=== PATIENT | female | born 1970 | race Caucasian/White ===

== ENCOUNTER 2016-02-20 17:00 | Emergency (ER) | payer MEDICAID ==
[~2016-02-20] VITALS: Ht 160 cm; Wt 132.4 kg
[~2016-02-20 17:00] MED LIST: AMLO5TAB2 PO; ARFO15VI2 IH; ASP81TEC PO; ATOR10TA66 PO; ATOR20TA66 PO; ATR20T PO; AZIT-21 PO; B/P MED PO; CEFD300C3 PO; CLIN150C17 PO; CYCL10TA9 PO; FISH12002 PO; FLUT16SP22 NS; FURO-124 PO; HYDR-757 PO; HYDR1CAP2 PO; HYDR25TA4 PO; KETO200T; LORA10CA PO; LOVA20TA2 PO; MELO15TA39 PO; METO-333 PO; METO50TA2 PO; MONT10TA24 PO; MTP25TSR PO; NAPR-243 PO; NAPR-689 PO; NITR-65 PO; OMEG1CAP51 PO; OMG1KC PO; PANT40TA3 PO; PNT40TEC PO; PRED10TA PO; PRM25T PO; PROM25SU10 PR; SULF1TAB38 PO; TRAM50TA2 PO
--- NOTE | 2016-02-20 18:00 | ED Back Pain ---
General Chief Complaint: Back Problems Stated Complaint: LOWER BACK PAIN Nursing Triage Note: AMBULATED TO ROOM 09 LAUGHING AND JOKING WITH FRINED. WOKE UP WITH LOWER BACK PAIN X3 DAYS AGO. DENIES INJURY OR TROUBLE URINATING. PT STATES SHE IS TAKING TYLENOL 1000MG PO Q6HR FOR PAIN. Nursing Sepsis Screen: No Definite Risk Source of Information: Patient, Other (friend) Exam Limitations: No Limitations History of Present Illness Time Seen by Provider: 18:00 Initial Comments 45-year-old female patient presents to the emergency department with complaints of 3 day onset of low back pain. Denies any known injury. Denies dysuria, frequency, hematuria. Patient states she took 1000 g of Tylenol every 6 hours for pain without improvement in symptoms. Location: Lumbar Spine, Paraspinous Muscles Timing/Duration: 1 Week Pain/Injury Location: Back Radiation: Other (denies radiation) Method of Injury: Unknown Modifying Factors: Worse With Movement Allergies and Home Medications Allergies Coded Allergies: Penicillins (Unverified Allergy, Mild, 05/22/08) Home Medications Amlodipine Besylate 5 Mg Tablet 5 MG PO DAILY (Reported) Aspirin 81 Mg Tabec 81 MG PO DAILY (Reported) Atorvastatin Calcium 20 Mg Tablet 20 MG PO HS (Reported) Cefdinir 300 Mg Capsule #14 300 MG PO BID Prescribed by: SHERRI PUENTES on 01/16/16 1625 Cyclobenzaprine HCl 10 Mg Tablet #14 10 MG PO Q8H PRN PRN SPASMS Prescribed by: RENETTA PRATHER on 02/20/161924 Furosemide 40 Mg Tablet 40 MG PO DAILY (Reported) Hydrochlorothiazide 25 Mg Tablet 25 MG PO DAILY (Reported) Loratadine 10 Mg Capsule #14 10 MG PO DAILY Prescribed by: SHERRI PUENTES on 08/22/14 1905 Meloxicam 15 Mg Tablet 15 MG PO DAILY (Reported) Metoprolol Tartrate 50 Mg Tablet 50 MG PO BID (Reported) Montelukast Sodium 10 Mg Tablet 10 MG PO HS (Reported) [place]-3 Fatty Acids/Fish Oil 1 Each Capsule 1,000 MG PO DAILY (Reported) Pantoprazole Sodium 40 Mg Tablet.dr 40 MG PO DAILY (Reported) Prednisone 20 Mg Tab #10 40 MG PO DAILY Prescribed by: RENETTA PRATHER on 02/20/161924 Tramadol HCl 50 Mg Tablet #20 50 MG PO Q6H PRN PRN PAIN Prescribed by: VIOLA GUNN on 08/12/15 1235 Tramadol HCl 50 Mg Tablet #20 50 MG PO Q4H PRN PRN PAIN Prescribed by: RENETTA PRATHER on 02/20/16 1925 Constitutional: No chills, No fever, No malaise Respiratory: no symptoms reported Cardiovascular: no symptoms reported Gastrointestinal: No abdominal pain, No constipation, No diarrhea, No loss of appetite, No nausea, No vomiting Genitourinary: No decreased output, No discharge, No dysuria, No frequency, No hematuria, No pain Musculoskeletal: see HPI back painNo joint pain, No neck pain Skin: no symptoms reported Psychiatric/Neurological: Denies Numbness, Denies Paresthesia, Denies Tingling , Denies Weakness All Other Systems Reviewed Negative Unless Noted: Yes (Negative excepted noted.) Past Syfucqc-Xdwkmq-Caqgjd Hx Patient Social History Recent Foreign Travel: No Contact w/Someone Who Travel: No Recent Infectious Disease Expo: No Recent Hopitalizations: No Immunizations Up To Date Tetanus Booster (TDap): More than 5yrs Date of Pneumonia Vaccine: Nov 24, 2011 Date of Influenza Vaccine: Dec 26, 2015 Seasonal Allergies Seasonal Allergies: No Surgeries HX Surgeries: Yes (D&C, Right knee arthroscopy) Respiratory Hx Respiratory Disorders: No Cardiovascular Hx Cardiac Disorders: Yes ("blockage in heart" 40-50%) Cardiac Disorders: Coronary Artery Disease, Congenital Heart Disease, High Cholesterol, Hypertension Neurological Hx Neurological Disorders: No Reproductive System Hx Reproductive Disorders: No Sexually Transmitted Disease: No HIV/AIDS: 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 Genitourinary Hx Genitourinary Disorders: Yes (hx of UTI's) Genitourinary Disorders: Bladder Infection Gastrointestinal Hx Gastrointestinal Disorders: Yes Gastrointestinal Disorders: Gastroesophageal Reflux Musculoskeletal Hx Musculoskeletal Disorders: Yes (Right knee arthritis) Musculoskeletal Disorders: Arthritis Endocrine Hx Endocrine Disorders: No HEENT HX ENT Disorders: No Cancer Hx Cancer: No Psychosocial Hx Psychiatric Problems: No Integumentary HX Skin/Integumentary Disorder: No Blood Transfusions Hx Blood Disorders: No Adverse Reaction to a Blood Tr: No Reviewed Nursing Assessment Reviewed/Agree w Nursing PMH: Yes Family Medical History Significant Family History: No Pertinent Family Hx Family Medial History: Hypertension 19 FATHER Not obtainable due to adoption G8 BROTHER (GOUT) Physical Exam Vital Signs Capillary Refill : Less Than 3 Seconds General Appearance: No Apparent Distress WD/WN HEENT: PERRL/EOMI Pharynx Normal Neck: Full Range of Motion Normal Inspection Non Tender Supple Cardiovascular: Regular Rate, Rhythm No Edema No Murmur Normal Peripheral Pulses Respiratory: Lungs Clear Normal Breath Sounds No Respiratory Distress Peripheral Pulses: 2+ Dorsalis Pedis (R), 2+ Left Dors-Pedis (L), 2+ Radial Pulses (R), 2+ Radial Pulses (L) Gastrointestinal: Normal Bowel Sounds Non Tender SoftNo Distended Back: Normal InspectionNo Decreased Range of Motion (patient moves without difficulty.), Muscle Spasm (low back)No Vertebral Tenderness, Other (low back paraspinal muscle tenderness.) Extremity: Normal Capillary Refill Normal Inspection Normal Range of Motion Non Tender No Pedal Edema Neurologic/Psychiatric: Alert Oriented x3 No Motor/Sensory Deficits Normal Mood/Affect Skin: Normal Color Warm/Dry Progress/Results/Core Measures Results/Orders Lab Results Laboratory Tests Test 02/20/16 18:10 Range/Units Urine Bacteria FEW H /HPF Urine Bilirubin NEGATIVE NEGATIVE Urine Casts NONE /LPF Urine Clarity CLEAR Urine Color YELLOW Urine Crystals NONE /LPF Urine Culture Indicated NO Urine Glucose (UA) 3+ H NEGATIVE Urine Ketones NEGATIVE NEGATIVE Urine Leukocyte Esterase NEGATIVE NEGATIVE Urine Mucus MODERATE H /LPF Urine Nitrite NEGATIVE NEGATIVE Urine Protein 2+ H NEGATIVE Urine RBC NONE /HPF Urine RBC (Auto) 3+ H NEGATIVE Urine Specific [place] 1.030 H 1.016-1.022 Urine Squamous Epithelial Cells 5-10 /HPF Urine Urobilinogen NORMAL NORMAL MG/DL Urine WBC RARE /HPF Urine pH 5 5-9 My Orders Orders-RENETTA PRATHER Ua Culture If Indicated (02/20/16 18:13) Urine Bedside (02/20/16 18:13) Ketorolac Injection (Toradol Injection) (02/20/16 18:36) Cyclobenzaprine Tablet (Flexeril Tablet) (02/20/16 19:18) Hydrocodone/Apap 7.5/325 Tab (Lortab 7. (02/20/16 19:18) Im/Sub-Q Injection Non-Ab Ed (02/20/16 ) Vital Signs/I&O Blood Pressure Mean: 112 Departure Communication Progress Notes Patient seen and evaluated. Given Toradol, hydrocodone, and Norflex for symptoms. Patient instructed to follow-up with Dr. Hebert as an outpatient for recheck. Impression Impression: Primary Impression: Low back pain Qualified Code: M54.5 - Low back pain Disposition: 01 HOME, SELF-CARE Condition: Improved Departure-Patient Inst. Decision time for Depature: 19:23 Referrals: KATERINA HEBERT MD (PCP/Family) Primary Care Physician Patient Instructions: Low Back Pain (DC) Add. Discharge Instructions: All discharge instructions reviewed with patient and/or family. Voiced understanding. Medications as instructed. Continue usual home medications. Tylenol extra strength [id number] 2 tablets by mouth every 6 hours as needed for pain. Ice packs or heating pads as needed for pain. No lifting, pushing, pulling, twisting, bending, climbing x7 days. Follow-up with family practitioner for recheck. Return to the emergency department for worsened symptoms or any other concerns. Scripts Tramadol HCl 50 Mg [id number] Mg PO Q4H PRN PAIN #20 TAB Ref 0 Prov:RENETTA PRATHER 02/20/16 Cyclobenzaprine HCl 10 Mg [id number] Mg PO Q8H PRN SPASMS #14 TAB Ref 0 Prov:RENETTA PRATHER 02/20/16 Prednisone 20 Mg Tab40 Mg PO DAILY #10 TAB Ref 0 Prov:RENETTA PRATHER 02/20/16 RENETTA PRATEHR Feb 20, 2016 18:00
[2016-02-20 18:27] LABS: BILIRUBIN,URINE NEGATIVE (NEGATIVE); KETONES,URINE NEGATIVE (NEGATIVE); LEUKOCYTE ESTERASE ,URINE NEGATIVE (NEGATIVE); NITRITE,URINE NEGATIVE (NEGATIVE); PH,URINE 5 (5-9); PROTEIN,URINE 2+ (NEGATIVE); UROBILINOGEN,URINE NORMAL (NORMAL); WBC,URINE RARE /HPF
[2016-02-20] MEDS ORDERED: KETOROLAC 60 MG/2 ML VIAL IM STA (18:36)
[2016-02-20] MEDS ORDERED: HYDROcodone/APAP 7.5 MG/325 MG (LORTAB, LORCET PLUS) TABLET PO STA (19:18)
[2016-02-20] MEDS ORDERED: CYCLOBENZAPRINE 10 MG (FLEXERIL) TAB PO STA (19:18)
[2016-02-20] MEDS ORDERED: TRAM50TA2 PO (19:25)
[2016-02-20] MEDS ORDERED: PRD20T PO (19:25)
[2016-02-20] MEDS ORDERED: CYCL10TA9 PO (19:25)
[2016-02-20 19:37] VITALS: BP 167/85
== END 2016-02-20 19:38 | disposition home or self-care (01) ==
LOC: EDUNIT# 17:00 → ER 17:01
DX: M54.5 Low back pain (principal); I10 Essential (primary) hypertension; Z79.82 Long term (current) use of aspirin; Z79.899 Other long term (current) drug therapy
CPT/HCPCS: 81000; 84703; 96372; 99283

== ENCOUNTER → 2016-03-04 | Outpatient (CLI) | payer MEDICAID ==
[~2016-03-04] MED LIST changes: +BLOO-274; +CHLO473M4 MM; +CLIN300C11 PO; +LIDO30JE10 MM; +PRD20T PO; +VENL150C98 PO; +[UNRECOGNIZED DRUG - CODE]
--- OUTSIDE RECORDS SUMMARY | 2016-03-04 12:01 | XMS REPORT | Continuity of Care Document ---
Author Author [facility] Organization [facility] Address Unknown Phone Unavailable Care Team Providers Care Health Associate Name Role Phone KATERINA HEBERT MD PCP Insurance Providers Payer Name Policy Number Subscriber Name Relationship [facility] [id number] Arianne Leiva 18 Self / Same As Patient Advance Directives Directive Response Recorded Date/Time Advance Directives No 01/16/16 3:50pm Health Care Power of Antenna Machine Operator No 01/16/16 3:50pm Organ Donor No 01/16/16 3:50pm Chief Complaint and Reason for Visit Chief Complaint Back Problems Reason for Visit Low back pain Problems Active Problems Medical Problem Onset Date Status BACK PAIN Unknown Acute BACK PAIN Unknown Acute Chest pain Unknown Acute Epigastric pain Unknown Acute Epigastric pain Unknown Acute Gastroesophageal reflux disease Unknown Acute Hypertension Unknown Acute Impacted cerumen of left ear Unknown Acute Impetigo Unknown Acute Knee pain Unknown Acute Low back pain Unknown Acute Lumbar radicular pain Unknown Acute Pain of left calf Unknown Acute Soft tissue infection Unknown Acute UTI Unknown Acute Upper respiratory infection Unknown Acute Medications Current Home Medications Medication Dose Units Route Directions Days/Qty Instructions Start Date Aspirin 81 Mg 81 Mg Oral Daily 11/27/11 [place]-3 Fatty Acids/Fish Oil 1 Each 1,000 Mg Oral Daily 09/13/13 Loratadine 10 Mg 10 Mg Oral Daily 08/22/14 Hydrochlorothiazide 25 Mg 25 Mg Oral Daily 02/05/15 Meloxicam 15 Mg 15 Mg Oral Daily 02/05/15 Atorvastatin Calcium 20 Mg 20 Mg Oral Bedtime 02/05/15 Montelukast Sodium 10 Mg 10 Mg Oral Bedtime 02/05/15 Metoprolol Tartrate 50 Mg 50 Mg Oral Twice A Day 02/05/15 Amlodipine Besylate 5 Mg 5 Mg Oral Daily 02/05/15 Pantoprazole Sodium 40 Mg 40 Mg Oral Daily 02/05/15 Furosemide 40 Mg 40 Mg Oral Daily 05/24/15 Tramadol Hcl 50 Mg 50 Mg Oral Every 6 Hours as needed for Pain 04/24 Cefdinir (Omnicef) 300 Mg 300 Mg Oral Twice A Day 01/16/16 Prednisone 20 Mg 40 Mg Oral Daily 02/20/16 Cyclobenzaprine Hcl 10 Mg 10 Mg Oral Every 8HRS as needed for Spasms 02/20/16 Tramadol Hcl 50 Mg 50 Mg Oral Every 4HRS as needed for Pain Past Home Medications Medication Directions Ordered Status Ketoconazole 200 Mg Tablet, 05/22/08 Discontinued Metoprolol Succinate (Metoprolol Er 25MG) 25 Mg Tab, 25 Mg Oral Twice A Day 05/22/08 Discontinued Acetaminophen/Hydrocodone Bitart (Lorcet-Hd) 1 Each Capsule, 2 Each Oral Q6hr Prn 09/20/09 Discontinued Arformoterol Tartrate 15 Mcg/2 Ml Vial.neb, 1 Each Inhalation Twice A Day 07/19 Discontinued Promethazine Hcl 25 Mg Tablet, 1 Tab Oral Four Times Daily as needed Discontinued Fish Oil 1,000 Mg Cap, 1000 Mg Oral Daily 11/24/11 Discontinued Lovastatin (Mevacor) 20 Mg Tablet, 20 Mg Oral Daily With Supper 11/27/11 Discontinued Atorvastatin Calcium 20 Mg Tablet, 1 Each Oral Daily 02/02/13 Discontinued Cyclobenzaprine Hcl (Flexeril) 10 Mg Tablet, 1 Each Oral Q8hr Prn 02/02/13 Discontinued Nitrofurantoin Macrocrystals 100 Mg Capsule, 1 Each Oral Twice A Day Discontinued Naproxen 500 Mg Tablet, 1 Each Oral Three Times A Day And Prn 02/02/13 Discontinued Fish Oil/Borage/Flax/Om3,6,9#1 1,200 Mg Capsule, 1200 Mg Oral Daily 09/13/13 Discontinued Metoprolol Tartrate 25 Mg Tablet, 25 Mg Oral Twice A Day 09/13/13 Discontinued Atorvastatin Calcium 10 Mg Tablet, 10 Mg Oral Daily 09/13/13 Discontinued Pantoprazole Sodium 40 Mg Tablet.dr, 1 Tab Oral Daily 09/14/13 Discontinued Trimethoprim/Sulfamethoxazole 1 Tab Tablet, 1 Tab Oral Twice A Day 09/14/13 Discontinued Naproxen 500 Mg Tablet, 1 Tab Oral Twice A Day 09/16/13 Discontinued [B/P Med] , Unknown Dose Oral Daily 08/05/14 Discontinued Prednisone 10 Mg Tablet, 40 Mg Oral Daily 08/05/14 Discontinued Hydrocodone Bit/Acetaminophen 1 Each Tablet, 1 Ea Oral Every 6 Hours as needed for Severe Pain 08/05/14 Discontinued Azithromycin (Zpak) 250 Mg Tab, 0 Oral Z-Diogo 08/22/14 Discontinued Fluticasone Propionate 16 Gm Naspr, 2 Sprays Nasal Daily 08/22/14 Discontinued Clindamycin Hcl 150 Mg Capsule, 450 Mg Oral Three Times A Day 05/24/15 Discontinued Social History Social History Problem Response Recorded Date/Time Alcohol Use Denies Use 08/12/2015 12:16pm Recreational Drug Use No 08/12/2015 12:16pm Recent Foreign Travel No 02/20/2016 5:23pm Recent Infectious Disease Exposure No 02/20/2016 5:23pm Sexually Transmitted Disease No 02/20/2016 5:26pm HIV/AIDS No 02/20/2016 5:26pm Do you dip or chew tobacco? No 08/12/2015 12:16pm Recent Hopitalizations No 02/20/2016 5:26pm Sexually Transmitted Disease No 02/20/2016 5:26pm Hospital Discharge Instructions No hospital discharge instructions. Plan of Care Discharge Date 02/20/16 7:38pm Disposition 01 HOME, SELF-CARE Condition at Discharge Improved Instructions/Education Provided Low Back Pain (DC) Prescriptions See Medication Section Referrals KATERINA HEBERT MD - Primary Care Physician Additional Instructions/Education All discharge instructions reviewed with patient and/or family. Voiced understanding. Medications as instructed. Continue usual home medications. Tylenol extra strength vvyw-kwv-[id number] 2 tablets by mouth every 6 hours as needed for pain. Ice packs or heating pads as needed for pain. No lifting, pushing, pulling, twisting, bending, climbing x7 days. Follow-up with family practitioner for recheck. Return to the emergency department for worsened symptoms or any other concerns. Functional Status No functional status results. Allergies, Adverse Reactions, Alerts Allergen Type Severity Reaction Status Last Updated Penicillins ([id number]) Allergy Mild Active 05/22/08 Immunizations No immunization records. Vital Signs Acute Vital Signs Vital Response Date/Time Temperature (Fahrenheit) 97.7 degrees F (97.6 - 99.5) 02/20/2016 7:37pm Temperature (Calculated Celsius) 36.24081 degrees C (36.4 - 37.5) 02/20/2016 7:37pm Temperature Source Tympanic 02/20/2016 7:37pm Pulse Rate (adult) 78 bpm (60 - 90) 02/20/2016 7:37pm Respiratory Rate 18 bpm (12 - 24) 02/20/2016 7:37pm O2 Sat by Pulse Oximetry 98 % (88 - 100) 02/20/2016 7:37pm Blood Pressure 167/85 mm Hg 02/20/2016 7:37pm Blood Pressure Mean 112 mm Hg 02/20/2016 5:23pm Pain Numeric Pain Scale 8 02/20/2016 7:37pm Pain Numeric Pain Scale 8 02/20/2016 7:37pm Height (Feet) 5 feet 02/20/2016 5:23pm Height (Inches) 3 inches 02/20/2016 5:23pm Height (Calculated Centimeters) 160.556072 cm 02/20/2016 5:23pm Weight (Pounds) 292 pounds 02/20/2016 5:23pm Weight (Calculated Kilograms) 132.713543 kilograms 02/20/2016 5:23pm Capillary Refill Capillary Refill Less Than 3 Seconds 02/20/2016 5:23pm Height 5 ft 3 in Weight 292 lb Body Mass Index 51.7 kg/m^2 Results Laboratory Results Test Name Result Units Flags Reference Collection Date/Time Result Date/ Time Comments Urine Color YELLOW 02/20/2016 6:10pm 02/20/2016 6:27pm Urine Clarity CLEAR 02/20/2016 6:10pm 02/20/2016 6:27pm Urine pH 5 5-9 02/20/2016 6:10pm 02/20/2016 6:27pm Urine Specific [place] 1.030 * 1.016-1.022 02/20/2016 6:10pm 2016 6:27pm Urine Protein 2+ * NEGATIVE 02/20/2016 6:10pm 02/20/2016 6:27pm Urine Glucose (UA) 3+ * NEGATIVE 02/20/2016 6:10pm 02/20/2016 6:27pm Urine RBC (Auto) 3+ * NEGATIVE 02/20/2016 6:10pm 02/20/2016 6:27pm Urine Ketones NEGATIVE NEGATIVE 02/20/2016 6:10pm 02/20/2016 6:27pm Urine Nitrite NEGATIVE NEGATIVE 02/20/2016 6:10pm 02/20/2016 6:27pm Urine Bilirubin NEGATIVE NEGATIVE 02/20/2016 6:10pm 02/20/2016 6: 27pm Urine Urobilinogen NORMAL MG/DL NORMAL 02/20/2016 6:10pm 02/20/2016 6: 27pm Urine Leukocyte Esterase NEGATIVE NEGATIVE 02/20/2016 6:10pm 2016 6:27pm Urine RBC NONE /HPF 02/20/2016 6:10pm 02/20/2016 6:27pm Urine WBC RARE /HPF 02/20/2016 6:10pm 02/20/2016 6:27pm Urine Bacteria FEW /HPF * 02/20/2016 6:10pm 02/20/2016 6:27pm Urine Squamous Epithelial Cells 5-10 /HPF 02/20/2016 6:10pm 2016 6:27pm Urine Crystals NONE /LPF 02/20/2016 6:10pm 02/20/2016 6:27pm Urine Casts NONE /LPF 02/20/2016 6:10pm 02/20/2016 6:27pm Urine Mucus MODERATE /LPF * 02/20/2016 6:10pm 02/20/2016 6:27pm Urine Culture Indicated NO 02/20/2016 6:10pm 02/20/2016 6:27pm Procedures No known history of procedures. Encounters Encounter Location Arrival/Admit Date Discharge/Depart Date Attending Provider Departed Emergency Room [facility] 02/20/16 5:01pm 02/19 7:38pm RENETTA PRATHER Recent Diagnosis
--- NOTE | 2016-03-04 12:33 | Diagnostic Imaging Report ---
INDICATION: Back pain. AP and lateral views of the lumbar spine are obtained. FINDINGS: Lumbar spinal curvature and alignment are within normal limits. Vertebral body heights and disc spaces are maintained. There is mild endplate spurring. Mild sclerosis is noted about the L5-S1 facet joints. IMPRESSION: Early degenerative change in the lower lumbar spine without acute abnormality detected. Dictated by: Dictated on workstation # [id number]
--- NOTE | 2016-03-04 13:07 | Diagnostic Imaging Report ---
INDICATION: Back pain. TECHNIQUE: AP and lateral views of the thoracic spine were obtained. FINDINGS: The thoracic spinal curvature and alignment are within normal limits. There is mild diffuse endplate spurring in the mid and lower thoracic spine; however, the vertebral body heights are maintained. There is no evidence of fracture. No paraspinous hematoma is seen. IMPRESSION: Mild thoracic spondylosis without acute abnormality detected. Dictated by: Dictated on workstation # [id number]
== END ==
LOC: RAD 11:55
DX: M46.04 Spinal enthesopathy, thoracic region (principal)
CPT/HCPCS: 72070; 72100

== ENCOUNTER → 2016-04-08 | Outpatient (CLI) | payer MEDICAID ==
--- OUTSIDE RECORDS SUMMARY | 2016-04-08 09:40 | XMS REPORT | Continuity of Care Document ---
Author Author [facility] Organization [facility] Address Unknown Phone Unavailable Care Team Providers Care Extermination Inspector Name Role Phone KATERINA HEBERT MD PCP Insurance Providers Payer Name Policy Number Subscriber Name Relationship [facility] [id number] Arianne Leiva 18 Self / Same As Patient Advance Directives Directive Response Recorded Date/Time Advance Directives No 01/16/16 3:50pm Health Care Power of Alteration Workroom Supervisor No 01/16/16 3:50pm Organ Donor No 01/16/16 [...] 81 Mg 81 Mg Oral Daily 11/27/11 [place]-3 Fatty Acids/Fish Oil 1 Each 1,000 Mg [...] Continue usual home medications. Tylenol extra strength [id number]-[id number] 2 tablets by mouth every 6 hours [...] Type Severity Reaction Status Last Updated Penicillins ([id number]) Allergy Mild Active 05/22/08 Immunizations No immunization records. Vital Signs Acute Vital Signs Vital Response Date/Time Temperature (Fahrenheit) 97.7 degrees F (97.6 - 99.5) 02/20/2016 7:37pm Temperature (Calculated Celsius) 36.32818 degrees C (36.4 - 37.5) 02/20/2016 7:37pm [...] 3 inches 02/20/2016 5:23pm Height (Calculated Centimeters) 160.743099 cm 02/20/2016 5:23pm Weight (Pounds) 292 pounds 02/20/2016 5:23pm Weight (Calculated Kilograms) 132.542952 kilograms 02/20/2016 5:23pm Capillary Refill Capillary Refill [...] 5-9 02/20/2016 6:10pm 02/20/2016 6:27pm Urine Specific [place] 1.030 * 1.016-1.022 02/20/2016 6:10pm 2016 6:27pm [...] Date Attending Provider Departed Emergency Room [facility] 02/20/16 5:01pm 02/19 7:38pm RENETTA PRATHER Recent Diagnosis
--- NOTE | 2016-04-09 20:21 | Diagnostic Imaging Report ---
Bilateral screening mammogram The current study was also evaluated with a Computer Aided Detection (CAD) system. Indication: Screening. No current complaints stated on the questionnaire. COMPARISON: 09/19/14. FINDINGS: The breasts are composed of scattered fibroglandular densities. There is benign-appearing calcifications seen. Allowing for technique and positional differences, no suspicious change is seen. IMPRESSION: No significant change. ACR BI-RADS Category 2: Benign findings. Result letter will be mailed to the patient. Note: At least 10% of breast cancer is not imaged by mammography. Dictated by: Dictated on workstation # [id number]
== END ==
LOC: RAD 09:36
DX: Z12.31 Encounter for screening mammogram for malignant neoplasm of breast (principal)
CPT/HCPCS: 77067

== ENCOUNTER 2016-04-23 13:22 | Outpatient (RCR) | payer MEDICAID ==
--- OUTSIDE RECORDS SUMMARY | 2016-03-17 14:02 | XMS REPORT | Continuity of Care Document ---
Author Author [facility] Organization [facility] Address Unknown Phone Unavailable Care Team Providers Care Clinic Office Manager Name Role Phone KATERINA HEBERT MD PCP Insurance Providers Payer Name Policy Number Subscriber Name Relationship [facility] [id number] Arianne Leiva 18 Self / Same As Patient Advance Directives Directive Response Recorded Date/Time Advance Directives No 01/16/16 3:50pm Health Care Power of Adjunct Art History Instructor No 01/16/16 3:50pm Organ Donor No 01/16/16 [...] 81 Mg 81 Mg Oral Daily 11/27/11 [place]-3 Fatty Acids/Fish Oil 1 Each 1,000 Mg [...] Continue usual home medications. Tylenol extra strength lqjf-osw-lzzyehm 2 tablets by mouth every 6 hours [...] Type Severity Reaction Status Last Updated Penicillins ([id number]) Allergy Mild Active 05/22/08 Immunizations No immunization records. Vital Signs Acute Vital Signs Vital Response Date/Time Temperature (Fahrenheit) 97.7 degrees F (97.6 - 99.5) 02/20/2016 7:37pm Temperature (Calculated Celsius) 36.83527 degrees C (36.4 - 37.5) 02/20/2016 7:37pm [...] 3 inches 02/20/2016 5:23pm Height (Calculated Centimeters) 160.149254 cm 02/20/2016 5:23pm Weight (Pounds) 292 pounds 02/20/2016 5:23pm Weight (Calculated Kilograms) 132.659137 kilograms 02/20/2016 5:23pm Capillary Refill Capillary Refill [...] 5-9 02/20/2016 6:10pm 02/20/2016 6:27pm Urine Specific [place] 1.030 * 1.016-1.022 02/20/2016 6:10pm 2016 6:27pm [...] Date Attending Provider Departed Emergency Room [facility] 02/20/16 5:01pm 02/19 7:38pm RENETTA PRATHER Recent Diagnosis
[~2016-04-23 13:22] MED LIST changes: -BLOO-274; -CHLO473M4 MM; -CLIN300C11 PO; -LIDO30JE10 MM; -VENL150C98 PO; -[UNRECOGNIZED DRUG - CODE]
== END 2016-04-25 10:49 | disposition home or self-care (01) ==
DX: M54.5 Low back pain (principal)

== ENCOUNTER → 2016-05-23 | Outpatient (CLI) | payer MEDICAID ==
[~2016-05-23] MED LIST changes: +BLOO-274; +CHLO473M4 MM; +CLIN300C11 PO; +LIDO30JE10 MM; +VENL150C98 PO; +[UNRECOGNIZED DRUG - CODE]
[2016-05-23 11:00] LABS: MEAN PLATELET VOLUME 8.8 FL (7.4-10.4); RED BLOOD COUNT 4.71 10^6/uL (4.35-5.85); RED CELL DISTRIBUTION WIDTH 12.4 % (10.0-14.5); WHITE BLOOD COUNT 9.3 10^3/uL (4.3-11.0)
[2016-05-23 11:26] LABS: ANION GAP 9 MMOL/L (5-14); BILIRUBIN,TOTAL 0.5 MG/DL (0.1-1.0); BLOOD UREA NITROGEN 11 MG/DL (7-18); BUN/CREATININE RATIO 15; CALCIUM 8.5 MG/DL (8.5-10.1); CARBON DIOXIDE 21 MMOL/L (21-32); CHLORIDE 105 MMOL/L (98-107); CREATININE SERUM 0.74 MG/DL (0.60-1.30); GFR ESTIMATED > 60; GLUCOSE 201 MG/DL (70-105); POTASSIUM 4.1 MMOL/L (3.6-5.0); SODIUM 135 MMOL/L (135-145)
[2016-05-23 11:27] LABS: ALANINE AMINOTRANSFERASE 16 U/L (0-55); ALBUMIN 3.6 G/DL (3.2-4.5); ASPARTATE AMINO TRANSFERASE 12 U/L (5-34); CHOLESTEROL 158 MG/DL (< 200); DIRECT LDL 95 MG/DL (1-129); TOTAL PROTEIN 6.9 G/DL (6.4-8.2); TRIGLYCERIDES 128 MG/DL (<150); VLDL CHOLESTEROL 26 MG/DL (5-40)
[2016-05-23 11:46] LABS: THYROID STIMULATING HORMONE 1.32 UIU/ML (0.35-4.94)
== END ==
LOC: LAB 10:45
DX: R53.83 Other fatigue (principal); E78.5 Hyperlipidemia, unspecified; R73.09 Other abnormal glucose
CPT/HCPCS: 36415; 80053; 80061; 83036; 84443; 85027

== ENCOUNTER 2016-06-19 20:31 | Emergency (ER) | payer MEDICAID ==
[~2016-06-19] VITALS: Ht 160 cm; Wt 136.1 kg
[~2016-06-19 20:31] MED LIST changes: -BLOO-274; -CHLO473M4 MM; -CLIN300C11 PO; -LIDO30JE10 MM; -VENL150C98 PO; -[UNRECOGNIZED DRUG - CODE]
[2016-06-19] MEDS ORDERED: VENL150C98 PO (20:42)
[2016-06-19] MEDS ORDERED: CLIN300C11 PO (20:42)
[2016-06-19] MEDS ORDERED: [UNRECOGNIZED DRUG - CODE] (20:42)
[2016-06-19] MEDS ORDERED: BLOO-274 (20:42)
--- NOTE | 2016-06-19 20:42 | ED EENT ---
History of Present Illness General Stated Complaint: TOOTH PAIN Source: patient Exam Limitations: no limitations History of Present Illness Time seen by provider: 20:39 Initial Comments To ER with right lower dental pain for the past few weeks. She is currently on clindamycin from [facility] for this. Today however a small bump appeared near the tooth and pain worsened. Timing/Duration: gradual Severity: moderate Location: dental Prearrival Treatment: prescription meds Allergies and Home Medications Allergies Coded Allergies: Penicillins (Unverified Allergy, Mild, 05/22/08) Home Medications Amlodipine Besylate 5 Mg Tablet, 5 MG PO DAILY, (Reported) Aspirin 81 Mg Tabec, 81 MG PO DAILY, (Reported) Atorvastatin Calcium 20 Mg Tablet, 20 MG PO HS, (Reported) Clindamycin HCl 300 Mg Capsule, 1 CAP PO UD, #31 (Reported) Cyclobenzaprine HCl 10 Mg Tablet, 10 MG PO Q8H PRN for SPASMS, #14 Ref 0 Prescribed by: RENETTA PRATHER on 02/20/161924 Furosemide 40 Mg Tablet, 40 MG PO DAILY, (Reported) Hydrochlorothiazide 25 Mg Tablet, 25 MG PO DAILY, (Reported) Loratadine 10 Mg Capsule, 10 MG PO DAILY, #14 Prescribed by: SHERRI PUENTES on 08/22/141904 Meloxicam 15 Mg Tablet, 15 MG PO DAILY, (Reported) Metoprolol Tartrate 50 Mg Tablet, 50 MG PO BID, (Reported) Montelukast Sodium 10 Mg Tablet, 10 MG PO HS, (Reported) [place]-3 Fatty Acids/Fish Oil 1 Each Capsule, 1,000 MG PO DAILY, (Reported) Pantoprazole Sodium 40 Mg Tablet.dr, 40 MG PO DAILY, (Reported) Prednisone 20 Mg Tab, 40 MG PO DAILY, #10 Ref 0 Prescribed by: RENETTA PRATHER on 02/20/161924 Tramadol HCl 50 Mg Tablet, 50 MG PO Q6H PRN for PAIN, #20 Prescribed by: VIOLA GUNN on 08/12/15 1235 Tramadol HCl 50 Mg Tablet, 50 MG PO Q4H PRN for PAIN, #20 Ref 0 Prescribed by: RENETTA PRATHER on 02/20/161924 Venlafaxine HCl 150 Mg Cap.er.24h, 1 CAP PO UD, #30 (Reported) Review of Systems Constitutional: see HPI Eyes: No Symptoms Reported Ears: No Symptoms Reported Nose: no symptoms reported Mouth: see HPI, pain Throat: no symptoms reported Respiratory: no symptoms reported Cardiovascular: no symptoms reported Past Srbzeza-Osqdux-Ignnxc Hx Patient Social History Recent Foreign Travel: No Contact w/Someone Who Travel: No Recent Hopitalizations: No Immunizations Up To Date Tetanus Booster (TDap): More than 5yrs Date of Pneumonia Vaccine: Nov 24, 2011 Date of Influenza Vaccine: Dec 26, 2015 Seasonal Allergies Seasonal Allergies: No Surgeries HX Surgeries: Yes (D&C, Right knee arthroscopy) Respiratory Hx Respiratory Disorders: No Cardiovascular Hx Cardiac Disorders: Yes ("blockage in heart" 40-50%) Cardiac Disorders: Coronary Artery Disease, Congenital Heart Disease, High Cholesterol, Hypertension Neurological Hx Neurological Disorders: No Reproductive System Hx Reproductive Disorders: No Sexually Transmitted Disease: No 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 Genitourinary Hx Genitourinary Disorders: Yes (hx of UTI's) Genitourinary Disorders: Bladder Infection Gastrointestinal Hx Gastrointestinal Disorders: Yes Gastrointestinal Disorders: Gastroesophageal Reflux Musculoskeletal Hx Musculoskeletal Disorders: Yes (Right knee arthritis) Musculoskeletal Disorders: Arthritis Endocrine Hx Endocrine Disorders: No HEENT HX ENT Disorders: No Cancer Hx Cancer: No Psychosocial Hx Psychiatric Problems: No Integumentary HX Skin/Integumentary Disorder: No Blood Transfusions Hx Blood Disorders: No Adverse Reaction to a Blood Tr: No Family Medical History Significant Family History: No Pertinent Family Hx Family Medial History: Hypertension 19 FATHER Not obtainable due to adoption G8 BROTHER (GOUT) Physical Exam Vital Signs Vital Sign - Last 12Hours 06/19/16 20:43 Temp 98.0 Pulse 113 Resp 18 B/P (MAP) 137/102 Pulse Ox 98 O2 Delivery Room Air General Appearance: WD/WN, no apparent distress Eyes: bilateral eye EOMI, bilateral eye PERRL, bilateral eye normal inspection Ears: bilateral ear TM normal, bilateral ear auricle normal, bilateral ear canal normal Mouth/Throat: No mandibular swelling, No maxillary swelling, other (physical small pustule on the buccal mucosa side of the right lower molar) Neck: non-tender, full range of motion, No lymphadenopathy (R), No lymphadenopathy (L) Cardiovascular: regular rate, rhythm, no murmur Respiratory: no respiratory distress, no accessory muscle use Gastrointestinal: normal bowel sounds, non tender, soft Neurologic/Psychiatric: alert, normal mood/affect, oriented x 3 Skin: normal color, warm/dry Progress/Results/Core Measures Results/Orders My Orders Orders - SHERRI PUENTES APRN Lidocaine/Epi 1% 1:100,000 (Xylocaine /E (06/19/16 20:45) Rx-Hydrocodone/Apap 5-325 Mg (Rx-Vicodin (06/19/16 20:45) Medications Given in ED Current Medications Medications Dose Ordered Sig/Sissy Route Start Time Stop Time Status Last Admin Dose Admin Acetaminophen/ Hydrocodone Bitart 1 ea Q4H PRN PO 06/19/16 20:45 06/19/16 20:51 1 EA Lidocaine/ Epinephrine 2 ml ONCE ONCE INJ 06/19/16 20:45 06/19/16 20:46 DC 06/19/16 20:50 2 ML Vital Signs/I&O Vital Sign - Last 12Hours 06/19/16 20:43 Temp 98.0 Pulse 113 Resp 18 B/P (MAP) 137/102 Pulse Ox 98 O2 Delivery Room Air Departure Communication Progress Notes 2057-patient was given 1.5 milliliters of 1 percent lidocaine with epinephrine. This was done as an inferior alveolar nerve block on the right with adequate anesthesia achieved. The small pustule on the buccal mucosa of the right molar tooth was incised with an 11 blade scalpel. A very small amount of purulent material was expressed. Impression Impression: Primary Impression: Dental abscess Disposition: 01 HOME, SELF-CARE Condition: Stable Departure-Patient Inst. Decision time for Depature: 20:41 Referrals: KATERINA HEBERT MD (PCP) Primary Care Physician GURVINDER DIAZ MD FACP FAC CCDS (Family) Primary Care Physician Patient Instructions: Tooth Abscess (DC) Add. Discharge Instructions: 1. Warm compresses to this part of your jaw 2. Continue the clindamycin antibiotics 3. Pain medication as needed 3. Call [facility] tomorrow to inform them of your dental abscess and need to be seen as soon as possible. Scripts Lidocaine HCl (Lidocaine HCl) 30 Ml Jel..ml. 2 ML MM BID PRN, #1 EACH Prov: SHERRI PUENTES APRN 06/19/16 Chlorhexidine Gluconate (Peridex) 473 Ml Mouthwash 30 ML MM BID, #473 ML Prov: SHERRI PUENTES APRN 06/19/16 SHERRI PUENTES APRN June 19, 2016 20:41
[2016-06-19] MEDS ORDERED: LIDOCAINE/EPI 1%-1:100,000 (XYLOCAINE) 20ML INJ ONE (20:45)
[2016-06-19] MEDS ORDERED: RX-HYDROCODONE/APAP 5/325 MG #4 TAB PK PO PRN (20:45)
[2016-06-19] MEDS ORDERED: CHLO473M4 MM (21:02)
[2016-06-19] MEDS ORDERED: LIDO30JE10 MM (21:02)
[2016-06-19 21:14] VITALS: BP 137/102
== END 2016-06-19 21:10 | disposition home or self-care (01) ==
LOC: EDUNIT# 20:31 → ER 20:33
DX: K04.7 Periapical abscess without sinus (principal); I25.10 Atherosclerotic heart disease of native coronary artery without angina pectoris; I10 Essential (primary) hypertension; Z79.82 Long term (current) use of aspirin; Z79.899 Other long term (current) drug therapy
CPT/HCPCS: 99283

== ENCOUNTER 2016-07-12 19:08 | Emergency (ER) | payer MEDICAID ==
[~2016-07-12] VITALS: Ht 160 cm; Wt 136.3 kg
[~2016-07-12 19:08] MED LIST changes: +BLOO-274; +CHLO473M4 MM; +CLIN300C11 PO; +LIDO30JE10 MM; +VENL150C98 PO; +[UNRECOGNIZED DRUG - CODE]
[2016-07-12] MEDS ORDERED: METF500T4 (20:05)
--- NOTE | 2016-07-12 21:49 | ED General ---
General Chief Complaint: General Problems/Pain Stated Complaint: BOTH LEGS SWOLLEN/MOUTH PAIN Nursing Triage Note: c/o bilateral leg pain and mouth pain after getting tooth pulled Nursing Sepsis Screen: No Definite Risk Source of Information: Patient Exam Limitations: No Limitations History of Present Illness Time Seen by Provider: 21:48 Initial Comments 46-year-old female patient presents to the emergency department with complaints of Allergies and Home Medications Allergies Coded Allergies: Penicillins (Unverified Allergy, Mild, 05/22/08) Home Medications Amlodipine Besylate 5 Mg Tablet, 5 MG PO DAILY, (Reported) Aspirin 81 Mg Tabec, 81 MG PO DAILY, (Reported) Atorvastatin Calcium 20 Mg Tablet, 20 MG PO HS, (Reported) Cyclobenzaprine HCl 10 Mg Tablet, 10 MG PO Q8H PRN for SPASMS, #14 Ref 0 Prescribed by: RENETTA PRATHER on 02/20/16 192 Furosemide 40 Mg Tablet, 40 MG PO DAILY, (Reported) Hydrochlorothiazide 25 Mg Tablet, 25 MG PO DAILY, (Reported) Lidocaine HCl 30 Ml Jel..ml., 2 ML MM BID PRN, #1 Prescribed by: SHERRI PUENTES on 06/19/16 2102 Loratadine 10 Mg Capsule, 10 MG PO DAILY, #14 Prescribed by: SHERRI PUENTES on 08/22/14 1905 Meloxicam 15 Mg Tablet, 15 MG PO DAILY, (Reported) Metformin HCl 500 Mg Tablet, #60 (Reported) Metoprolol Tartrate 50 Mg Tablet, 50 MG PO BID, (Reported) Montelukast Sodium 10 Mg Tablet, 10 MG PO HS, (Reported) [place]-3 Fatty Acids/Fish Oil 1 Each Capsule, 1,000 MG PO DAILY, (Reported) Pantoprazole Sodium 40 Mg Tablet.dr, 40 MG PO DAILY, (Reported) Tramadol HCl 50 Mg Tablet, 50 MG PO Q6H PRN for PAIN, #20 Prescribed by: VIOLA GUNN on 08/12/15 1235 Venlafaxine HCl 150 Mg Cap.er.24h, 1 CAP PO UD, #30 (Reported) Past Jrvbccg-Wazhae-Utyovr Hx Patient Social History Alcohol Use: Denies Use Recreational Drug Use: No Smoking Status: Never a Smoker 2nd Hand Smoke Exposure: No Recent Foreign Travel: No Contact w/Someone Who Travel: No Recent Infectious Disease Expo: No Recent Hopitalizations: No Immunizations Up To Date Tetanus Booster (TDap): More than 5yrs Date of Pneumonia Vaccine: Nov 24, 2011 Date of Influenza Vaccine: Dec 26, 2015 Seasonal Allergies Seasonal Allergies: No Surgeries HX Surgeries: Yes (D&C, Right knee arthroscopy) Respiratory Hx Respiratory Disorders: No Cardiovascular Hx Cardiac Disorders: Yes ("blockage in heart" 40-50%) Cardiac Disorders: Coronary Artery Disease, Congenital Heart Disease, High Cholesterol, Hypertension Neurological Hx Neurological Disorders: No Reproductive System Hx Reproductive Disorders: No Sexually Transmitted Disease: No 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 Genitourinary Hx Genitourinary Disorders: Yes (hx of UTI's) Genitourinary Disorders: Bladder Infection Gastrointestinal Hx Gastrointestinal Disorders: Yes Gastrointestinal Disorders: Gastroesophageal Reflux Musculoskeletal Hx Musculoskeletal Disorders: Yes (Right knee arthritis) Musculoskeletal Disorders: Arthritis Endocrine Hx Endocrine Disorders: No Endocrine Disorders: Diabetes, Non-Insulin dep HEENT HX ENT Disorders: No Cancer Hx Cancer: No Psychosocial Hx Psychiatric Problems: No Behavioral Health Disorders: Depression Integumentary HX Skin/Integumentary Disorder: No Blood Transfusions Hx Blood Disorders: No Adverse Reaction to a Blood Tr: No Family Medical History Significant Family History: No Pertinent Family Hx Family Medial History: Hypertension 19 FATHER Not obtainable due to adoption G8 BROTHER (GOUT) Physical Exam Vital Signs Vital Sign - Last 12Hours 07/12/16 20:02 Temp 98.2 Pulse 83 Resp 18 B/P (MAP) 163/98 Pulse Ox 99 Capillary Refill : Less Than 3 Seconds Progress/Results/Core Measures Results/Orders My Orders Orders - RENETTA PRATHER Hydrocodone/Apap 10/325 Tablet (Lortab 1 (07/12/16 22:01) Us Venous Lower Ext Baldemar (07/12/16 22:01) Vital Signs/I&O Vital Sign - Last 12Hours 07/12/16 20:02 Temp 98.2 Pulse 83 Resp 18 B/P (MAP) 163/98 Pulse Ox 99 Blood Pressure Mean: 119 Diagnostic Imaging Diagonstic Imaging: Ultrasound Plain Films/CT/US/NM/MRI: leg Comments No obvious DVT. Poor evaluation the mid and distal femoral veins as well as the calf veins per statrad report. Reviewed: Other (statrad report reviewed) Departure Impression Impression: Primary Impression: Dental infection Additional Impression: Bilateral leg pain Disposition: 01 HOME, SELF-CARE Condition: Improved Departure-Patient Inst. Decision time for Depature: 23:34 Referrals: KATERINA HEBERT MD (PCP) Primary Care Physician GURVINDER DIAZ MD [facility]S (Family) Primary Care Physician Patient Instructions: Acute Pain, Adult (DC) Add. Discharge Instructions: All discharge instructions reviewed with patient and/or family. Voiced understanding. Dictations as instructed. Tylenol extra strength over-the- counter as directed for pain. Ibuprofen 800 mg as needed for pain. Soft diet. Elevate the bilateral lower extremities on pillows. Follow-up with your family practitioner this week for recheck. Call for appointment time. Return to the emergency department for worsened pain, swelling, discoloration, fever, vomiting, facial swelling, or any other concerns. Scripts Tramadol HCl (Tramadol HCl) 50 Mg Tablet 50 MG PO Q4H Y for pain, #14 TAB 0 Refills Prov: RENETTA PRATHER 07/12/16 Cephalexin (Cephalexin) 500 Mg Capsule 500 MG PO TID for 7 Days, #21 CAP 0 Refills Prov: RENETTA PRATHER 07/12/16 RENETTA PRATHER Jul 12, 2016 21:48
[2016-07-12] MEDS ORDERED: HYDROcodone/APAP 10 MG/325 MG (LORTAB) TAB PO STA (22:01)
[2016-07-12] MEDS ORDERED: TRAM50TA2 PO (23:37)
[2016-07-12] MEDS ORDERED: CEPH500C PO (23:37)
[2016-07-12 23:43] VITALS: BP 163/98
--- NOTE | 2016-07-13 06:46 | Diagnostic Imaging Report ---
INDICATION: Bilateral lower extremity edema. TECHNIQUE: Multiple real-time grayscale images were obtained of both lower extremities in various projections. Duplex Doppler and color Doppler images were also obtained. FINDINGS: The examination is technically limited due to patient's body habitus and edema. There is particularly limited evaluation of the mid femoral veins. The visualized venous system is, however, widely patent and demonstrate normal response to compression, augmentation, and Valsalva. There are no abnormal fluid collections or masses. IMPRESSION: Technically limited exam due to body habitus and edema, however, no definitive sonographic evidence of deep venous thrombosis. Dictated by: Dictated on workstation # [id number]
== END 2016-07-12 23:43 | disposition home or self-care (01) ==
LOC: EDUNIT# 19:08 → ER 19:10
DX: K04.7 Periapical abscess without sinus (principal); M79.605 Pain in left leg; M79.604 Pain in right leg; E11.9 Type 2 diabetes mellitus without complications; I10 Essential (primary) hypertension; I25.10 Atherosclerotic heart disease of native coronary artery without angina pectoris; Q24.8 Other specified congenital malformations of heart; Z87.39 Personal history of other diseases of the musculoskeletal system and connective tissue; Z79.84 Long term (current) use of oral hypoglycemic drugs; Z79.82 Long term (current) use of aspirin
CPT/HCPCS: 93970; 99285

== ENCOUNTER → 2016-07-27 | Emergency (ER) | payer MEDICAID ==
[~2016-07-27] VITALS: Ht 160 cm; Wt 136.1 kg
[~2016-07-27] MED LIST changes: +CEPH500C PO; +METF500T4; +ORPH100T PO; +ORPHENADRINE 60 MG/2 ML (NORFLEX) AMP IM ONE
--- NOTE | 2016-07-27 19:22 | ED Back Pain ---
General Chief Complaint: Back Problems Stated Complaint: KNOT IN BACK Source of Information: Patient Exam Limitations: No Limitations History of Present Illness Time Seen by Provider: 19:20 Initial Comments To ER with reports of an "knot in her back". She just noticed this today. Pain is worsened by movement that she denies any cough or shortness of breath. Location: T-Spine Timing/Duration: 1-2 Days Severity: Moderate Allergies and Home Medications Allergies Coded Allergies: Penicillins (Unverified Allergy, Mild, 05/22/08) Home Medications Amlodipine Besylate 5 Mg Tablet, 5 MG PO DAILY, (Reported) Aspirin 81 Mg Tabec, 81 MG PO DAILY, (Reported) Atorvastatin Calcium 20 Mg Tablet, 20 MG PO HS, (Reported) Cephalexin 500 Mg Capsule, 500 MG PO TID for 7 Days, #21 Ref 0 Prescribed by: RENETTA PRATHER on 07/12/162336 Cyclobenzaprine HCl 10 Mg Tablet, 10 MG PO Q8H PRN for SPASMS, #14 Ref 0 Prescribed by: RENETTA PRATHER on 02/20/16 192 Furosemide 40 Mg Tablet, 40 MG PO DAILY, (Reported) Hydrochlorothiazide 25 Mg Tablet, 25 MG PO DAILY, (Reported) Lidocaine HCl 30 Ml Jel..ml., 2 ML MM BID PRN, #1 Prescribed by: SHERRI PUENTES on 06/19/162101 Loratadine 10 Mg Capsule, 10 MG PO DAILY, #14 Prescribed by: SHERRI PUENTES on 08/22/14 1905 Meloxicam 15 Mg Tablet, 15 MG PO DAILY, (Reported) Metformin HCl 500 Mg Tablet, #60 (Reported) Metoprolol Tartrate 50 Mg Tablet, 50 MG PO BID, (Reported) Montelukast Sodium 10 Mg Tablet, 10 MG PO HS, (Reported) [place]-3 Fatty Acids/Fish Oil 1 Each Capsule, 1,000 MG PO DAILY, (Reported) Pantoprazole Sodium 40 Mg Tablet.dr, 40 MG PO DAILY, (Reported) Tramadol HCl 50 Mg Tablet, 50 MG PO Q6H PRN for PAIN, #20 Prescribed by: VIOLA GUNN on 08/12/15 1235 Tramadol HCl 50 Mg Tablet, 50 MG PO Q4H PRN for pain, #14 Ref 0 Prescribed by: RENETTA PRATHER on 07/12/16 233 Venlafaxine HCl 150 Mg Cap.er.24h, 1 CAP PO UD, #30 (Reported) Constitutional: see HPI EENTM: see HPI Respiratory: no symptoms reported Cardiovascular: no symptoms reported Genitourinary: no symptoms reported Musculoskeletal: see HPI Skin: no symptoms reported Psychiatric/Neurological: No Symptoms Reported Past Ysgmzcz-Kxdwvv-Sldahb Hx Patient Social History 2nd Hand Smoke Exposure: No Recent Foreign Travel: No Contact w/Someone Who Travel: No Recent Hopitalizations: No Immunizations Up To Date Tetanus Booster (TDap): More than 5yrs Date of Pneumonia Vaccine: Nov 24, 2011 Date of Influenza Vaccine: Dec 26, 2015 Seasonal Allergies Seasonal Allergies: No Surgeries HX Surgeries: Yes (D&C, Right knee arthroscopy) Respiratory Hx Respiratory Disorders: No Cardiovascular Hx Cardiac Disorders: Yes ("blockage in heart" 40-50%) Cardiac Disorders: Coronary Artery Disease, Congenital Heart Disease, High Cholesterol, Hypertension Neurological Hx Neurological Disorders: No Reproductive System Hx Reproductive Disorders: No Sexually Transmitted Disease: No 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 Genitourinary Hx Genitourinary Disorders: Yes (hx of UTI's) Genitourinary Disorders: Bladder Infection Gastrointestinal Hx Gastrointestinal Disorders: Yes Gastrointestinal Disorders: Gastroesophageal Reflux Musculoskeletal Hx Musculoskeletal Disorders: Yes (Right knee arthritis) Musculoskeletal Disorders: Arthritis Endocrine Hx Endocrine Disorders: No Endocrine Disorders: Diabetes, Non-Insulin dep HEENT HX ENT Disorders: No Cancer Hx Cancer: No Psychosocial Hx Psychiatric Problems: No Behavioral Health Disorders: Depression Integumentary HX Skin/Integumentary Disorder: No Blood Transfusions Hx Blood Disorders: No Adverse Reaction to a Blood Tr: No Family Medical History Significant Family History: No Pertinent Family Hx Family Medial History: Hypertension 19 FATHER Not obtainable due to adoption G8 BROTHER (GOUT) Physical Exam Vital Signs Capillary Refill : General Appearance: No Apparent Distress, WD/WN HEENT: PERRL/EOMI, TMs Normal Neck: Full Range of Motion, Normal Inspection Respiratory: Normal Breath Sounds, No Accessory Muscle Use, No Respiratory Distress Gastrointestinal: Non Tender, Soft Extremity: Normal Capillary Refill, Normal Inspection, Normal Range of Motion Neurologic/Psychiatric: Alert, Oriented x3, No Motor/Sensory Deficits Skin: Normal Color, Warm/Dry, Other (to the area in her back that is tender there is no rash, no ecchymosis, no crepitus.) Progress/Results/Core Measures Results/Orders My Orders Orders - SHERRI PUENTES APRN Chest Pa/Lat (2 View) (07/27/16 19:19) Departure Impression Impression: Primary Impression: Thoracic back pain Disposition: 01 HOME, SELF-CARE Condition: Stable Departure-Patient Inst. Decision time for Depature: 19:21 Referrals: KATERINA HEBERT MD (PCP) Primary Care Physician GURVINDER DIAZ MD FACP FACC [facility]S (Family) Primary Care Physician Add. Discharge Instructions: 1. Warm compresses to this area 2. Return to ER for any worsening pain or other concerns such as a rash development All discharge instructions reviewed with patient and/or family. Voiced understanding. Scripts Orphenadrine Citrate (Orphenadrine Citrate) 100 Mg Tablet.er 100 MG PO BID Y for PAIN-MODERATE, #10 TAB Prov: SHERRI PUENTES APRN 07/27/16 Images Torso/Trunk 1 - Tenderness SHERRI PUENTES APRN Jul 27, 2016 19:22
--- NOTE | 2016-07-27 19:51 | Diagnostic Imaging Report ---
INDICATION: Left flank pain EXAMINATION: Two-view chest 07/27/16 Comparison made to 02/04/2015 FINDINGS: There are low lung volumes. No infiltrates, effusions or pneumothorax. Heart and pulmonary vasculature are unremarkable. IMPRESSION: 1. No acute process Dictated by: Dictated on workstation # [id number]
[2016-07-27 20:14] VITALS: BP 160/100
== END | disposition home or self-care (01) ==
LOC: EDUNIT# 18:31 → ER 18:33
DX: M54.6 Pain in thoracic spine (principal); I25.10 Atherosclerotic heart disease of native coronary artery without angina pectoris; I10 Essential (primary) hypertension; E11.9 Type 2 diabetes mellitus without complications; M17.11 Unilateral primary osteoarthritis, right knee; Z79.84 Long term (current) use of oral hypoglycemic drugs; Z79.82 Long term (current) use of aspirin
CPT/HCPCS: 71020; 99281

== ENCOUNTER 2016-08-05 14:50 | Outpatient (RCR) | payer MEDICAID ==
[~2016-08-05 14:50] MED LIST changes: -ORPHENADRINE 60 MG/2 ML (NORFLEX) AMP IM ONE
== END 2016-09-03 13:20 | disposition home or self-care (01) ==
DX: R60.9 Edema, unspecified (principal)

== ENCOUNTER → 2016-08-26 | Outpatient (CLI) | payer MEDICAID ==
[~2016-08-26] MED LIST changes: +CYCL5TAB PO; +HYDR-3812
[2016-08-26 11:15] LABS: MEAN PLATELET VOLUME 9.1 FL (7.4-10.4); RED BLOOD COUNT 4.95 10^6/uL (4.35-5.85); RED CELL DISTRIBUTION WIDTH 12.6 % (10.0-14.5); WHITE BLOOD COUNT 8.4 10^3/uL (4.3-11.0)
[2016-08-26 11:41] LABS: ALANINE AMINOTRANSFERASE 18 U/L (0-55); ALBUMIN 3.5 GM/DL (3.2-4.5); ANION GAP 7 MMOL/L (5-14); ASPARTATE AMINO TRANSFERASE 16 U/L (5-34); BILIRUBIN,TOTAL 0.5 MG/DL (0.1-1.0); BLOOD UREA NITROGEN 13 MG/DL (7-18); BUN/CREATININE RATIO 18; CALCIUM 8.6 MG/DL (8.5-10.1); CARBON DIOXIDE 25 MMOL/L (21-32); CHLORIDE 105 MMOL/L (98-107); CHOLESTEROL 146 MG/DL (< 200); CREATININE SERUM 0.72 MG/DL (0.60-1.30); DIRECT LDL 87 MG/DL (1-129); GFR ESTIMATED > 60; GLUCOSE 141 MG/DL (70-105); SODIUM 137 MMOL/L (135-145); TOTAL PROTEIN 6.7 GM/DL (6.4-8.2); TRIGLYCERIDES 160 MG/DL (<150); VLDL CHOLESTEROL 32 MG/DL (5-40)
[2016-08-26 12:02] LABS: THYROID STIMULATING HORMONE 1.74 UIU/ML (0.35-4.94)
== END ==
LOC: LAB 10:46
PROVIDERS: ATTEND Nurse Practitioner Family
DX: E11.9 Type 2 diabetes mellitus without complications (principal); E78.5 Hyperlipidemia, unspecified
CPT/HCPCS: 36415; 80053; 80061; 83036; 84443; 85027

== ENCOUNTER 2016-10-24 14:54 | Emergency (ER) | payer MEDICAID ==
[~2016-10-24] VITALS: Ht 160 cm; Wt 136.3 kg
[~2016-10-24 14:54] MED LIST changes: -CYCL5TAB PO; -HYDR-3812
--- OUTSIDE RECORDS SUMMARY | 2016-10-24 15:02 | XMS REPORT ---
Author Author SHIV ORTA [facility] [address] Address [address] [place] [address] Care Team Providers Care Intelligence Intern Name Role Phone SHIV ORTA Unavailable PROBLEMS Type Condition ICD9-CM Code PEQ10-GU Code Onset Dates Condition Status SNOMED Code Problem Missed period N92.6 Active 60593144 Problem Gastroesophageal reflux disease, esophagitis presence not specified K21.9 Active 280421073 Problem Adjustment disorder with mixed anxiety and depressed mood F43.23 Active 87289643 Problem Rash R21 Active 266155462 Problem Encounter for dental examination Z01.20 Active 803173217 Problem Mild mental retardation F70 Active 34657253 ALLERGIES No Known Allergies SOCIAL HISTORY No smoking Hx information available PLAN OF CARE VITAL SIGNS MEDICATIONS No Known Medications RESULTS No Results PROCEDURES Procedure Date Ordered Related Diagnosis Body Site FLUARIX QUAD P-FREE 3 AND UP .50 2015Dec 27, 2015 SINGLE IMMUNIZATION ADMIN Dec 27, 2015 IMMUNIZATIONS Vaccine Route Administration Date Status FLUARIX QUAD P-FREE 3 AND UP .50 2015 IM Intramuscular Dec 27, 2015 Administered
--- OUTSIDE RECORDS SUMMARY | 2016-10-24 15:02 | XMS REPORT ---
Author Author TANYA LEIVA Organization [facility] Address [address] [place] [address] Care Team Providers Care Hydraulic Specialist Name Role Phone TANYA LEIVA Unavailable PROBLEMS Type Condition ICD9-CM Code WIX03-HX Code Onset Dates Condition Status SNOMED Code Problem Missed period N92.6 Active 10752995 Problem Gastroesophageal reflux disease, esophagitis presence not specified K21.9 Active 810918023 Problem Adjustment disorder with mixed anxiety and depressed mood F43.23 Active 89462803 Problem Rash R21 Active 067052440 Problem Encounter for dental examination Z01.20 Active 713014870 Problem Mild mental retardation F70 Active 97829293 ALLERGIES Substance Reaction Event Type Date Status Penicillin V Potassium rash Drug Allergy Jan, Active SOCIAL HISTORY No smoking Hx information available PLAN OF CARE Activity Details Follow Up prn Reason: VITAL SIGNS Height 63 in 2016-01-31 Weight 292.4 lbs 2016-01-31 Temperature 97.8 degrees Fahrenheit 2016-01-31 Heart Rate 88 bpm 2016-01-31 Respiratory Rate 18 2016-01-31 BMI 51.79 kg/m2 2016-01-31 Blood pressure systolic 128 mmHg 2016-01-31 Blood pressure diastolic 92 mmHg 2016-01-31 MEDICATIONS Medication Instructions Dosage Frequency Start Date End Date Duration Status Fish Oil 1200 MG Orally Once a day 1 capsule 24h Active Amlodipine Besylate 5 mg Orally Once a day 1 tablet 24h Active Protonix 40 MG Orally Once a day 1 tablet 24h Active Atorvastatin Calcium 20 MG Orally Once a day 1 tablet 24h Active Montelukast Sodium 10 MG Orally Once a day 1 tablet in the evening 24h Active Tramadol HCl 50 MG Orally every 6 hrs 1 tablet as needed 6h Active Hydrochlorothiazide 25 MG Orally Once a day 1 tablet 24h Active Baby Aspirin 81 mg 1 tablet 24h Active Metoprolol Tartrate 50 MG Orally Twice a day 1 tablet 12h Active Hydrocodone-Acetaminophen 5-325 MG Orally every 6 hrs 1 tablet as needed 6h Active Azithromycin 250 MG Orally Once a day 2 tablets on the first day, then 1 tablet daily for 4 days 24h Jan, Jan, 5 day(s) Active Furosemide 40 MG Orally Once a day 1 tablet 24h Active Meloxicam 15 mg Orally Once a day 1 tablet daily 24h Active RESULTS Name Result Date Reference Range STREP A (IN HOUSE) 2016-01-31 STREP A Positive Control + Lot # [id number] Exp date 08/16/17 PROCEDURES Procedure Date Ordered Related Diagnosis Body Site STREP A ASSAY W/OPTIC Jan 31, 2016 Office Visit, Est Pt., Level 3 Jan 31, 2016 IMMUNIZATIONS No Known Immunizations
--- OUTSIDE RECORDS SUMMARY | 2016-10-24 15:03 | XMS REPORT ---
Author Author LINDSAY CANALES [facility] Address [address] [place] [id number] Phone Unavailable Care Team Providers Care Jewelry Coater Name Role Phone LINDSAY CANALES Unavailable Unavailable PROBLEMS Type Condition ICD9-CM Code EHC20-DQ Code Onset Dates Condition Status SNOMED Code Problem Missed period N92.6 Active 42743881 Problem Gastroesophageal reflux disease, esophagitis presence not specified K21.9 Active 915811129 Problem Mild mental retardation F70 Active 50465793 Problem Adjustment disorder with mixed anxiety and depressed mood F43.23 Active 43689019 Problem Encounter for dental examination Z01.20 Active 425499759 Problem Rash R21 Active 100575068 ALLERGIES Substance Reaction Event Type Date Status Penicillin V Potassium rash Drug Allergy Feb, Active SOCIAL HISTORY No smoking Hx information available PLAN OF CARE Activity Details Follow Up nba Reason:srp VITAL SIGNS Blood pressure systolic 128 mmHg 2016-02-11 Blood pressure diastolic 53 mmHg 2016-02-11 MEDICATIONS Medication Instructions Dosage Frequency Start Date End Date Duration Status Baby Aspirin 81 mg 1 tablet 24h Active Atorvastatin Calcium 20 MG Orally Once a day 1 tablet 24h Active Metoprolol Tartrate 50 MG Orally Twice a day 1 tablet 12h Active Amlodipine Besylate 5 mg Orally Once a day 1 tablet 24h Active Meloxicam 15 mg Orally Once a day 1 tablet daily 24h Active Protonix 40 MG Orally Once a day 1 tablet 24h Active Hydrochlorothiazide 25 MG Orally Once a day 1 tablet 24h Active Furosemide 40 MG Orally Once a day 1 tablet 24h Active Tramadol HCl 50 MG Orally every 6 hrs 1 tablet as needed 6h Active Fish Oil 1200 MG Orally Once a day 1 capsule 24h Active Montelukast Sodium 10 MG Orally Once a day 1 tablet in the evening 24h Active Hydrocodone-Acetaminophen 5-325 MG Orally every 6 hrs 1 tablet as needed 6h Active RESULTS No Results PROCEDURES Procedure Date Ordered Related Diagnosis Body Site Periodontal scaling and root Feb 11, 2016 Periodontal scaling and root Feb 11, 2016 Billing Notes on claim Feb 11, 2016 IMMUNIZATIONS No Known Immunizations
--- NOTE | 2016-10-24 16:47 | ED EENT ---
History of Present Illness General Chief Complaint: Dental Problems/Pain Stated Complaint: EAR ACHE/TOOTH PAIN Nursing Triage Note: PT C/O LEFT LOWER DENTAL PAIN SINCE 3 WEEKS AGO. PT STATES TOOTH IS GETTING REMOVED ON November. PT HAS BEEN PRESCRIBED ANTIBIOTICS. Source: patient Exam Limitations: no limitations History of Present Illness Time seen by provider: 16:10 Initial Comments The patient reports that she broke a lower molar on the left 3 weeks ago. She has been having increasingly more difficult pain. She reports that she has tried tramadol and ibuprofen but has not been able to control it. She is apparently made contact with a dentist to is to provide the extraction in November. She reports that there is some pain radiating to her left ear. Location: dental Prearrival Treatment: over the counter meds Allergies and Home Medications Allergies Coded Allergies: Penicillins (Unverified Allergy, Mild, 07/27/16) Home Medications Amlodipine Besylate 5 Mg Tablet, 5 MG PO DAILY, (Reported) Aspirin 81 Mg Tabec, 81 MG PO DAILY, (Reported) Atorvastatin Calcium 20 Mg Tablet, 20 MG PO HS, (Reported) Cephalexin 500 Mg Capsule, 500 MG PO TID for 7 Days, #21 Ref 0 Prescribed by: RENETTA PRATHER on 07/12/16 2337 Cyclobenzaprine HCl 10 Mg Tablet, 10 MG PO Q8H PRN for SPASMS, #14 Ref 0 Prescribed by: RENETTA PRATHER on 02/20/16 1925 Furosemide 40 Mg Tablet, 40 MG PO DAILY, (Reported) Hydrochlorothiazide 25 Mg Tablet, 25 MG PO DAILY, (Reported) Lidocaine HCl 30 Ml Jel..ml., 2 ML MM BID PRN, #1 Prescribed by: SHERRI PUENTES on 06/19/162101 Loratadine 10 Mg Capsule, 10 MG PO DAILY, #14 Prescribed by: SHERRI PUENTES on 08/22/14 1905 Meloxicam 15 Mg Tablet, 15 MG PO DAILY, (Reported) Metformin HCl 500 Mg Tablet, #60 (Reported) Metoprolol Tartrate 50 Mg Tablet, 50 MG PO BID, (Reported) Montelukast Sodium 10 Mg Tablet, 10 MG PO HS, (Reported) [place]-3 Fatty Acids/Fish Oil 1 Each Capsule, 1,000 MG PO DAILY, (Reported) Orphenadrine Citrate 100 Mg Tablet.er, 100 MG PO BID PRN for PAIN-MODERATE, #10 Prescribed by: SHERRI PUENTES on 07/27/16 1935 Pantoprazole Sodium 40 Mg Tablet.dr, 40 MG PO DAILY, (Reported) Tramadol HCl 50 Mg Tablet, 50 MG PO Q6H PRN for PAIN, #20 Prescribed by: VIOLA GUNN on 08/12/15 1235 Tramadol HCl 50 Mg Tablet, 50 MG PO Q4H PRN for pain, #14 Ref 0 Prescribed by: RENETTA PRATHER on 07/12/16 2337 Venlafaxine HCl 150 Mg Cap.er.24h, 1 CAP PO UD, #30 (Reported) Review of Systems Constitutional: see HPI Eyes: No Symptoms Reported Ears: Pain (left ear) Nose: no symptoms reported Mouth: see HPI Throat: no symptoms reported Respiratory: no symptoms reported Past Khurznp-Otkacg-Vswzjz Hx Patient Social History Alcohol Use: Denies Use Recreational Drug Use: No Smoking Status: Never a Smoker 2nd Hand Smoke Exposure: No Recent Foreign Travel: No Contact w/Someone Who Travel: No Recent Infectious Disease Expo: No Recent Hopitalizations: No Physical Abuse: No Sexual Abuse: No Immunizations Up To Date Tetanus Booster (TDap): More than 5yrs Date of Pneumonia Vaccine: Nov 24, 2011 Date of Influenza Vaccine: Dec 26, 2015 Seasonal Allergies Seasonal Allergies: No Surgeries History of Surgeries: Yes (D&C, Right knee arthroscopy) Respiratory History of Respiratory Disorde: No Cardiovascular History of Cardiac Disorders: Yes ("blockage in heart" 40-50%) Cardiac Disorders: Coronary Artery Disease, Congenital Heart Disease, High Cholesterol, Hypertension Neurological History of Neurological Disord: No Reproductive System Hx Reproductive Disorders: No Sexually Transmitted Disease: No HIV/AIDS: 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 Genitourinary History of Genitourinary Disor: Yes Genitourinary Disorders: Bladder Infection Gastrointestinal History of Gastrointestinal Di: Yes Gastrointestinal Disorders: Gastroesophageal Reflux Musculoskeletal History of Musculoskeletal Dis: Yes (Right knee arthritis) Musculoskeletal Disorders: Arthritis Endocrine History of Endocrine Disorders: Yes Endocrine Disorders: Diabetes, Non-Insulin dep HEENT History of HEENT Disorders: No Cancer History of Cancer: No Psychosocial History of Psychiatric Problem: Yes Behavioral Health Disorders: Depression Suicide Risk Score: 0 Integumentary History of Skin or Integumenta: No Blood Transfusions History of Blood Disorders: No Adverse Reaction to a Blood Tr: No Family Medical History Significant Family History: No Pertinent Family Hx Family Medial History: Hypertension 19 FATHER Not obtainable due to adoption G8 BROTHER (GOUT) Physical Exam Vital Signs Vital Sign - Last 12Hours 10/24/16 15:13 Temp 97.9 Pulse 59 Resp 20 B/P (MAP) 125/71 Pulse Ox 98 O2 Delivery Room Air General Appearance: WD/WN, no apparent distress Eyes: bilateral eye normal inspection Nose: normal inspection Mouth/Throat: mandibular swelling (the anterior half of the left lower first molar is fractured and missing. 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 Referrals: KATERINA HEBERT MD (PCP/Family) Primary Care Physician Patient Instructions: Dental Pain (DC) Add. Discharge Instructions: All discharge instructions reviewed with patient and/or family. Voiced understanding. Keep appointment with dentist. Use Lortab judiciously for pain. Scripts Hydrocodone/Acetaminophen ([place] 5-325 Tablet) 1 Each Tablet 1 EACH PO 4 times a day, #20 TAB Prov: LESTER BEACH MD 10/24/16 LESTER BEACH MD Oct 24, 2016 16:47
[2016-10-24] MEDS ORDERED: HYDR-757 PO (16:51)
[2016-10-24 17:04] VITALS: BP 125/71
== END 2016-10-24 17:04 | disposition home or self-care (01) ==
LOC: EDUNIT# 14:54 → ER 14:58
DX: S02.5XXA Fracture of tooth (traumatic), initial encounter for closed fracture (principal); K02.9 Dental caries, unspecified; I25.10 Atherosclerotic heart disease of native coronary artery without angina pectoris; E78.00 Pure hypercholesterolemia, unspecified; I10 Essential (primary) hypertension; K21.9 Gastro-esophageal reflux disease without esophagitis; M17.11 Unilateral primary osteoarthritis, right knee; Q24.6 Congenital heart block; Z87.448 Personal history of other diseases of urinary system; Z79.82 Long term (current) use of aspirin; Z79.84 Long term (current) use of oral hypoglycemic drugs; X58.XXXA Exposure to other specified factors, initial encounter
CPT/HCPCS: 99282

== ENCOUNTER → 2016-11-04 | Outpatient (CLI) | payer MEDICAID | LOC: CARD 09:52 | PROVIDERS: ATTEND Internal Medicine Cardiovascular Disease | DX: I25.10 Atherosclerotic heart disease of native coronary artery without angina pectoris (principal); E78.4 Other hyperlipidemia; I10 Essential (primary) hypertension | CPT/HCPCS: 93306 ==

== ENCOUNTER 2016-11-11 09:52 | Emergency (ER) | payer MEDICAID ==
[~2016-11-11] VITALS: Ht 162.6 cm; Wt 136.1 kg
[~2016-11-11 09:52] MED LIST changes: -CYCL5TAB PO; -HYDR-3812
--- OUTSIDE RECORDS SUMMARY | 2016-11-11 10:20 | XMS REPORT ---
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 Role Phone TRUPTI RANDHAWA Unavailable PROBLEMS Type Condition ICD9-CM Code HHO91-AO Code Onset Dates Condition Status SNOMED Code Problem Missed period N92.6 Active 11184267 Problem Gastroesophageal reflux disease, esophagitis presence not specified K21.9 Active 020252501 Problem Mild mental retardation F70 Active 23690788 Problem Adjustment disorder with mixed anxiety and depressed mood F43.23 Active 62761553 Problem Encounter for dental examination Z01.20 Active 101846294 Problem Rash R21 Active [id number] ALLERGIES No Information SOCIAL HISTORY Never Assessed PLAN OF CARE VITAL SIGNS MEDICATIONS Unknown Medications RESULTS No Results PROCEDURES Procedure Date Ordered Result Body Site Dental Prepay for Future Services Jan 03, 2016 IMMUNIZATIONS No Known Immunizations MEDICAL (GENERAL) HISTORY Type Description Date Medical History hypertension Medical History hyperlipidemia Medical History Adjustment disorder with depressed mood Surgical History cholecystectomy Surgical History right knee arthroscopy 2011 Hospitalization History Surgery(s)/Childbirth(s) only Hospitalization History anxiety 2015
[2016-11-11] MEDS ORDERED: HYDR-3812 (10:42)
[2016-11-11] MEDS ORDERED: PRD20T PO (10:50)
[2016-11-11] MEDS ORDERED: CYCL5TAB PO (10:50)
--- NOTE | 2016-11-11 10:50 | ED General ---
General Chief Complaint: General Problems/Pain Stated Complaint: PAIN IN BOTH LEGS Source of Information: Patient Exam Limitations: No Limitations History of Present Illness Time Seen by Provider: 10:48 Initial Comments To ER with pain in both legs for one week. The pain in the right leg is confined to the knee and states that it is "[id number]". She states the pain in the left leg is in the posterior thigh over the hamstrings. This occasionally radiates all the way down to her ankle and up to her back with certain movements. No injuries or falls. Timing/Duration: 1 Week Severity: Moderate Allergies and Home Medications Allergies Coded Allergies: Penicillins (Unverified Allergy, Mild, 07/27/16) Home Medications Amlodipine Besylate 5 Mg Tablet, 5 MG PO DAILY, (Reported) Aspirin 81 Mg Tabec, 81 MG PO DAILY, (Reported) Atorvastatin Calcium 20 Mg Tablet, 20 MG PO HS, (Reported) Cyclobenzaprine HCl 10 Mg Tablet, 10 MG PO Q8H PRN for SPASMS, #14 Ref 0 Prescribed by: RENETTA PRATHER on 02/20/161924 Furosemide 40 Mg Tablet, 40 MG PO DAILY, (Reported) Hydrochlorothiazide 25 Mg Tablet, 25 MG PO DAILY, (Reported) Hydrocodone/Acetaminophen 1 Each Tablet, 1 EACH PO 4 times a day, #20 Prescribed by: LESTER BEACH on 10/24/16 1651 Hydrocodone/Acetaminophen 1 Each Tablet, (Reported) Lidocaine HCl 30 Ml Jel..ml., 2 ML MM BID PRN, #1 Prescribed by: SHERRI PUENTES on 06/19/162101 Loratadine 10 Mg Capsule, 10 MG PO DAILY, #14 Prescribed by: SHERRI PUENTES on 08/22/14 1905 Meloxicam 15 Mg Tablet, 15 MG PO DAILY, (Reported) Metformin HCl 500 Mg Tablet, #60 (Reported) Metoprolol Tartrate 50 Mg Tablet, 50 MG PO BID, (Reported) Montelukast Sodium 10 Mg Tablet, 10 MG PO HS, (Reported) [place]-3 Fatty Acids/Fish Oil 1 Each Capsule, 1,000 MG PO DAILY, (Reported) Orphenadrine Citrate 100 Mg Tablet.er, 100 MG PO BID PRN for PAIN-MODERATE, #10 Prescribed by: SHERRI PUENTES on 07/27/16 193 Pantoprazole Sodium 40 Mg Tablet.dr, 40 MG PO DAILY, (Reported) Tramadol HCl 50 Mg Tablet, 50 MG PO Q6H PRN for PAIN, #20 Prescribed by: VIOLA GUNN on 08/12/15 1235 Tramadol HCl 50 Mg Tablet, 50 MG PO Q4H PRN for pain, #14 Ref 0 Prescribed by: RENETTA PRATHER on 07/12/16 2337 Venlafaxine HCl 150 Mg Cap.er.24h, 1 CAP PO UD, #30 (Reported) Constitutional: see HPI EENTM: see HPI Respiratory: no symptoms reported Cardiovascular: no symptoms reported Genitourinary: no symptoms reported Musculoskeletal: see HPI, back pain Skin: no symptoms reported Psychiatric/Neurological: No Symptoms Reported Past Wvxgyio-Eyrkyy-Rgebhu Hx Patient Social History Alcohol Use: Denies Use Recreational Drug Use: No Smoking Status: Never a Smoker 2nd Hand Smoke Exposure: No Recent Foreign Travel: No Contact w/Someone Who Travel: No Recent Hopitalizations: No Immunizations Up To Date Tetanus Booster (TDap): More than 5yrs Date of Pneumonia Vaccine: Nov 24, 2011 Date of Influenza Vaccine: Dec 26, 2015 Seasonal Allergies Seasonal Allergies: No Surgeries History of Surgeries: Yes (D&C, Right knee arthroscopy) Respiratory History of Respiratory Disorde: No Cardiovascular History of Cardiac Disorders: Yes ("blockage in heart" 40-50%) Cardiac Disorders: Coronary Artery Disease, Congenital Heart Disease, High Cholesterol, Hypertension Neurological History of Neurological Disord: No Reproductive System Hx Reproductive Disorders: No Sexually Transmitted Disease: No 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 Genitourinary History of Genitourinary Disor: Yes Genitourinary Disorders: Bladder Infection Gastrointestinal History of Gastrointestinal Di: Yes Gastrointestinal Disorders: Gastroesophageal Reflux Musculoskeletal History of Musculoskeletal Dis: Yes (Right knee arthritis) Musculoskeletal Disorders: Arthritis Endocrine History of Endocrine Disorders: Yes Endocrine Disorders: Diabetes, Non-Insulin dep HEENT History of HEENT Disorders: No Cancer History of Cancer: No Psychosocial History of Psychiatric Problem: Yes Behavioral Health Disorders: Depression Integumentary History of Skin or Integumenta: No Blood Transfusions History of Blood Disorders: No Adverse Reaction to a Blood Tr: No Family Medical History Significant Family History: No Pertinent Family Hx Family Medial History: Hypertension 19 FATHER Not obtainable due to adoption G8 BROTHER (GOUT) Physical Exam Vital Signs Capillary Refill : General Appearance: No Apparent Distress, WD/WN Eyes: Bilateral Eye Normal Inspection, Bilateral Eye PERRL, Bilateral Eye EOMI HEENT: PERRL/EOMI Neck: Full Range of Motion, Normal Inspection Respiratory: No Accessory Muscle Use, No Respiratory Distress Cardiovascular: Regular Rate, Rhythm, Normal Peripheral Pulses Gastrointestinal: Normal Bowel Sounds, Non Tender, Soft Back: Normal Inspection, No Vertebral Tenderness Extremity: Normal Capillary Refill, Normal Inspection Neurologic/Psychiatric: Alert, Oriented x3 Skin: Normal Color, Warm/Dry Departure Impression Impression: Primary Impression: Lumbar radiculopathy Additional Impression: Osteoarthritis of right knee Disposition: HOME, SELF-CARE Condition: Stable Departure-Patient Inst. Decision time for Depature: 10:49 Referrals: KATERINA HEBERT MD (PCP/Family) Primary Care Physician Patient Instructions: Radiculopathy Add. Discharge Instructions: 1. Medication as directed 2. Return to ER for any concerns 3. All discharge instructions reviewed with patient and/or family. Voiced understanding. Scripts Cyclobenzaprine HCl (Cyclobenzaprine HCl) 5 Mg Tablet 5 MG PO TID Y for BACK PAIN, #14 TAB Prov: SHERRI PUENTES APRN 11/11/16 Prednisone (Prednisone) 20 Mg Tab 40 MG PO DAILY for 5 Days, TAB Prov: SHERRI PUENTES APRN 11/11/16 SHERRI PUENTES APRN Nov 11, 2016 10:50
[2016-11-11 10:51] VITALS: BP 144/68
== END 2016-11-11 10:51 | disposition home or self-care (01) ==
LOC: EDUNIT# 09:52 → ER 09:54
DX: M54.16 Radiculopathy, lumbar region; K21.9 Gastro-esophageal reflux disease without esophagitis; E78.00 Pure hypercholesterolemia, unspecified; Z79.82 Long term (current) use of aspirin; Z87.448 Personal history of other diseases of urinary system; E11.9 Type 2 diabetes mellitus without complications; M17.11 Unilateral primary osteoarthritis, right knee; I25.10 Atherosclerotic heart disease of native coronary artery without angina pectoris; F32.9 Major depressive disorder, single episode, unspecified; Z79.84 Long term (current) use of oral hypoglycemic drugs; I10 Essential (primary) hypertension
CPT/HCPCS: 99281

== ENCOUNTER → 2016-11-11 | Outpatient (CLI) | payer MEDICAID ==
[~2016-11-11] MED LIST changes: +CYCL5TAB PO; +HYDR-3812
[2016-11-11 11:44] LABS: ALANINE AMINOTRANSFERASE 15 U/L (0-55); ALBUMIN 3.5 GM/DL (3.2-4.5); ANION GAP 6 MMOL/L (5-14); ASPARTATE AMINO TRANSFERASE 15 U/L (5-34); BILIRUBIN,TOTAL 0.4 MG/DL (0.1-1.0); BLOOD UREA NITROGEN 19 MG/DL (7-18); BUN/CREATININE RATIO 26; CALCIUM 8.4 MG/DL (8.5-10.1); CARBON DIOXIDE 25 MMOL/L (21-32); CHLORIDE 108 MMOL/L (98-107); CHOLESTEROL 151 MG/DL (< 200); CREATININE SERUM 0.72 MG/DL (0.60-1.30); DIRECT LDL 89 MG/DL (1-129); GFR ESTIMATED > 60; GLUCOSE 124 MG/DL (70-105); MAGNESIUM 1.8 MG/DL (1.8-2.4); POTASSIUM 4.1 MMOL/L (3.6-5.0); SODIUM 139 MMOL/L (135-145); TOTAL PROTEIN 6.6 GM/DL (6.4-8.2); TRIGLYCERIDES 119 MG/DL (<150); VLDL CHOLESTEROL 24 MG/DL (5-40)
== END ==
LOC: LAB 11:07
PROVIDERS: ATTEND Internal Medicine Cardiovascular Disease
DX: I25.10 Atherosclerotic heart disease of native coronary artery without angina pectoris (principal); E78.4 Other hyperlipidemia; I10 Essential (primary) hypertension
CPT/HCPCS: 36415; 80053; 80061; 83735

== ENCOUNTER → 2016-12-03 | Outpatient (CLI) | payer MEDICAID ==
[~2016-12-03] MED LIST changes: +CYCL5TAB PO; +HYDR-3812
[2016-12-03 10:36] LABS: MEAN PLATELET VOLUME 8.7 FL (7.4-10.4); RED BLOOD COUNT 4.89 10^6/uL (4.35-5.85); WHITE BLOOD COUNT 8.5 10^3/uL (4.3-11.0)
[2016-12-03 10:52] LABS: ALANINE AMINOTRANSFERASE 14 U/L (0-55); ALBUMIN 3.7 GM/DL (3.2-4.5); ANION GAP 7 MMOL/L (5-14); ASPARTATE AMINO TRANSFERASE 13 U/L (5-34); BILIRUBIN,TOTAL 0.6 MG/DL (0.1-1.0); BLOOD UREA NITROGEN 13 MG/DL (7-18); BUN/CREATININE RATIO 17; CALCIUM 8.5 MG/DL (8.5-10.1); CARBON DIOXIDE 25 MMOL/L (21-32); CHLORIDE 106 MMOL/L (98-107); CREATININE SERUM 0.77 MG/DL (0.60-1.30); GFR ESTIMATED > 60; GLUCOSE 126 MG/DL (70-105); SODIUM 138 MMOL/L (135-145)
[2016-12-03 11:11] LABS: THYROID STIMULATING HORMONE 1.72 UIU/ML (0.35-4.94)
== END ==
LOC: LAB 10:11
DX: E11.9 Type 2 diabetes mellitus without complications (principal); R53.83 Other fatigue
CPT/HCPCS: 36415; 80053; 83036; 84443; 85027

== ENCOUNTER 2017-03-17 19:01 | Emergency (ER) | payer MEDICAID ==
[~2017-03-17] VITALS: Ht 160 cm; Wt 131.5 kg
[~2017-03-17 19:01] MED LIST changes: +ACHD5005; -HYDR-3812; +METO50TA15 PO; -METO50TA2 PO
[2017-03-17] MEDS ORDERED: ASPIRIN 81 MG CHEW (CHILDREN'S ASA) PO ONE (20:15)
[2017-03-17 20:23] LABS: BASOPHILS % (AUTO) 0 % (0-10); EOSINOPHILS # (AUTO) 0.1 10^3/uL (0.0-0.3); EOSINOPHILS % (AUTO) 1 % (0-10); HEMATOCRIT 39 % (35-52); HEMOGLOBIN 13.3 G/DL (11.5-16.0); LYMPHOCYTES # (AUTO) 1.2 X 10^3 (1.0-4.0); LYMPHOCYTES % (AUTO) 23 % (12-44); MEAN CORPUSCULAR HEMOGLOBIN 28 PG (25-34); MEAN CORPUSCULAR HGB CONC 35 G/DL (32-36); MEAN CORPUSCULAR VOLUME 81 FL (80-99); MEAN PLATELET VOLUME 9.1 FL (7.4-10.4); MONOCYTES # (AUTO) 0.6 X 10^3 (0.0-1.0); MONOCYTES % (AUTO) 12 % (0-12); NEUTROPHILS # (AUTO) 3.4 X 10^3 (1.8-7.8); NEUTROPHILS % (AUTO) 64 % (42-75); PLATELET COUNT 282 10^3/uL (130-400); RED BLOOD COUNT 4.75 10^6/uL (4.35-5.85); RED CELL DISTRIBUTION WIDTH 12.7 % (10.0-14.5); WHITE BLOOD COUNT 5.3 10^3/uL (4.3-11.0)
[2017-03-17 20:26] LABS: INR 0.9 (0.8-1.4); PROTHROMBIN TIME PATIENT 12.6 SEC (12.2-14.7)
[2017-03-17 20:34] LABS: ALANINE AMINOTRANSFERASE 17 U/L (0-55); ALBUMIN 3.6 GM/DL (3.2-4.5); ALKALINE PHOSPHATASE 125 U/L (40-136); BILIRUBIN,TOTAL 0.5 MG/DL (0.1-1.0); BUN/CREATININE RATIO 20; CALCIUM 8.9 MG/DL (8.5-10.1); CARBON DIOXIDE 25 MMOL/L (21-32); CHLORIDE 103 MMOL/L (98-107); CREATININE SERUM 0.71 MG/DL (0.60-1.30); GFR ESTIMATED > 60; GLUCOSE 141 MG/DL (70-105); MAGNESIUM 1.9 MG/DL (1.8-2.4); POTASSIUM 3.6 MMOL/L (3.6-5.0); SODIUM 136 MMOL/L (135-145); TOTAL PROTEIN 6.8 GM/DL (6.4-8.2)
[2017-03-17 20:41] LABS: MYOGLOBIN SERUM 75.1 NG/ML (10.0-92.0)
--- NOTE | 2017-03-17 21:01 | Diagnostic Imaging Report ---
INDICATION: Chest pain Portable upright AP view of the chest is obtained with comparison made to the study of 07/27/2016. FINDINGS: Heart size and pulmonary vascularity are within normal limits, and the lungs are clear, bilaterally. IMPRESSION: Unremarkable chest. Dictated by: Dictated on workstation # [id number]
[2017-03-17] MEDS ORDERED: RX-ALBUTEROL INHALER (PROAIR) 8 GM IH STA (21:22)
[2017-03-17] MEDS ORDERED: RT-ALBUTEROL/IPRATROPIUM 3 ML (DUONEB) VIAL INH ONE (21:30)
--- NOTE | 2017-03-17 21:32 | ED Chest Pain ---
General Chief Complaint: Chest Pain Stated Complaint: COUGH Nursing Triage Note: pt reports cough and runny nose x 2 days. pt medial cp that radiates to back starting at 1800. Nursing Sepsis Screen: No Definite Risk Source: patient Exam Limitations: no limitations History of Present Illness Date Seen by Provider: Mar 17, 2017 Time Seen by Provider: 21:15 Initial Comments Here with cough and runny nose for the last couple days and also started with chest pain this evening at 6 p.m. States that that is central and only with cough and describes it as sharp and radiating to the back. This is not persistent. She has done some [id number] medications but was not feeling better so presented for further evaluation. Timing/Duration: 1-2 days Severity/Quality: mild, sharp Location: central Radiation: back Activities at Onset: none Associated Symptoms: No abdominal pain, No back pain, No dizziness, edema, fatigue, fever/chills, No nausea/vomiting, No shortness of breath, No weakness Allergies and Home Medications Allergies Coded Allergies: Penicillins (Unverified Allergy, Mild, 07/27/16) Home Medications Amlodipine Besylate 5 Mg Tablet, 5 MG PO DAILY, (Reported) Aspirin 81 Mg Tabec, 81 MG PO DAILY, (Reported) Atorvastatin Calcium 20 Mg Tablet, 20 MG PO HS, (Reported) Cyclobenzaprine HCl 10 Mg Tablet, 10 MG PO Q8H PRN for SPASMS, #14 Ref 0 Prescribed by: RENETTA PRATHER on 02/20/161924 Cyclobenzaprine HCl 5 Mg Tablet, 5 MG PO TID PRN for BACK PAIN, #14 Prescribed by: SHERRI PUENTES on 11/11/16 1050 Furosemide 40 Mg Tablet, 40 MG PO DAILY, (Reported) Hydrochlorothiazide 25 Mg Tablet, 25 MG PO DAILY, (Reported) Hydrocodone Bit/Acetaminophen 1 Each Tablet, (Reported) Hydrocodone/Acetaminophen 1 Each Tablet, 1 EACH PO 4 times a day, #20 Prescribed by: LESTER BEACH on 10/24/16 1651 Lidocaine HCl 30 Ml Jel..ml., 2 ML MM BID PRN, #1 Prescribed by: SHERRI PUENTES on 06/19/16 2102 Loratadine 10 Mg Capsule, 10 MG PO DAILY, #14 Prescribed by: SHERRI PUENTES on 08/22/14 1905 Meloxicam 15 Mg Tablet, 15 MG PO DAILY, (Reported) Metformin HCl 500 Mg Tablet, #60 (Reported) Metoprolol Tartrate 50 Mg Tablet, 50 MG PO BID, (Reported) Montelukast Sodium 10 Mg Tablet, 10 MG PO HS, (Reported) [place]-3 Fatty Acids/Fish Oil 1 Each Capsule, 1,000 MG PO DAILY, (Reported) Orphenadrine Citrate 100 Mg Tablet.er, 100 MG PO BID PRN for PAIN-MODERATE, #10 Prescribed by: SHERRI PUENTES on 07/27/16 1935 Pantoprazole Sodium 40 Mg Tablet.dr, 40 MG PO DAILY, (Reported) Prednisone 20 Mg Tab, 40 MG PO DAILY for 5 Days Prescribed by: SHERRI PUENTES on 11/11/16 1050 Tramadol HCl 50 Mg Tablet, 50 MG PO Q6H PRN for PAIN, #20 Prescribed by: VIOLA GUNN on 08/12/15 1235 Tramadol HCl 50 Mg Tablet, 50 MG PO Q4H PRN for pain, #14 Ref 0 Prescribed by: RENETTA PRATHER on 07/12/16 2337 Venlafaxine HCl 150 Mg Cap.er.24h, 1 CAP PO UD, #30 (Reported) Review of Systems Constitutional: see HPI, fever, No weakness EENTM: Nose Congestion, Nose Pain, Throat Pain Respiratory: Cough, Shortness of Air Cardiovascular: See HPI, Edema Gastrointestinal: Denies Abdominal Pain, Denies Diarrhea, Denies Vomiting Genitourinary: No Symptoms Reported Musculoskeletal: no symptoms reported Skin: no symptoms reported All Other Systems Reviewed Negative Unless Noted: Yes Past Ovxdxvv-[id number]-Wtuspb Hx Patient Social History Alcohol Use: Denies Use Recreational Drug Use: No Smoking Status: Never a Smoker 2nd Hand Smoke Exposure: No Recent Foreign Travel: No Contact w/Someone Who Travel: No Recent Infectious Disease Expo: No Recent Hopitalizations: No Physical Abuse: No Sexual Abuse: No Mistreated: No Fear: No Immunizations Up To Date Tetanus Booster (TDap): More than 5yrs Date of Pneumonia Vaccine: Nov 24, 2011 Date of Influenza Vaccine: Dec 26, 2015 Seasonal Allergies Seasonal Allergies: No Surgeries History of Surgeries: Yes (D&C, Right knee arthroscopy) Respiratory History of Respiratory Disorde: No Cardiovascular History of Cardiac Disorders: Yes ("blockage in heart" 40-50%) Cardiac Disorders: Coronary Artery Disease, Congenital Heart Disease, High Cholesterol, Hypertension Neurological History of Neurological Disord: No Reproductive System Hx Reproductive Disorders: No Sexually Transmitted Disease: No HIV/AIDS: No 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 Genitourinary History of Genitourinary Disor: Yes Genitourinary Disorders: Bladder Infection Gastrointestinal History of Gastrointestinal Di: Yes Gastrointestinal Disorders: Gastroesophageal Reflux Musculoskeletal History of Musculoskeletal Dis: Yes (Right knee arthritis) Musculoskeletal Disorders: Arthritis Endocrine History of Endocrine Disorders: Yes Endocrine Disorders: Diabetes, Non-Insulin dep HEENT History of HEENT Disorders: No Cancer History of Cancer: No Psychosocial History of Psychiatric Problem: Yes Behavioral Health Disorders: Depression Suicide Risk Score: 0 Integumentary History of Skin or Integumenta: No Blood Transfusions History of Blood Disorders: No Adverse Reaction to a Blood Tr: No Reviewed Nursing Assessment Reviewed/Agree w Nursing PMH: Yes Family Medical History Significant Family History: No Pertinent Family Hx Family Medial History: Hypertension 19 FATHER Not obtainable due to adoption G8 BROTHER (GOUT) Physical Exam Vital Signs Vital Signs - First Documented Capillary Refill : Less Than 3 Seconds General Appearance: No Apparent Distress, WD/WN HEENT: PERRL/EOMI, Pharynx Normal Neck: Non Tender, Supple Respiratory: Lungs Clear, Normal Breath Sounds Cardiovascular: Regular Rate, Rhythm, No Murmur Gastrointestinal: Non Tender, Soft Extremity: Normal Range of Motion, Non Tender, Pedal Edema (2+ pedal edema bilaterally lower extremities to the level of the knees. This is chronic.) Neurologic/Psychiatric: Alert, Oriented x3 Skin: Normal Color, Warm/Dry Progress/Results/Core Measures Results/Orders Lab Results Laboratory Tests Test 03/17/17 20:10 Range/Units White Blood Count 5.3 4.3-11.0 10^3/uL Red Blood Count 4.75 4.35-5.85 10^6/uL Hemoglobin 13.3 11.5-16.0 G/DL Hematocrit 39 35-52 % Mean Corpuscular Volume 81 80-99 FL Mean Corpuscular Hemoglobin 28 25-34 PG Mean Corpuscular Hemoglobin Concent 35 32-36 G/DL Red Cell Distribution Width 12.7 10.0-14.5 % Platelet Count 282 130-400 10^3/uL Mean Platelet Volume 9.1 7.4-10.4 FL Neutrophils (%) (Auto) 64 42-75 % Lymphocytes (%) (Auto) 23 12-44 % Monocytes (%) (Auto) 12 0-12 % Eosinophils (%) (Auto) 1 0-10 % Basophils (%) (Auto) 0 0-10 % Neutrophils # (Auto) 3.4 1.8-7.8 X 10^3 Lymphocytes # (Auto) 1.2 1.0-4.0 X 10^3 Monocytes # (Auto) 0.6 0.0-1.0 X 10^3 Eosinophils # (Auto) 0.1 0.0-0.3 10^3/uL Basophils # (Auto) 0.0 0.0-0.1 10^3/uL Prothrombin Time 12.6 12.2-14.7 SEC INR Comment 0.9 0.8-1.4 Activated Partial Thromboplast Time 25 24-35 SEC Sodium Level 136 135-145 MMOL/L Potassium Level 3.6 3.6-5.0 MMOL/L Chloride Level 103 98-107 MMOL/L Carbon Dioxide Level 25 21-32 MMOL/L Anion Gap 8 5-14 MMOL/L Blood Urea Nitrogen 14 7-18 MG/DL Creatinine 0.71 0.60-1.30 MG/DL Estimat Glomerular Filtration Rate > 60 BUN/Creatinine Ratio 20 Glucose Level 141 H 70-105 MG/DL Calcium Level 8.9 8.5-10.1 MG/DL Magnesium Level 1.9 1.8-2.4 MG/DL Total Bilirubin 0.5 0.1-1.0 MG/DL Aspartate Amino Transf (AST/SGOT) 18 5-34 U/L Alanine Aminotransferase (ALT/SGPT) 17 0-55 U/L Alkaline Phosphatase 125 40-136 U/L Myoglobin 75.1 10.0-92.0 NG/ML Troponin I < 0.30 <0.30 NG/ML Total Protein 6.8 6.4-8.2 GM/DL Albumin 3.6 3.2-4.5 GM/DL Micro Results Microbiology 03/17/17 Influenza Types A,B Antigen (TIFFANI) - Final, Complete My Orders Orders - VIOLA GUNN MD Ekg Tracing (03/17/17 20:01) Cbc With Automated Diff (03/17/17 20:13) Magnesium (03/17/17 20:13) Chest 1 View, Ap/Pa Only (03/17/17 20:13) Cardiac Profile 1 (03/17/17 20:13) Comprehensive Metabolic Panel (03/17/17 20:13) Myoglobin Serum (03/17/17 20:13) Protime With Inr (03/17/17 20:13) Partial Thromboplastin Time (03/17/17 20:13) O2 (03/17/17 20:13) Monitor-Rhythm Ecg Trace Only (03/17/17 20:13) Lipid Panel (03/18/17 06:00) Aspirin Chewable Tablet (Baby Aspirin Ch (03/17/17 20:15) Saline Lock/Iv-Start (03/17/17 20:13) Influenza A And B Antigens (03/17/17 21:22) Albuterol/Ipra Inhalation Soln (Duoneb I (03/17/17 21:30) Svn Sm Volume Nebulizer Rt-Rfs (03/17/17 21:22) Rx-Albuterol Inhaler (Rx-Proair) (03/17/17 21:22) Medications Given in ED Current Medications Medications Dose Ordered Sig/Sissy Route Start Time Stop Time Status Last Admin Dose Admin Albuterol/ Ipratropium 3 ml ONCE ONCE INH 03/17/17 21:30 03/17/17 21:31 DC 03/17/17 21:34 3 ML Aspirin 324 mg ONCE ONCE PO 03/17/17 20:15 03/17/17 20:16 DC 03/17/17 20:42 324 MG Vital Signs/I&O Vital Sign - Last 12Hours 03/17/17 03/17/17 03/17/17 19:51 19:51 21:35 Temp 98.8 Pulse 83 Resp 20 B/P (MAP) 156/96 (116) Pulse Ox 99 99 O2 Delivery Room Air Room Air Room Air Blood Pressure Mean: 116 Progress Note : Progress Note Seen and evaluated. Chest pain or set initiated due to her complaint of chest pain. No acute findings noted. We will add influenza screen and patient will get DuoNeb and albuterol MDI with teaching. Monitor patient. 2300: Influenza screen negative. We will give Decadron 10 mg IV the for upper respiratory symptoms. Also for chest congestion. Otherwise supportive care. Discharged home with return precautions. Patient verbalize understanding instructions and agreement with plan. ECG Initial ECG Impression Date: Mar 17, 2017 Initial ECG Impression Time: 20:06 Initial ECG Rate: 72 Initial ECG Rhythm: Normal Sinus Comment Sinus rhythm with normal axis. No indications of ST elevation AK. No previous available for comparison. Interpreted by me. Diagnostic Imaging Diagonstic Imaging: Xray Plain Films/CT/US/NM/MRI: chest Comments VIA [facility]. [place], [place] NAME: [facility] REC#: [id number] PT STATUS: REG ER : 1970 PHYSICIAN: VIOLA GUNN MD ADMIT DATE: 03/17/17/ER Draft Date of Exam:03/17/17 CHEST 1 VIEW, AP/PA ONLY INDICATION: Chest pain Portable upright AP view of the chest is obtained with comparison made to the study of 07/27/2016. FINDINGS: Heart size and pulmonary vascularity are within normal limits, and the lungs are clear, bilaterally. IMPRESSION: Unremarkable chest. Dictated on workstation # [id number] Dict: 03/17/172058 Trans: 03/17/17 2100 GARETH [id number] Interpreted by: ZIYAD CORONA MD Electronically signed by: Departure Impression Impression: Primary Impression: Upper respiratory infection Qualified Codes: J06.9 - Acute upper respiratory infection, unspecified Disposition: 01 HOME, SELF-CARE Condition: Stable Departure-Patient Inst. Decision time for Depature: 23:08 Referrals: KATERINA HEBERT MD (PCP/Family) Primary Care Physician Patient Instructions: Viral Upper Respiratory Infection, Adult (DC) Add. Discharge Instructions: All discharge instructions reviewed with patient and/or family. Voiced understanding. You may take Tylenol 1000 mg every 8 hours as needed for pain or fever. You may take ibuprofen 600 mg every 8 hours as needed for fever or pain. Drink plenty of fluids. You may use Afrin nasal spray or the generic, 12 hour relief , 2 sprays to each*twice daily for 3 days only and then stop. Do not use for more than 3 days. Follow-up with your DrAmerica in one to 2 days for recheck. Return for worse pain, fever, vomiting, weakness, breathing problems or other concerns as needed. VIOLA GUNN MD Mar 17, 2017 21:32
[2017-03-17] MEDS ORDERED: DEXAMETHASONE 10 MG/ML (DECADRON) 1 ML VIAL IV ONE (23:15)
[2017-03-17 23:50] VITALS: BP 137/75
--- OUTSIDE RECORDS SUMMARY | 2017-03-18 10:07 | XMS REPORT | Continuity of Care Document ---
Author Author [facility] of [facility] of [facility] Address Unknown Phone Unavailable Allergies Active Description Code Type Severity Reaction Onset Reported/Identified Relationship to Patient Clinical Status Yes Penicillins [id number] Drug Allergy Mild N/A 07/27/2016 Medications There is no data. Problems Date Dx Coded Attending Type Code Diagnosis Diagnosed By 01/09/1048 KATERINA HEBERT MD Ot M54.5 LOW BACK PAIN 01/08/1054 DOROTA CABELLO APRN Ot R60.0 LOCALIZED EDEMA 01/08/1319 KATERINA HEBERT MD Ot R60.9 EDEMA, UNSPECIFIED 09/20/2009 Ot 717.9 09/20/2009 Ot 786.52 09/20/2009 Ot 959.7 09/20/2009 Ot E818.9 09/20/2009 Ot E849.5 09/21/2009 Ot 787.01 11/24/2009 Ot 787.03 11/24/2009 Ot E935.2 02/15/2010 Ot 401.9 02/15/2010 Ot 530.81 02/15/2010 Ot 786.50 02/15/2010 Ot V58.69 11/27/2011 Ot 272.4 HYPERLIPIDEMIA NEC/NOS 11/27/2011 Ot 278.00 OBESITY, NOS 11/27/2011 Ot 401.9 HYPERTENSION NOS 11/27/2011 Ot 414.01 CORONARY ATHEROSCLEROSIS OF [place] CORON 11/27/2011 Ot 786.59 CHEST PAIN NEC 11/27/2011 Ot V58.69 OTH MED,LT, CURRENT USE 11/27/2011 Ot V85.43 BODY MASS INDEX 50.0-59.9, ADULT 08/25/2012 SHIV ORTA DO 309.0 AD ADJ D/O W DEPRESSED 08/25/2012 SHIV ORTA DO 317 MENTAL RETARDATION-MILD 11/01/2012 SHIV ORTA DO 309.28 AD ADJ D/O W ANX DEP MOOD 11/01/2012 SHIV ORTA DO V04.81 FLU SHOT 02/02/2013 CHENTE SHORT DO Ot 599.0 URIN TRACT INFECTION NOS 02/02/2013 CHENTE SHORT DO Ot 724.2 LUMBAGO 04/20/2013 RUSS HERNANDEZ Ot 728.71 PLANTAR FIBROMATOSIS 04/20/2013 RUSS HERNANDEZ Ot V57.1 PHYSICAL THERAPY NEC 09/14/2013 KATERINA HEBERT MD Ot 041.49 OTHER AND UNSPECIFIED ESCHERICHIA COLI [ 09/14/2013 KATERINA HEBERT MD Ot 272.4 HYPERLIPIDEMIA NEC/NOS 09/14/2013 KATERINA HEBERT MD Ot 278.01 MORBID OBESITY 09/14/2013 KATERINA HEBERT MD Ot 401.9 HYPERTENSION NOS 09/14/2013 KATERINA HEBERT MD Ot 414.01 CORONARY ATHEROSCLEROSIS OF [place] CORON 09/14/2013 KATERINA HEBERT MD Ot 530.81 ESOPHAGEAL REFLUX 09/14/2013 KATERINA HEBERT MD Ot 599.0 URIN TRACT INFECTION NOS 09/14/2013 KATERINA HEBERT MD Ot 780.8 GENERALIZED HYPERHIDROSIS 09/14/2013 KATERINA HEBERT MD Ot 786.50 CHEST PAIN NOS 09/14/2013 KATERINA HEBERT MD Ot 787.91 DIARRHEA 09/14/2013 KATERINA HEBERT MD Ot 789.06 ABDOMINAL PAIN, EPIGASTRIC 09/14/2013 KATERINA HEBERT MD Ot V03.82 PROPHYLACTIC VACC AGAINST STREPTOCOCCUS 09/14/2013 KATERINA HEBERT MD Ot V85.43 BODY MASS INDEX 50.0-59.9, ADULT 09/16/2013 LESTER BEACH MD Ot 719.46 JOINT PAIN-L/LEG 07/28/2014 Ot 272.0 07/28/2014 Ot 790.6 07/28/2014 Ot 717.3 07/28/2014 Ot V72.83 07/28/2014 Ot V74.8 07/28/2014 Ot 717.7 07/28/2014 Ot 727.00 07/28/2014 Ot 733.92 07/28/2014 Ot 836.0 07/28/2014 Ot E000.8 07/28/2014 Ot E888.9 07/28/2014 Ot V57.1 07/28/2014 Ot V76.12 07/28/2014 Ot 401.9 07/28/2014 Ot 272.0 07/28/2014 Ot 401.9 07/28/2014 Ot 428.0 07/28/2014 Ot 786.05 07/28/2014 Ot 272.4 07/28/2014 Ot 786.59 07/28/2014 Ot 401.9 07/28/2014 Ot 414.00 07/28/2014 Ot 272.4 07/28/2014 Ot V58.69 07/28/2014 Ot 272.4 07/28/2014 Ot V58.69 07/28/2014 BAIMA, IMTIAZ L SUPPORT WORKER Ot 272.4 07/28/2014 ANUP MONTANA, KATERINA Rose Ot V76.19 07/28/2014 JOE MONTANA FAC, ALI FACP CCDS Ot 401.9 07/28/2014 JOE MONTANA FAC, ALI FACP CCDS Ot V58.69 07/28/2014 BAIMA, IMTIAZ L SUPPORT WORKER Ot 272.4 07/28/2014 BAIMA, IMTIAZ L SUPPORT WORKER Ot 401.9 07/28/2014 BAIMA, IMTIAZ L SUPPORT WORKER Ot 414.01 07/28/2014 BAIMA, IMTIAZ L SUPPORT WORKER Ot V58.69 07/28/2014 ANTONIO MONTANA, ALISON Buhs Ot 599.70 07/28/2014 ANTONIO MONTANA, ALISON Bush Ot 793.5 07/28/2014 BAIMA, IMTIAZ L SUPPORT WORKER Ot 272.4 07/28/2014 BAIMA, IMTIAZ L SUPPORT WORKER Ot 414.00 07/28/2014 ANUP MONTANA, KATERINA Rose Ot V76.12 07/28/2014 BAIMA, IMTIAZ L SUPPORT WORKER Ot 272.4 07/28/2014 BAIMA, IMTIAZ L SUPPORT WORKER Ot 278.00 07/28/2014 BAIMA, IMTIAZ L SUPPORT WORKER Ot 401.9 07/28/2014 BAIMA, IMTIAZ L SUPPORT WORKER Ot 414.00 07/28/2014 BAIMA, IMTIAZ L SUPPORT WORKER Ot 790.21 07/28/2014 Ot 272.4 07/28/2014 Ot 414.00 08/04/2014 BAIMA, IMTIAZ L SUPPORT WORKER Ot 272.4 08/04/2014 BAIMA, IMTIAZ L SUPPORT WORKER Ot 401.9 08/04/2014 BAIMA, IMTIAZ L SUPPORT WORKER Ot 414.9 08/04/2014 IMTIAZ BRYANT SUPPORT WORKER Ot 782.3 08/05/2014 SHERRI PUENTES ANCILLARY SERVICES MANAGER THERAPY Ot 724.2 LUMBAGO 08/05/2014 SHERRI PUENTES ANCILLARY SERVICES MANAGER THERAPY Ot 724.4 LUMBOSACRAL NEURITIS NOS 08/15/2014 BAIIMTIAZ ADHIKARI L SUPPORT WORKER Ot 272.4 08/15/2014 BAIIMTIAZ ADHIKARI L SUPPORT WORKER Ot 401.9 08/15/2014 BAIIMTIAZ ADHIKARI L SUPPORT WORKER Ot 414.9 08/15/2014 IMTIAZ BRYANT SUPPORT WORKER Ot 782.3 08/22/2014 SHERRI PUENTES ANCILLARY SERVICES MANAGER THERAPY Ot 465.9 ACUTE URI NOS 08/22/2014 SHERRI PUENTES ANCILLARY SERVICES MANAGER THERAPY Ot 780.4 DIZZINESS AND GIDDINESS 09/07/2014 ANUP MONTANA, KATERINA Rose Ot 724.2 09/21/2014 DOROTA CABELLO ANCILLARY SERVICES MANAGER THERAPY Ot V76.12 10/06/2014 DOROTA CABELLO ANCILLARY SERVICES MANAGER THERAPY Ot V76.12 10/18/2014 DOROTA CABELLO ANCILLARY SERVICES MANAGER THERAPY Ot 786.05 11/02/2014 DOROTA CABELLO ANCILLARY SERVICES MANAGER THERAPY Ot 272.4 11/02/2014 DOROTA CABELLO ANCILLARY SERVICES MANAGER THERAPY Ot 780.79 12/18/2014 DOROTA CABELLO ANCILLARY SERVICES MANAGER THERAPY Ot R73.09 12/18/2014 IMTIAZ BRYANT SUPPORT WORKER Ot E78.5 12/18/2014 IMTIAZ BRYANT SUPPORT WORKER Ot I25.10 02/05/2015 HIREN STYLES MD Ot E66.9 OBESITY, UNSPECIFIED 02/05/2015 HIREN STYLES MD Ot E78.5 HYPERLIPIDEMIA, UNSPECIFIED 02/05/2015 HIREN STYLES MD Ot I10 ESSENTIAL (PRIMARY) HYPERTENSION 02/05/2015 HIREN STYLES MD Ot I25.10 ATHSCL HEART DISEASE OF [place] CORONARY 02/05/2015 HIREN STYLES MD Ot K21.9 GASTRO-ESOPHAGEAL REFLUX DISEASE WITHOUT 02/05/2015 HIREN STYLES MD Ot R07.89 OTHER CHEST PAIN 02/05/2015 HIREN STYLES MD Ot Z68.43 BODY MASS INDEX (BMI) 50-59.9 , ADULT 04/05/2015 Ot 717.3 04/05/2015 Ot V72.83 04/05/2015 Ot V74.8 04/05/2015 Ot 717.7 04/05/2015 Ot 727.00 04/05/2015 Ot 733.92 04/05/2015 Ot 836.0 04/05/2015 Ot E000.8 04/05/2015 Ot E888.9 04/05/2015 Ot V57.1 04/05/2015 Ot V76.12 04/05/2015 Ot 401.9 04/05/2015 Ot 272.0 04/05/2015 Ot 401.9 04/05/2015 Ot 428.0 04/05/2015 Ot 786.05 04/05/2015 Ot 272.4 04/05/2015 Ot 786.59 04/05/2015 Ot 401.9 04/05/2015 Ot 414.00 04/05/2015 Ot 272.4 04/05/2015 Ot V58.69 04/05/2015 Ot 272.4 04/05/2015 Ot V58.69 04/05/2015 ANNETTE, IMTIAZ L SUPPORT WORKER Ot 272.4 04/05/2015 ANUP MONTANA, KATERINA Rose Ot V76.19 04/05/2015 JOE MONTANA [facility], ALI FACP CCDS Ot 401.9 04/05/2015 JOE MONTANA [facility], ALI FACP CCDS Ot V58.69 04/05/2015 BAIMA, IMTIAZ L SUPPORT WORKER Ot 272.4 04/05/2015 BAIMA, IMTIAZ L SUPPORT WORKER Ot 401.9 04/05/2015 BAIMA, IMTIAZ L SUPPORT WORKER Ot 414.01 04/05/2015 BAIMA, IMTIAZ L SUPPORT WORKER Ot V58.69 04/05/2015 ANTONIO MONTANA, ALISON Bush Ot 599.70 04/05/2015 ANTONIO MONTANA, ALISNO Bush Ot 793.5 04/05/2015 BAIMA, IMTIAZ L SUPPORT WORKER Ot 272.4 04/05/2015 BAIMA, IMTIAZ L SUPPORT WORKER Ot 414.00 04/05/2015 ANUP MONTANA, KATERINA Roes Ot V76.12 04/05/2015 BAIMA, IMTIAZ L SUPPORT WORKER Ot 272.4 04/05/2015 BAIMA, IMTIAZ L SUPPORT WORKER Ot 278.00 04/05/2015 BAIMA, IMTIAZ L SUPPORT WORKER Ot 401.9 04/05/2015 BAIONOFRE IMTIAZ L SUPPORT WORKER Ot 414.00 04/05/2015 BAIMA, IMTIAZ L SUPPORT WORKER Ot 790.21 04/05/2015 Ot 272.4 04/05/2015 Ot 414.00 04/05/2015 BAIMA, IMTIAZ L SUPPORT WORKER Ot 272.4 04/05/2015 BAIMA, IMTIAZ L SUPPORT WORKER Ot 401.9 04/05/2015 BAIMA, IMTIAZ L SUPPORT WORKER Ot 414.9 04/05/2015 BAIONOFRE, IMTIAZ L SUPPORT WORKER Ot 782.3 04/05/2015 ANUP MONTANA, KATERINA Rose Ot 724.2 04/05/2015 DOROTA CABELLO ANCILLARY SERVICES MANAGER THERAPY Ot V76.12 04/05/2015 DOROTA CABELLO ANCILLARY SERVICES MANAGER THERAPY Ot 786.05 04/05/2015 DOROTA CABELLO ANCILLARY SERVICES MANAGER THERAPY Ot 272.4 04/05/2015 DOROTA CABELLO ANCILLARY SERVICES MANAGER THERAPY Ot 780.79 04/05/2015 DOROTA CABELLO ANCILLARY SERVICES MANAGER THERAPY Ot R73.09 04/05/2015 BAIIMTIAZ ADHIKARI L SUPPORT WORKER Ot E78.5 04/05/2015 BAIIMTIAZ ADHIKARI L SUPPORT WORKER Ot I25.10 04/06/2015 CHRIS CORDOVA DO Ot G47.33 OBSTRUCTIVE SLEEP APNEA (ADULT) (PEDIATR 04/06/2015 CHRIS CORDOVA DO Ot I10 ESSENTIAL (PRIMARY) HYPERTENSION 05/08/2015 DOROTA CABELLO ANCILLARY SERVICES MANAGER THERAPY Ot R60.0 05/23/2015 CHRIS CORDOVA DO Ot G47.33 OBSTRUCTIVE SLEEP APNEA (ADULT) (PEDIATR 05/24/2015 SHERRI PUENTES ANCILLARY SERVICES MANAGER THERAPY Ot L01.00 IMPETIGO, UNSPECIFIED 05/24/2015 SHERRI PUENTES ANCILLARY SERVICES MANAGER THERAPY Ot L01.00 05/25/2015 DOROTA CABELLO ANCILLARY SERVICES MANAGER THERAPY Ot R60.0 LOCALIZED EDEMA 06/01/2015 DOROTA CABELLO ANCILLARY SERVICES MANAGER THERAPY Ot R60.0 LOCALIZED EDEMA 06/13/2015 DOROTA CABELLO ANCILLARY SERVICES MANAGER THERAPY Ot R60.0 LOCALIZED EDEMA 06/21/2015 ANNETTEIMTIAZ L SUPPORT WORKER Ot E78.5 HYPERLIPIDEMIA, UNSPECIFIED 08/12/2015 LUIS A MONTANA, VIOLA Rose Ot M54.9 DORSALGIA, UNSPECIFIED 08/17/2015 LUIS A MONTANA, VIOLA D Ot M54.9 DORSALGIA, UNSPECIFIED 11/28/2015 Ot V76.12 OTH SCREEN MAMMO-MALIGN NEOPLASM OF [place] 11/28/2015 Ot 401.9 HYPERTENSION NOS 11/28/2015 Ot 272.0 PURE HYPERCHOLESTEROLEM 11/28/2015 Ot 401.9 HYPERTENSION NOS 11/28/2015 Ot 428.0 CONGESTIVE HEART FAILURE NOS 11/28/2015 Ot 786.05 SHORTNESS OF BREATH 11/28/2015 Ot 272.4 HYPERLIPIDEMIA NEC/NOS 11/28/2015 Ot 786.59 CHEST PAIN NEC 11/28/2015 Ot 401.9 HYPERTENSION NOS 11/28/2015 Ot 414.00 CORON ATHEROSCLER NOS TYPE VESSEL, NATIV 11/28/2015 Ot 272.4 HYPERLIPIDEMIA NEC/NOS 11/28/2015 Ot V58.69 OTH MED,LT, CURRENT USE 11/28/2015 Ot 272.4 HYPERLIPIDEMIA NEC/NOS 11/28/2015 Ot V58.69 OTH MED,LT, CURRENT USE 11/28/2015 BAIMA, IMTIAZ L SUPPORT WORKER Ot 272.4 HYPERLIPIDEMIA NEC/NOS 11/28/2015 NAUP MONTANA, KATERINA Rose Ot V76.19 OTH SCREEN BREAST EXAM FOR MALIGNANT CADE 11/28/2015 JOE MONTANA FACC, ALI FACP CCDS Ot 401.9 HYPERTENSION NOS 11/28/2015 JOE MONTANA FACC, ALI FACP CCDS Ot V58.69 OTH MED,LT,CURRENT USE 11/28/2015 BAIMA, IMTIAZ L SUPPORT WORKER Ot 272.4 HYPERLIPIDEMIA NEC/NOS 11/28/2015 BAIMA, IMTIAZ L SUPPORT WORKER Ot 401.9 HYPERTENSION NOS 11/28/2015 BAIMA, IMTIAZ L SUPPORT WORKER Ot 414.01 CORONARY ATHEROSCLEROSIS OF [place] CORON 11/28/2015 BAIMA, IMTIAZ L SUPPORT WORKER Ot V58.69 OTH MED,LT,CURRENT USE 11/28/2015 ALISON ALVAREZ MD Ot 599.70 HEMATURIA, UNSPECIFIED 11/28/2015 ALISON ALVAREZ MD Ot 793.5 NOSP (ABN) FINDINGS ON RADIOLOGICAL OT 11/28/2015 BAIMA, IMTIAZ L SUPPORT WORKER Ot 272.4 HYPERLIPIDEMIA NEC/NOS 11/28/2015 BAIMA, IMTIAZ L SUPPORT WORKER Ot 414.00 CORON ATHEROSCLER NOS TYPE VESSEL, NATIV 11/28/2015 ANUP MONTANA, KATERINA Rose Ot V76.12 OTH SCREEN MAMMO-MALIGN NEOPLASM OF [place] 11/28/2015 BAIMA, IMTIAZ L SUPPORT WORKER Ot 272.4 HYPERLIPIDEMIA NEC/NOS 11/28/2015 BAIMA, IMTIAZ L SUPPORT WORKER Ot 278.00 OBESITY, NOS 11/28/2015 BAIMA, IMTIAZ L SUPPORT WORKER Ot 401.9 HYPERTENSION NOS 11/28/2015 BAIMA, IMTIAZ L SUPPORT WORKER Ot 414.00 CORON ATHEROSCLER NOS TYPE VESSEL, NATIV 11/28/2015 BAIMA, IMTIAZ L SUPPORT WORKER Ot 790.21 IMPAIRED FASTING GLUCOSE 11/28/2015 Ot 272.4 HYPERLIPIDEMIA NEC/NOS 11/28/2015 Ot 414.00 CORON ATHEROSCLER NOS TYPE VESSEL, NATIV 11/28/2015 BAIMA, IMTIAZ L SUPPORT WORKER Ot 272.4 HYPERLIPIDEMIA NEC/NOS 11/28/2015 BAIMA, IMTIAZ L SUPPORT WORKER Ot 401.9 HYPERTENSION NOS 11/28/2015 BAIMA, IMTIAZ L SUPPORT WORKER Ot 414.9 CHR ISCHEMIC HRT DIS NOS 11/28/2015 BAIMA, IMTIAZ L SUPPORT WORKER Ot 782.3 EDEMA 11/28/2015 ANUP MONTANA, KATERINA Rose Ot 724.2 LUMBAGO 11/28/2015 DOROTA CABELLO ANCILLARY SERVICES MANAGER THERAPY Ot V76.12 OTH SCREEN MAMMO-MALIGN NEOPLASM OF [place] 11/28/2015 DOROTA CABELLO ANCILLARY SERVICES MANAGER THERAPY Ot 786.05 SHORTNESS OF BREATH 11/28/2015 DOROTA CABELLO ANCILLARY SERVICES MANAGER THERAPY Ot 272.4 HYPERLIPIDEMIA NEC/NOS 11/28/2015 DOROTA CABELLO ANCILLARY SERVICES MANAGER THERAPY Ot 780.79 OTH MALAISE FATIGUE 11/28/2015 DOROTA CABELLO ANCILLARY SERVICES MANAGER THERAPY Ot R73.09 OTHER ABNORMAL GLUCOSE 11/28/2015 BAIMA, IMTIAZ L SUPPORT WORKER Ot E78.5 HYPERLIPIDEMIA, UNSPECIFIED 11/28/2015 BAIMA, IMTIAZ L SUPPORT WORKER Ot I25.10 ATHSCL HEART DISEASE OF [place] CORONARY 11/28/2015 BAIMA, IMTIAZ L SUPPORT WORKER Ot E78.5 HYPERLIPIDEMIA, UNSPECIFIED 12/13/2015 BAIMA, IMTIAZ L SUPPORT WORKER Ot I10 ESSENTIAL (PRIMARY) HYPERTENSION 12/13/2015 BAIMA, IMTIAZ L SUPPORT WORKER Ot R53.83 OTHER FATIGUE 12/24/2015 SHERRI PUENTES ANCILLARY SERVICES MANAGER THERAPY Ot H61.22 IMPACTED CERUMEN, LEFT EAR 12/24/2015 SHERRI PUENTES APRN Ot I10 ESSENTIAL (PRIMARY) HYPERTENSION 12/24/2015 SHERRI PUENTES APRN Ot J02.9 ACUTE PHARYNGITIS, UNSPECIFIED 12/24/2015 SHERRI PUENTES APRN Ot J06.9 ACUTE UPPER RESPIRATORY INFECTION, UNSPE 12/24/2015 SHERRI PUENTES APRN Ot Z79.82 SECONDS GRADER (CURRENT) USE OF ASPIRIN 12/24/2015 SHERRI PUENTES APRN Ot Z79.899 OTHER SECONDS GRADER (CURRENT) DRUG THERAPY 12/25/2015 SHERRI PUENTES APRN Ot H61.22 IMPACTED CERUMEN, LEFT EAR 12/25/2015 SHERRI PUENTES APRN Ot I10 ESSENTIAL (PRIMARY) HYPERTENSION 12/25/2015 SHERRI PUENTES APRN Ot J02.9 ACUTE PHARYNGITIS, UNSPECIFIED 12/25/2015 SHERRI PUENTES APRN Ot J06.9 ACUTE UPPER RESPIRATORY INFECTION, UNSPE 12/25/2015 SHERRI PUENTES APRN Ot Z79.82 SECONDS GRADER (CURRENT) USE OF ASPIRIN 12/25/2015 SHERRI PUENTES APRN Ot Z79.899 OTHER DETENTION (CURRENT) DRUG THERAPY 01/14/2016 ANUP MONTANA, KATERINA Rose Ot E78.00 PURE HYPERCHOLESTEROLEMIA, UNSPECIFIED 01/14/2016 ANUP MONTANA, KATERINA Rose Ot I25.10 ATHSCL HEART DISEASE OF [place] CORONARY 01/14/2016 ANUP MONTANA, KATERINA Rose Ot R73.9 HYPERGLYCEMIA, UNSPECIFIED 01/16/2016 SHERRI PUENTES APRN Ot I10 ESSENTIAL (PRIMARY) HYPERTENSION 01/16/2016 SHERRI PUENTES APRN Ot M79.662 PAIN IN LEFT LOWER LEG 01/16/2016 SHERRI PUENTES APRN Ot Z79.82 DETENTION (CURRENT) USE OF ASPIRIN 01/16/2016 SHERRI PUENTES APRN Ot Z79.899 OTHER SECONDS GRADER (CURRENT) DRUG THERAPY 01/17/2016 SHERRI PUENTES APRN Ot I10 ESSENTIAL (PRIMARY) HYPERTENSION 01/17/2016 SHERRI PUENTES APRN Ot M79.662 PAIN IN LEFT LOWER LEG 01/17/2016 SHERRI PUENTES APRN Ot Z79.82 SECONDS GRADER (CURRENT) USE OF ASPIRIN 01/17/2016 SHERRI PUENTES APRN Ot Z79.899 OTHER SECONDS GRADER (CURRENT) DRUG THERAPY 01/18/2016 SHERRI PUENTES ANCILLARY SERVICES MANAGER THERAPY Ot I10 ESSENTIAL (PRIMARY) HYPERTENSION 01/18/2016 SHERRI PUENTES ANCILLARY SERVICES MANAGER THERAPY Ot M79.662 PAIN IN LEFT LOWER LEG 01/18/2016 SHERRI PUENTES ANCILLARY SERVICES MANAGER THERAPY Ot Z79.82 SECONDS GRADER (CURRENT) USE OF ASPIRIN 01/18/2016 SHERRI PUENTES ANCILLARY SERVICES MANAGER THERAPY Ot Z79.899 OTHER DETENTION (CURRENT) DRUG THERAPY 01/24/2016 KATERINA HEBERT MD Ot E78.00 PURE HYPERCHOLESTEROLEMIA, UNSPECIFIED 01/24/2016 KATERINA HEBERT MD Ot I25.10 ATHSCL HEART DISEASE OF [place] CORONARY 01/24/2016 KATERINA HEBERT MD Ot R73.9 HYPERGLYCEMIA, UNSPECIFIED 02/20/2016 Ot V76.12 OTH SCREEN MAMMO-MALIGN NEOPLASM OF [place] 02/20/2016 Ot 401.9 HYPERTENSION NOS 02/20/2016 Ot 272.0 PURE HYPERCHOLESTEROLEM 02/20/2016 Ot 401.9 HYPERTENSION NOS 02/20/2016 Ot 428.0 CONGESTIVE HEART FAILURE NOS 02/20/2016 Ot 786.05 SHORTNESS OF BREATH 02/20/2016 Ot 272.4 HYPERLIPIDEMIA NEC/NOS 02/20/2016 Ot 786.59 CHEST PAIN NEC 02/20/2016 Ot 401.9 HYPERTENSION NOS 02/20/2016 Ot 414.00 CORON ATHEROSCLER NOS TYPE VESSEL, NATIV 02/20/2016 Ot 272.4 HYPERLIPIDEMIA NEC/NOS 02/20/2016 Ot V58.69 OTH MED,LT, CURRENT USE 02/20/2016 Ot 272.4 HYPERLIPIDEMIA NEC/NOS 02/20/2016 Ot V58.69 OTH MED,LT, CURRENT USE 02/20/2016 BAIMA, IMTIAZ L SUPPORT WORKER Ot 272.4 HYPERLIPIDEMIA NEC/NOS 02/20/2016 KATERINA HEBERT MD Ot V76.19 OTH SCREEN BREAST EXAM FOR MALIGNANT CADE 02/20/2016 JOE MONTANA FACSamy, ALI FACP CCDS Ot 401.9 HYPERTENSION NOS 02/20/2016 JOE MONTANA FACSamy, ALI FACP CCDS Ot V58.69 OTH MED,LT,CURRENT USE 02/20/2016 BAIMA, IMTIAZ L SUPPORT WORKER Ot 272.4 HYPERLIPIDEMIA NEC/NOS 02/20/2016 BAIMA, IMTIAZ L SUPPORT WORKER Ot 401.9 HYPERTENSION NOS 02/20/2016 BAIMA, IMTIAZ L SUPPORT WORKER Ot 414.01 CORONARY ATHEROSCLEROSIS OF [place] CORON 02/20/2016 BAIMA, IMTIAZ L SUPPORT WORKER Ot V58.69 OTH MED,LT,CURRENT USE 02/20/2016 ANTONIO MONTANA, ALISON Bush Ot 599.70 HEMATURIA, UNSPECIFIED 02/20/2016 ANTONIO MONTANA, ALISON Bush Ot 793.5 NOSP (ABN) FINDINGS ON RADIOLOGICAL OT 02/20/2016 BAIMA, IMTIAZ L SUPPORT WORKER Ot 272.4 HYPERLIPIDEMIA NEC/NOS 02/20/2016 BAIMA, IMTIAZ L SUPPORT WORKER Ot 414.00 CORON ATHEROSCLER NOS TYPE VESSEL, NATIV 02/20/2016 ANUP MONTANA, KATERINA Rose Ot V76.12 OTH SCREEN MAMMO-MALIGN NEOPLASM OF [place] 02/20/2016 BAIMA, IMTIAZ L SUPPORT WORKER Ot 272.4 HYPERLIPIDEMIA NEC/NOS 02/20/2016 BAIMA, IMTIAZ L SUPPORT WORKER Ot 278.00 OBESITY, NOS 02/20/2016 BAIMA, IMTIAZ L SUPPORT WORKER Ot 401.9 HYPERTENSION NOS 02/20/2016 BAIMA, IMTIAZ L SUPPORT WORKER Ot 414.00 CORON ATHEROSCLER NOS TYPE VESSEL, NATIV 02/20/2016 BAIMA, IMTIAZ L SUPPORT WORKER Ot 790.21 IMPAIRED FASTING GLUCOSE 02/20/2016 Ot 272.4 HYPERLIPIDEMIA NEC/NOS 02/20/2016 Ot 414.00 CORON ATHEROSCLER NOS TYPE VESSEL, NATIV 02/20/2016 BAIMA, IMTIAZ L SUPPORT WORKER Ot 272.4 HYPERLIPIDEMIA NEC/NOS 02/20/2016 BAIMA, IMTIAZ L SUPPORT WORKER Ot 401.9 HYPERTENSION NOS 02/20/2016 BAIMA, IMTIAZ L SUPPORT WORKER Ot 414.9 CHR ISCHEMIC HRT DIS NOS 02/20/2016 BAIMA, IMTIAZ L SUPPORT WORKER Ot 782.3 EDEMA 02/20/2016 ANUP MONTANA, KATERINA Rose Ot 724.2 LUMBAGO 02/20/2016 DOROTA CABELLO ANCILLARY SERVICES MANAGER THERAPY Ot V76.12 OTH SCREEN MAMMO-MALIGN NEOPLASM OF [place] 02/20/2016 DOROTA CABELLO N ANCILLARY SERVICES MANAGER THERAPY Ot 786.05 SHORTNESS OF BREATH 02/20/2016 DOROTA CABELLO ANCILLARY SERVICES MANAGER THERAPY Ot 272.4 HYPERLIPIDEMIA NEC/NOS 02/20/2016 DOROTA CABELLO N ANCILLARY SERVICES MANAGER THERAPY Ot 780.79 OTH MALAISE FATIGUE 02/20/2016 DOROTA CABELLO N ANCILLARY SERVICES MANAGER THERAPY Ot R73.09 OTHER ABNORMAL GLUCOSE 02/20/2016 IMTIAZ BRYANT L SUPPORT WORKER Ot E78.5 HYPERLIPIDEMIA, UNSPECIFIED 02/20/2016 BAIIMTIAZ ADHIKARI L SUPPORT WORKER Ot I25.10 ATHSCL HEART DISEASE OF [place] CORONARY 02/20/2016 BAIIMTIAZ ADHIKARI L SUPPORT WORKER Ot E78.5 HYPERLIPIDEMIA, UNSPECIFIED 02/20/2016 BAIMA IMTIAZ L SUPPORT WORKER Ot I10 ESSENTIAL (PRIMARY) HYPERTENSION 02/20/2016 BAIIMTIAZ ADHIKARI L SUPPORT WORKER Ot R53.83 OTHER FATIGUE 02/20/2016 ANUP MONTANA, KATERINA Rose Ot E78.00 PURE HYPERCHOLESTEROLEMIA, UNSPECIFIED 02/20/2016 ANUP MONTANA, KATERINA Rose Ot I25.10 ATHSCL HEART DISEASE OF [place] CORONARY 02/20/2016 ANUP MONTANA, KATERINA Rose Ot R73.9 HYPERGLYCEMIA, UNSPECIFIED 02/20/2016 RENETTA EARL Ot I10 ESSENTIAL (PRIMARY) HYPERTENSION 02/20/2016 RENETTA EARL Ot M54.5 LOW BACK PAIN 02/20/2016 RENETTA EARL Ot Z79.82 SECONDS GRADER (CURRENT) USE OF ASPIRIN 02/20/2016 RENETTA EARL Ot Z79.899 OTHER SECONDS GRADER (CURRENT) DRUG THERAPY 02/21/2016 RENETTA EARL Ot I10 ESSENTIAL (PRIMARY) HYPERTENSION 02/21/2016 RENETTA EARL Ot M54.5 LOW BACK PAIN 02/21/2016 RENETTA EARL Ot Z79.82 SECONDS GRADER (CURRENT) USE OF ASPIRIN 02/21/2016 RENETTA EARL Ot Z79.899 OTHER DETENTION (CURRENT) DRUG THERAPY 03/04/2016 Ot V76.12 OTH SCREEN MAMMO-MALIGN NEOPLASM OF [place] 03/04/2016 Ot 401.9 HYPERTENSION NOS 03/04/2016 Ot 272.0 PURE HYPERCHOLESTEROLEM 03/04/2016 Ot 401.9 HYPERTENSION NOS 03/04/2016 Ot 428.0 CONGESTIVE HEART FAILURE NOS 03/04/2016 Ot 786.05 SHORTNESS OF BREATH 03/04/2016 Ot 272.4 HYPERLIPIDEMIA NEC/NOS 03/04/2016 Ot 786.59 CHEST PAIN NEC 03/04/2016 Ot 401.9 HYPERTENSION NOS 03/04/2016 Ot 414.00 CORON ATHEROSCLER NOS TYPE VESSEL, NATIV 03/04/2016 Ot 272.4 HYPERLIPIDEMIA NEC/NOS 03/04/2016 Ot V58.69 OTH MED,LT, CURRENT USE 03/04/2016 Ot 272.4 HYPERLIPIDEMIA NEC/NOS 03/04/2016 Ot V58.69 OTH MED,LT, CURRENT USE 03/04/2016 BAIMA, IMTIAZ L SUPPORT WORKER Ot 272.4 HYPERLIPIDEMIA NEC/NOS 03/04/2016 ANUP MONTANA, KATERINA Rose Ot V76.19 OTH SCREEN BREAST EXAM FOR MALIGNANT CADE 03/04/2016 JOE MONTANA FAC, ALI FACP CCDS Ot 401.9 HYPERTENSION NOS 03/04/2016 JOE MONTANA FAC, ALI FACP CCDS Ot V58.69 OTH MED,LT,CURRENT USE 03/04/2016 BAIMA, IMTIAZ L SUPPORT WORKER Ot 272.4 HYPERLIPIDEMIA NEC/NOS 03/04/2016 BAIMA, IMTIAZ L SUPPORT WORKER Ot 401.9 HYPERTENSION NOS 03/04/2016 BAIMA, IMTIAZ L SUPPORT WORKER Ot 414.01 CORONARY ATHEROSCLEROSIS OF [place] CORON 03/04/2016 BAIMA, IMTIAZ L SUPPORT WORKER Ot V58.69 OTH MED,LT,CURRENT USE 03/04/2016 ANTONIO MONTANA, ALISON Bsuh Ot 599.70 HEMATURIA, UNSPECIFIED 03/04/2016 ANTONIO MONTANA, ALISON Bush Ot 793.5 NOSP (ABN) FINDINGS ON RADIOLOGICAL OT 03/04/2016 BAIMA, IMTIAZ L SUPPORT WORKER Ot 272.4 HYPERLIPIDEMIA NEC/NOS 03/04/2016 BAIMA, IMTIAZ L SUPPORT WORKER Ot 414.00 CORON ATHEROSCLER NOS TYPE VESSEL, NATIV 03/04/2016 KATERINA HEBERT MD Ot V76.12 OTH SCREEN MAMMO-MALIGN NEOPLASM OF [place] 03/04/2016 BAIMA, IMTIAZ L SUPPORT WORKER Ot 272.4 HYPERLIPIDEMIA NEC/NOS 03/04/2016 BAIMA, IMTIAZ L SUPPORT WORKER Ot 278.00 OBESITY, NOS 03/04/2016 BAIMA, IMTIAZ L SUPPORT WORKER Ot 401.9 HYPERTENSION NOS 03/04/2016 BAIMA, IMTIAZ L SUPPORT WORKER Ot 414.00 CORON ATHEROSCLER NOS TYPE VESSEL, NATIV 03/04/2016 BAIMA, IMTIAZ L SUPPORT WORKER Ot 790.21 IMPAIRED FASTING GLUCOSE 03/04/2016 Ot 272.4 HYPERLIPIDEMIA NEC/NOS 03/04/2016 Ot 414.00 CORON ATHEROSCLER NOS TYPE VESSEL, NATIV 03/04/2016 IMTIAZ BRYANT L SUPPORT WORKER Ot 272.4 HYPERLIPIDEMIA NEC/NOS 03/04/2016 IMTIAZ BRYANT L SUPPORT WORKER Ot 401.9 HYPERTENSION NOS 03/04/2016 IMTIAZ BRYANT L SUPPORT WORKER Ot 414.9 CHR ISCHEMIC HRT DIS NOS 03/04/2016 IMTIAZ BRYANT L SUPPORT WORKER Ot 782.3 EDEMA 03/04/2016 ANUP MONTANA, KATERINA Rose Ot 724.2 LUMBAGO 03/04/2016 DARRELL CABELLOKELLEY Ramos ANCILLARY SERVICES MANAGER THERAPY Ot V76.12 OTH SCREEN MAMMO-MALIGN NEOPLASM OF [place] 03/04/2016 DESTINEY DARRELLKELLEY Ramos ANCILLARY SERVICES MANAGER THERAPY Ot 786.05 SHORTNESS OF BREATH 03/04/2016 CABELLO DARRELLKELLEY Ramos ANCILLARY SERVICES MANAGER THERAPY Ot 272.4 HYPERLIPIDEMIA NEC/NOS 03/04/2016 CABELLO DARRELLKELLEY N ANCILLARY SERVICES MANAGER THERAPY Ot 780.79 OTH MALAISE FATIGUE 03/04/2016 CABELLO DARRELLKELLEY Ramos ANCILLARY SERVICES MANAGER THERAPY Ot R73.09 OTHER ABNORMAL GLUCOSE 03/04/2016 IMTIAZ BRYANT SUPPORT WORKER Ot E78.5 HYPERLIPIDEMIA, UNSPECIFIED 03/04/2016 IMTIAZ BRYANT L SUPPORT WORKER Ot I25.10 ATHSCL HEART DISEASE OF [place] CORONARY 03/04/2016 IMTIAZ BRYANT L SUPPORT WORKER Ot E78.5 HYPERLIPIDEMIA, UNSPECIFIED 03/04/2016 IMTIAZ BRYANT L SUPPORT WORKER Ot I10 ESSENTIAL (PRIMARY) HYPERTENSION 03/04/2016 IMTIAZ BRYANT L SUPPORT WORKER Ot R53.83 OTHER FATIGUE 03/04/2016 ANUP MONTANA, KATERINA Rose Ot E78.00 PURE HYPERCHOLESTEROLEMIA, UNSPECIFIED 03/04/2016 ANUP MONTANA, KATERINA Rose Ot I25.10 ATHSCL HEART DISEASE OF [place] CORONARY 03/04/2016 ANUP MONTANA, KATERINA Rose Ot R73.9 HYPERGLYCEMIA, UNSPECIFIED 03/05/2016 ANUP MONTANA, KATERINA Rose Ot M46.04 SPINAL ENTHESOPATHY, THORACIC REGION 03/10/2016 ANUP MONTANA, KATERINA Rose Ot M46.04 SPINAL ENTHESOPATHY, THORACIC REGION 03/17/2016 Ot V76.12 OTH SCREEN MAMMO-MALIGN NEOPLASM OF [place] 03/17/2016 Ot 401.9 HYPERTENSION NOS 03/17/2016 Ot 272.0 PURE HYPERCHOLESTEROLEM 03/17/2016 Ot 401.9 HYPERTENSION NOS 03/17/2016 Ot 428.0 CONGESTIVE HEART FAILURE NOS 03/17/2016 Ot 786.05 SHORTNESS OF BREATH 03/17/2016 Ot 272.4 HYPERLIPIDEMIA NEC/NOS 03/17/2016 Ot 786.59 CHEST PAIN NEC 03/17/2016 Ot 401.9 HYPERTENSION NOS 03/17/2016 Ot 414.00 CORON ATHEROSCLER NOS TYPE VESSEL, NATIV 03/17/2016 Ot 272.4 HYPERLIPIDEMIA NEC/NOS 03/17/2016 Ot V58.69 OTH MED,LT, CURRENT USE 03/17/2016 Ot 272.4 HYPERLIPIDEMIA NEC/NOS 03/17/2016 Ot V58.69 OTH MED,LT, CURRENT USE 03/17/2016 BAIMA, IMTIAZ L SUPPORT WORKER Ot 272.4 HYPERLIPIDEMIA NEC/NOS 03/17/2016 ANUP MONTANA, KATERINA Rose Ot V76.19 OTH SCREEN BREAST EXAM FOR MALIGNANT CADE 03/17/2016 JOE MONTANA FACC, ALI FACP CCDS Ot 401.9 HYPERTENSION NOS 03/17/2016 JOE MONTANA FACC, ALI FACP CCDS Ot V58.69 OTH MED,LT,CURRENT USE 03/17/2016 BAIMA, IMTIAZ L SUPPORT WORKER Ot 272.4 HYPERLIPIDEMIA NEC/NOS 03/17/2016 BAIMA, IMTIAZ L SUPPORT WORKER Ot 401.9 HYPERTENSION NOS 03/17/2016 BAIMA, IMTIAZ L SUPPORT WORKER Ot 414.01 CORONARY ATHEROSCLEROSIS OF [place] CORON 03/17/2016 BAIMA, IMTIAZ L SUPPORT WORKER Ot V58.69 OTH MED,LT,CURRENT USE 03/17/2016 ALISON ALVAREZ MD Ot 599.70 HEMATURIA, UNSPECIFIED 03/17/2016 ALISON ALVAREZ MD Ot 793.5 NOSP (ABN) FINDINGS ON RADIOLOGICAL OT 03/17/2016 BAIMA, IMTIAZ L SUPPORT WORKER Ot 272.4 HYPERLIPIDEMIA NEC/NOS 03/17/2016 BAIMA, IMTIAZ L SUPPORT WORKER Ot 414.00 CORON ATHEROSCLER NOS TYPE VESSEL, NATIV 03/17/2016 ANUP MONTANA, KATERINA Rose Ot V76.12 OTH SCREEN MAMMO-MALIGN NEOPLASM OF [place] 03/17/2016 BAIMA, IMTIAZ L SUPPORT WORKER Ot 272.4 HYPERLIPIDEMIA NEC/NOS 03/17/2016 BAIMA, IMTIAZ L SUPPORT WORKER Ot 278.00 OBESITY, NOS 03/17/2016 BAIMA, IMTIAZ L SUPPORT WORKER Ot 401.9 HYPERTENSION NOS 03/17/2016 BAIMA, IMTIAZ L SUPPORT WORKER Ot 414.00 CORON ATHEROSCLER NOS TYPE VESSEL, NATIV 03/17/2016 BAIONOFRE, IMTIAZ L SUPPORT WORKER Ot 790.21 IMPAIRED FASTING GLUCOSE 03/17/2016 Ot 272.4 HYPERLIPIDEMIA NEC/NOS 03/17/2016 Ot 414.00 CORON ATHEROSCLER NOS TYPE VESSEL, NATIV 03/17/2016 BAIMA, IMTIAZ L SUPPORT WORKER Ot 272.4 HYPERLIPIDEMIA NEC/NOS 03/17/2016 BAIMA, IMTIAZ L SUPPORT WORKER Ot 401.9 HYPERTENSION NOS 03/17/2016 BAIMA, IMTIAZ L SUPPORT WORKER Ot 414.9 CHR ISCHEMIC HRT DIS NOS 03/17/2016 ANNETTE, IMTIAZ L SUPPORT WORKER Ot 782.3 EDEMA 03/17/2016 ANUP MONTANA, KATERINA Rose Ot 724.2 LUMBAGO 03/17/2016 DOROTA CABELLO ANCILLARY SERVICES MANAGER THERAPY Ot V76.12 OTH SCREEN MAMMO-MALIGN NEOPLASM OF [place] 03/17/2016 DOROAT CABELLO N ANCILLARY SERVICES MANAGER THERAPY Ot 786.05 SHORTNESS OF BREATH 03/17/2016 DESTINEY DARRELLKELLEY Ramos ANCILLARY SERVICES MANAGER THERAPY Ot 272.4 HYPERLIPIDEMIA NEC/NOS 03/17/2016 DOROTA CABELLO ANCILLARY SERVICES MANAGER THERAPY Ot 780.79 OTH MALAISE FATIGUE 03/17/2016 DESTINEY DARRELLKELLEY Ramos ANCILLARY SERVICES MANAGER THERAPY Ot R73.09 OTHER ABNORMAL GLUCOSE 03/17/2016 FEROZONOFRE, IMTIAZ L SUPPORT WORKER Ot E78.5 HYPERLIPIDEMIA, UNSPECIFIED 03/17/2016 BAIONOFRE, IMTIAZ L SUPPORT WORKER Ot I25.10 ATHSCL HEART DISEASE OF [place] CORONARY 03/17/2016 BAIMA, IMTIAZ L SUPPORT WORKER Ot E78.5 HYPERLIPIDEMIA, UNSPECIFIED 03/17/2016 BAIMA, IMTIAZ L SUPPORT WORKER Ot I10 ESSENTIAL (PRIMARY) HYPERTENSION 03/17/2016 BAIMA, IMTIAZ L SUPPORT WORKER Ot R53.83 OTHER FATIGUE 03/17/2016 ANUP MONTANA, KATERINA Rose Ot E78.00 PURE HYPERCHOLESTEROLEMIA, UNSPECIFIED 03/17/2016 ANUP MONTANA, KATERINA Rose Ot I25.10 ATHSCL HEART DISEASE OF [place] CORONARY 03/17/2016 ANUP MONTANA, KATERINA Rose Ot R73.9 HYPERGLYCEMIA, UNSPECIFIED 03/17/2016 ANUP MONTANA, KATERINA Rose Ot M46.04 SPINAL ENTHESOPATHY, THORACIC REGION 03/20/2016 ANUP MONTANA, KATERINA Rose Ot M46.04 SPINAL ENTHESOPATHY, THORACIC REGION 04/01/2016 ANUP MONTANA, KATERINA Rose Ot M54.5 LOW BACK PAIN 04/08/2016 Ot V76.12 OTH SCREEN MAMMO-MALIGN NEOPLASM OF [place] 04/08/2016 Ot 401.9 HYPERTENSION NOS 04/08/2016 Ot 272.0 PURE HYPERCHOLESTEROLEM 04/08/2016 Ot 401.9 HYPERTENSION NOS 04/08/2016 Ot 428.0 CONGESTIVE HEART FAILURE NOS 04/08/2016 Ot 786.05 SHORTNESS OF BREATH 04/08/2016 Ot 272.4 HYPERLIPIDEMIA NEC/NOS 04/08/2016 Ot 786.59 CHEST PAIN NEC 04/08/2016 Ot 401.9 HYPERTENSION NOS 04/08/2016 Ot 414.00 CORON ATHEROSCLER NOS TYPE VESSEL, NATIV 04/08/2016 Ot 272.4 HYPERLIPIDEMIA NEC/NOS 04/08/2016 Ot V58.69 OTH MED,LT, CURRENT USE 04/08/2016 Ot 272.4 HYPERLIPIDEMIA NEC/NOS 04/08/2016 Ot V58.69 OTH MED,LT, CURRENT USE 04/08/2016 BAIMA, IMTIAZ L SUPPORT WORKER Ot 272.4 HYPERLIPIDEMIA NEC/NOS 04/08/2016 ANUP MONTANA, KATERINA Rose Ot V76.19 OTH SCREEN BREAST EXAM FOR MALIGNANT CADE 04/08/2016 JOE MONTANA FACC, ALI FACP CCDS Ot 401.9 HYPERTENSION NOS 04/08/2016 JOE MONTANA FACC, ALI FACP CCDS Ot V58.69 OTH MED,LT,CURRENT USE 04/08/2016 BAIMA, IMTIAZ L SUPPORT WORKER Ot 272.4 HYPERLIPIDEMIA NEC/NOS 04/08/2016 BAIMA, IMTIAZ L SUPPORT WORKER Ot 401.9 HYPERTENSION NOS 04/08/2016 BAIMA, IMTIAZ L SUPPORT WORKER Ot 414.01 CORONARY ATHEROSCLEROSIS OF [place] CORON 04/08/2016 BAIMA, IMTIAZ L SUPPORT WORKER Ot V58.69 OTH MED,LT,CURRENT USE 04/08/2016 ANTONIO MONTANA, ALISON Bush Ot 599.70 HEMATURIA, UNSPECIFIED 04/08/2016 ALISON ALVAREZ MD Ot 793.5 NOSP (ABN) FINDINGS ON RADIOLOGICAL OT 04/08/2016 BAIONOFRE IMTIAZ L SUPPORT WORKER Ot 272.4 HYPERLIPIDEMIA NEC/NOS 04/08/2016 BAIMA, IMTIAZ L SUPPORT WORKER Ot 414.00 CORON ATHEROSCLER NOS TYPE VESSEL, NATIV 04/08/2016 ANUP MONTANA, KATERINA Rose Ot V76.12 OTH SCREEN MAMMO-MALIGN NEOPLASM OF [place] 04/08/2016 BAIMA, IMTIAZ L SUPPORT WORKER Ot 272.4 HYPERLIPIDEMIA NEC/NOS 04/08/2016 BAIMA, IMTIAZ L SUPPORT WORKER Ot 278.00 OBESITY, NOS 04/08/2016 BAIMA, IMTIAZ L SUPPORT WORKER Ot 401.9 HYPERTENSION NOS 04/08/2016 BAIMA, IMTIAZ L SUPPORT WORKER Ot 414.00 CORON ATHEROSCLER NOS TYPE VESSEL, NATIV 04/08/2016 BAIMA, IMTIAZ L SUPPORT WORKER Ot 790.21 IMPAIRED FASTING GLUCOSE 04/08/2016 Ot 272.4 HYPERLIPIDEMIA NEC/NOS 04/08/2016 Ot 414.00 CORON ATHEROSCLER NOS TYPE VESSEL, NATIV 04/08/2016 BAIMA, IMTIAZ L SUPPORT WORKER Ot 272.4 HYPERLIPIDEMIA NEC/NOS 04/08/2016 BAIMA, IMTIAZ L SUPPORT WORKER Ot 401.9 HYPERTENSION NOS 04/08/2016 BAIMA, IMTIAZ L SUPPORT WORKER Ot 414.9 CHR ISCHEMIC HRT DIS NOS 04/08/2016 BAIONOFRE, IMTIAZ L SUPPORT WORKER Ot 782.3 EDEMA 04/08/2016 ANUP MONTANA, KATERINA Rose Ot 724.2 LUMBAGO 04/08/2016 DOROTA CABELLO ANCILLARY SERVICES MANAGER THERAPY Ot V76.12 OTH SCREEN MAMMO-MALIGN NEOPLASM OF [place] 04/08/2016 DOROTA CABELLO ANCILLARY SERVICES MANAGER THERAPY Ot 786.05 SHORTNESS OF BREATH 04/08/2016 DOROTA CABELLO ANCILLARY SERVICES MANAGER THERAPY Ot 272.4 HYPERLIPIDEMIA NEC/NOS 04/08/2016 DOROTA CABELLO ANCILLARY SERVICES MANAGER THERAPY Ot 780.79 OTH MALAISE FATIGUE 04/08/2016 DOROTA CABELLO ANCILLARY SERVICES MANAGER THERAPY Ot R73.09 OTHER ABNORMAL GLUCOSE 04/08/2016 ANNETTE, IMTIAZ L SUPPORT WORKER Ot E78.5 HYPERLIPIDEMIA, UNSPECIFIED 04/08/2016 BAIMA, IMTIAZ L SUPPORT WORKER Ot I25.10 ATHSCL HEART DISEASE OF [place] CORONARY 04/08/2016 BAIMA, IMTIAZ L SUPPORT WORKER Ot E78.5 HYPERLIPIDEMIA, UNSPECIFIED 04/08/2016 BAIMA, IMTIAZ L SUPPORT WORKER Ot I10 ESSENTIAL (PRIMARY) HYPERTENSION 04/08/2016 IMTIAZ BRYANT SUPPORT WORKER Ot R53.83 OTHER FATIGUE 04/08/2016 ANUP MONTANA KATERINA Milton Ot E78.00 PURE HYPERCHOLESTEROLEMIA, UNSPECIFIED 04/08/2016 ANUP MONTANA KATERINA Milton Ot I25.10 ATHSCL HEART DISEASE OF [place] CORONARY 04/08/2016 KATERINA HEBERT MD Ot R73.9 HYPERGLYCEMIA, UNSPECIFIED 04/08/2016 ANUP MONTANA KATERINA Milton Ot M46.04 SPINAL ENTHESOPATHY, THORACIC REGION 04/08/2016 ANUP MONTANA KATERINA Milton Ot M54.5 LOW BACK PAIN 04/09/2016 KATERINA HEBERT MD Ot Z12.31 ENCNTR SCREEN MAMMOGRAM FOR MALIGNANT NE 04/21/2016 KATERINA HEBERT MD Ot Z12.31 ENCNTR SCREEN MAMMOGRAM FOR MALIGNANT NE 04/25/2016 KATERINA HEBERT MD Ot M54.5 LOW BACK PAIN 05/29/2016 ANUP MONTANA KATERINA Milton Ot E78.5 HYPERLIPIDEMIA, UNSPECIFIED 05/29/2016 ANUP MONTANA KATERINA D Ot R53.83 OTHER FATIGUE 05/29/2016 ANUP MONTANA KATERINA Milton Ot R73.09 OTHER ABNORMAL GLUCOSE 06/06/2016 KATERINA HEBERT MD Ot E78.5 HYPERLIPIDEMIA, UNSPECIFIED 06/06/2016 ANUP MONTANA KATERINA D Ot R53.83 OTHER FATIGUE 06/06/2016 ANUP MONTANA KATERINA D Ot R73.09 OTHER ABNORMAL GLUCOSE 06/19/2016 SHERRI PUENTES APRN Ot I10 ESSENTIAL (PRIMARY) HYPERTENSION 06/19/2016 SHERRI PUENTES APRN Ot I25.10 ATHSCL HEART DISEASE OF [place] CORONARY 06/19/2016 SHERRI PUENTES APRN Ot K04.7 PERIAPICAL ABSCESS WITHOUT SINUS 06/19/2016 SHERRI PUENTES APRN Ot K08.9 DISORDER OF TEETH AND SUPPORTING STRUCTU 06/19/2016 SHERRI PUENTES APRN Ot Z79.82 DETENTION (CURRENT) USE OF ASPIRIN 06/19/2016 SHERRI PUENTES APRN Ot Z79.899 OTHER SECONDS GRADER (CURRENT) DRUG THERAPY 07/12/2016 RENETTA EARL Ot E11.9 TYPE 2 DIABETES MELLITUS WITHOUT COMPLIC 07/12/2016 RENETTA EARL Ot I10 ESSENTIAL (PRIMARY) HYPERTENSION 07/12/2016 RENETTA EARL Ot I25.10 ATHSCL HEART DISEASE OF [place] CORONARY 07/12/2016 RENETTA EARL Ot K04.7 PERIAPICAL ABSCESS WITHOUT SINUS 07/12/2016 RENETTA EARL Ot K13.79 OTHER LESIONS OF ORAL MUCOSA 07/12/2016 RENETTA EARL Ot M79.604 PAIN IN RIGHT LEG 07/12/2016 RENETTA EARL Ot M79.605 PAIN IN LEFT LEG 07/12/2016 RENETTA EARL Ot Q24.8 OTHER SPECIFIED CONGENITAL MALFORMATIONS 07/12/2016 RENETTA EARL Ot Z79.82 SECONDS GRADER (CURRENT) USE OF ASPIRIN 07/12/2016 RENETTA EARL Ot Z79.84 DETENTION (CURRENT) USE OF ORAL HYPOGLYC 07/12/2016 RENETTA EARL Ot Z87.39 PERSONAL HISTORY OF DISEASES OF THE MS S 07/15/2016 RENETTA EARL Ot E11.9 TYPE 2 DIABETES MELLITUS WITHOUT COMPLIC 07/15/2016 RENETTA EARL Ot I10 ESSENTIAL (PRIMARY) HYPERTENSION 07/15/2016 RENETTA EARL Ot I25.10 ATHSCL HEART DISEASE OF [place] CORONARY 07/15/2016 RENETTA EARL Ot K04.7 PERIAPICAL ABSCESS WITHOUT SINUS 07/15/2016 RENETTA EARL Ot K13.79 OTHER LESIONS OF ORAL MUCOSA 07/15/2016 RENETTA EARL Ot M79.604 PAIN IN RIGHT LEG 07/15/2016 RENETTA EARL Ot M79.605 PAIN IN LEFT LEG 07/15/2016 RENETTA EARL Ot Q24.8 OTHER SPECIFIED CONGENITAL MALFORMATIONS 07/15/2016 RENETTA EARL Ot Z79.82 DETENTION (CURRENT) USE OF ASPIRIN 07/15/2016 RENETTA EARL Ot Z79.84 SECONDS GRADER (CURRENT) USE OF ORAL HYPOGLYC 07/15/2016 RENETTA EARL Ot Z87.39 PERSONAL HISTORY OF DISEASES OF THE MS S 07/15/2016 RENETTA EARL Ot E11.9 TYPE 2 DIABETES MELLITUS WITHOUT COMPLIC 07/15/2016 RENETTA EARL Ot I10 ESSENTIAL (PRIMARY) HYPERTENSION 07/15/2016 RENETTA EARL Ot I25.10 ATHSCL HEART DISEASE OF [place] CORONARY 07/15/2016 RENETTA EARL Ot K04.7 PERIAPICAL ABSCESS WITHOUT SINUS 07/15/2016 RENETTA EARL Ot K13.79 OTHER LESIONS OF ORAL MUCOSA 07/15/2016 RENETTA EARL Ot M79.604 PAIN IN RIGHT LEG 07/15/2016 RENETTA EARL Ot M79.605 PAIN IN LEFT LEG 07/15/2016 RENETTA EARL Ot Q24.8 OTHER SPECIFIED CONGENITAL MALFORMATIONS 07/15/2016 RENETTA EARL Ot Z79.82 DETENTION (CURRENT) USE OF ASPIRIN 07/15/2016 RENETTA EARL Ot Z79.84 DETENTION (CURRENT) USE OF ORAL HYPOGLYC 07/15/2016 RENETTA EARL Ot Z87.39 PERSONAL HISTORY OF DISEASES OF THE MS S 07/27/2016 SHERRI PUENTES APRN Ot E11.9 TYPE 2 DIABETES MELLITUS WITHOUT COMPLIC 07/27/2016 SHERRI PUENTES APRN Ot I10 ESSENTIAL (PRIMARY) HYPERTENSION 07/27/2016 SHERRI PUENTES APRN Ot I25.10 ATHSCL HEART DISEASE OF [place] CORONARY 07/27/2016 SHERRI PUENTES APRN Ot M17.11 UNILATERAL PRIMARY OSTEOARTHRITIS, RIGHT 07/27/2016 SHERRI PUENTES APRN Ot M54.6 PAIN IN THORACIC SPINE 07/27/2016 SHERRI PUENTES APRN Ot Z79.82 DETENTION (CURRENT) USE OF ASPIRIN 07/27/2016 SHERRI PUENTES APRN Ot Z79.84 DETENTION (CURRENT) USE OF ORAL HYPOGLYC 07/29/2016 SHERRI PUENTES APRN Ot E11.9 TYPE 2 DIABETES MELLITUS WITHOUT COMPLIC 07/29/2016 SHERRI PUENTES APRN Ot I10 ESSENTIAL (PRIMARY) HYPERTENSION 07/29/2016 SHERRI PUENTES APRN Ot I25.10 ATHSCL HEART DISEASE OF [place] CORONARY 07/29/2016 SHERRI PUENTSE APRN Ot M17.11 UNILATERAL PRIMARY OSTEOARTHRITIS, RIGHT 07/29/2016 SHERRI PUENTES APRN Ot M54.6 PAIN IN THORACIC SPINE 07/29/2016 SHERRI PUENTES ANCILLARY SERVICES MANAGER THERAPY Ot Z79.82 DETENTION (CURRENT) USE OF ASPIRIN 07/29/2016 SHERRI PUENTES APRN Ot Z79.84 SECONDS GRADER (CURRENT) USE OF ORAL HYPOGLYC 08/06/2016 ANUP MONTANA, KATERINA Rose Ot R60.9 EDEMA, UNSPECIFIED 08/25/2016 ANUP MONTANA, KATERINA Rose Ot R60.9 EDEMA, UNSPECIFIED 08/27/2016 DOROTA CABELLO ANCILLARY SERVICES MANAGER THERAPY Ot E11.9 TYPE 2 DIABETES MELLITUS WITHOUT COMPLIC 08/27/2016 DOROTA CABELLO ANCILLARY SERVICES MANAGER THERAPY Ot E78.5 HYPERLIPIDEMIA, UNSPECIFIED 09/02/2016 ANUP MONTANA, KATERINA Rose Ot R60.9 EDEMA, UNSPECIFIED 09/11/2016 CABELLODOROTA ANCILLARY SERVICES MANAGER THERAPY Ot E11.9 TYPE 2 DIABETES MELLITUS WITHOUT COMPLIC 09/11/2016 DOROTA CABELLO APRN Ot E78.5 HYPERLIPIDEMIA, UNSPECIFIED 10/24/2016 LESTER BEACH MD Ot E78.00 PURE HYPERCHOLESTEROLEMIA, UNSPECIFIED 10/24/2016 LESTER BEACH MD Ot I10 ESSENTIAL (PRIMARY) HYPERTENSION 10/24/2016 LESTER BEACH MD Ot I25.10 ATHSCL HEART DISEASE OF [place] CORONARY 10/24/2016 LESTER BEACH MD Ot K02.9 DENTAL CARIES, UNSPECIFIED 10/24/2016 LESTER BEACH MD Ot K08.89 OTHER SPECIFIED DISORDERS OF TEETH AND S 10/24/2016 LESTER BECAH MD Ot K21.9 GASTRO-ESOPHAGEAL REFLUX DISEASE WITHOUT 10/24/2016 LESTER BEACH MD Ot M17.11 UNILATERAL PRIMARY OSTEOARTHRITIS, RIGHT 10/24/2016 LESTER BEACH MD Ot Q24.6 CONGENITAL HEART BLOCK 10/24/2016 LESTER BEACH MD Ot S02.5XXA FRACTURE OF TOOTH (TRAUMATIC), INIT FOR 10/24/2016 LESTER BEACH MD Ot X58.XXXA EXPOSURE TO OTHER SPECIFIED FACTORS, INI 10/24/2016 LESTER BEACH MD Ot Z79.82 DETENTION (CURRENT) USE OF ASPIRIN 10/24/2016 LESTER BEACH MD Ot Z79.84 SECONDS GRADER (CURRENT) USE OF ORAL HYPOGLYC 10/24/2016 LESTER BEACH MD Ot Z87.448 PERSONAL HISTORY OF OTHER DISEASES OF UR 10/27/2016 LESTER BEACH MD Ot E78.00 PURE HYPERCHOLESTEROLEMIA, UNSPECIFIED 10/27/2016 LESTER BEACH MD Ot I10 ESSENTIAL (PRIMARY) HYPERTENSION 10/27/2016 LESTER BEACH MD Ot I25.10 ATHSCL HEART DISEASE OF [place] CORONARY 10/27/2016 LESTER BEACH MD Ot K02.9 DENTAL CARIES, UNSPECIFIED 10/27/2016 LESTER BEACH MD Ot K08.89 OTHER SPECIFIED DISORDERS OF TEETH AND S 10/27/2016 LESTER BEACH MD Ot K21.9 GASTRO-ESOPHAGEAL REFLUX DISEASE WITHOUT 10/27/2016 LESTER BEACH MD Ot M17.11 UNILATERAL PRIMARY OSTEOARTHRITIS, RIGHT 10/27/2016 LESTER BEACH MD Ot Q24.6 CONGENITAL HEART BLOCK 10/27/2016 LESTER BEACH MD Ot S02.5XXA FRACTURE OF TOOTH (TRAUMATIC), INIT FOR 10/27/2016 LESTER BEACH MD Ot X58.XXXA EXPOSURE TO OTHER SPECIFIED FACTORS, INI 10/27/2016 LESTER BEACH MD Ot Z79.82 SECONDS GRADER (CURRENT) USE OF ASPIRIN 10/27/2016 LESTER BEACH MD Ot Z79.84 DETENTION (CURRENT) USE OF ORAL HYPOGLYC 10/27/2016 LESTER BEACH MD Ot Z87.448 PERSONAL HISTORY OF OTHER DISEASES OF UR 11/11/2016 SHERRI PUENTES APRN Ot E11.9 TYPE 2 DIABETES MELLITUS WITHOUT COMPLIC 11/11/2016 SHERRI PUENTES APRN Ot E78.00 PURE HYPERCHOLESTEROLEMIA, UNSPECIFIED 11/11/2016 SHERRI PUENTES APRN Ot F32.9 MAJOR DEPRESSIVE DISORDER, SINGLE EPISOD 11/11/2016 SHERRI PUENTES APRN Ot I10 ESSENTIAL (PRIMARY) HYPERTENSION 11/11/2016 SHERRI PUENTES APRN Ot I25.10 ATHSCL HEART DISEASE OF [place] CORONARY 11/11/2016 SHERRI PUENTES APRN Ot K21.9 GASTRO-ESOPHAGEAL REFLUX DISEASE WITHOUT 11/11/2016 SHERRI PUENTES APRN Ot M17.11 UNILATERAL PRIMARY OSTEOARTHRITIS, RIGHT 11/11/2016 SHERRI PUENTES APRN Ot M54.16 RADICULOPATHY, LUMBAR REGION 11/11/2016 SHERRI PUENTES APRN Ot M79.604 PAIN IN RIGHT LEG 11/11/2016 SHERRI PUENTES APRN Ot Z79.82 SECONDS GRADER (CURRENT) USE OF ASPIRIN 11/11/2016 SHERRI PUENTES APRN Ot Z79.84 DETENTION (CURRENT) USE OF ORAL HYPOGLYC 11/11/2016 SHERRI PUENTES APRN Ot Z87.448 PERSONAL HISTORY OF OTHER DISEASES OF UR 11/11/2016 JOE MONTANA FACC, GURVINDER FACP CCDS Ot E78.4 OTHER HYPERLIPIDEMIA 11/11/2016 JOE MONTANA FACC, ALI FACP CCDS Ot I10 ESSENTIAL (PRIMARY) HYPERTENSION 11/11/2016 JOE MONTANA FACC, GURVINDER FACP CCDS Ot I25.10 ATHSCL HEART DISEASE OF [place] CORONARY 11/13/2016 SHERRI PUENTES APRN Ot E11.9 TYPE 2 DIABETES MELLITUS WITHOUT COMPLIC 11/13/2016 SHERRI PUENTES APRN Ot E78.00 PURE HYPERCHOLESTEROLEMIA, UNSPECIFIED 11/13/2016 SHERRI PUENTES APRN Ot F32.9 MAJOR DEPRESSIVE DISORDER, SINGLE EPISOD 11/13/2016 SHERRI PUENTES APRN Ot I10 ESSENTIAL (PRIMARY) HYPERTENSION 11/13/2016 SHERRI PUENTES APRN Ot I25.10 ATHSCL HEART DISEASE OF [place] CORONARY 11/13/2016 SHERRI PUENTES APRN Ot K21.9 GASTRO-ESOPHAGEAL REFLUX DISEASE WITHOUT 11/13/2016 SHERRI PUENTES APRN Ot M17.11 UNILATERAL PRIMARY OSTEOARTHRITIS, RIGHT 11/13/2016 SHERRI PUENTES APRN Ot M54.16 RADICULOPATHY, LUMBAR REGION 11/13/2016 SHERRI PUENTES APRN Ot M79.604 PAIN IN RIGHT LEG 11/13/2016 SHERRI PUENTES APRN Ot Z79.82 SECONDS GRADER (CURRENT) USE OF ASPIRIN 11/13/2016 SHERRI PUENTES APRN Ot Z79.84 DETENTION (CURRENT) USE OF ORAL HYPOGLYC 11/13/2016 SHERRI PUENTES APRN Ot Z87.448 PERSONAL HISTORY OF OTHER DISEASES OF UR 11/20/2016 JOE MONTANA FACC, ALI FACP CCDS Ot E78.4 OTHER HYPERLIPIDEMIA 11/20/2016 JOE LOTTC, ALI FACP CCDS Ot I10 ESSENTIAL (PRIMARY) HYPERTENSION 11/20/2016 JOE MONTANA [facility], ALI FACP CCDS Ot I25.10 ATHSCL HEART DISEASE OF [place] CORONARY 12/02/2016 JOE MONTANA FAC, ALI FACP CCDS Ot E78.4 OTHER HYPERLIPIDEMIA 12/02/2016 JOE MONTANA FAC, ALI FACP CCDS Ot I10 ESSENTIAL (PRIMARY) HYPERTENSION 12/02/2016 JOE MONTANA [facility], ALI FACP CCDS Ot I25.10 ATHSCL HEART DISEASE OF [place] CORONARY 12/09/2016 KATERINA HEBERT MD Ot E11.9 TYPE 2 DIABETES MELLITUS WITHOUT COMPLIC 12/09/2016 KATERINA HEBERT MD Ot R53.83 OTHER FATIGUE 12/23/2016 KATERINA HEBERT MD Ot E11.9 TYPE 2 DIABETES MELLITUS WITHOUT COMPLIC 12/23/2016 KATERINA HEBERT MD Ot R53.83 OTHER FATIGUE Procedures Code Description [place] [id number] PSYTX PT&/FAMILY 45 MINUTES 11/02/2012 Results Test Result Range Automated blood complete blood count (hemogram) panel - 01/11/16 10:35 Blood leukocytes automated count (number/volume) 14.1 10*3/uL 4.3-11.0 Blood erythrocytes automated count (number/volume) 4.76 10*6/uL 4.35-5.85 Venous blood hemoglobin measurement (mass/volume) 13.2 g/dL 11.5-16.0 Blood hematocrit (volume fraction) 39 % 35-52 Automated erythrocyte mean corpuscular volume 81 [foz_us] 80-99 Automated erythrocyte mean corpuscular hemoglobin (mass per erythrocyte) 28 pg 25-34 Automated erythrocyte mean corpuscular hemoglobin concentration measurement ( mass/volume) 34 g/dL 32-36 Automated erythrocyte distribution width ratio 13.0 % 10.0-14.5 Automated blood platelet count (count/volume) 378 10*3/uL 130-400 Automated blood platelet mean volume measurement 8.9 [foz_us] 7.4-10.4 Comprehensive metabolic panel - 01/11/16 10:35 Serum or plasma sodium measurement (moles/volume) 138 mmol/L 135-145 Serum or plasma potassium measurement (moles/volume) 4.0 mmol/L 3.6-5.0 Serum or plasma chloride measurement (moles/volume) 107 mmol/L 98-107 Carbon dioxide 23 mmol/L 21-32 Serum or plasma anion gap determination (moles/volume) 8 mmol/L 5-14 Serum or plasma urea nitrogen measurement (mass/volume) 16 mg/dL 7-18 Serum or plasma creatinine measurement (mass/volume) 0.78 mg/dL 0.60-1.30 Serum or plasma urea nitrogen/creatinine mass ratio 21 NRG Serum or plasma creatinine measurement with calculation of estimated glomerular filtration rate > NRG Serum or plasma glucose measurement (mass/volume) 160 mg/dL 70-105 Serum or plasma calcium measurement (mass/volume) 9.1 mg/dL 8.5-10.1 Serum or plasma total bilirubin measurement (mass/volume) 0.5 mg/dL 0.1-1.0 Serum or plasma alkaline phosphatase measurement (enzymatic activity/volume) 118 U/L 40-136 Serum or plasma aspartate aminotransferase measurement (enzymatic activity/ volume) 8 U/L 5-34 Serum or plasma alanine aminotransferase measurement (enzymatic activity/volume ) 14 U/L 0-55 Serum or plasma protein measurement (mass/volume) 6.6 g/dL 6.4-8.2 Serum or plasma albumin measurement (mass/volume) 3.7 g/dL 3.2-4.5 Lipid 1996 panel - 01/11/16 10:35 Serum or plasma triglyceride measurement (mass/volume) 115 mg/dL <150 Serum or plasma cholesterol measurement (mass/volume) 157 mg/dL < 200 Serum or plasma cholesterol in HDL measurement (mass/volume) 40 mg/ dL 40-60 Cholesterol in LDL [mass/volume] in serum or plasma by direct assay 98 mg/dL 1-129 Serum or plasma cholesterol in VLDL measurement (mass/volume) 23 mg/ dL 5-40 Hemoglobin A1c - 01/11/16 10:35 Hemoglobin A1c 6.2 % 4.5-6.2 THYROID STIMULATING HORMONE - 01/11/16 10:35 THYROID STIMULATING HORMONE 1.13 u[iU]/mL 0.35-4.94 Complete urinalysis with reflex to culture - 02/20/16 18:10 Urine color determination YELLOW NRG Urine clarity determination CLEAR NRG Urine pH measurement by test strip 5 5-9 Specific gravity of urine by test strip 1.030 1.016- 1.022 Urine protein assay by test strip, semi-quantitative 2+ NEGATIVE Urine glucose detection by automated test strip 3+ NEGATIVE Erythrocytes detection in urine sediment by light microscopy 3+ NEGATIVE Urine ketones detection by automated test strip NEGATIVE NEGATIVE Urine nitrite detection by test strip NEGATIVE NEGATIVE Urine total bilirubin detection by test strip NEGATIVE NEGATIVE Urine urobilinogen measurement by automated test strip (mass/volume) NORMAL NORMAL Urine leukocyte esterase detection by dipstick NEGATIVE NEGATIVE Automated urine sediment erythrocyte count by microscopy (number/high power field) NONE NRG Automated urine sediment leukocyte count by microscopy (number/high power field ) RARE NRG Bacteria detection in urine sediment by light microscopy FEW NRG Squamous epithelial cells detection in urine sediment by light microscopy 5-10 NRG Crystals detection in urine sediment by light microscopy NONE NRG Casts detection in urine sediment by light microscopy NONE NRG Mucus detection in urine sediment by light microscopy MODERATE NRG Complete urinalysis with reflex to culture NO NRG Automated blood complete blood count (hemogram) panel - 05/23/16 10:56 Blood leukocytes automated count (number/volume) 9.3 10*3/uL 4.3-11.0 Blood erythrocytes automated count (number/volume) 4.71 10*6/uL 4.35-5.85 Venous blood hemoglobin measurement (mass/volume) 13.2 g/dL 11.5-16.0 Blood hematocrit (volume fraction) 39 % 35-52 Automated erythrocyte mean corpuscular volume 82 [foz_us] 80-99 Automated erythrocyte mean corpuscular hemoglobin (mass per erythrocyte) 28 pg 25-34 Automated erythrocyte mean corpuscular hemoglobin concentration measurement ( mass/volume) 34 g/dL 32-36 Automated erythrocyte distribution width ratio 12.4 % 10.0-14.5 Automated blood platelet count (count/volume) 428 10*3/uL 130-400 Automated blood platelet mean volume measurement 8.8 [foz_us] 7.4-10.4 Comprehensive metabolic panel - 05/23/16 10:56 Serum or plasma sodium measurement (moles/volume) 135 mmol/L 135-145 Serum or plasma potassium measurement (moles/volume) 4.1 mmol/L 3.6-5.0 Serum or plasma chloride measurement (moles/volume) 105 mmol/L 98-107 Carbon dioxide 21 mmol/L 21-32 Serum or plasma anion gap determination (moles/volume) 9 mmol/L 5-14 Serum or plasma urea nitrogen measurement (mass/volume) 11 mg/dL 7-18 Serum or plasma creatinine measurement (mass/volume) 0.74 mg/dL 0.60-1.30 Serum or plasma urea nitrogen/creatinine mass ratio 15 NRG Serum or plasma creatinine measurement with calculation of estimated glomerular filtration rate > NRG Serum or plasma glucose measurement (mass/volume) 201 mg/dL 70-105 Serum or plasma calcium measurement (mass/volume) 8.5 mg/dL 8.5-10.1 Serum or plasma total bilirubin measurement (mass/volume) 0.5 mg/dL 0.1-1.0 Serum or plasma alkaline phosphatase measurement (enzymatic activity/volume) 142 U/L 40-136 Serum or plasma aspartate aminotransferase measurement (enzymatic activity/ volume) 12 U/L 5-34 Serum or plasma alanine aminotransferase measurement (enzymatic activity/volume ) 16 U/L 0-55 Serum or plasma protein measurement (mass/volume) 6.9 g/dL 6.4-8.2 Serum or plasma albumin measurement (mass/volume) 3.6 g/dL 3.2-4.5 Lipid 1996 panel - 05/23/16 10:56 Serum or plasma triglyceride measurement (mass/volume) 128 mg/dL <150 Serum or plasma cholesterol measurement (mass/volume) 158 mg/dL < 200 Serum or plasma cholesterol in HDL measurement (mass/volume) 38 mg/ dL 40-60 Cholesterol in LDL [mass/volume] in serum or plasma by direct assay 95 mg/dL 1-129 Serum or plasma cholesterol in VLDL measurement (mass/volume) 26 mg/ dL 5-40 THYROID STIMULATING HORMONE - 05/23/16 10:56 THYROID STIMULATING HORMONE 1.32 u[iU]/mL 0.35-4.94 Hemoglobin A1c - 05/23/16 10:56 Hemoglobin A1c 7.6 % 4.5-6.2 Automated blood complete blood count (hemogram) panel - 08/26/16 11:00 Blood leukocytes automated count (number/volume) 8.4 10*3/uL 4.3-11.0 Blood erythrocytes automated count (number/volume) 4.95 10*6/uL 4.35-5.85 Venous blood hemoglobin measurement (mass/volume) 13.2 g/dL 11.5-16.0 Blood hematocrit (volume fraction) 40 % 35-52 Automated erythrocyte mean corpuscular volume 81 [foz_us] 80-99 Automated erythrocyte mean corpuscular hemoglobin (mass per erythrocyte) 27 pg 25-34 Automated erythrocyte mean corpuscular hemoglobin concentration measurement ( mass/volume) 33 g/dL 32-36 Automated erythrocyte distribution width ratio 12.6 % 10.0-14.5 Automated blood platelet count (count/volume) 412 10*3/uL 130-400 Automated blood platelet mean volume measurement 9.1 [foz_us] 7.4-10.4 Comprehensive metabolic panel - 08/26/16 11:00 Serum or plasma sodium measurement (moles/volume) 137 mmol/L 135-145 Serum or plasma potassium measurement (moles/volume) 4.0 mmol/L 3.6-5.0 Serum or plasma chloride measurement (moles/volume) 105 mmol/L 98-107 Carbon dioxide 25 mmol/L 21-32 Serum or plasma anion gap determination (moles/volume) 7 mmol/L 5-14 Serum or plasma urea nitrogen measurement (mass/volume) 13 mg/dL 7-18 Serum or plasma creatinine measurement (mass/volume) 0.72 mg/dL 0.60-1.30 Serum or plasma urea nitrogen/creatinine mass ratio 18 NRG Serum or plasma creatinine measurement with calculation of estimated glomerular filtration rate > NRG Serum or plasma glucose measurement (mass/volume) 141 mg/dL 70-105 Serum or plasma calcium measurement (mass/volume) 8.6 mg/dL 8.5-10.1 Serum or plasma total bilirubin measurement (mass/volume) 0.5 mg/dL 0.1-1.0 Serum or plasma alkaline phosphatase measurement (enzymatic activity/volume) 119 U/L 40-136 Serum or plasma aspartate aminotransferase measurement (enzymatic activity/ volume) 16 U/L 5-34 Serum or plasma alanine aminotransferase measurement (enzymatic activity/volume ) 18 U/L 0-55 Serum or plasma protein measurement (mass/volume) 6.7 g/dL 6.4-8.2 Serum or plasma albumin measurement (mass/volume) 3.5 g/dL 3.2-4.5 Lipid 1996 panel - 08/26/16 11:00 Serum or plasma triglyceride measurement (mass/volume) 160 mg/dL <150 Serum or plasma cholesterol measurement (mass/volume) 146 mg/dL < 200 Serum or plasma cholesterol in HDL measurement (mass/volume) 35 mg/ dL 40-60 Cholesterol in LDL [mass/volume] in serum or plasma by direct assay 87 mg/dL 1-129 Serum or plasma cholesterol in VLDL measurement (mass/volume) 32 mg/ dL 5-40 Hemoglobin A1c - 08/26/16 11:00 Hemoglobin A1c 6.5 % 4.5-6.2 THYROID STIMULATING HORMONE - 08/26/16 11:00 THYROID STIMULATING HORMONE 1.74 u[iU]/mL 0.35-4.94 Automated blood complete blood count (hemogram) panel - 12/03/16 10:30 Blood leukocytes automated count (number/volume) 8.5 10*3/uL 4.3-11.0 Blood erythrocytes automated count (number/volume) 4.89 10*6/uL 4.35-5.85 Venous blood hemoglobin measurement (mass/volume) 13.4 g/dL 11.5-16.0 Blood hematocrit (volume fraction) 40 % 35-52 Automated erythrocyte mean corpuscular volume 82 [foz_us] 80-99 Automated erythrocyte mean corpuscular hemoglobin (mass per erythrocyte) 27 pg 25-34 Automated erythrocyte mean corpuscular hemoglobin concentration measurement ( mass/volume) 34 g/dL 32-36 Automated erythrocyte distribution width ratio 13.0 % 10.0-14.5 Automated blood platelet count (count/volume) 349 10*3/uL 130-400 Automated blood platelet mean volume measurement 8.7 [foz_us] 7.4-10.4 Comprehensive metabolic panel - 12/03/16 10:30 Serum or plasma sodium measurement (moles/volume) 138 mmol/L 135-145 Serum or plasma potassium measurement (moles/volume) 4.0 mmol/L 3.6-5.0 Serum or plasma chloride measurement (moles/volume) 106 mmol/L 98-107 Carbon dioxide 25 mmol/L 21-32 Serum or plasma anion gap determination (moles/volume) 7 mmol/L 5-14 Serum or plasma urea nitrogen measurement (mass/volume) 13 mg/dL 7-18 Serum or plasma creatinine measurement (mass/volume) 0.77 mg/dL 0.60-1.30 Serum or plasma urea nitrogen/creatinine mass ratio 17 NRG Serum or plasma creatinine measurement with calculation of estimated glomerular filtration rate > NRG Serum or plasma glucose measurement (mass/volume) 126 mg/dL 70-105 Serum or plasma calcium measurement (mass/volume) 8.5 mg/dL 8.5-10.1 Serum or plasma total bilirubin measurement (mass/volume) 0.6 mg/dL 0.1-1.0 Serum or plasma alkaline phosphatase measurement (enzymatic activity/volume) 146 U/L 40-136 Serum or plasma aspartate aminotransferase measurement (enzymatic activity/ volume) 13 U/L 5-34 Serum or plasma alanine aminotransferase measurement (enzymatic activity/volume ) 14 U/L 0-55 Serum or plasma protein measurement (mass/volume) 7.0 g/dL 6.4-8.2 Serum or plasma albumin measurement (mass/volume) 3.7 g/dL 3.2-4.5 THYROID STIMULATING HORMONE - 12/03/16 10:30 THYROID STIMULATING HORMONE 1.72 u[iU]/mL 0.35-4.94 Hemoglobin A1c - 12/03/16 10:30 Hemoglobin A1c 6.8 % 4.5-6.2 PT panel in platelet poor plasma by coagulation assay - 03/17/17 20:10 Prothrombin time (PT) in platelet poor plasma by coagulation assay 12.6 s 12.2-14.7 INR in platelet poor plasma or blood by coagulation assay 0.9 0.8-1.4 Activated partial thromboplastin time (aPTT) in platelet poor plasma bycoagulation assay - 03/17/17 20:10 Activated partial thromboplastin time (aPTT) in platelet poor plasma bycoagulation assay 25 s 24-35 Complete blood count (CBC) with automated white blood cell (WBC) differential - 03/17/17 20:10 Blood leukocytes automated count (number/volume) 5.3 10*3/uL 4.3-11.0 Blood erythrocytes automated count (number/volume) 4.75 10*6/uL 4.35-5.85 Venous blood hemoglobin measurement (mass/volume) 13.3 g/dL 11.5-16.0 Blood hematocrit (volume fraction) 39 % 35-52 Automated erythrocyte mean corpuscular volume 81 [foz_us] 80-99 Automated erythrocyte mean corpuscular hemoglobin (mass per erythrocyte) 28 pg 25-34 Automated erythrocyte mean corpuscular hemoglobin concentration measurement ( mass/volume) 35 g/dL 32-36 Automated erythrocyte distribution width ratio 12.7 % 10.0-14.5 Automated blood platelet count (count/volume) 282 10*3/uL 130-400 Automated blood platelet mean volume measurement 9.1 [foz_us] 7.4-10.4 Automated blood neutrophils/100 leukocytes 64 % 42-75 Automated blood lymphocytes/100 leukocytes 23 % 12-44 Blood monocytes/100 leukocytes 12 % 0-12 Automated blood eosinophils/100 leukocytes 1 % 0-10 Automated blood basophils/100 leukocytes 0 % 0-10 Blood neutrophils automated count (number/volume) 3.4 10*3 1.8-7.8 Blood lymphocytes automated count (number/volume) 1.2 10*3 1.0-4.0 Blood monocytes automated count (number/volume) 0.6 10*3 0.0-1.0 Automated eosinophil count 0.1 10*3/uL 0.0-0.3 Automated blood basophil count (count/volume) 0.0 10*3/uL 0.0-0.1 Comprehensive metabolic panel - 03/17/17 20:10 Serum or plasma sodium measurement (moles/volume) 136 mmol/L 135-145 Serum or plasma potassium measurement (moles/volume) 3.6 mmol/L 3.6-5.0 Serum or plasma chloride measurement (moles/volume) 103 mmol/L 98-107 Carbon dioxide 25 mmol/L 21-32 Serum or plasma anion gap determination (moles/volume) 8 mmol/L 5-14 Serum or plasma urea nitrogen measurement (mass/volume) 14 mg/dL 7-18 Serum or plasma creatinine measurement (mass/volume) 0.71 mg/dL 0.60-1.30 Serum or plasma urea nitrogen/creatinine mass ratio 20 NRG Serum or plasma creatinine measurement with calculation of estimated glomerular filtration rate > NRG Serum or plasma glucose measurement (mass/volume) 141 mg/dL 70-105 Serum or plasma calcium measurement (mass/volume) 8.9 mg/dL 8.5-10.1 Serum or plasma total bilirubin measurement (mass/volume) 0.5 mg/dL 0.1-1.0 Serum or plasma alkaline phosphatase measurement (enzymatic activity/volume) 125 U/L 40-136 Serum or plasma aspartate aminotransferase measurement (enzymatic activity/ volume) 18 U/L 5-34 Serum or plasma alanine aminotransferase measurement (enzymatic activity/volume ) 17 U/L 0-55 Serum or plasma protein measurement (mass/volume) 6.8 g/dL 6.4-8.2 Serum or plasma albumin measurement (mass/volume) 3.6 g/dL 3.2-4.5 Magnesium - 03/17/17 20:10 Magnesium 1.9 mg/dL 1.8-2.4 Serum or plasma troponin i.cardiac measurement (mass/volume) - 03/17/17 20:10 Serum or plasma troponin i.cardiac measurement (mass/volume) < ng/ mL <0.30 Myoglobin, serum - 03/17/17 20:10 Myoglobin, serum 75.1 ng/mL 10.0-92.0 Influenza virus A and B antigen detection - 03/17/17 22:26 FLU RESULT NEGATIVE FOR INFLUENZA A AND B ANTIGENS BY IA NRG Encounters ACCT No. Visit Date/Time Discharge Status Pt. Type Provider Facility Loc./Unit Complaint [id number] 11/01/2012 09:51:00 11/01/2012 23:59:59 CLS Outpatient SHIV ORTA DO [id number] 03/17/2017 19:03:00 03/17/2017 23:50:00 DIS Emergency VIOLA GUNN MD [facility] ER COUGH [id number] 12/03/2016 10:11:00 12/03/2016 23:59:59 CLS Outpatient KATERINA HEBERT MD [facility] LAB FATIGUE DM TYPE 2 [id number] 11/11/2016 11:07:00 11/11/2016 23:59:59 CLS Outpatient GURVINDER DIAZ MD, FACC, FACP CCDS [facility] LAB I25.10 E78.4 [id number] 11/11/2016 09:54:00 11/11/2016 10:51:00 DIS Emergency SHERRI PUENTES APRN [facility] ER PAIN IN BOTH LEGS [id number] 11/04/2016 09:52:00 11/04/2016 23:59:59 CLS Outpatient GURVINDER DIAZ MD, FACC, FACP CCDS [facility] CARD CAD I25.10 [id number] 10/24/2016 14:58:00 10/24/2016 17:04:00 DIS Emergency LESTER BEACH MD [facility] ER EAR ACHE/TOOTH PAIN [id number] 08/05/2016 14:50:00 09/03/2016 13:20:00 DIS Outpatient KATERINA HEBERT MD [facility] REHAB EDEMA; MEASUREMENT FOR COMPRESSION SOCKS [id number] 08/26/2016 10:46:00 08/26/2016 23:59:59 CLS Outpatient DOROTA CABELLO ANCILLARY SERVICES MANAGER THERAPY [facility] LAB R53.8 E78.5 [id number] 07/27/2016 18:33:00 07/27/2016 20:14:00 DIS Emergency SHERRI PUENTES APRN [facility] ER KNOT IN BACK [id number] 07/12/2016 19:10:00 07/12/2016 23:43:00 DIS Emergency RENETTA EARL [facility] ER BOTH LEGS SWOLLEN/ MOUTH PAIN [id number] 06/19/2016 20:33:00 06/19/2016 21:10:00 DIS Emergency SHERRI PUENTES ANCILLARY SERVICES MANAGER THERAPY [facility] ER TOOTH PAIN [id number] 05/23/2016 10:45:00 05/23/2016 23:59:59 CLS Outpatient KATERINA HEBERT MD [facility] LAB FATIGUE,HYPERLIDEMIA, ABNORMAL GLUCOSE [id number] 04/23/2016 13:22:00 04/25/2016 10:49:00 DIS Outpatient KATERINA HEBERT MD [facility] REHAB LOW BACK PAIN [id number] 04/08/2016 09:36:00 04/08/2016 23:59:59 CLS Outpatient KATERINA HEBERT MD [facility] RAD SCREENING [id number] 03/04/2016 11:55:00 03/04/2016 23:59:59 CLS Outpatient KATERINA HEBERT MD [facility] RAD M46.04 [id number] 02/20/2016 17:01:00 02/20/2016 19:38:00 DIS Emergency RENETTA EARL [facility] ER LOWER BACK PAIN [id number] 01/16/2016 15:08:00 01/16/2016 16:29:00 DIS Emergency SHERRI PUENTES APRN [facility] ER LEG SWELLING [id number] 01/11/2016 10:07:00 01/11/2016 23:59:59 CLS Outpatient KATERINA HEBERT MD [facility] LAB ELEVATED BLOOD SUGAR [id number] 12/24/2015 19:34:00 12/24/2015 20:36:00 DIS Emergency SHERRI PUENTES APRN [facility] ER SORE THROAT, VOMITING [id number] 11/28/2015 10:59:00 11/28/2015 23:59:59 CLS Outpatient IMTIAZ BRYANT [facility] LAB HYPERTENSION [id number] 08/12/2015 11:34:00 08/12/2015 12:39:00 DIS Emergency VIOLA GUNN MD [facility] ER UPPER BACK ABCESS [id number] 05/01/2015 15:12:00 06/13/2015 10:55:00 DIS Outpatient DOROTA CABELLO APRN [facility] REHAB B LE EDEMA [id number] 06/05/2015 08:19:00 06/05/2015 23:59:59 CLS Outpatient IMTIAZ BRYANT [facility] LAB HYPERLIPIDEMIA [id number] 05/24/2015 09:42:00 05/24/2015 10:53:00 DIS Emergency SHERRI PUENTES APRN [facility] ER WHITE SPOTS ON FACE [id number] 05/22/2015 19:44:00 05/23/2015 06:55:00 DIS Outpatient CHRIS CORDOVA DO [facility] SLEEP SNORING,CHOKING/ GASPING DURING SLEEP, [id number] 04/05/2015 20:40:00 04/06/2015 08:08:00 DIS Outpatient CHRIS CORDOVA DO [facility] SLEEP SNORING,HTN,MOOD DISORDER,MORINING HEADACHE [id number] 02/04/2015 22:30:00 02/05/2015 15:30:00 DIS Inpatient HIREN STYLES MD [facility] ICU CHEST PAIN [id number] 11/29/2014 09:02:00 11/29/2014 23:59:59 CLS Outpatient IMTIAZ BRYANTP [facility] LAB CAD,HLP [id number] 11/29/2014 08:58:00 11/29/2014 23:59:59 CLS Outpatient DOROTA CABELLO ANCILLARY SERVICES MANAGER THERAPY [facility] LAB ABNORMAL GLUCOSE [id number] 10/19/2014 14:22:00 10/19/2014 23:59:59 CLS Outpatient DOROTA CABELLO ANCILLARY SERVICES MANAGER THERAPY [facility] LAB MALAISE,FATIGUE,HLP [id number] 10/03/2014 09:46:00 10/03/2014 23:59:59 CLS Outpatient DOROTA CABELLO ANCILLARY SERVICES MANAGER THERAPY [facility] RAD SOB [id number] 09/19/2014 10:44:00 09/19/2014 23:59:59 CLS Outpatient DOROTA CABELLO ANCILLARY SERVICES MANAGER THERAPY [facility] RAD SCREENING [id number] 08/22/2014 18:56:00 08/22/2014 19:11:00 DIS Emergency SHERRI PUENTES ANCILLARY SERVICES MANAGER THERAPY [facility] ER NAUSEA,DIZZINESS,SORE THROAT [id number] 08/15/2014 13:59:00 08/15/2014 23:59:59 CLS Outpatient ANUP MONTANA, KATERINA Rose [facility] RAD LBP,RADICULAR PAIN RT LEG [id number] 08/05/2014 17:17:00 08/05/2014 19:34:00 DIS Emergency SHERRI PUENTES ANCILLARY SERVICES MANAGER THERAPY [facility] ER VISION PROBLEMS/LEG PROBLEMS [id number] 07/28/2014 11:55:00 07/28/2014 23:59:59 CLS Outpatient IMTIAZ BRYANT SUPPORT WORKER [facility] RAD EDEMA OF RIGHT LOWER EXTREMITY [id number] 09/23/2013 11:27:00 09/23/2013 23:59:59 CLS Outpatient IMTIAZ BRYANT SUPPORT WORKER [facility] LAB CAD,HTN, HYPERLIPADEMIA,IMPARIED FASTING GLUCOSE, [id number] 09/16/2013 08:33:00 09/16/2013 10:31:00 DIS Emergency LESTER BEACH MD [facility] ER KNEE PAIN [id number] 09/13/2013 13:43:00 09/14/2013 16:40:00 DIS Inpatient KATERINA HEBERT MD [facility] ICU CHEST PAIN HTN [id number] 09/13/2013 09:50:00 09/13/2013 23:59:59 CLS Outpatient KATERINA HEBERT MD [facility] RAD ROUTINE [id number] 09/05/2013 09:13:00 09/05/2013 23:59:59 CLS Outpatient IMTIAZ BRYANT [facility] LAB CAD,HYPERLIPIDEMIA [id number] 05/10/2013 11:36:00 05/10/2013 23:59:59 CLS Outpatient ALISON ALVAREZ MD [facility] RAD HEMATURIA [id number] 03/30/2013 09:50:00 04/20/2013 08:16:00 DIS Outpatient RUSS HERNANDEZ [facility] REHAB PLANTAR FASCITIS R FOOT [id number] 03/10/2013 12:01:00 03/10/2013 23:59:59 CLS Outpatient IMTIAZ BRYANT [facility] LAB STATIN TX,HTN, HYPERLIPADEMIA [id number] 02/02/2013 13:29:00 02/02/2013 16:15:00 DIS Emergency HAN DOCHENTE K [facility] ER BACK PAIN [id number] 09/27/2012 08:17:00 09/27/2012 23:59:59 CLS Outpatient JOE MONTANA FACCGURVINDER FACP CCDS [facility] LAB HTN [id number] 09/02/2012 09:29:00 09/02/2012 23:59:59 CLS Outpatient KATERINA HEBERT MD [facility] RAD SCREENING [id number] 08/31/2012 10:06:00 08/31/2012 23:59:59 CLS Outpatient [id number] 08/02/2012 08:30:00 08/02/2012 23:59:59 [facility] Outpatient IMTIAZ BRYANT [facility] LAB HYPERLIPIDEMIA [id number] 07/28/2014 11:57:00 Document Registration [id number] 04/07/2014 09:51:00 Document Registration [id number] 04/26/2012 10:17:00 Document Registration [id number] 01/15/2012 12:01:00 Document Registration [id number] 12/02/2011 08:36:00 Document Registration [id number] 11/27/2011 06:46:00 Document Registration [id number] 11/24/2011 08:28:00 Document Registration [id number] 11/19/2011 14:39:00 Document Registration [id number] 09/03/2011 09:50:00 Document Registration [id number] 08/26/2011 08:46:00 Document Registration [id number] 02/15/2010 13:12:00 Document Registration [id number] 11/24/2009 11:23:00 Document Registration [id number] 11/21/2009 06:01:00 Document Registration [id number] 11/14/2009 10:01:00 Document Registration [id number] 09/21/2009 13:23:00 Document Registration [id number] 09/20/2009 15:47:00 Document Registration [id number] 08/24/2009 07:11:00 Document Registration
== END 2017-03-17 23:50 | disposition home or self-care (01) ==
LOC: EDUNIT# 19:01 → ER 19:03
DX: J06.9 Acute upper respiratory infection, unspecified (principal); I25.10 Atherosclerotic heart disease of native coronary artery without angina pectoris; E78.00 Pure hypercholesterolemia, unspecified; I10 Essential (primary) hypertension; K21.9 Gastro-esophageal reflux disease without esophagitis; M17.11 Unilateral primary osteoarthritis, right knee; E11.9 Type 2 diabetes mellitus without complications; F32.9 Major depressive disorder, single episode, unspecified; Z87.448 Personal history of other diseases of urinary system; Z88.0 Allergy status to penicillin; Z79.82 Long term (current) use of aspirin; Z79.84 Long term (current) use of oral hypoglycemic drugs; Z79.52 Long term (current) use of systemic steroids
CPT/HCPCS: 36415; 71045; 80053; 83735; 83874; 84484; 85025; 85610; 85730; 87804; 93005; 93041; 94640; 94664; 96374

== ENCOUNTER → 2017-04-06 | Outpatient (CLI) | payer MEDICAID ==
[2017-04-06 12:28] LABS: HEMOGLOBIN 13.6 G/DL (11.5-16.0); MEAN PLATELET VOLUME 8.5 FL (7.4-10.4); RED BLOOD COUNT 4.86 10^6/uL (4.35-5.85); RED CELL DISTRIBUTION WIDTH 13.1 % (10.0-14.5); WHITE BLOOD COUNT 8.5 10^3/uL (4.3-11.0)
[2017-04-06 12:52] LABS: ALANINE AMINOTRANSFERASE 11 U/L (0-55); ALBUMIN 3.8 GM/DL (3.2-4.5); ALKALINE PHOSPHATASE 120 U/L (40-136); BILIRUBIN,TOTAL 0.8 MG/DL (0.1-1.0); BUN/CREATININE RATIO 24; CALCIUM 8.7 MG/DL (8.5-10.1); CARBON DIOXIDE 22 MMOL/L (21-32); CHLORIDE 107 MMOL/L (98-107); CHOLESTEROL 158 MG/DL (< 200); CREATININE SERUM 0.79 MG/DL (0.60-1.30); GFR ESTIMATED > 60; GLUCOSE 136 MG/DL (70-105); HDL CHOLESTEROL 39 MG/DL (40-60); POTASSIUM 4.3 MMOL/L (3.6-5.0); SODIUM 139 MMOL/L (135-145); TOTAL PROTEIN 7.2 GM/DL (6.4-8.2); TRIGLYCERIDES 95 MG/DL (<150); VLDL CHOLESTEROL 19 MG/DL (5-40)
== END ==
LOC: LAB 12:08
PROVIDERS: ATTEND Nurse Practitioner Family
DX: E11.9 Type 2 diabetes mellitus without complications (principal); E78.5 Hyperlipidemia, unspecified; R53.83 Other fatigue
CPT/HCPCS: 36415; 80053; 80061; 83036; 84443; 85027

== ENCOUNTER → 2017-04-14 | Outpatient (CLI) | payer MEDICAID ==
[~2017-04-14] VITALS: Ht 160 cm; Wt 108.0 kg
[~2017-04-14] MED LIST changes: +CATHETER FLUSH 10 ML SYR IV PRN; +REGADENOSON 0.4 MG/5 ML SYR (LEXISCAN) IV ONE
[2017-04-14 13:22] VITALS: BP 194/100
--- NOTE | 2017-04-14 19:37 | STRESS TEST ---
DATE OF SERVICE: 04/14/2017 PROCEDURE: Resting and post regadenoson technetium-99m Tetrofosmin SPECT CT imaging. ORDERING PHYSICIAN: SARAH Walker PRIMARY PHYSICIAN: Dr. Royal. OTHER PHYSICIAN: Dr. Packer. CLINICAL DIAGNOSES: Coronary artery disease, chest discomfort. Baseline images were carried out after injection of 10.24 mCi of technetium-99m Tetrofosmin. This was followed by 0.4 mg regadenoson and 29.8 mCi of technetium-99m Tetrofosmin for stress imaging. The electrocardiogram showed sinus rhythm with subtle nonspecific ST abnormality. The electrocardiogram did not change significantly with the regadenoson infusion. Review of images at rest and following stress does not indicate significant perfusion defects consistent with myocardial ischemia or infarction. Gated images show normal global left ventricular systolic function with normal regional wall motion. Left ventricular ejection fraction is calculated to be 71%. Left ventricular end diastolic volume is 49 mL. TID is absent (1). CONCLUSIONS: 1. No evidence of significant myocardial ischemia or infarction on this study. 2. Normal regional wall motion. 3. Normal global left ventricular systolic function with a calculated ejection fraction of 71%. Job ID: [id number] DocumentID: [id number] Dictated Date: 04/14/2017 16:25:32 Clinical Rn Date: 04/14/2017 19:37:10 Dictated By: GURVINDER PACKER MD, MA, FACP, FACC,
== END ==
LOC: CARD 11:19
PROVIDERS: ATTEND Nurse Practitioner Family
DX: I25.10 Atherosclerotic heart disease of native coronary artery without angina pectoris (principal); E78.5 Hyperlipidemia, unspecified; I10 Essential (primary) hypertension; I65.29 Occlusion and stenosis of unspecified carotid artery; E66.01 Morbid (severe) obesity due to excess calories; G47.33 Obstructive sleep apnea (adult) (pediatric); R07.9 Chest pain, unspecified
CPT/HCPCS: 78452; 93017

== ENCOUNTER 2017-07-15 18:31 | Emergency (ER) | payer MEDICAID ==
[~2017-07-15] VITALS: Ht 160 cm; Wt 127.0 kg
[~2017-07-15 18:31] MED LIST changes: -CATHETER FLUSH 10 ML SYR IV PRN; -LIDO30JE10 MM; +LIDO30JE3 MM; -METF500T4; +METF500T5; -REGADENOSON 0.4 MG/5 ML SYR (LEXISCAN) IV ONE
[2017-07-15] MEDS ORDERED: KETOROLAC 60 MG/2 ML VIAL IM ONE (18:45)
--- NOTE | 2017-07-15 18:47 | ED Lower Extremity ---
General Stated Complaint: ARTHRITIS IN R LEG/L LEG PAIN, POPPED LAST NIGHT Source: patient Exam Limitations: no limitations History of Present Illness Date Seen by Provider: Jul 15, 2017 Time Seen by Provider: 18:42 Initial Comments to ER with complaint of pain in the left knee. This began last night when she was standing in her kitchen, she twisted and felt a popping sensation in the left knee. She's had pain in the left knee since. She has chronic issues with right knee pain secondary to arthritis. Onset: yesterday Severity: moderate Pain/Injury Location: bilateral knee Allergies and Home Medications Allergies Coded Allergies: Penicillins (Unverified Allergy, Mild, 07/27/16) Home Medications Amlodipine Besylate 5 Mg Tablet, 5 MG PO DAILY, (Reported) Aspirin 81 Mg Tabec, 81 MG PO DAILY, (Reported) Atorvastatin Calcium 20 Mg Tablet, 20 MG PO HS, (Reported) Cyclobenzaprine HCl 10 Mg Tablet, 10 MG PO Q8H PRN for SPASMS Prescribed by: RENETTA PRATHER on 02/20/161924 Cyclobenzaprine HCl 5 Mg Tablet, 5 MG PO TID PRN for BACK PAIN Prescribed by: SHERRI PUENTES on 11/11/16 1050 Furosemide 40 Mg Tablet, 40 MG PO DAILY, (Reported) Hydrochlorothiazide 25 Mg Tablet, 25 MG PO DAILY, (Reported) Hydrocodone/Acetaminophen 1 Each Tablet, 1 EACH PO 4 times a day Prescribed by: LESTER BEACH on 10/24/16 165 Lidocaine HCl 30 Ml Jel..ml., 2 ML MM BID PRN Prescribed by: SHERRI PUENTES on 06/19/162101 Loratadine 10 Mg Capsule, 10 MG PO DAILY Prescribed by: SHERRI PUENTES on 08/22/141904 Meloxicam 15 Mg Tablet, 15 MG PO DAILY, (Reported) Metoprolol Tartrate 50 Mg Tablet, 50 MG PO BID, (Reported) Montelukast Sodium 10 Mg Tablet, 10 MG PO HS, (Reported) Nedrow-3 Fatty Acids/Fish Oil 1 Each Capsule, 1,000 MG PO DAILY, (Reported) Orphenadrine Citrate 100 Mg Tablet.er, 100 MG PO BID PRN for PAIN-MODERATE Prescribed by: SHERRI PUENTES on 07/27/16 193 Pantoprazole Sodium 40 Mg Tablet.dr, 40 MG PO DAILY, (Reported) Prednisone 20 Mg Tab, 40 MG PO DAILY Prescribed by: SHERRI PUENTES on 11/11/16 1050 Tramadol HCl 50 Mg Tablet, 50 MG PO Q6H PRN for PAIN Prescribed by: VIOLA GUNN on 08/12/15 1235 Tramadol HCl 50 Mg Tablet, 50 MG PO Q4H PRN for pain Prescribed by: RENETTA PRATHER on 07/12/16 2337 Venlafaxine HCl 150 Mg Cap.er.24h, 1 CAP PO UD, (Reported) Patient Home Medication List Home Medication List Reviewed: Yes Constitutional: see HPI EENTM: see HPI Respiratory: no symptoms reported Cardiovascular: no symptoms reported Genitourinary: no symptoms reported Musculoskeletal: see HPI Skin: no symptoms reported Psychiatric/Neurological: No Symptoms Reported Past Snpczpn-Chrdwb-Vjjwof Hx Patient Social History 2nd Hand Smoke Exposure: No Recent Foreign Travel: No Contact w/Someone Who Travel: No Recent Hopitalizations: No Immunizations Up To Date Tetanus Booster (TDap): More than 5yrs Date of Pneumonia Vaccine: Nov 24, 2011 Date of Influenza Vaccine: Dec 26, 2015 Seasonal Allergies Seasonal Allergies: No Past Medical History Surgeries: Yes (D&C, Right knee arthroscopy) Respiratory: No Cardiac: Yes ("blockage in heart" 40-50%) Coronary Artery Disease, Congenital Heart Disease, High Cholesterol, Hypertension Neurological: No Reproductive Disorders: No [employer] History: Menopausal Sexually Transmitted Disease: No HIV/AIDS: No Genitourinary: Yes Bladder Infection Gastrointestinal: Yes Gastroesophageal Reflux Musculoskeletal: Yes (Right knee arthritis) Arthritis Endocrine: Yes Diabetes, Non-Insulin dep HEENT: No Cancer: No Psychosocial: Yes Depression Integumentary: No Blood Disorders: No Adverse Reaction/Blood Tranf: No Family Medical History Hypertension 19 FATHER Not obtainable due to adoption G8 BROTHER (GOUT) No Pertinent Family Hx Physical Exam Vital Signs Vital Signs - First Documented 07/15/17 18:34 Temp 98.4 Pulse 53 Resp 18 B/P (MAP) 165/87 (113) Pulse Ox 95 O2 Delivery Room Air Capillary Refill : General Appearance: WD/WN, no apparent distress, obese HEENT: PERRL/EOMI, normal ENT inspection Neck: non-tender, full range of motion Respiratory: no respiratory distress, no accessory muscle use Gastrointestinal: normal bowel sounds, non tender Hips: bilateral hip non-tender, bilateral hip normal inspection, bilateral hip normal range of motion Legs: bilateral leg non-tender, bilateral leg normal inspection, bilateral leg normal range of motion Knees: bilateral knee non-tender, bilateral knee normal inspection, bilateral knee normal range of motion Ankles: bilateral ankle non-tender, bilateral ankle normal inspection, bilateral ankle normal range of motion Feet: bilateral foot non-tender, bilateral foot normal inspection, bilateral foot normal range of motion Neurologic/Psychiatric: alert, normal mood/affect, oriented x 3 Skin: normal color, warm/dry Progress/Results/Core Measures Results/Orders My Orders Orders - SHERRI PUENTES APRN Knee, Left, 3 Views (07/15/17 18:41) Ketorolac Injection (Toradol Injection) (07/15/17 18:45) Vital Signs/I&O 07/15/17 07/15/17 07/15/17 18:34 18:55 19:32 Temp 98.4 98.4 98.4 Pulse 53 53 Resp 18 18 B/P (MAP) 165/87 (113) 165/87 (113) Pulse Ox 95 96 O2 Delivery Room Air Departure Impression Primary Impression: Osteoarthritis Disposition: 01 HOME, SELF-CARE Condition: Stable Departure-Patient Inst. Decision time for Depature: 18:55 Referrals: KATERINA HEBERT MD (PCP/Family) Primary Care Physician Patient Instructions: Knee Pain Add. Discharge Instructions: 1. Return to ER for any concerns 2. See your doctor next week SHERRI PUENTES APRN Jul 15, 2017 18:47
--- OUTSIDE RECORDS SUMMARY | 2017-07-15 18:56 | XMS REPORT ---
Author Author TRUPTI RANDHAWA [facility] Address Unknown Care Team Providers Care Peripheral Equipment Operator Name Role Phone TRUPTI RANDHAWA Unavailable PROBLEMS Type Condition ICD9-CM Code BWO44-NP Code Onset Dates Condition Status SNOMED Code Problem Missed period N92.6 Active 81374763 Problem Gastroesophageal reflux disease, esophagitis presence not specified K21.9 Active 670422890 Problem Mild mental retardation F70 Active 53974758 Problem Adjustment disorder with mixed anxiety and depressed mood F43.23 Active 99304890 Problem Rash R21 Active 413770439 ALLERGIES Substance Reaction Event Type Date Status Penicillin V Potassium rash Drug Allergy Jul, Active ENCOUNTERS Encounter Location Date Diagnosis [facility] [address] [address] 12 Mar, 2017 Cough R05 and BMI 50.0-59.9, adult Z68.43 [facility] [address] [address] Dec, Encounter for immunization Z23 [facility] [address] [address] Sep, Acute allergic rhinitis J30.9 [facility] [address] [address] Jul, Missed period N92.6 [facility] [address] [id number] Jul, Dental caries K02.9 [facility] [address] [id number] Jul, Dental examination Z01.20 [facility] [address] [address] June, Abscess of mouth K12.2 [facility] [id number] [place] [phone] Feb, Dental examination Z01.20 [facility] [address] [phone] Jan, Sore throat J02.9 and Strep pharyngitis J02.0 [facility] [address] [id number] Dec, Encounter for other specified administrative purpose Z02.89 [facility] [address] [address] Dec, Encounter for immunization Z23 [facility] [address] [place] [address] Nov, Gastroesophageal reflux disease, esophagitis presence not specified K21.9 [facility] [address] [id number] Jul, Dental examination Z01.20 [facility] [address] [id number] May, Encounter for dental examination Z01.20 [facility] [address] [address] Apr, Acute bacterial sinusitis J01.90 [facility] [address] [place], [place] [id number] [place] [phone] Mar, Acute vomiting R11.10 and Seasonal allergies J30.2 [facility] [address] [place] [id number] [place] [phone] Feb, Dental examination Z01.20 [facility] [address] [address] Feb, Personal history of other diseases of the respiratory system Z87.09 [facility] [address] [address] 02 Jan, 2015 Rash R21 ; Mild mental retardation F70 and Adjustment disorder with mixed anxiety and depressed mood F43.23 [facility] [address] [facility] [id number] [place] [address] Feb, [facility] [address] [facility] [id number] [address] Feb, [facility] [address] [facility] [id number] [address] Oct, [facility] [address] [address] Oct, [facility] [address] [facility] [id number] [place] [address] Aug, [facility] [address] [facility] [id number] [place] [address] Dec, IMMUNIZATIONS No Known Immunizations SOCIAL HISTORY Never Assessed REASON FOR VISIT TE #31 PLAN OF CARE Activity Details Follow Up prn Reason:restore VITAL SIGNS Blood pressure systolic 131 mmHg 2016-07-10 Blood pressure diastolic 69 mmHg 2016-07-10 MEDICATIONS Medication Instructions Dosage Frequency Start Date End Date Duration Status Hydrochlorothiazide 25 MG Orally Once a day 1 tablet 24h Active Baby Aspirin 81 mg 1 tablet 24h Active Amlodipine Besylate 5 mg Orally Once a day 1 tablet 24h Active Atorvastatin Calcium 20 MG Orally Once a day 1 tablet 24h Active Metformin HCl 500 MG Orally Twice a day 1 tablet with meals 12h Active Venlafaxine HCl ER Active Metoprolol Tartrate 50 MG Orally Twice a day 1 tablet 12h Active Furosemide 40 MG Orally Once a day 1 tablet 24h Active Fish Oil 1200 MG Orally Once a day 1 capsule 24h Active Tramadol HCl 50 MG Orally every 6 hrs 1 tablet as needed 6h Active Protonix 40 MG Orally Once a day 1 tablet 24h Active Meloxicam 15 mg Orally Once a day 1 tablet daily 24h Active Montelukast Sodium 10 MG Orally Once a day 1 tablet in the evening 24h Active RESULTS No Results PROCEDURES Procedure Date Ordered Result Body Site EXTRAC ERUPTED TOOTH/EXPOSED ROOT July 10, 2016 INSTRUCTIONS MEDICATIONS ADMINISTERED No Known Medications MEDICAL (GENERAL) HISTORY Type Description Date Medical History hypertension Medical History hyperlipidemia Medical History Adjustment disorder with depressed mood Surgical History cholecystectomy Surgical History right knee arthroscopy 2011 Hospitalization History Surgery(s)/Childbirth(s) only Hospitalization History anxiety 2014
--- NOTE | 2017-07-15 19:29 | Diagnostic Imaging Report ---
INDICATION: Left knee pain. COMPARISON: None. EXAMINATION: Three views of the left knee were obtained. FINDINGS: Mild tricompartment degenerative joint disease. There is no fracture or dislocation. No joint effusion is seen. Soft tissue calcifications are seen posterior to the proximal tibial diaphysis. 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 IMPRESSION: 1. No fracture or dislocation. 2. Degenerative joint disease. Dictated by: Dictated on workstation # [id number]
[2017-07-15 19:32] VITALS: BP 165/87
== END 2017-07-15 19:32 | disposition home or self-care (01) ==
LOC: EDUNIT# 18:31 → ER 18:32
DX: M17.12 Unilateral primary osteoarthritis, left knee (principal); I25.10 Atherosclerotic heart disease of native coronary artery without angina pectoris; E78.00 Pure hypercholesterolemia, unspecified; I10 Essential (primary) hypertension; E11.9 Type 2 diabetes mellitus without complications; F32.9 Major depressive disorder, single episode, unspecified; K21.9 Gastro-esophageal reflux disease without esophagitis; Z87.448 Personal history of other diseases of urinary system; Z88.0 Allergy status to penicillin; Z79.82 Long term (current) use of aspirin; X50.0XXA Overexertion from strenuous movement or load, initial encounter; Y92.000 Kitchen of unspecified non-institutional (private) residence as the place of occurrence of the external cause
CPT/HCPCS: 73562; 96372

== ENCOUNTER 2017-11-10 18:33 | Emergency (ER) | payer MEDICAID ==
[~2017-11-10] VITALS: Ht 160 cm; Wt 127.0 kg
[~2017-11-10 18:33] MED LIST changes: -AMLO5TAB2 PO; +AMLO5TAB7 PO; +HYDR-4226 PO; +METF-397; -METF500T5
--- OUTSIDE RECORDS SUMMARY | 2017-11-10 18:45 | XMS REPORT | Continuity of Care Document ---
Author Author Formerly [facility] Address Unknown Phone Unavailable Allergies Active Description Code Type Severity Reaction Onset Reported/Identified Relationship to Patient Clinical Status Yes Penicillins [id number] Drug Allergy Mild N/A 07/27/2016 Medications There is no data. Problems Date Dx Coded Attending Type Code Diagnosis Diagnosed By 01/09/1048 MELE HEBERT MD Ot M54.5 LOW BACK PAIN 01/08/1054 DOROTA CABELLO APRN Ot R60.0 LOCALIZED EDEMA 01/08/1319 MELE HEBERT MD Ot R60.9 EDEMA, UNSPECIFIED 09/20/2009 Ot 717.9 09/20/2009 Ot 786.52 09/20/2009 Ot 959.7 09/20/2009 Ot E818.9 09/20/2009 Ot E849.5 09/21/2009 Ot 787.01 11/24/2009 Ot 787.03 11/24/2009 Ot E935.2 02/15/2010 Ot 401.9 02/15/2010 Ot 530.81 02/15/2010 Ot 786.50 02/15/2010 Ot V58.69 11/27/2011 Ot 272.4 HYPERLIPIDEMIA NEC/NOS 11/27/2011 Ot 278.00 OBESITY, NOS 11/27/2011 Ot 401.9 HYPERTENSION NOS 11/27/2011 Ot 414.01 CORONARY ATHEROSCLEROSIS OF [place] CORON 11/27/2011 Ot 786.59 CHEST PAIN NEC [...] HERNANDEZ Ot V57.1 PHYSICAL THERAPY NEC 09/14/2013 MELE HEBERT MD Ot 041.49 OTHER AND UNSPECIFIED ESCHERICHIA COLI [ 09/14/2013 MELE HEBERT MD Ot 272.4 HYPERLIPIDEMIA NEC/NOS 09/14/2013 MELE HEBERT MD Ot 278.01 MORBID OBESITY 09/14/2013 MELE HEBERT MD Ot 401.9 HYPERTENSION NOS 09/14/2013 MELE HEBERT MD Ot 414.01 CORONARY ATHEROSCLEROSIS OF [place] CORON 09/14/2013 MELE HEBERT MD Ot 530.81 ESOPHAGEAL REFLUX 09/14/2013 MELE HEBERT MD Ot 599.0 URIN TRACT INFECTION NOS 09/14/2013 MELE HEBERT MD Ot 780.8 GENERALIZED HYPERHIDROSIS 09/14/2013 MELE HEBERT MD Ot 786.50 CHEST PAIN NOS 09/14/2013 MELE HEBERT MD Ot 787.91 DIARRHEA 09/14/2013 MELE HEBERT MD Ot 789.06 ABDOMINAL PAIN, EPIGASTRIC 09/14/2013 MELE HEBERT MD Ot V03.82 PROPHYLACTIC VACC AGAINST STREPTOCOCCUS 09/14/2013 MELE HEBERT MD Ot V85.43 BODY MASS INDEX [...] 07/28/2014 Ot V58.69 07/28/2014 BAIMA, IMTIAZ L 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 Ot 272.4 07/28/2014 ANUP MONTANA, MELE Rose Ot V76.19 07/28/2014 JOE MONTANA FAC, ALI FACP CCDS Ot 401.9 07/28/2014 JOE MONTANA FAC, ALI FACP CCDS Ot V58.69 07/28/2014 BAIMA, IMTIAZ L 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 Ot 272.4 07/28/2014 BAIMA, IMTIAZ L 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 Ot 401.9 07/28/2014 BAIMA, IMTIAZ L 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 Ot 414.01 07/28/2014 BAIMA, IMTIAZ L 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 Ot V58.69 07/28/2014 ANTONIO MONTANA, ALISON Bush Ot 599.70 07/28/2014 ANTONIO MONTANA, ALISON Bush Ot 793.5 07/28/2014 BAIMA, IMTIAZ L 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 Ot 272.4 07/28/2014 BAIMA, IMTIAZ L 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 Ot 414.00 07/28/2014 ANUP MONTANA, MELE Rose Ot V76.12 07/28/2014 BAIMA, IMTIAZ L 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 Ot 272.4 07/28/2014 BAIMA, IMTIAZ L 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 Ot 278.00 07/28/2014 BAIMA, IMTIAZ L 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 Ot 401.9 07/28/2014 BAIMA, IMTIAZ L 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 Ot 414.00 07/28/2014 BAIMA, IMTIAZ L 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 Ot 790.21 07/28/2014 Ot 272.4 07/28/2014 Ot 414.00 08/04/2014 BAIMA, IMTIAZ L 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 Ot 272.4 08/04/2014 BAIMA, IMTIAZ L 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 Ot 401.9 08/04/2014 BAIMA, IMTIAZ L 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 Ot 414.9 08/04/2014 IMTIAZ BRYANT 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 Ot 782.3 08/05/2014 SHERRI PUENTES [employer]AR[employer] Ot 724.2 LUMBAGO 08/05/2014 SHERRI PUENTES [employer] Ot 724.4 LUMBOSACRAL NEURITIS NOS 08/15/2014 BAIIMTIAZ ADHIKARI L 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 Ot 272.4 08/15/2014 BAIIMTIAZ ADHIKARI L 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 Ot 401.9 08/15/2014 BAIIMTIAZ ADHIKARI L 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 Ot 414.9 08/15/2014 IMTIAZ BRYANT 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 Ot 782.3 08/22/2014 SHERRI PUENTES [employer] Ot 465.9 ACUTE URI NOS 08/22/2014 SHERRI PUENTES [employer] Ot 780.4 DIZZINESS AND GIDDINESS 09/07/2014 ANUP MONTANA, MELE Rose Ot 724.2 09/21/2014 DOROTA CABELLO [employer] Ot V76.12 10/06/2014 DOROTA CABELLO [employer] Ot V76.12 10/18/2014 DOROTA CABELLO [employer] Ot 786.05 11/02/2014 DOROTA CABELLO [employer] Ot 272.4 11/02/2014 DOROTA CABELLO [employer] Ot 780.79 12/18/2014 DOROTA CABELLO [employer] Ot R73.09 12/18/2014 IMTIAZ BRYANT 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 Ot E78.5 12/18/2014 IMTIAZ BRYANT 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 Ot I25.10 02/05/2015 HIREN STYLES MD Ot E66.9 OBESITY, UNSPECIFIED 02/05/2015 HIREN STYLES MD Ot E78.5 HYPERLIPIDEMIA, UNSPECIFIED 02/05/2015 HIREN STYLES MD Ot I10 ESSENTIAL (PRIMARY) HYPERTENSION 02/05/2015 HIREN STYLES MD Ot I25.10 ATHSCL HEART DISEASE OF [place] CORONARY 02/05/2015 HIREN STYLES MD Ot K21.9 [...] 04/05/2015 Ot V58.69 04/05/2015 ANNETTE, IMTIAZ L 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 Ot 272.4 04/05/2015 ANUP MONTANA, MELE Rose Ot V76.19 04/05/2015 JOE MONTANA [facility], ALI FACP CCDS Ot 401.9 04/05/2015 JOE MONTANA [facility], ALI FACP CCDS Ot V58.69 04/05/2015 BAIMA, IMTIAZ L 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 Ot 272.4 04/05/2015 BAIMA, IMTIAZ L 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 Ot 401.9 04/05/2015 BAIMA, IMTIAZ L 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 Ot 414.01 04/05/2015 BAIMA, IMTIAZ L 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 Ot V58.69 04/05/2015 ANTONIO MOTNANA, ALISON Bush Ot 599.70 04/05/2015 ANTONIO MONTANA, ALISON Bush Ot 793.5 04/05/2015 BAIMA, IMTIAZ L 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 Ot 272.4 04/05/2015 BAIMA, IMTIAZ L 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 Ot 414.00 04/05/2015 ANUP MONTANA, MELE Rose Ot V76.12 04/05/2015 BAIMA, IMTIAZ L 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 Ot 272.4 04/05/2015 BAIMA, IMTIAZ L 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 Ot 278.00 04/05/2015 BAIMA, IMTIAZ L 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 Ot 401.9 04/05/2015 BAIONOFRE IMTIAZ L 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 Ot 414.00 04/05/2015 BAIMA, IMTIAZ L 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 Ot 790.21 04/05/2015 Ot 272.4 04/05/2015 Ot 414.00 04/05/2015 BAIMA, IMTIAZ L 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 Ot 272.4 04/05/2015 BAIMA, IMTIAZ L 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 Ot 401.9 04/05/2015 BAIMA, IMTIAZ L 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 Ot 414.9 04/05/2015 BAIONOFRE, IMTIAZ L 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 Ot 782.3 04/05/2015 ANUP MONTANA, MELE Rose Ot 724.2 04/05/2015 DOROTA CABELLO [employer] Ot V76.12 04/05/2015 DOROTA CABELLO [employer] Ot 786.05 04/05/2015 DOROTA CABELLO [employer] Ot 272.4 04/05/2015 DOROTA CABELLO [employer] Ot 780.79 04/05/2015 DOROTA CABELLO [employer] Ot R73.09 04/05/2015 BAIIMTIAZ ADHIKARI L 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 Ot E78.5 04/05/2015 BAIIMTIAZ ADHIKARI L 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 Ot I25.10 04/06/2015 CHRIS CORDOVA DO Ot G47.33 OBSTRUCTIVE SLEEP APNEA (ADULT) (PEDIATR 04/06/2015 CHRIS CORDOVA DO Ot I10 ESSENTIAL (PRIMARY) HYPERTENSION 05/08/2015 DOROTA CABELLO [employer] Ot R60.0 05/23/2015 CHRIS CORDOVA DO Ot G47.33 OBSTRUCTIVE SLEEP APNEA (ADULT) (PEDIATR 05/24/2015 SHERRI PUENTES [employer] Ot L01.00 IMPETIGO, UNSPECIFIED 05/24/2015 SHERRI PUENTES [employer] Ot L01.00 05/25/2015 DOROTA CABELLO [employer] Ot R60.0 LOCALIZED EDEMA 06/01/2015 DOROTA CABELLO [employer] Ot R60.0 LOCALIZED EDEMA 06/13/2015 DOROTA CABELLO [employer] Ot R60.0 LOCALIZED EDEMA 06/21/2015 ANNETTEIMTIAZ L 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 Ot E78.5 HYPERLIPIDEMIA, UNSPECIFIED 08/12/2015 LUIS A [...] MED,LT, CURRENT USE 11/28/2015 BAIMA, IMTIAZ L 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 Ot 272.4 HYPERLIPIDEMIA NEC/NOS 11/28/2015 ANUP MONTANA, MELE Rose Ot V76.19 OTH SCREEN BREAST EXAM FOR MALIGNANT CADE 11/28/2015 JOE MONTANA FACC, ALI FACP CCDS Ot 401.9 HYPERTENSION NOS 11/28/2015 JOE MONTANA FACC, ALI FACP CCDS Ot V58.69 OTH MED,LT,CURRENT USE 11/28/2015 BAIMA, IMTIAZ L 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 Ot 272.4 HYPERLIPIDEMIA NEC/NOS 11/28/2015 BAIMA, IMTIAZ L 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 Ot 401.9 HYPERTENSION NOS 11/28/2015 BAIMA, IMTIAZ L 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 Ot 414.01 CORONARY ATHEROSCLEROSIS OF [place] CORON 11/28/2015 BAIMA, IMTIAZ L 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 Ot V58.69 OTH MED,LT,CURRENT USE 11/28/2015 ALISON ALVAREZ MD Ot 599.70 HEMATURIA, UNSPECIFIED 11/28/2015 ALISON ALVAREZ MD Ot 793.5 NOSP (ABN) FINDINGS ON RADIOLOGICAL OT 11/28/2015 BAIMA, IMTIAZ L 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 Ot 272.4 HYPERLIPIDEMIA NEC/NOS 11/28/2015 BAIMA, IMTIAZ L 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 Ot 414.00 CORON ATHEROSCLER NOS TYPE VESSEL, NATIV 11/28/2015 ANUP MONTANA, MELE Rose Ot V76.12 OTH SCREEN MAMMO-MALIGN NEOPLASM OF [place] 11/28/2015 BAIMA, IMTIAZ L 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 Ot 272.4 HYPERLIPIDEMIA NEC/NOS 11/28/2015 BAIMA, IMTIAZ L 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 Ot 278.00 OBESITY, NOS 11/28/2015 BAIMA, IMTIAZ L 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 Ot 401.9 HYPERTENSION NOS 11/28/2015 BAIMA, IMTIAZ L 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 Ot 414.00 CORON ATHEROSCLER NOS TYPE VESSEL, NATIV 11/28/2015 BAIMA, IMTIAZ L 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 Ot 790.21 IMPAIRED FASTING GLUCOSE 11/28/2015 Ot 272.4 HYPERLIPIDEMIA NEC/NOS 11/28/2015 Ot 414.00 CORON ATHEROSCLER NOS TYPE VESSEL, NATIV 11/28/2015 BAIMA, IMTIAZ L 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 Ot 272.4 HYPERLIPIDEMIA NEC/NOS 11/28/2015 BAIMA, IMTIAZ L 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 Ot 401.9 HYPERTENSION NOS 11/28/2015 BAIMA, IMTIAZ L 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 Ot 414.9 CHR ISCHEMIC HRT DIS NOS 11/28/2015 BAIMA, IMTIAZ L 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 Ot 782.3 EDEMA 11/28/2015 ANUP MONTANA, MELE Rose Ot 724.2 LUMBAGO 11/28/2015 DOROTA CABELLO [employer]AR[employer] Ot V76.12 OTH SCREEN MAMMO-MALIGN NEOPLASM OF [place] 11/28/2015 DOROTA CABELLO [employer] Ot 786.05 SHORTNESS OF BREATH 11/28/2015 DOROTA CABELLO [employer] Ot 272.4 HYPERLIPIDEMIA NEC/NOS 11/28/2015 DOROTA CABELLO [employer] Ot 780.79 OTH MALAISE FATIGUE 11/28/2015 DOROTA CABELLO [employer] Ot R73.09 OTHER ABNORMAL GLUCOSE 11/28/2015 BAIMA, IMTIAZ L 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 Ot E78.5 HYPERLIPIDEMIA, UNSPECIFIED 11/28/2015 BAIMA, IMTIAZ L 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 Ot I25.10 ATHSCL HEART DISEASE OF [place] CORONARY 11/28/2015 BAIMA, IMTIAZ L 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 Ot E78.5 HYPERLIPIDEMIA, UNSPECIFIED 12/13/2015 BAIMA, IMTIAZ L 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 Ot I10 ESSENTIAL (PRIMARY) HYPERTENSION 12/13/2015 BAIMA, IMTIAZ L 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 Ot R53.83 OTHER FATIGUE 12/24/2015 SHERRI PUENTES [employer]KEEP[employer] YARDMAN Ot H61.22 IMPACTED CERUMEN, LEFT EAR 12/24/2015 SHERRI PUENTES APRN Ot I10 ESSENTIAL (PRIMARY) HYPERTENSION 12/24/2015 SHERRI PUENTES APRN Ot J02.9 ACUTE PHARYNGITIS, UNSPECIFIED 12/24/2015 SHERRI PUENTES APRN Ot J06.9 ACUTE UPPER RESPIRATORY INFECTION, UNSPE 12/24/2015 SHERRI PUENTES APRN Ot 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 12/24/2015 SHERRI PUENTES APRN Ot Z79.899 OTHER SHEET METAL ROOFER (CURRENT) DRUG THERAPY 12/25/2015 SHERRI PUENTES APRN Ot H61.22 IMPACTED CERUMEN, LEFT EAR 12/25/2015 SHERRI PUENTES APRN Ot I10 ESSENTIAL (PRIMARY) HYPERTENSION 12/25/2015 SHERRI PUENTES APRN Ot J02.9 ACUTE PHARYNGITIS, UNSPECIFIED 12/25/2015 SHERRI PUENTES APRN Ot J06.9 ACUTE UPPER RESPIRATORY INFECTION, UNSPE 12/25/2015 SHERRI PUENTES APRN Ot 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 12/25/2015 SHERRI PUENTES APRN Ot Z79.899 OTHER CARE HOME (CURRENT) DRUG THERAPY 01/14/2016 ANUP MONTANA, MELE Rose Ot E78.00 PURE HYPERCHOLESTEROLEMIA, UNSPECIFIED 01/14/2016 ANUP MONTANA, MELE Rose Ot I25.10 ATHSCL HEART DISEASE OF [place] CORONARY 01/14/2016 ANUP MONTANA, MELE Rose Ot R73.9 HYPERGLYCEMIA, UNSPECIFIED 01/16/2016 SHERRI PUENTES APRN Ot I10 ESSENTIAL (PRIMARY) HYPERTENSION 01/16/2016 SHERRI PUENTES APRN Ot M79.662 PAIN IN LEFT LOWER LEG 01/16/2016 SHERRI PUENTES APRN Ot Z79.82 CARE HOME (CURRENT) USE OF ASPIRIN 01/16/2016 SHERRI PUENTES APRN Ot Z79.899 OTHER SHEET METAL ROOFER (CURRENT) DRUG THERAPY 01/17/2016 SHERRI PUENTES APRN Ot I10 ESSENTIAL (PRIMARY) HYPERTENSION 01/17/2016 SHERRI PUENTES APRN Ot M79.662 PAIN IN LEFT LOWER LEG 01/17/2016 SHERRI PUENTES APRN Ot 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 01/17/2016 SHERRI PUENTES APRN Ot Z79.899 OTHER SHEET METAL ROOFER (CURRENT) DRUG THERAPY 01/18/2016 SHERRI PUENTES [employer]KEEP[employer] YARDMAN Ot I10 ESSENTIAL (PRIMARY) HYPERTENSION 01/18/2016 SHERRI PUENTES [employer]KEEP[employer] YARDM[employer] Ot M79.662 PAIN IN LEFT LOWER LEG 01/18/2016 SHERRI PUENTES GR[employer]KEEPING [employer]ARDM[employer] Ot 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 01/18/2016 SHERRI PUENTES GR[employer]KEEPING YARDMAN Ot Z79.899 OTHER CARE HOME (CURRENT) DRUG THERAPY 01/24/2016 MELE HEBERT MD Ot E78.00 PURE HYPERCHOLESTEROLEMIA, UNSPECIFIED 01/24/2016 MELE HEBERT MD Ot I25.10 ATHSCL HEART DISEASE OF [place] CORONARY 01/24/2016 MELE HEBERT MD Ot R73.9 HYPERGLYCEMIA, UNSPECIFIED 02/20/2016 [...] MED,LT, CURRENT USE 02/20/2016 BAIMA, IMTIAZ L 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 Ot 272.4 HYPERLIPIDEMIA NEC/NOS 02/20/2016 MELE HEBERT MD Ot V76.19 OTH SCREEN BREAST EXAM FOR MALIGNANT CADE 02/20/2016 JOE MONTANA FACSamy, ALI FACP CCDS Ot 401.9 HYPERTENSION NOS 02/20/2016 JOE MONTANA FACSamy, ALI FACP CCDS Ot V58.69 OTH MED,LT,CURRENT USE 02/20/2016 BAIMA, IMTIAZ L 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 Ot 272.4 HYPERLIPIDEMIA NEC/NOS 02/20/2016 BAIMA, IMTIAZ L 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 Ot 401.9 HYPERTENSION NOS 02/20/2016 BAIMA, IMTIAZ L 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 Ot 414.01 CORONARY ATHEROSCLEROSIS OF [place] CORON 02/20/2016 BAIMA, IMTIAZ L 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 Ot V58.69 OTH MED,LT,CURRENT USE 02/20/2016 ANTONIO MONTANA, ALISON Bush Ot 599.70 HEMATURIA, UNSPECIFIED 02/20/2016 ANTONIO MONTANA, ALISON Bush Ot 793.5 NOSP (ABN) FINDINGS ON RADIOLOGICAL OT 02/20/2016 BAIMA, IMTIAZ L 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 Ot 272.4 HYPERLIPIDEMIA NEC/NOS 02/20/2016 BAIMA, IMTIAZ L 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 Ot 414.00 CORON ATHEROSCLER NOS TYPE VESSEL, NATIV 02/20/2016 ANUP MONTANA, MELE Rose Ot V76.12 OTH SCREEN MAMMO-MALIGN NEOPLASM OF [place] 02/20/2016 BAIMA, IMTIAZ L 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 Ot 272.4 HYPERLIPIDEMIA NEC/NOS 02/20/2016 BAIMA, IMTIAZ L 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 Ot 278.00 OBESITY, NOS 02/20/2016 BAIMA, IMTIAZ L 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 Ot 401.9 HYPERTENSION NOS 02/20/2016 BAIMA, IMTIAZ L 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 Ot 414.00 CORON ATHEROSCLER NOS TYPE VESSEL, NATIV 02/20/2016 BAIMA, IMTIAZ L 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 Ot 790.21 IMPAIRED FASTING GLUCOSE 02/20/2016 Ot 272.4 HYPERLIPIDEMIA NEC/NOS 02/20/2016 Ot 414.00 CORON ATHEROSCLER NOS TYPE VESSEL, NATIV 02/20/2016 BAIMA, IMTIAZ L 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 Ot 272.4 HYPERLIPIDEMIA NEC/NOS 02/20/2016 BAIMA, IMTIAZ L 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 Ot 401.9 HYPERTENSION NOS 02/20/2016 BAIMA, IMTIAZ L 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 Ot 414.9 CHR ISCHEMIC HRT DIS NOS 02/20/2016 BAIMA, IMTIAZ L 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 Ot 782.3 EDEMA 02/20/2016 ANUP MONTANA, MELE Rose Ot 724.2 LUMBAGO 02/20/2016 DOROTA CABELLO [employer] Ot V76.12 OTH SCREEN MAMMO-MALIGN NEOPLASM OF [place] 02/20/2016 DOROTA CABELLO N GR[employer]KEEPING [employer]ARDMAN Ot 786.05 SHORTNESS OF BREATH 02/20/2016 DOROTA CABELLO [employer]KEEP[employer]AR[employer] Ot 272.4 HYPERLIPIDEMIA NEC/NOS 02/20/2016 DOROTA CABELLO N [employer]KEEP[employer]AR[employer] Ot 780.79 OTH MALAISE FATIGUE 02/20/2016 DOROTA CABELLO N GROUN[employer]KEEPING YARDMAN Ot R73.09 OTHER ABNORMAL GLUCOSE 02/20/2016 IMTIAZ BRYANT L 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 Ot E78.5 HYPERLIPIDEMIA, UNSPECIFIED 02/20/2016 BAIIMTIAZ ADHIKARI L 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 Ot I25.10 ATHSCL HEART DISEASE OF [place] CORONARY 02/20/2016 BAIIMTIAZ ADHIKARI L 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 Ot E78.5 HYPERLIPIDEMIA, UNSPECIFIED 02/20/2016 BAIMA IMTIAZ L 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 Ot I10 ESSENTIAL (PRIMARY) HYPERTENSION 02/20/2016 BAIIMTIAZ ADHIKARI L 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 Ot R53.83 OTHER FATIGUE 02/20/2016 ANUP MONATNA, MELE Rose Ot E78.00 PURE HYPERCHOLESTEROLEMIA, UNSPECIFIED 02/20/2016 ANUP MONTANA, MELE Rose Ot I25.10 ATHSCL HEART DISEASE OF [place] CORONARY 02/20/2016 ANUP MONTANA, MELE Rose Ot R73.9 HYPERGLYCEMIA, UNSPECIFIED 02/20/2016 RENETTA EARL Ot I10 ESSENTIAL (PRIMARY) HYPERTENSION 02/20/2016 RENETTA EARL Ot M54.5 LOW BACK PAIN 02/20/2016 RENETTA EARL Ot 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 02/20/2016 RENETTA EARL Ot Z79.899 OTHER SHEET METAL ROOFER (CURRENT) DRUG THERAPY 02/21/2016 RENETTA EARL Ot I10 ESSENTIAL (PRIMARY) HYPERTENSION 02/21/2016 RENETTA EARL Ot M54.5 LOW BACK PAIN 02/21/2016 RENETTA EARL Ot 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 02/21/2016 RENETTA EARL Ot Z79.899 OTHER CARE HOME (CURRENT) DRUG THERAPY 03/04/2016 Ot V76.12 OTH [...] MED,LT, CURRENT USE 03/04/2016 BAIMA, IMTIAZ L 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 Ot 272.4 HYPERLIPIDEMIA NEC/NOS 03/04/2016 ANUP MONTANA, MELE Rose Ot V76.19 OTH SCREEN BREAST EXAM FOR MALIGNANT CADE 03/04/2016 JOE MONTANA FAC, ALI FACP CCDS Ot 401.9 HYPERTENSION NOS 03/04/2016 JOE MONTANA FAC, ALI FACP CCDS Ot V58.69 OTH MED,LT,CURRENT USE 03/04/2016 BAIMA, IMTIAZ L 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 Ot 272.4 HYPERLIPIDEMIA NEC/NOS 03/04/2016 BAIMA, IMTIAZ L 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 Ot 401.9 HYPERTENSION NOS 03/04/2016 BAIMA, IMTIAZ L 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 Ot 414.01 CORONARY ATHEROSCLEROSIS OF [place] CORON 03/04/2016 BAIMA, IMTIAZ L 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 Ot V58.69 OTH MED,LT,CURRENT USE 03/04/2016 ANTONIO MONTANA, ALISON Bush Ot 599.70 HEMATURIA, UNSPECIFIED 03/04/2016 ANTONIO MONTANA, ALISON Bush Ot 793.5 NOSP (ABN) FINDINGS ON RADIOLOGICAL OT 03/04/2016 BAIMA, IMTIAZ L 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 Ot 272.4 HYPERLIPIDEMIA NEC/NOS 03/04/2016 BAIMA, IMTIAZ L 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 Ot 414.00 CORON ATHEROSCLER NOS TYPE VESSEL, NATIV 03/04/2016 MELE HEBERT MD Ot V76.12 OTH SCREEN MAMMO-MALIGN NEOPLASM OF [place] 03/04/2016 BAIMA, IMTIAZ L 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 Ot 272.4 HYPERLIPIDEMIA NEC/NOS 03/04/2016 BAIMA, IMTIAZ L 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 Ot 278.00 OBESITY, NOS 03/04/2016 BAIMA, IMTIAZ L 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 Ot 401.9 HYPERTENSION NOS 03/04/2016 BAIMA, IMTIAZ L 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 Ot 414.00 CORON ATHEROSCLER NOS TYPE VESSEL, NATIV 03/04/2016 BAIMA, IMTIAZ L 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 Ot 790.21 IMPAIRED FASTING GLUCOSE 03/04/2016 Ot 272.4 HYPERLIPIDEMIA NEC/NOS 03/04/2016 Ot 414.00 CORON ATHEROSCLER NOS TYPE VESSEL, NATIV 03/04/2016 IMTIAZ BRYANT L 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 Ot 272.4 HYPERLIPIDEMIA NEC/NOS 03/04/2016 IMTIAZ BRYANT L 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 Ot 401.9 HYPERTENSION NOS 03/04/2016 IMTIAZ BRYANT L 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 Ot 414.9 CHR ISCHEMIC HRT DIS NOS 03/04/2016 IMTIAZ BRYANT L 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 Ot 782.3 EDEMA 03/04/2016 ANUP MONTANA, MELE Rose Ot 724.2 LUMBAGO 03/04/2016 DARRELL CABELLOKELLEY Ramos [employer]KEEPING YARDMAN Ot V76.12 OTH SCREEN MAMMO-MALIGN NEOPLASM OF [place] 03/04/2016 DESTINEY DARRELLKELLEY Ramos [employer]KEEP[employer]ARDM[employer] Ot 786.05 SHORTNESS OF BREATH 03/04/2016 CABELLO DARRELLKELLEY Ramos [employer]KEEP[employer]ARDM[employer] Ot 272.4 HYPERLIPIDEMIA NEC/NOS 03/04/2016 CABELLO DARRELLKELLEY N [employer]KEEPING YARDMAN Ot 780.79 OTH MALAISE FATIGUE 03/04/2016 CABELLO DARRELLKELLEY Ramos [employer]KEEP[employer]ARDM[employer] Ot R73.09 OTHER ABNORMAL GLUCOSE 03/04/2016 IMTIAZ BRYANT 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 Ot E78.5 HYPERLIPIDEMIA, UNSPECIFIED 03/04/2016 IMTIAZ BRYANT L 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 Ot I25.10 ATHSCL HEART DISEASE OF [place] CORONARY 03/04/2016 IMTIAZ BRYANT L 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 Ot E78.5 HYPERLIPIDEMIA, UNSPECIFIED 03/04/2016 IMTIAZ BRYANT L 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 Ot I10 ESSENTIAL (PRIMARY) HYPERTENSION 03/04/2016 IMTIAZ BRYANT L 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 Ot R53.83 OTHER FATIGUE 03/04/2016 ANUP MONTANA, MELE Rose Ot E78.00 PURE HYPERCHOLESTEROLEMIA, UNSPECIFIED 03/04/2016 ANUP MONTANA, MELE Rose Ot I25.10 ATHSCL HEART DISEASE OF [place] CORONARY 03/04/2016 ANUP MONTANA, MELE Rose Ot R73.9 HYPERGLYCEMIA, UNSPECIFIED 03/05/2016 ANUP MONTANA, MELE Rose Ot M46.04 SPINAL ENTHESOPATHY, THORACIC REGION 03/10/2016 ANUP MONTANA, MELE Rose Ot M46.04 SPINAL ENTHESOPATHY, THORACIC REGION [...] MED,LT, CURRENT USE 03/17/2016 BAIMA, IMTIAZ L 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 Ot 272.4 HYPERLIPIDEMIA NEC/NOS 03/17/2016 ANUP MONTANA, MELE Rose Ot V76.19 OTH SCREEN BREAST EXAM FOR MALIGNANT CADE 03/17/2016 JOE MONTANA FACC, ALI FACP CCDS Ot 401.9 HYPERTENSION NOS 03/17/2016 JOE MONTANA FACC, ALI FACP CCDS Ot V58.69 OTH MED,LT,CURRENT USE 03/17/2016 BAIMA, IMTIAZ L 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 Ot 272.4 HYPERLIPIDEMIA NEC/NOS 03/17/2016 BAIMA, IMTIAZ L 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 Ot 401.9 HYPERTENSION NOS 03/17/2016 BAIMA, IMTIAZ L 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 Ot 414.01 CORONARY ATHEROSCLEROSIS OF [place] CORON 03/17/2016 BAIMA, IMTIAZ L 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 Ot V58.69 OTH MED,LT,CURRENT USE 03/17/2016 ALISON ALVAREZ MD Ot 599.70 HEMATURIA, UNSPECIFIED 03/17/2016 ALISON ALVAREZ MD Ot 793.5 NOSP (ABN) FINDINGS ON RADIOLOGICAL OT 03/17/2016 BAIMA, IMTIAZ L 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 Ot 272.4 HYPERLIPIDEMIA NEC/NOS 03/17/2016 BAIMA, IMTIAZ L 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 Ot 414.00 CORON ATHEROSCLER NOS TYPE VESSEL, NATIV 03/17/2016 ANUP MONTANA, MELE Rose Ot V76.12 OTH SCREEN MAMMO-MALIGN NEOPLASM OF [place] 03/17/2016 BAIMA, IMTIAZ L 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 Ot 272.4 HYPERLIPIDEMIA NEC/NOS 03/17/2016 BAIMA, IMTIAZ L 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 Ot 278.00 OBESITY, NOS 03/17/2016 BAIMA, IMTIAZ L 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 Ot 401.9 HYPERTENSION NOS 03/17/2016 BAIMA, IMTIAZ L 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 Ot 414.00 CORON ATHEROSCLER NOS TYPE VESSEL, NATIV 03/17/2016 BAIONOFRE, IMTIAZ L 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 Ot 790.21 IMPAIRED FASTING GLUCOSE 03/17/2016 Ot 272.4 HYPERLIPIDEMIA NEC/NOS 03/17/2016 Ot 414.00 CORON ATHEROSCLER NOS TYPE VESSEL, NATIV 03/17/2016 BAIMA, IMTIAZ L 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 Ot 272.4 HYPERLIPIDEMIA NEC/NOS 03/17/2016 BAIMA, IMTIAZ L 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 Ot 401.9 HYPERTENSION NOS 03/17/2016 BAIMA, IMTIAZ L 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 Ot 414.9 CHR ISCHEMIC HRT DIS NOS 03/17/2016 ANNETTE, IMTIAZ L 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 Ot 782.3 EDEMA 03/17/2016 ANUP MONTANA, MELE Rose Ot 724.2 LUMBAGO 03/17/2016 DOROTA CABELLO GROUNDSKEEPING YARDMAN Ot V76.12 OTH SCREEN MAMMO-MALIGN NEOPLASM OF [place] 03/17/2016 DOROTA CABELLO N GROUNDSKEEPING YARDMAN Ot 786.05 SHORTNESS OF BREATH 03/17/2016 DESTINEY DARRELLKELLEY Ramos GROUNDSKEEPING YARDMAN Ot 272.4 HYPERLIPIDEMIA NEC/NOS 03/17/2016 DOROTA CABELLO GROUNDSKEEPING YARDMAN Ot 780.79 OTH MALAISE FATIGUE 03/17/2016 DESTINEY DARRELLKELLEY Ramos GROUNDSKEEPING YARDMAN Ot R73.09 OTHER ABNORMAL GLUCOSE 03/17/2016 FEROZONOFRE, IMTIAZ L 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 Ot E78.5 HYPERLIPIDEMIA, UNSPECIFIED 03/17/2016 BAIONOFRE, IMTIAZ L 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 Ot I25.10 ATHSCL HEART DISEASE OF [place] CORONARY 03/17/2016 BAIMA, IMTIAZ L 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 Ot E78.5 HYPERLIPIDEMIA, UNSPECIFIED 03/17/2016 BAIMA, IMTIAZ L 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 Ot I10 ESSENTIAL (PRIMARY) HYPERTENSION 03/17/2016 BAIMA, IMTIAZ L 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 Ot R53.83 OTHER FATIGUE 03/17/2016 ANUP MONTANA, MELE Rose Ot E78.00 PURE HYPERCHOLESTEROLEMIA, UNSPECIFIED 03/17/2016 ANUP MONTANA, MELE Rose Ot I25.10 ATHSCL HEART DISEASE OF [place] CORONARY 03/17/2016 ANUP MONTANA, MELE Rose Ot R73.9 HYPERGLYCEMIA, UNSPECIFIED 03/17/2016 ANUP MONTA[place], MELE Rose Ot M46.04 SPINAL ENTHESOPATHY, THORACIC REGION 03/20/2016 ANUP MON[place], MELE Rose Ot M46.04 SPINAL ENTHESOPATHY, THORACIC REGION 04/01/2016 ANUP MONTANA, MELE Rose Ot M54.5 LOW BACK PAIN 04/08/2016 [...] MED,LT, CURRENT USE 04/08/2016 BAIMA, IMTIAZ L 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 Ot 272.4 HYPERLIPIDEMIA NEC/NOS 04/08/2016 ANUP MON[place]NA, MELE Rose Ot V76.19 OTH SCREEN BREAST EXAM FOR MALIGNANT CADE 04/08/2016 JOE MONTANA FACC, ALI FACP CCDS Ot 401.9 HYPERTENSION NOS 04/08/2016 JOE [place] FACC, ALI FACP CCDS Ot V58.69 OTH MED,LT,CURRENT USE 04/08/2016 BAIMA, IMTIAZ L 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 Ot 272.4 HYPERLIPIDEMIA NEC/NOS 04/08/2016 BAIMA, IMTIAZ L 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 Ot 401.9 HYPERTENSION NOS 04/08/2016 BAIMA, IMTIAZ L 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 Ot 414.01 CORONARY ATHEROSCLEROSIS OF [place] CORON 04/08/2016 BAIMA, IMTIAZ L 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 Ot V58.69 OTH MED,LT,CURRENT USE 04/08/2016 ANTONIO MONTANA, ALISON Bush Ot 599.70 HEMATURIA, UNSPECIFIED 04/08/2016 ALISON ALVAREZ MD Ot 793.5 NOSP (ABN) FINDINGS ON RADIOLOGICAL OT 04/08/2016 BAIONOFRE IMTIAZ L 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 Ot 272.4 HYPERLIPIDEMIA NEC/NOS 04/08/2016 BAIMA, IMTIAZ L 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 Ot 414.00 CORON ATHEROSCLER NOS TYPE VESSEL, NATIV 04/08/2016 ANUP MON[place], MELE Rose Ot V76.12 OTH SCREEN MAMMO-MALIGN NEOPLASM OF [place] 04/08/2016 BAIMA, IMTIAZ L 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 Ot 272.4 HYPERLIPIDEMIA NEC/NOS 04/08/2016 BAIMA, IMTIAZ L 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 Ot 278.00 OBESITY, NOS 04/08/2016 BAIMA, IMTIAZ L 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 Ot 401.9 HYPERTENSION NOS 04/08/2016 BAIMA, IMTIAZ L 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 Ot 414.00 CORON ATHEROSCLER NOS TYPE VESSEL, NATIV 04/08/2016 BAIMA, IMTIAZ L 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 Ot 790.21 IMPAIRED FASTING GLUCOSE 04/08/2016 Ot 272.4 HYPERLIPIDEMIA NEC/NOS 04/08/2016 Ot 414.00 CORON ATHEROSCLER NOS TYPE VESSEL, NATIV 04/08/2016 BAIMA, IMTIAZ L 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 Ot 272.4 HYPERLIPIDEMIA NEC/NOS 04/08/2016 BAIMA, IMTIAZ L 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 Ot 401.9 HYPERTENSION NOS 04/08/2016 BAIMA, IMTIAZ L 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 Ot 414.9 CHR ISCHEMIC HRT DIS NOS 04/08/2016 BAIONOFRE, IMTIAZ L 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 Ot 782.3 EDEMA 04/08/2016 ANUP MON[place], MELE Rose Ot 724.2 LUMBAGO 04/08/2016 DOROTA CABELLO GR[employer]DSKEEPING YARDMAN Ot V76.12 OTH SCREEN MAMMO-MALIGN NEOPLASM OF [place] 04/08/2016 DOROTA CABELLO GR[employer]KEEPING YARDMAN Ot 786.05 SHORTNESS OF BREATH 04/08/2016 DOROTA CABELLO GROUNDSKEEPING YARDMAN Ot 272.4 HYPERLIPIDEMIA NEC/NOS 04/08/2016 DOROTA CABELLO [employer]KEEP[employer] YARDMAN Ot 780.79 OTH MALAISE FATIGUE 04/08/2016 DOROTA CABELLO GROUN[employer]KEEPING YARDMAN Ot R73.09 OTHER ABNORMAL GLUCOSE 04/08/2016 ANNETTE, IMTIAZ L 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 Ot E78.5 HYPERLIPIDEMIA, UNSPECIFIED 04/08/2016 BAIMA, IMTIAZ L 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 Ot I25.10 ATHSCL HEART DISEASE OF [place] CORONARY 04/08/2016 BAIMA, IMTIAZ L 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 Ot E78.5 HYPERLIPIDEMIA, UNSPECIFIED 04/08/2016 BAIMA, IMTIAZ L 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 Ot I10 ESSENTIAL (PRIMARY) HYPERTENSION 04/08/2016 IMTIAZ BRYANT 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 Ot R53.83 OTHER FATIGUE 04/08/2016 ANUP MONTANA MELE Milton Ot E78.00 PURE HYPERCHOLESTEROLEMIA, UNSPECIFIED 04/08/2016 ANUP MONTANA MELE Milton Ot I25.10 ATHSCL HEART DISEASE OF [place] CORONARY 04/08/2016 MELE HEBERT MD Ot R73.9 HYPERGLYCEMIA, UNSPECIFIED 04/08/2016 ANUP MONTANA MELE Milton Ot M46.04 SPINAL ENTHESOPATHY, THORACIC REGION 04/08/2016 ANUP MONTANA MELE Milton Ot M54.5 LOW BACK PAIN 04/09/2016 MELE HEBERT MD Ot Z12.31 ENCNTR SCREEN MAMMOGRAM FOR MALIGNANT NE 04/21/2016 MELE HEBERT MD Ot Z12.31 ENCNTR SCREEN MAMMOGRAM FOR MALIGNANT NE 04/25/2016 MELE HEBERT MD Ot M54.5 LOW BACK PAIN 05/29/2016 ANPU MONTANA MELE Milton Ot E78.5 HYPERLIPIDEMIA, UNSPECIFIED 05/29/2016 ANUP MONTANA MELE D Ot R53.83 OTHER FATIGUE 05/29/2016 ANUP MONTANA MELE Mil[place] Ot R73.09 OTHER ABNORMAL GLUCOSE 06/06/2016 MELE HEBERT MD Ot E78.5 HYPERLIPIDEMIA, UNSPECIFIED 06/06/2016 ANUP MONTANA MELE D Ot R53.83 OTHER FATIGUE 06/06/2016 ANUP MONTANA MELE D Ot R73.09 OTHER ABNORMAL GLUCOSE 06/19/2016 SHERRI PUENTES APRN Ot I10 ESSENTIAL (PRIMARY) HYPERTENSION 06/19/2016 SHERRI PUENTES APRN Ot I25.10 ATHSCL HEART DISEASE OF [place] CORONARY 06/19/2016 SHERRI PUENTES APRN Ot K04.7 PERIAPICAL ABSCESS WITHOUT SINUS 06/19/2016 SHERRI PUENTES APRN Ot K08.9 DISORDER OF TEETH AND SUPPORTING STRUCTU 06/19/2016 SHERRI PUENTES APRN Ot Z79.82 CARE HOME (CURRENT) USE OF ASPIRIN 06/19/2016 SHERRI PUENTES APRN Ot Z79.899 OTHER SHEET METAL ROOFER (CURRENT) DRUG THERAPY 07/12/2016 RENETTA EARL Ot E11.9 TYPE 2 DIABETES MELLITUS WITHOUT COMPLIC 07/12/2016 RENETTA EARL Ot I10 ESSENTIAL (PRIMARY) HYPERTENSION 07/12/2016 RENETTA EARL Ot I25.10 ATHSCL HEART DISEASE OF [place] CORONARY 07/12/2016 RENETTA EARL Ot K04.7 PERIAPICAL ABSCESS WITHOUT SINUS 07/12/2016 RENETTA EARL Ot K13.79 OTHER LESIONS OF ORAL MUCOSA 07/12/2016 RENETTA EARL Ot M79.604 PAIN IN RIGHT LEG 07/12/2016 RENETTA EARL Ot M79.605 PAIN IN LEFT LEG 07/12/2016 RENETTA EARL Ot Q24.8 OTHER SPECIFIED CONGENITAL MALFORMATIONS 07/12/2016 RENETTA EARL Ot 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 07/12/2016 RENETTA EARL Ot Z79.84 CARE HOME (CURRENT) USE OF ORAL HYPOGLYC 07/12/2016 RENETTA EARL Ot Z87.39 PERSONAL HISTORY OF DISEASES OF THE MS S 07/15/2016 RENETTA EARL Ot E11.9 TYPE 2 DIABETES MELLITUS WITHOUT COMPLIC 07/15/2016 RENETTA EARL Ot I10 ESSENTIAL (PRIMARY) HYPERTENSION 07/15/2016 RENETTA EARL Ot I25.10 ATHSCL HEART DISEASE OF [place] CORONARY 07/15/2016 RENETTA EARL Ot K04.7 PERIAPICAL ABSCESS WITHOUT SINUS 07/15/2016 RENETTA EARL Ot K13.79 OTHER LESIONS OF ORAL MUCOSA 07/15/2016 RENETTA EARL Ot M79.604 PAIN IN RIGHT LEG 07/15/2016 RENETTA EARL Ot M79.605 PAIN IN LEFT LEG 07/15/2016 RENETTA EARL Ot Q24.8 OTHER SPECIFIED CONGENITAL MALFORMATIONS 07/15/2016 RENETTA EARL Ot Z79.82 CARE HOME (CURRENT) USE OF ASPIRIN 07/15/2016 RENETTA EARL Ot Z79.84 SHEET METAL ROOFER (CURRENT) USE OF ORAL HYPOGLYC 07/15/2016 RENETTA ERAL Ot Z87.39 PERSONAL HISTORY OF DISEASES OF THE MS S 07/15/2016 RENETTA EARL Ot E11.9 TYPE 2 DIABETES MELLITUS WITHOUT COMPLIC 07/15/2016 RENETTA EARL Ot I10 ESSENTIAL (PRIMARY) HYPERTENSION 07/15/2016 RENETTA EARL Ot I25.10 ATHSCL HEART DISEASE OF [place] CORONARY 07/15/2016 RENETTA EARL Ot K04.7 PERIAPICAL ABSCESS WITHOUT SINUS 07/15/2016 RENETTA EARL Ot K13.79 OTHER LESIONS OF ORAL MUCOSA 07/15/2016 RENETTA EARL Ot M79.604 PAIN IN RIGHT LEG 07/15/2016 RENETTA EALR Ot M79.605 PAIN IN LEFT LEG 07/15/2016 RENETTA EARL Ot Q24.8 OTHER SPECIFIED CONGENITAL MALFORMATIONS 07/15/2016 RENETTA EARL Ot Z79.82 CARE HOME (CURRENT) USE OF ASPIRIN 07/15/2016 RENETTA EARL Ot Z79.84 CARE HOME (CURRENT) USE OF ORAL HYPOGLYC 07/15/2016 RENETTA EARL Ot Z87.39 PERSONAL HISTORY OF DISEASES OF THE MS S 07/27/2016 SHERRI PUENTES APRN Ot E11.9 TYPE 2 DIABETES MELLITUS WITHOUT COMPLIC 07/27/2016 SHERRI PUENTES APRN Ot I10 ESSENTIAL (PRIMARY) HYPERTENSION 07/27/2016 SHERRI PUENTES APRN Ot I25.10 ATHSCL HEART DISEASE OF [place] CORONARY 07/27/2016 SHERRI PUENTES APRN Ot M17.11 UNILATERAL PRIMARY OSTEOARTHRITIS, RIGHT 07/27/2016 SHERRI PUENTES APRN Ot M54.6 PAIN IN THORACIC SPINE 07/27/2016 SHERRI PUENTES APRN Ot Z79.82 CARE HOME (CURRENT) USE OF ASPIRIN 07/27/2016 SHERRI PUENTES APRN Ot Z79.84 CARE HOME (CURRENT) USE OF ORAL HYPOGLYC 07/29/2016 SHERRI PUENTES APRN Ot E11.9 TYPE 2 DIABETES MELLITUS WITHOUT COMPLIC 07/29/2016 SHERRI PUENTES APRN Ot I10 ESSENTIAL (PRIMARY) HYPERTENSION 07/29/2016 SHERRI PUENTES APRN Ot I25.10 ATHSCL HEART DISEASE OF [place] CORONARY 07/29/2016 SHERRI PUENTES APRN Ot M17.11 UNILATERAL PRIMARY OSTEOARTHRITIS, RIGHT 07/29/2016 SHERRI PUENTES APRN Ot M54.6 PAIN IN THORACIC SPINE 07/29/2016 SHERRI PUENTES GROUNDSKEEPING YARDMAN Ot Z79.82 CARE HOME (CURRENT) USE OF ASPIRIN 07/29/2016 SHERRI PUENTES APRN Ot Z79.84 SHEET METAL ROOFER (CURRENT) USE OF ORAL HYPOGLYC 08/06/2016 ANUP MONTANA, MELE Rose Ot R60.9 EDEMA, UNSPECIFIED 08/25/2016 ANUP MONTANA, MELE Rose Ot R60.9 EDEMA, UNSPECIFIED 08/27/2016 DOROTA CABELLO GROUNDSKEEPING YARDMAN Ot E11.9 TYPE 2 DIABETES MELLITUS WITHOUT COMPLIC 08/27/2016 DOROTA CABELLO APRN Ot E78.5 HYPERLIPIDEMIA, UNSPECIFIED 09/02/2016 ANUP MONTANA, MELE Rose Ot R60.9 EDEMA, UNSPECIFIED 09/03/2016 ANUP MONTANA, MELE Rose Ot R60.9 EDEMA, UNSPECIFIED 09/11/2016 DOROTA CABELLO GROUNDSKEEPING YARDMAN Ot E11.9 TYPE 2 DIABETES MELLITUS WITHOUT COMPLIC 09/11/2016 DOROTA CABELLO APRN Ot E78.5 HYPERLIPIDEMIA, UNSPECIFIED 10/24/2016 LESTER BEACH MD Ot E78.00 PURE HYPERCHOLESTEROLEMIA, UNSPECIFIED 10/24/2016 LESTER BEACH MD Ot I10 ESSENTIAL (PRIMARY) HYPERTENSION 10/24/2016 LESTER BEACH MD Ot I25.10 ATHSCL HEART DISEASE OF [place] CORONARY 10/24/2016 LESTER BEACH MD Ot K02.9 DENTAL CARIES, UNSPECIFIED 10/24/2016 LESTER BEACH MD Ot K08.89 OTHER SPECIFIED DISORDERS OF TEETH AND S 10/24/2016 LESTER BEACH MD Ot K21.9 GASTRO-ESOPHAGEAL REFLUX DISEASE WITHOUT 10/24/2016 LESTER BEACH MD Ot M17.11 UNILATERAL PRIMARY OSTEOARTHRITIS, RIGHT 10/24/2016 LESTER BEACH MD Ot Q24.6 CONGENITAL HEART BLOCK 10/24/2016 LESTER BEACH MD Ot S02.5XXA FRACTURE OF TOOTH (TRAUMATIC), INIT FOR 10/24/2016 LESTER BEACH MD Ot X58.XXXA EXPOSURE TO OTHER SPECIFIED FACTORS, INI 10/24/2016 LESTER BEACH MD Ot 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 10/24/2016 LESTER BEACH MD Ot Z79.84 SHEET METAL ROOFER (CURRENT) USE OF ORAL HYPOGLYC 10/24/2016 LESTER BEACH MD Ot Z87.448 PERSONAL HISTORY OF OTHER DISEASES OF UR 10/27/2016 LESTER BEACH MD Ot E78.00 PURE HYPERCHOLESTEROLEMIA, UNSPECIFIED 10/27/2016 LESTER BEACH MD Ot I10 ESSENTIAL (PRIMARY) HYPERTENSION 10/27/2016 LESTER BEACH MD Ot I25.10 ATHSCL HEART DISEASE OF [place] CORONARY 10/27/2016 LESTER BEACH MD Ot K02.9 [...] INI 10/27/2016 LESTER BEACH MD Ot 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 10/27/2016 LESTER BEACH MD Ot Z79.84 SHEET METAL ROOFER (CURRENT) USE OF ORAL HYPOGLYC 10/27/2016 LESTER [...] APRN Ot I25.10 ATHSCL HEART DISEASE OF [place] CORONARY 11/11/2016 SHERRI PUENTES APRN Ot K21.9 GASTRO-ESOPHAGEAL REFLUX DISEASE WITHOUT 11/11/2016 SHERRI PUENTES APRN Ot M17.11 UNILATERAL PRIMARY OSTEOARTHRITIS, RIGHT 11/11/2016 SHERRI PUENTES APRN Ot M54.16 RADICULOPATHY, LUMBAR REGION 11/11/2016 SHERRI PUENTES APRN Ot M79.604 PAIN IN RIGHT LEG 11/11/2016 SHERRI PUENTES APRN Ot Z79.82 CARE HOME (CURRENT) USE OF ASPIRIN 11/11/2016 SHERRI PUENTES APRN Ot Z79.84 SHEET METAL ROOFER (CURRENT) USE OF ORAL HYPOGLYC 11/11/2016 SHERRI PUENTES APRN Ot Z87.448 PERSONAL HISTORY OF OTHER DISEASES OF UR 11/11/2016 JOE MONTANA FACC, ALI FACP CCDS Ot E78.4 OTHER HYPERLIPIDEMIA 11/11/2016 JOE MONTANA FACC, ALI FACP CCDS Ot I10 ESSENTIAL (PRIMARY) HYPERTENSION 11/11/2016 JOE MONTANA FACC, ALI FACP CCDS Ot I25.10 ATHSCL HEART DISEASE OF [place] CORONARY 11/13/2016 SHERRI PUENTES APRN Ot E11.9 TYPE 2 DIABETES MELLITUS WITHOUT COMPLIC 11/13/2016 SHERRI PUENTES APRN Ot E78.00 PURE HYPERCHOLESTEROLEMIA, UNSPECIFIED 11/13/2016 SHERRI PUENTES APRN Ot F32.9 MAJOR DEPRESSIVE DISORDER, SINGLE EPISOD 11/13/2016 SHERRI PUENTES APRN Ot I10 ESSENTIAL (PRIMARY) HYPERTENSION 11/13/2016 SHERRI PUENTES APRN Ot I25.10 ATHSCL HEART DISEASE OF [place] CORONARY 11/13/2016 SHERRI PUENTES APRN Ot K21.9 GASTRO-ESOPHAGEAL REFLUX DISEASE WITHOUT 11/13/2016 SHERRI PUENTES APRN Ot M17.11 UNILATERAL PRIMARY OSTEOARTHRITIS, RIGHT 11/13/2016 SHERRI PUENTES APRN Ot M54.16 RADICULOPATHY, LUMBAR REGION 11/13/2016 SHERRI PUENTES APRN Ot M79.604 PAIN IN RIGHT LEG 11/13/2016 SHERRI PUENTES APRN Ot Z79.82 CARE HOME (CURRENT) USE OF ASPIRIN 11/13/2016 SHERRI PUENTES APRN Ot Z79.84 CARE HOME (CURRENT) USE OF ORAL HYPOGLYC 11/13/2016 SHERRI PUENTES APRN Ot Z87.448 PERSONAL HISTORY OF OTHER DISEASES OF UR 11/20/2016 JOE MONTANA FACC, ALI FACP CCDS Ot E78.4 OTHER HYPERLIPIDEMIA 11/20/2016 JOE MONTANA FAC, ALI FACP CCDS Ot I10 ESSENTIAL (PRIMARY) HYPERTENSION 11/20/2016 JOE MONTANA FAC, ALI FACP CCDS Ot I25.10 ATHSCL HEART DISEASE OF [place] CORONARY 12/02/2016 JOE MONTANA FAC, ALI FACP CCDS Ot E78.4 OTHER HYPERLIPIDEMIA 12/02/2016 JOE MONTANA FAC, ALI FACP CCDS Ot I10 ESSENTIAL (PRIMARY) HYPERTENSION 12/02/2016 JOE MONTANA FAC, ALI FACP CCDS Ot I25.10 ATHSCL HEART DISEASE OF [place] CORONARY 12/09/2016 MELE HEBERT MD Ot E11.9 TYPE 2 DIABETES MELLITUS WITHOUT COMPLIC 12/09/2016 MELE HEBERT MD Ot R53.83 OTHER FATIGUE 12/23/2016 MELE HEBERT MD Ot E11.9 TYPE 2 DIABETES MELLITUS WITHOUT COMPLIC 12/23/2016 MELE HEBERT MD Ot R53.83 OTHER FATIGUE 03/17/2017 VIOLA GUNN MD Ot E11.9 TYPE 2 DIABETES MELLITUS WITHOUT COMPLIC 03/17/2017 VIOLA GUNN MD Ot E78.00 PURE HYPERCHOLESTEROLEMIA, UNSPECIFIED 03/17/2017 VIOLA GUNN MD Ot F32.9 MAJOR DEPRESSIVE DISORDER, SINGLE EPISOD 03/17/2017 VIOLA GUNN MD Ot I10 ESSENTIAL (PRIMARY) HYPERTENSION 03/17/2017 VIOLA GUNN MD Ot I25.10 ATHSCL HEART DISEASE OF [place] CORONARY 03/17/2017 VIOLA GUNN MD Ot J06.9 ACUTE UPPER RESPIRATORY INFECTION, UNSPE 03/17/2017 VIOLA GUNN MD Ot K21.9 GASTRO-ESOPHAGEAL REFLUX DISEASE WITHOUT 03/17/2017 VIOLA GUNN MD Ot M17.11 UNILATERAL PRIMARY OSTEOARTHRITIS, RIGHT 03/17/2017 VIOLA GUNN MD Ot R05 COUGH 03/17/2017 VIOLA GUNN MD, Ot Z79.52 SHEET METAL ROOFER (CURRENT) USE OF SYSTEMIC STER 03/17/2017 VIOLA GUNN MD Ot Z79.82 CARE HOME (CURRENT) USE OF ASPIRIN 03/17/2017 VIOLA GUNN MD, Ot Z79.84 SHEET METAL ROOFER (CURRENT) USE OF ORAL HYPOGLYC 03/17/2017 VIOLA GUNN MD Ot Z87.448 PERSONAL HISTORY OF OTHER DISEASES OF UR 03/17/2017 VIOLA GUNN MD, Ot Z88.0 ALLERGY STATUS TO PENICILLIN 03/19/2017 VIOLA GUNN MD Ot E11.9 TYPE 2 DIABETES MELLITUS WITHOUT COMPLIC 03/19/2017 VIOLA GUNN MD, Ot E78.00 PURE HYPERCHOLESTEROLEMIA, UNSPECIFIED 03/19/2017 VIOLA GUNN MD, Ot F32.9 MAJOR DEPRESSIVE DISORDER, SINGLE EPISOD 03/19/2017 VIOLA GUNN MD Ot I10 ESSENTIAL (PRIMARY) HYPERTENSION 03/19/2017 VIOLA GUNN MD Ot I25.10 ATHSCL HEART DISEASE OF [place] CORONARY 03/19/2017 VIOLA GUNN MD, Ot J06.9 ACUTE UPPER RESPIRATORY INFECTION, UNSPE 03/19/2017 VIOLA GUNN MD, Ot K21.9 GASTRO-ESOPHAGEAL REFLUX DISEASE WITHOUT 03/19/2017 VIOLA GUNN MD Ot M17.11 UNILATERAL PRIMARY OSTEOARTHRITIS, RIGHT 03/19/2017 VIOLA GUNN MD Ot R05 COUGH 03/19/2017 VIOLA GUNN MD, Ot Z79.52 CARE HOME (CURRENT) USE OF SYSTEMIC STER 03/19/2017 VIOLA GUNN MD Ot 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 03/19/2017 VIOLA GUNN MD Ot Z79.84 CARE HOME (CURRENT) USE OF ORAL HYPOGLYC 03/19/2017 VIOLA GUNN MD, Ot Z87.448 PERSONAL HISTORY OF OTHER DISEASES OF UR 03/19/2017 VIOLA GUNN MD Ot Z88.0 ALLERGY STATUS TO PENICILLIN 03/19/2017 VIOLA GUNN MD Ot E11.9 TYPE 2 DIABETES MELLITUS WITHOUT COMPLIC 03/19/2017 VIOLA GUNN MD Ot E78.00 PURE HYPERCHOLESTEROLEMIA, UNSPECIFIED 03/19/2017 VIOLA GUNN MD Ot F32.9 MAJOR DEPRESSIVE DISORDER, SINGLE EPISOD 03/19/2017 VIOLA GUNN MD Ot I10 ESSENTIAL (PRIMARY) HYPERTENSION 03/19/2017 VIOLA GUNN MD Ot I25.10 ATHSCL HEART DISEASE OF [place] CORONARY 03/19/2017 VIOLA GUNN MD Ot J06.9 ACUTE UPPER RESPIRATORY INFECTION, UNSPE 03/19/2017 VIOLA GUNN MD, Ot K21.9 GASTRO-ESOPHAGEAL REFLUX DISEASE WITHOUT 03/19/2017 VIOLA GUNN MD Ot M17.11 UNILATERAL PRIMARY OSTEOARTHRITIS, RIGHT 03/19/2017 VIOLA GUNN MD Ot R05 COUGH 03/19/2017 VIOLA GUNN MD Ot Z79.52 CARE HOME (CURRENT) USE OF SYSTEMIC STER 03/19/2017 VIOLA GUNN MD Ot Z79.82 CARE HOME (CURRENT) USE OF ASPIRIN 03/19/2017 VIOLA GUNN MD, Ot Z79.84 SHEET METAL ROOFER (CURRENT) USE OF ORAL HYPOGLYC 03/19/2017 VIOLA GUNN MD Ot Z87.448 PERSONAL HISTORY OF OTHER DISEASES OF UR 03/19/2017 VIOLA GUNN MD Ot Z88.0 ALLERGY STATUS TO PENICILLIN 04/07/2017 DOROTA CABELLO GROUNDSKEEPING YARDMAN Ot E11.9 TYPE 2 DIABETES MELLITUS WITHOUT COMPLIC 04/07/2017 DOROTA CABELLO GROUNDSKEEPING YARDMAN Ot E78.5 HYPERLIPIDEMIA, UNSPECIFIED 04/07/2017 DOROTA CABELLO GROUNDSKEEPING YARDMAN Ot R53.83 OTHER FATIGUE 04/10/2017 Ot 272.0 PURE HYPERCHOLESTEROLEM 04/10/2017 Ot 401.9 HYPERTENSION NOS 04/10/2017 Ot 428.0 CONGESTIVE HEART FAILURE NOS 04/10/2017 Ot 786.05 SHORTNESS OF BREATH 04/10/2017 Ot 272.4 HYPERLIPIDEMIA NEC/NOS 04/10/2017 Ot 786.59 CHEST PAIN NEC 04/10/2017 Ot 401.9 HYPERTENSION NOS 04/10/2017 Ot 414.00 CORON ATHEROSCLER NOS TYPE VESSEL, NATIV 04/10/2017 Ot 272.4 HYPERLIPIDEMIA NEC/NOS 04/10/2017 Ot V58.69 OTH MED,LT, CURRENT USE 04/10/2017 Ot 272.4 HYPERLIPIDEMIA NEC/NOS 04/10/2017 Ot V58.69 OTH MED,LT, CURRENT USE 04/10/2017 IMTIAZ BRYANT Ot 272.4 HYPERLIPIDEMIA NEC/NOS 04/10/2017 MELE HEBERT MD Ot V76.19 OTH SCREEN BREAST EXAM FOR MALIGNANT CADE 04/10/2017 JOE MONTANA FACC, ALI FACP CCDS Ot 401.9 HYPERTENSION NOS 04/10/2017 JOE MONTANA FACC, ALI FACP CCDS Ot V58.69 OTH MED,LT,CURRENT USE 04/10/2017 BAIMA, IMTIAZ L 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 Ot 272.4 HYPERLIPIDEMIA NEC/NOS 04/10/2017 BAIMA, IMTIAZ L 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 Ot 401.9 HYPERTENSION NOS 04/10/2017 BAIMA, IMTIAZ L 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 Ot 414.01 CORONARY ATHEROSCLEROSIS OF [place] CORON 04/10/2017 BAIMA, IMTIAZ L 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 Ot V58.69 OTH MED,LT,CURRENT USE 04/10/2017 ANTONIO MONTANA, ALISON Bush Ot 599.70 HEMATURIA, UNSPECIFIED 04/10/2017 ANTONIO MONTANA, ALISON Bush Ot 793.5 NOSP (ABN) FINDINGS ON RADIOLOGICAL OT 04/10/2017 BAIMA, IMITAZ L 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 Ot 272.4 HYPERLIPIDEMIA NEC/NOS 04/10/2017 BAIMA, IMTIAZ L 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 Ot 414.00 CORON ATHEROSCLER NOS TYPE VESSEL, NATIV 04/10/2017 ANUP MONTANA, MELE Rose Ot V76.12 OTH SCREEN MAMMO-MALIGN NEOPLASM OF [place] 04/10/2017 BAIMA, IMTIAZ L 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 Ot 272.4 HYPERLIPIDEMIA NEC/NOS 04/10/2017 BAIMA, IMTIAZ L 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 Ot 278.00 OBESITY, NOS 04/10/2017 BAIMA, IMTIAZ L 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 Ot 401.9 HYPERTENSION NOS 04/10/2017 BAIMA, IMTIAZ L 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 Ot 414.00 CORON ATHEROSCLER NOS TYPE VESSEL, NATIV 04/10/2017 BAIMA, IMTIAZ L 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 Ot 790.21 IMPAIRED FASTING GLUCOSE 04/10/2017 Ot 272.4 HYPERLIPIDEMIA NEC/NOS 04/10/2017 Ot 414.00 CORON ATHEROSCLER NOS TYPE VESSEL, NATIV 04/10/2017 BAIMA, IMTIAZ L 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 Ot 272.4 HYPERLIPIDEMIA NEC/NOS 04/10/2017 BAIMA, IMTIAZ L 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 Ot 401.9 HYPERTENSION NOS 04/10/2017 BAIMA, IMTIAZ L 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 Ot 414.9 CHR ISCHEMIC HRT DIS NOS 04/10/2017 BAIMA, IMTIAZ L 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 Ot 782.3 EDEMA 04/10/2017 ANUP MONTANA, MELE Rose Ot 724.2 LUMBAGO 04/10/2017 DOROTA CABELLO GROUNDSKEEPING YARDMAN Ot V76.12 OTH SCREEN MAMMO-MALIGN NEOPLASM OF [place] 04/10/2017 DOROTA CABELLO GROUNDSKEEPING YARDMAN Ot 786.05 SHORTNESS OF BREATH 04/10/2017 DOROTA CABELLO GROUNDSKEEPING YARDMAN Ot 272.4 HYPERLIPIDEMIA NEC/NOS 04/10/2017 DOROTA CABELLO GROUNDSKEEPING YARDMAN Ot 780.79 OTH MALAISE FATIGUE 04/10/2017 DOROTA CABELLO GROUNDSKEEPING YARDMAN Ot R73.09 OTHER ABNORMAL GLUCOSE 04/10/2017 BAIMA, IMTIAZ L 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 Ot E78.5 HYPERLIPIDEMIA, UNSPECIFIED 04/10/2017 BAIMA, IMTIAZ L 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 Ot I25.10 ATHSCL HEART DISEASE OF [place] CORONARY 04/10/2017 BAIMA, IMTIAZ L 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 Ot E78.5 HYPERLIPIDEMIA, UNSPECIFIED 04/10/2017 BAIMA, IMTIAZ L 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 Ot I10 ESSENTIAL (PRIMARY) HYPERTENSION 04/10/2017 BAIMA, IMTIAZ L 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 Ot R53.83 OTHER FATIGUE 04/10/2017 ANUP MONTANA, MELE Rose Ot E78.00 PURE HYPERCHOLESTEROLEMIA, UNSPECIFIED 04/10/2017 ANUP MONTANA, MELE Rose Ot I25.10 ATHSCL HEART DISEASE OF [place] CORONARY 04/10/2017 ANUP MONTANA, MELE Rose Ot R73.9 HYPERGLYCEMIA, UNSPECIFIED 04/10/2017 ANUP MONTANA, MELE Rose Ot M46.04 SPINAL ENTHESOPATHY, THORACIC REGION 04/10/2017 ANUP MONTANA, MELE Rose Ot Z12.31 ENCNTR SCREEN MAMMOGRAM FOR MALIGNANT NE 04/10/2017 MELE HEBERT MD Ot E78.5 HYPERLIPIDEMIA, UNSPECIFIED 04/10/2017 MELE HEBERT MD Ot R53.83 OTHER FATIGUE 04/10/2017 MELE HEBERT MD Ot R73.09 OTHER ABNORMAL GLUCOSE 04/10/2017 DOROTA CABELLO Richard GROUNDSKEEPING YARDMAN Ot E11.9 TYPE 2 DIABETES MELLITUS WITHOUT COMPLIC 04/10/2017 DOROTA CABELLO GROUNDSKEEPING YARDMAN Ot E78.5 HYPERLIPIDEMIA, UNSPECIFIED 04/10/2017 JOE MONTANA FACC, GURVINDER FACP CCDS Ot E78.4 OTHER HYPERLIPIDEMIA 04/10/2017 JOE MONTANA FACC, ALI FACP CCDS Ot I10 ESSENTIAL (PRIMARY) HYPERTENSION 04/10/2017 JOE MONTANA FACC, ALI FACP CCDS Ot I25.10 ATHSCL HEART DISEASE OF [place] CORONARY 04/10/2017 JOE MONTANA FACC, ALI FACP CCDS Ot E78.4 OTHER HYPERLIPIDEMIA 04/10/2017 JOE MONTANA FACC, ALI FACP CCDS Ot I10 ESSENTIAL (PRIMARY) HYPERTENSION 04/10/2017 JEO MONTANA FACC, ALI FACP CCDS Ot I25.10 ATHSCL HEART DISEASE OF [place] CORONARY 04/10/2017 ANUP MONTANA, MELE Milton Ot E11.9 TYPE 2 DIABETES MELLITUS WITHOUT COMPLIC 04/10/2017 ANUP MONTANA, MELE D Ot R53.83 OTHER FATIGUE 04/10/2017 CABELLO ASHKELLEY N GROUNDSKEEPING YARDMAN Ot E11.9 TYPE 2 DIABETES MELLITUS WITHOUT COMPLIC 04/10/2017 CABELLO ASHDEN N GROUNDSKEEPING YARDMAN Ot E78.5 HYPERLIPIDEMIA, UNSPECIFIED 04/10/2017 CABELLO ASHDEN N GROUNDSKEEPING YARDMAN Ot R53.83 OTHER FATIGUE 04/12/2017 DESTINEY ASHDEN N GROUNDSKEEPING YARDMAN Ot E11.9 TYPE 2 DIABETES MELLITUS WITHOUT COMPLIC 04/12/2017 CABELLO ASHDEN N GROUNDSKEEPING YARDMAN Ot E78.5 HYPERLIPIDEMIA, UNSPECIFIED 04/12/2017 CABELLO ASHDEN N GROUNDSKEEPING YARDMAN Ot R53.83 OTHER FATIGUE 04/15/2017 BAIMA, IMTIAZ L 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 Ot E66.01 MORBID (SEVERE) OBESITY DUE TO EXCESS CA 04/15/2017 BAIMA, IMTIAZ L 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 Ot E78.5 HYPERLIPIDEMIA, UNSPECIFIED 04/15/2017 BAIMA, IMTIAZ L 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 Ot G47.33 OBSTRUCTIVE SLEEP APNEA (ADULT) (PEDIATR 04/15/2017 BAIMA, IMTIAZ L 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 Ot I10 ESSENTIAL (PRIMARY) HYPERTENSION 04/15/2017 BAIMA, IMTIAZ L 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 Ot I25.10 ATHSCL HEART DISEASE OF [place] CORONARY 04/15/2017 BAIMA, IMTIAZ L 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 Ot I65.29 OCCLUSION AND STENOSIS OF UNSPECIFIED CA 04/15/2017 BAIMA, IMTIAZ L 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 Ot R07.9 CHEST PAIN, UNSPECIFIED 04/20/2017 BAIMA, IMTIAZ L 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 Ot E66.01 MORBID (SEVERE) OBESITY DUE TO EXCESS CA 04/20/2017 BAIMA, IMTIAZ L 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 Ot E78.5 HYPERLIPIDEMIA, UNSPECIFIED 04/20/2017 BAIMA, IMTIAZ L 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 Ot G47.33 OBSTRUCTIVE SLEEP APNEA (ADULT) (PEDIATR 04/20/2017 FEROZIMTIAZ ADHIKARI 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 Ot I10 ESSENTIAL (PRIMARY) HYPERTENSION 04/20/2017 FEROZIMTIAZ ADHIKARI 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 Ot I25.10 ATHSCL HEART DISEASE OF [place] CORONARY 04/20/2017 IMTIAZ BRYANT 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 Ot I65.29 OCCLUSION AND STENOSIS OF UNSPECIFIED [place] 04/20/2017 MAGDIEL BRYANTHER Sameera 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 Ot R07.9 CHEST PAIN, UNSPECIFIED 04/23/2017 DOROTA CABELLO APRN Ot E11.9 TYPE 2 DIABETES MELLITUS WITHOUT COMPLIC 04/23/2017 DOROTA CABELLO APRN Ot E78.5 HYPERLIPIDEMIA, UNSPECIFIED 04/23/2017 DOROTA CABELLO APRN Ot R53.83 OTHER FATIGUE 07/15/2017 SHERRI PUENTES APRN Ot E11.9 TYPE 2 DIABETES MELLITUS WITHOUT COMPLIC 07/15/2017 SHERRI PUENTES APRN Ot E78.00 PURE HYPERCHOLESTEROLEMIA, UNSPECIFIED 07/15/2017 SHERRI PUENTES APRN Ot F32.9 MAJOR DEPRESSIVE DISORDER, SINGLE EPISOD 07/15/2017 SHERRI PUENTES APRN Ot I10 ESSENTIAL (PRIMARY) HYPERTENSION 07/15/2017 SHERRI PUENTES APRN Ot I25.10 ATHSCL HEART DISEASE OF [place] CORONARY 07/15/2017 SHERRI PUENTES APRN Ot K21.9 GASTRO-ESOPHAGEAL REFLUX DISEASE WITHOUT 07/15/2017 SHERRI PUENTES APRN Ot M17.12 UNILATERAL PRIMARY OSTEOARTHRITIS, LEFT 07/15/2017 SHERRI PUENTES APRN Ot M25.562 PAIN IN LEFT KNEE 07/15/2017 SHERRI PUENTES APRN Ot X50.0XXA OVEREXERTION FROM STRENUOUS MOVEMENT OR 07/15/2017 SHERRI PUENTES APRN Ot Y92.000 [facility] R 07/15/2017 SHERRI PUENTES APRN Ot Z79.82 CARE HOME (CURRENT) USE OF ASPIRIN 07/15/2017 SHERRI PUENTES APRN Ot Z87.448 PERSONAL HISTORY OF OTHER DISEASES OF [place] 07/15/2017 SHERRI PUENTES APRN Ot Z88.0 ALLERGY STATUS TO PENICILLIN 07/17/2017 SHERRI PUENTES APRN Ot E11.9 TYPE 2 DIABETES MELLITUS WITHOUT COMPLIC 07/17/2017 SHERRI PUENTES APRN Ot E78.00 PURE HYPERCHOLESTEROLEMIA, UNSPECIFIED 07/17/2017 SHERRI PUENTES APRN Ot F32.9 MAJOR DEPRESSIVE DISORDER, SINGLE EPISOD 07/17/2017 SHERRI PUENTES APRN Ot I10 ESSENTIAL (PRIMARY) HYPERTENSION 07/17/2017 SHERRI PUENTES APRN Ot I25.10 ATHSCL HEART DISEASE OF [place] CORONARY 07/17/2017 SHERRI PUENTES APRN Ot K21.9 GASTRO-ESOPHAGEAL REFLUX DISEASE WITHOUT 07/17/2017 SHERRI PUENTES APRN Ot M17.12 UNILATERAL PRIMARY OSTEOARTHRITIS, LEFT 07/17/2017 SHERRI PUENTES APRN Ot M25.562 PAIN IN LEFT KNEE 07/17/2017 SHERRI PUENTES APRN, Ot X50.0XXA OVEREXERTION FROM STRENUOUS MOVEMENT OR 07/17/2017 SHERRI PUENTES APRN Ot Y92.000 [facility]) R 07/17/2017 SHERRI PUENTES APRN Ot 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 07/17/2017 SHERRI PUENTES APRN Ot Z87.448 PERSONAL HISTORY OF OTHER DISEASES OF [place] 07/17/2017 SHERRI PUENTES APRN Ot Z88.0 ALLERGY STATUS TO PENICILLIN Procedures Code Description [place] [address] PSYTX PT&/FAMILY 45 MINUTES 11/02/2012 Results Test [...] FOR INFLUENZA A AND B ANTIGENS BY [facility] Automated blood complete blood count (hemogram) panel - 04/06/17 12:22 Blood leukocytes automated count (number/volume) 8.5 10*3/uL 4.3-11.0 Blood erythrocytes automated count (number/volume) 4.86 10*6/uL 4.35-5.85 Venous blood hemoglobin measurement (mass/volume) 13.6 g/dL 11.5-16.0 Blood hematocrit (volume fraction) 40 % 35-52 Automated erythrocyte mean corpuscular volume 82 [foz_us] 80-99 Automated erythrocyte mean corpuscular hemoglobin (mass per erythrocyte) 28 pg 25-34 Automated erythrocyte mean corpuscular hemoglobin concentration measurement ( mass/volume) 34 g/dL 32-36 Automated erythrocyte distribution width ratio 13.1 % 10.0-14.5 Automated blood platelet count (count/volume) 379 10*3/uL 130-400 Automated blood platelet mean volume measurement 8.5 [foz_us] 7.4-10.4 Comprehensive metabolic panel - 04/06/17 12:22 Serum or plasma sodium measurement (moles/volume) 139 mmol/L 135-145 Serum or plasma potassium measurement (moles/volume) 4.3 mmol/L 3.6-5.0 Serum or plasma chloride measurement (moles/volume) 107 mmol/L 98-107 Carbon dioxide 22 mmol/L 21-32 Serum or plasma anion gap determination (moles/volume) 10 mmol/L 5-14 Serum or plasma urea nitrogen measurement (mass/volume) 19 mg/dL 7-18 Serum or plasma creatinine measurement (mass/volume) 0.79 mg/dL 0.60-1.30 Serum or plasma urea nitrogen/creatinine mass ratio 24 NRG Serum or plasma creatinine measurement with calculation of estimated glomerular filtration rate > NRG Serum or plasma glucose measurement (mass/volume) 136 mg/dL 70-105 Serum or plasma calcium measurement (mass/volume) 8.7 mg/dL 8.5-10.1 Serum or plasma total bilirubin measurement (mass/volume) 0.8 mg/dL 0.1-1.0 Serum or plasma alkaline phosphatase measurement (enzymatic activity/volume) 120 U/L 40-136 Serum or plasma aspartate aminotransferase measurement (enzymatic activity/ volume) 12 U/L 5-34 Serum or plasma alanine aminotransferase measurement (enzymatic activity/volume ) 11 U/L 0-55 Serum or plasma protein measurement (mass/volume) 7.2 g/dL 6.4-8.2 Serum or plasma albumin measurement (mass/volume) 3.8 g/dL 3.2-4.5 Lipid 1996 panel - 04/06/17 12:22 Serum or plasma triglyceride measurement (mass/volume) 95 mg/dL <150 Serum or plasma cholesterol measurement (mass/volume) 158 mg/dL < 200 Serum or plasma cholesterol in HDL measurement (mass/volume) 39 mg/ dL 40-60 Cholesterol in LDL [mass/volume] in serum or plasma by direct assay 97 mg/dL 1-129 Serum or plasma cholesterol in VLDL measurement (mass/volume) 19 mg/ dL 5-40 THYROID STIMULATING HORMONE - 04/06/17 12:22 THYROID STIMULATING HORMONE 1.40 u[iU]/mL 0.35-4.94 Hemoglobin A1c - 04/06/17 12:22 Blood hemoglobin A1C measurement (mass/volume) 6.8 % 4.0- 5.6 MEAN BLOOD GLUCOSE 148 % <=126 Encounters ACCT No. Visit Date/Time Discharge Status Pt. Type Provider Facility Loc./Unit Complaint [id number] 11/01/2012 09:51:00 11/01/2012 23:59:59 CLS Outpatient SHIV ORTA DO [id number] 12/23/2016 18:20:00 12/23/2016 23:59:59 CLS Outpatient Mele [facility] [id number] 07/15/2017 18:32:00 07/15/2017 19:32:00 DIS Emergency SHERRI PUENTES APRN [facility] ER ARTHRITIS IN R LEG/L LEG PAIN, POPPED LAST NIGHT [id number] 04/14/2017 11:19:00 04/14/2017 23:59:59 CLS Outpatient IMTIAZ BRYANT [facility] CARD I25.10 CAD [id number] 04/06/2017 12:08:00 04/06/2017 23:59:59 CLS Outpatient DOROTA CABELLO APRN [facility] LAB FATIGUE,DM TYPE II, HYPERLIPIDEMIA [id number] 03/17/2017 19:03:00 03/17/2017 23:50:00 DIS Emergency VIOLA GUNN MD [facility] ER COUGH [id number] 12/03/2016 10:11:00 12/03/2016 23:59:59 CLS Outpatient MELE HEBERT MD [facility] LAB FATIGUE DM TYPE 2 [id number] 11/11/2016 11:07:00 11/11/2016 23:59:59 CLS Outpatient GURVINDER DIAZ MD, FACC, FACP CCDS [facility] LAB I25.10 E78.4 [id number] 11/11/2016 09:54:00 11/11/2016 10:51:00 DIS Emergency SHERRI PUENTES APRN [facility] ER PAIN IN BOTH LEGS [id number] 11/04/2016 09:52:00 11/04/2016 23:59:59 CLS Outpatient GURVINDER DIAZ MD, FACC, FACP CCDS [facility] CARD CAD I25.10 [id number] 10/24/2016 14:58:00 10/24/2016 17:04:00 DIS Emergency LESTER BEACH MD [facility] ER EAR ACHE/TOOTH PAIN [id number] 08/05/2016 14:50:00 09/03/2016 13:20:00 DIS Outpatient MELE HEBERT MD [facility] REHAB EDEMA; MEASUREMENT FOR COMPRESSION SOCKS [id number] 08/26/2016 10:46:00 08/26/2016 23:59:59 CLS Outpatient DOROTA CABELLO [employer]AR[employer] [facility] LAB R53.8 E78.5 [id number] 07/27/2016 18:33:00 07/27/2016 20:14:00 DIS Emergency SHERRI PUENTES APRN [facility] ER KNOT IN BACK [id number] 07/12/2016 19:10:00 07/12/2016 23:43:00 DIS Emergency RENETTA EARL [facility] ER BOTH LEGS SWOLLEN/ MOUTH PAIN [id number] 06/19/2016 20:33:00 06/19/2016 21:10:00 DIS Emergency SHERRI PUETNES APRN [facility] ER TOOTH PAIN [id number] 05/23/2016 10:45:00 05/23/2016 23:59:59 CLS Outpatient MELE HEBERT MD [facility] LAB FATIGUE,HYPERLIDEMIA, ABNORMAL GLUCOSE [id number] 04/23/2016 13:22:00 04/25/2016 10:49:00 DIS Outpatient MELE HEBERT MD [facility] REHAB LOW BACK PAIN [id number] 04/08/2016 09:36:00 04/08/2016 23:59:59 CLS Outpatient MELE HEBERT MD [facility] RAD SCREENING [id number] 03/04/2016 11:55:00 03/04/2016 23:59:59 CLS Outpatient MELE HEBERT MD [facility] RAD M46.04 [id number] 02/20/2016 17:01:00 02/20/2016 19:38:00 DIS Emergency RENETTA EARL [facility] ER LOWER BACK PAIN [id number] 01/16/2016 15:08:00 01/16/2016 16:29:00 DIS Emergency SHERRI PUENTES [employer] [facility] ER LEG SWELLING [id number] 01/11/2016 10:07:00 01/11/2016 23:59:59 CLS Outpatient ANUP [place], MELE Rose [facility] LAB ELEVATED BLOOD SUGAR [id number] 12/24/2015 19:34:00 12/24/2015 20:36:00 DIS Emergency SHERRI PUENTES [employer] [facility] ER SORE THROAT, VOMITING [id number] 11/28/2015 10:59:00 11/28/2015 23:59:59 CLS Outpatient IMTIAZ BRYANT [facility] LAB HYPERTENSION [id number] 08/12/2015 11:34:00 08/12/2015 12:39:00 DIS Emergency VIOLA GUNN MD [facility] ER UPPER BACK ABCESS [id number] 05/01/2015 15:12:00 06/13/2015 10:55:00 DIS Outpatient DOROTA CABELLO APRN Via [facility] REHAB B LE EDEMA [id number] 06/05/2015 08:19:00 06/05/2015 23:59:59 CLS Outpatient IMTIAZ BRYANT [facility] LAB HYPERLIPIDEMIA [id number] 05/24/2015 09:42:00 05/24/2015 10:53:00 DIS Emergency SHERRI PUENTES [employer] [facility] ER WHITE SPOTS ON FACE [id number] 05/22/2015 19:44:00 05/23/2015 06:55:00 DIS Outpatient CHRIS CORDOVA DO [facility] SLEEP SNORING,CHOKING/ GASPING DURING SLEEP, [id number] 04/05/2015 20:40:00 04/06/2015 08:08:00 DIS Outpatient CHRIS CORDOVA DO [facility] SLEEP SNORING,HTN,MOOD DISORDER,MORINING HEADACHE [id number] 02/04/2015 22:30:00 02/05/2015 15:30:00 DIS Inpatient HIREN STYLES MD [facility] ICU CHEST PAIN [id number] 11/29/2014 09:02:00 11/29/2014 23:59:59 CLS Outpatient IMTIAZ BRYANTP [facility] LAB CAD,HLP [id number] 11/29/2014 08:58:00 11/29/2014 23:59:59 CLS Outpatient DOROTA CABELLO [employer] [facility] LAB ABNORMAL GLUCOSE [id number] 10/19/2014 14:22:00 10/19/2014 23:59:59 CLS Outpatient DOROTA CABELLO [employer] [facility] LAB MALAISE,FATIGUE,HLP [id number] 10/03/2014 09:46:00 10/03/2014 23:59:59 CLS Outpatient DOROTA CABELLO [employer] [facility] RAD SOB [id number] 09/19/2014 10:44:00 09/19/2014 23:59:59 CLS Outpatient DOROTA CABELLO [employer] [facility] RAD SCREENING [id number] 08/22/2014 18:56:00 08/22/2014 19:11:00 DIS Emergency SHRERI PUENTES [employer] [facility] ER NAUSEA,DIZZINESS,SORE THROAT [id number] 08/15/2014 13:59:00 08/15/2014 23:59:59 CLS Outpatient ANUP [place], MELE Rose [facility] RAD LBP,RADICULAR PAIN RT LEG [id number] 08/05/2014 17:17:00 08/05/2014 19:34:00 DIS Emergency SHERRI PUENTES [employer] Via [facility] ER VISION PROBLEMS/LEG PROBLEMS [id number] 07/28/2014 11:55:00 07/28/2014 23:59:59 CLS Outpatient IMTIAZ BRYANTP [facility] RAD EDEMA OF RIGHT LOWER EXTREMITY [id number] 09/23/2013 11:27:00 09/23/2013 23:59:59 CLS Outpatient IMTIAZ BRYANT 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 [facility] LAB CAD,HTN, HYPERLIPADEMIA,IMPARIED FASTING GLUCOSE, [id number] 09/16/2013 08:33:00 09/16/2013 10:31:00 DIS Emergency LESTER BEACH MD [facility] ER KNEE PAIN [id number] 09/13/2013 13:43:00 09/14/2013 16:40:00 DIS Inpatient MELE HEBERT MD Via [facility] ICU CHEST PAIN HTN [id number] 09/13/2013 09:50:00 09/13/2013 23:59:59 CLS Outpatient MELE HEBERT MD [facility] RAD ROUTINE [id number] 09/05/2013 09:13:00 09/05/2013 23:59:59 CLS Outpatient IMTIAZ BRYANT [facility] LAB CAD,HYPERLIPIDEMIA [id number] 05/10/2013 11:36:00 05/10/2013 23:59:59 CLS Outpatient ALISON ALVAREZ MD [facility] RAD HEMATURIA [id number] 03/30/2013 09:50:00 04/20/2013 08:16:00 DIS Outpatient RUSS HERNANDEZ [facility] REHAB PLANTAR FASCITIS R FOOT [id number] 03/10/2013 12:01:00 03/10/2013 23:59:59 CLS Outpatient IMTIAZ BRYANT [facility] LAB STATIN TX,HTN, HYPERLIPADEMIA [id number] 02/02/2013 13:29:00 02/02/2013 16:15:00 DIS Emergency HAN DOCHENTE K [facility] ER BACK PAIN [id number] 09/27/2012 08:17:00 09/27/2012 23:59:59 CLS Outpatient JOE MONTANA FACCGURVINDER FACIsidoro CCDS Via [facility] LAB HTN [id number] 09/02/2012 09:29:00 09/02/2012 23:59:59 CLS Outpatient MELE HEBERT MD [facility] RAD SCREENING [id number] 08/31/2012 10:06:00 08/31/2012 23:59:59 CLS Outpatient [id number] 08/02/2012 08:30:00 08/02/2012 23:59:59 CLS Outpatient IMTIAZ BRYANT [facility] LAB HYPERLIPIDEMIA [id number] 07/28/2014 11:57:00 Document Registration [id number] 04/07/2014 09:51:00 Document Registration [id number] 04/26/2012 10:17:00 Document Registration [id number] 01/15/2012 12:01:00 Document Registration [id number] 12/02/2011 08:36:00 Document Registration [id number] 11/27/2011 06:46:00 Document Registration [id number] 11/24/2011 08:28:00 Document Registration [id number] 11/19/2011 14:39:00 Document Registration [id number] 09/03/2011 09:50:00 Document Registration [id number] 08/26/2011 08:46:00 Document Registration [id number] 02/15/2010 13:12:00 Document Registration [id number] 11/24/2009 11:23:00 Document Registration [id number] 11/21/2009 06:01:00 Document Registration [id number] 11/14/2009 10:01:00 Document Registration [id number] 09/21/2009 13:23:00 Document Registration [id number] 09/20/2009 15:47:00 Document Registration [id number] 08/24/2009 07:11:00 Document Registration [id number] 10/19/2014 14:25:29 ACT Document Registration
--- NOTE | 2017-11-10 19:37 | ED Upper Extremity ---
General Chief Complaint: Upper Extremity Stated Complaint: ARM PAIN, SHOULDER PAIN, ELEVATED BLOOD PRESSURE, Nursing Triage Note: C/O rt shoulder pain- states that she was lifting a heavy box and caused rt shoulder pain. Painful to lift arm without pain. also is concerned that she has been clammy since yesterday and is worried bp is elevated. bp is 169/69- states that is about the middle range of what she runs Nursing Sepsis Screen: No Definite Risk Source: patient Exam Limitations: no limitations History of Present Illness Date Seen by Provider: Nov 10, 2017 Time Seen by Provider: 19:10 Initial Comments Patient is a 47-year-old female who presents to the emergency room with complaints of right shoulder pain that started when she was lifting a heavy box filled with canned goods 3 weeks ago. She reports she has pain to the left shoulder with movement and is reproducible with palpation. She denies any chest pain, shortness of breath, nausea or vomiting. She does have history of hypertension and reports that her blood pressure is midrange for her today. Onset: just prior to arrival Pain/Injury Location: left shoulder Modifying Factors: Worse With Pain Medication Allergies and Home Medications Allergies Coded Allergies: Penicillins (Unverified Allergy, Mild, 11/10/17) Home Medications Amlodipine Besylate 5 Mg Tablet, 5 MG PO DAILY, (Reported) Aspirin 81 Mg Tabec, 81 MG PO DAILY, (Reported) Atorvastatin Calcium 20 Mg Tablet, 20 MG PO HS, (Reported) Cyclobenzaprine HCl 10 Mg Tablet, 10 MG PO Q8H PRN for SPASMS Prescribed by: RENETTA PRATHER on 02/20/161924 Cyclobenzaprine HCl 5 Mg Tablet, 5 MG PO TID PRN for BACK PAIN Prescribed by: SHERRI PUENTES on 11/11/16 105 Furosemide 40 Mg Tablet, 40 MG PO DAILY, (Reported) Hydrochlorothiazide 25 Mg Tablet, 25 MG PO DAILY, (Reported) Hydrocodone/Acetaminophen 1 Each Tablet, 1 EACH PO 4 times a day Prescribed by: LESTER BEACH on 10/24/16 165 Lidocaine HCl 30 Ml Jel..ml., 2 ML MM BID PRN Prescribed by: SHERRI PUENTES on 06/19/162101 Loratadine 10 Mg Capsule, 10 MG PO DAILY Prescribed by: SHERRI PUENTES on 08/22/141904 Meloxicam 15 Mg Tablet, 15 MG PO DAILY, (Reported) Metoprolol Tartrate 50 Mg Tablet, 50 MG PO BID, (Reported) Montelukast Sodium 10 Mg Tablet, 10 MG PO HS, (Reported) [place]-3 Fatty Acids/Fish Oil 1 Each Capsule, 1,000 MG PO DAILY, (Reported) Orphenadrine Citrate 100 Mg Tablet.er, 100 MG PO BID PRN for PAIN-MODERATE Prescribed by: SHERRI PUENTES on 07/27/16 1935 Pantoprazole Sodium 40 Mg Tablet.dr, 40 MG PO DAILY, (Reported) Prednisone 20 Mg Tab, 40 MG PO DAILY Prescribed by: SHERRI PUENTES on 11/11/16 1050 Tramadol HCl 50 Mg Tablet, 50 MG PO Q6H PRN for PAIN Prescribed by: VIOLA GUNN on 08/12/15 1235 Tramadol HCl 50 Mg Tablet, 50 MG PO Q4H PRN for pain Prescribed by: RENETTA PRATHER on 07/12/16 2337 Venlafaxine HCl 150 Mg Cap.er.24h, 1 CAP PO UD, (Reported) Patient Home Medication List Home Medication List Reviewed: Yes Review of Systems Constitutional: see HPI; No chills, No fever Cardiovascular: see HPI; No chest pain Musculoskeletal: see HPI, joint pain (left shoulder pain.) All Other Systems Reviewed Negative Unless Noted: Yes Past Agrcdrm-Pknivt-Rwddfd Hx Past Med/Social Hx: Reviewed Nursing Past Med/Soc Hx Patient Social History Alcohol Use: Denies Use Recreational Drug Use: No 2nd Hand Smoke Exposure: No Recent Foreign Travel: No Contact w/Someone Who Travel: No Recent Infectious Disease Expo: No Recent Hopitalizations: No Physical Abuse: No Sexual Abuse: No Mistreated: No Fear: No Immunizations Up To Date Tetanus Booster (TDap): More than 5yrs Date of Pneumonia Vaccine: Nov 24, 2011 Date of Influenza Vaccine: Dec 26, 2015 Seasonal Allergies Seasonal Allergies: No Past Medical History Surgeries: Yes (D&C, Right knee arthroscopy) Respiratory: No Cardiac: Yes ("blockage in heart" 40-50%) Coronary Artery Disease, Congenital Heart Disease, High Cholesterol, Hypertension Neurological: No Reproductive Disorders: No PUMPER HAND History: Menopausal Sexually Transmitted Disease: No HIV/AIDS: No Genitourinary: Yes Bladder Infection Gastrointestinal: Yes Gastroesophageal Reflux Musculoskeletal: Yes (Right knee arthritis) Arthritis Endocrine: Yes Diabetes, Non-Insulin dep HEENT: No Cancer: No Psychosocial: Yes Depression Integumentary: No Blood Disorders: No Adverse Reaction/Blood Tranf: No Family Medical History Reviewed Nursing Family Hx Hypertension 19 FATHER Not obtainable due to adoption G8 BROTHER (GOUT) No Pertinent Family Hx Physical Exam Vital Signs Vital Signs - First Documented 11/10/17 19:02 Temp 98.7 Pulse 68 Resp 16 B/P (MAP) 169/69 (102) Pulse Ox 100 Capillary Refill : Less Than 3 Seconds Height, Weight, BMI Height: 5'3.00" Weight: 280lbs. 0.0oz. 127.265137cx; 42.2 BMI Method:Stated General Appearance: WD/WN, no apparent distress Cardiovascular: normal peripheral pulses, regular rate, rhythm, no edema, no gallop, no JVD, no murmur Respiratory: chest non-tender, lungs clear, normal breath sounds, no respiratory distress, no accessory muscle use Gastrointestinal: normal bowel sounds, non tender, soft, no organomegaly, no pulsatile mass, abnormal bowel sounds Shoulder: normal inspection, normal ROM (full range of motion but increased pain with movement.), pain, soft tissue tenderness (on palpation.) Neurologic/Tendon: normal sensation, normal motor functions, normal tendon functions, responds to pain, no evidence tendon injury, other Neurologic/Psychiatric: alert, normal mood/affect, oriented x 3 Skin: normal color, warm/dry Progress/Results/Core Measures Results/Orders My Orders Vital Signs/I&O Blood Pressure Mean: 102 Progress Progress Note : Time: 19:40 Progress Note I have seen and evaluated the patient. I have informed her of normal imaging studies. She agrees with plan of care, plans for discharge, return precautions were given. Diagnostic Imaging Diagonstic Imaging: Xray Plain Films/CT/US/NM/MRI: other (shoulder) Comments NAME: [facility] REC#: [id number] PHYSICIAN: DYLAN SIFUENTES CC: DYLAN SIFUENTES; ELAN LO MD Page 1 of 1 RADIOLOGY REPORT VIA [facility]. [place], [place] CC: DYLAN SIFUENTES; ELAN LO MD Page 1 of 1 RADIOLOGY REPORT NAME: [facility] REC#: [id number] PT STATUS: REG ER : 1970 PHYSICIAN: DYLAN SIFUENTES ADMIT DATE: 11/10/17/ER Signed Date of Exam: 11/10/17 SHOULDER, LEFT, 3 VIEWS INDICATION: Left shoulder injury while lifting a heavy object. TIME OF EXAM: 7:51 p.m. Three views of the left shoulder were obtained. FINDINGS: Glenohumeral and acromioclavicular alignment is normal. The acromiohumeral space is normal. No fracture or dislocation is seen. IMPRESSION: No acute bony abnormality is detected. Dictated by: Dictated on workstation # [id number] Dict: 11/10/171944 Trans: 11/10/171949 Interpreted by: ELAN LO MD Electronically signed by: ELAN LO MD 11/10/171949 Reviewed: Reviewed by Me Departure Impression Primary Impression: Left shoulder strain Disposition: 01 HOME, SELF-CARE Condition: Stable/Unchanged Departure-Patient Inst. Decision time for Depature: 19:45 Referrals: KATERINA HEBERT MD (PCP/Family) Primary Care Physician Patient Instructions: Shoulder Replacement (DC) Add. Discharge Instructions: You may use ibuprofen and Tylenol as directed by the bottle for pain relief. Follow-up with her primary care provider within 1 week for recheck. Return back to the emergency room for any worsening symptoms or concerns as needed. All discharge instructions reviewed with patient and/or family. Voiced understanding. DYLAN SIFUENTES Nov 10, 2017 19:36
--- NOTE | 2017-11-10 19:49 | Diagnostic Imaging Report ---
INDICATION: Left shoulder injury while lifting a heavy object. TIME OF EXAM: 7:51 p.m. Three views of the left shoulder were obtained. FINDINGS: Glenohumeral and acromioclavicular alignment is normal. The acromiohumeral space is normal. No fracture or dislocation is seen. IMPRESSION: No acute bony abnormality is detected. Dictated by: Dictated on workstation # [id number]
[2017-11-10 21:17] VITALS: BP 172/90
== END 2017-11-10 20:26 | disposition home or self-care (01) ==
LOC: EDUNIT# 18:33 → ER 18:35
DX: S46.912A Strain of unspecified muscle, fascia and tendon at shoulder and upper arm level, left arm, initial encounter (principal); I25.10 Atherosclerotic heart disease of native coronary artery without angina pectoris; E78.00 Pure hypercholesterolemia, unspecified; I10 Essential (primary) hypertension; K21.9 Gastro-esophageal reflux disease without esophagitis; E11.9 Type 2 diabetes mellitus without complications; F32.9 Major depressive disorder, single episode, unspecified; Z82.49 Family history of ischemic heart disease and other diseases of the circulatory system; Z87.448 Personal history of other diseases of urinary system; Z88.0 Allergy status to penicillin; Z79.82 Long term (current) use of aspirin; X50.1XXA Overexertion from prolonged static or awkward postures, initial encounter
CPT/HCPCS: 73030

== ENCOUNTER 2018-01-02 19:01 | Emergency (ER) | payer MEDICAID ==
[~2018-01-02] VITALS: Ht 160 cm; Wt 127.0 kg
[2018-01-02] MEDS ORDERED: NS IV 1000 ML 1,000 ML IV SCH (19:12)
--- NOTE | 2018-01-02 19:17 | ED Abdominal Pain ---
General Stated Complaint: FLU LIKE SYMPTOMS Source of Information: Patient, EMS Exam Limitations: No Limitations History of Present Illness Date Seen by Provider: Jan 02, 2018 Time Seen by Provider: 18:59 Initial Comments Patient presents to ER by EMS with chief complaint she comes from home with one day now presently worsening abdominal pain nausea vomiting and diarrhea. No fever but she's felt some subjective chills and cold clammy and sweats. She is diabetic on metformin only does not check her blood sugar. She has no history of inflammatory or irritable bowel syndrome. She does have her gallbladder out historically. She does not drink alcohol but she does admit to eating a lot of pie and other unhealthy foods over the holidays. She says also she had a nephew and niece over on who recently had similar gastroenteritis and they told her that they were over it but she says they were still having some nausea vomiting that day and they said same tables her. She thinks she might have lupus she's not having any cough shortness of breath. She is having some pain in the middle of her chest that does not radiate. No sweats but she does have the nausea. He has risk factors and is had a heart catheter done by Dr. Zamudio in the past showing 40-50% blockage which she balloon placed stent. She still on aspirin. She has a mild headache. EMS established an IV and gave her 500 cc of normal saline. Allergies and Home Medications Allergies Coded Allergies: Penicillins (Unverified Allergy, Mild, 11/10/17) Home Medications Amlodipine Besylate 5 Mg Tablet, 5 MG PO DAILY, (Reported) Aspirin 81 Mg Tabec, 81 MG PO DAILY, (Reported) Atorvastatin Calcium 20 Mg Tablet, 20 MG PO HS, (Reported) Cyclobenzaprine HCl 10 Mg Tablet, 10 MG PO Q8H PRN for SPASMS Prescribed by: RENETTA PRATHER on 02/20/16 1925 Cyclobenzaprine HCl 5 Mg Tablet, 5 MG PO TID PRN for BACK PAIN Prescribed by: SHERRI PUENTES on 11/11/16 1050 Furosemide 40 Mg Tablet, 40 MG PO DAILY, (Reported) Hydrochlorothiazide 25 Mg Tablet, 25 MG PO DAILY, (Reported) Hydrocodone/Acetaminophen 1 Each Tablet, 1 EACH PO 4 times a day Prescribed by: LESTER BEACH on 10/24/16 1651 Lidocaine HCl 30 Ml Jel..ml., 2 ML MM BID PRN Prescribed by: SHERRI PUENTES on 06/19/162101 Loratadine 10 Mg Capsule, 10 MG PO DAILY Prescribed by: SHERRI PUENTES on 08/22/14 190 Meloxicam 15 Mg Tablet, 15 MG PO DAILY, (Reported) Metoprolol Tartrate 50 Mg Tablet, 50 MG PO BID, (Reported) Montelukast Sodium 10 Mg Tablet, 10 MG PO HS, (Reported) [place]-3 Fatty Acids/Fish Oil 1 Each Capsule, 1,000 MG PO DAILY, (Reported) Orphenadrine Citrate 100 Mg Tablet.er, 100 MG PO BID PRN for PAIN-MODERATE Prescribed by: SHERRI PUENTES on 07/27/16 193 Pantoprazole Sodium 40 Mg Tablet.dr, 40 MG PO DAILY, (Reported) Prednisone 20 Mg Tab, 40 MG PO DAILY Prescribed by: SHERRI PUENTES on 11/11/16 1050 Tramadol HCl 50 Mg Tablet, 50 MG PO Q6H PRN for PAIN Prescribed by: VIOLA GUNN on 08/12/15 1235 Tramadol HCl 50 Mg Tablet, 50 MG PO Q4H PRN for pain Prescribed by: RENETTA PRATHER on 07/12/16 2337 Venlafaxine HCl 150 Mg Cap.er.24h, 1 CAP PO UD, (Reported) Patient Home Medication List Home Medication List Reviewed: Yes Review of Systems Review of Systems Constitutional: chills; No diaphoresis, No fever; malaise; No weakness EENTM: No Blurred Vision, No Double Vision, No Mouth Pain, No Mouth Swelling Respiratory: Denies Cough, Denies Shortness of Air, Denies Wheezing Cardiovascular: See HPI, Chest Pain; Denies Edema Gastrointestinal: Denies Abdomen Distended; Abdominal Pain (Epigastric), Diarrhea, Nausea, Poor Fluid Intake, Vomiting Genitourinary: Denies Burning, Denies Discharge Musculoskeletal: No back pain, No joint pain Skin: No pruritus, No rash Psychiatric/Neurological: Headache (Mild global non-throbbing); Denies Numbness , Denies Paresthesia Past Hbywmeg-Dqjbyd-Uuqymq Hx Patient Social History Alcohol Use: Denies Use Recreational Drug Use: No Smoking Status: Never a Smoker 2nd Hand Smoke Exposure: No Recent Foreign Travel: No Contact w/Someone Who Travel: No Recent Hopitalizations: No Immunizations Up To Date Tetanus Booster (TDap): More than 5yrs Date of Pneumonia Vaccine: Nov 24, 2011 Date of Influenza Vaccine: Dec 26, 2015 Seasonal Allergies Seasonal Allergies: No Past Medical History Surgeries: Yes (D&C, Right knee arthroscopy) Respiratory: No Cardiac: Yes ("blockage in heart" 40-50%) Coronary Artery Disease, Congenital Heart Disease, High Cholesterol, Hypertension Neurological: No 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 0.0oz. [id number]; 42.2 BMI Method:Stated General Appearance: no apparent distress, obese HEENT: PERRL/EOMI, normal ENT inspection, pharynx normal (Oropharynx is dry) Neck: full range of motion, normal inspection Respiratory: chest non-tender, lungs clear, normal breath sounds, no respiratory distress, no accessory muscle use Cardiovascular: normal peripheral pulses, regular rate, rhythm, no edema Peripheral Pulses: 2+ Radial Pulses (R), 2+ Radial Pulses (L) Gastrointestinal: normal bowel sounds, non tender, soft Extremities: non-tender, normal inspection, normal capillary refill Neurologic/Psychiatric: alert, oriented x 3 Skin: normal color, warm/dry Progress/Results/Core Measures Results/Orders Lab Results Laboratory Tests Test 01/02/18 19:20 01/02/18 19:45 Range/Units White Blood Count 8.3 4.3-11.0 10^3/uL Red Blood Count 4.57 4.35-5.85 10^6/uL Hemoglobin 12.6 11.5-16.0 G/DL Hematocrit 37 35-52 % Mean Corpuscular Volume 81 80-99 FL Mean Corpuscular Hemoglobin 28 25-34 PG Mean Corpuscular Hemoglobin Concent 34 32-36 G/DL Red Cell Distribution Width 13.2 10.0-14.5 % Platelet Count 298 130-400 10^3/uL Mean Platelet Volume 8.8 7.4-10.4 FL Neutrophils (%) (Auto) 72 42-75 % Lymphocytes (%) (Auto) 19 12-44 % Monocytes (%) (Auto) 8 0-12 % Eosinophils (%) (Auto) 1 0-10 % Basophils (%) (Auto) 0 0-10 % Neutrophils # (Auto) 5.9 1.8-7.8 X 10^3 Lymphocytes # (Auto) 1.6 1.0-4.0 X 10^3 Monocytes # (Auto) 0.7 0.0-1.0 X 10^3 Eosinophils # (Auto) 0.1 0.0-0.3 10^3/uL Basophils # (Auto) 0.0 0.0-0.1 10^3/uL Sodium Level 138 135-145 MMOL/L Potassium Level 3.6 3.6-5.0 MMOL/L Chloride Level 108 H 98-107 MMOL/L Carbon Dioxide Level 20 L 21-32 MMOL/L Anion Gap 10 5-14 MMOL/L Blood Urea Nitrogen 13 7-18 MG/DL Creatinine 0.74 0.60-1.30 MG/DL Estimat Glomerular Filtration Rate > 60 BUN/Creatinine Ratio 18 Glucose Level 159 H 70-105 MG/DL Calcium Level 8.3 L 8.5-10.1 MG/DL Corrected Calcium 8.8 8.5-10.1 MG/DL Magnesium Level 1.7 L 1.8-2.4 MG/DL Total Bilirubin 1.1 H 0.1-1.0 MG/DL Aspartate Amino Transf (AST/SGOT) 109 H 5-34 U/L Alanine Aminotransferase (ALT/SGPT) 47 0-55 U/L Alkaline Phosphatase 202 H 40-136 U/L Troponin I < 0.30 <0.30 NG/ML B-Type Natriuretic Peptide 52.0 <100.0 PG/ML Total Protein 6.5 6.4-8.2 GM/DL Albumin 3.4 3.2-4.5 GM/DL Triglycerides Level 136 <150 MG/DL Lipase 239 H 8-78 U/L Serum Test, Qualitative NEGATIVE NEGATIVE Urine Color YELLOW Urine Clarity SLIGHTLY CLOUDY Urine pH 5 5-9 Urine Specific [place] 1.020 1.016-1.022 Urine Protein 2+ H NEGATIVE Urine Glucose (UA) NEGATIVE NEGATIVE Urine Ketones 1+ H NEGATIVE Urine Nitrite NEGATIVE NEGATIVE Urine Bilirubin NEGATIVE NEGATIVE Urine Urobilinogen 1 NORMAL MG/DL Urine Leukocyte Esterase 1+ H NEGATIVE Urine RBC (Auto) 1+ H NEGATIVE Urine RBC NONE /HPF Urine WBC 10-25 H /HPF Urine Squamous Epithelial Cells 25-50 H /HPF Urine Crystals NONE /LPF Urine Bacteria MODERATE H /HPF Urine Casts NONE /LPF Urine Mucus LARGE H /LPF Urine Culture Indicated YES Micro Results Microbiology 01/02/18 Influenza Types A,B Antigen (TIFFANI) - Final, Complete My Orders Orders - KEILA SHARPE BNP (01/02/18 19:12) Cbc With Automated Diff (01/02/18 19:12) Comprehensive Metabolic Panel (01/02/18 19:12) Hcg,Qualitative Serum (01/02/18 19:12) Lipase (01/02/18 19:12) Magnesium (01/02/18 19:12) Troponin I (01/02/18 19:12) Ua Culture If Indicated (01/02/18 19:12) Influenza A And B Antigens (01/02/18 19:12) Saline Lock/Iv-Start (01/02/18 19:12) Ns Iv 1000 Ml (Sodium Chloride 0.9%) (01/02/18 19:12) Ekg Tracing (01/02/18 19:12) Continuous Ekg Monitoring (01/02/18 19:12) Chest 1 View, Ap/Pa Only (01/02/18 19:12) Ondansetron Injection (Zofran Injectio (01/02/18 19:30) Ketorolac Injection (Toradol Injection) (01/02/18 19:30) Magnesium 1 Gm/100 Ml Ivpb (Magnesium Denise (01/02/18 20:00) Urine Culture (01/02/18 19:45) Triglycerides (01/02/18 20:52) Ceftriaxone For Iv Use (Rocephin For I (01/02/18 21:30) Medications Given in ED Current Medications Medications Dose Ordered Sig/Sissy Route Start Time Stop Time Status Last Admin Dose Admin Ketorolac Tromethamine 30 mg ONCE ONCE IVP 01/02/18 19:30 01/02/18 19:31 DC 01/02/18 19:37 30 MG Magnesium Sulfate/ Dextrose 100 ml @ 100 mls/hr ONCE ONCE IV 01/02/18 20:00 01/02/18 20:59 DC 01/02/18 20:09 100 MLS/HR Ondansetron HCl 4 mg ONCE ONCE IVP 01/02/18 19:30 01/02/18 19:31 DC 01/02/18 19:37 4 MG Progress Progress Note : Time: 19:20 Progress Note We will finish EMS is 1 L of saline and give her a second liter of saline for a total of 2 L. Based on her ideal body weight as well more than 20 mL/kg. She has a elevated temperature but no fever, tachycardia or tachypnea. She has not meeting SIRS criteria's. She does not sound that she has influenza but she has asked that we will check for it. Sounds more like viral gastroenteritis however pancreatitis also possibility. We'll get some labs give fluids and bloods check her sugar. We'll obtain a chest x-ray troponin and EKG as well. Stress test by Dr. Zamudio in April 2017 shows no evidence of significant myocardial ischemia or infarction with normal regional wall motion and left ventricular systolic function and EF of 71%. Initial ECG Impression Date: Jan 02, 2018 Initial ECG Impression Time: 19:31 Initial ECG Rate: 66 Initial ECG Rhythm: Normal Sinus Initial ECG Intervals: Normal Initial ECG Impression: Normal Initial ECG Comparisson: Unchanged Comment No ST elevation or depression. Diagnostic Imaging Diagonstic Imaging: Xray Plain Films/CT/US/NM/MRI: chest (1v) Comments Unremarkable 1 view chest. Reviewed: Reviewed by Me Departure Impression Primary Impression: Gastroenteritis and colitis, viral Additional Impression: Hypomagnesemia Disposition: 01 HOME, SELF-CARE Condition: Stable Departure-Patient Inst. Decision time for Depature: 21:36 Referrals: KATERINA HEBERT MD (PCP/Family) Primary Care Physician Patient Instructions: [id number] Add. Discharge Instructions: Drink lots of fluids and if you have nausea take Zofran 1 tablet every [address] it on the tongue allowed to absorb your mouth. If you're having diarrhea you can use 2 tablets of Imodium followed by one tablet every 4 hours afterwards until your symptoms are under control. If you are having pain you can use Tylenol or Motrin. If your symptoms go on for more than another 3 days then you should follow-up with primary care. 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 Scripts Ondansetron (Ondansetron Odt) 4 Mg Tab.rapdis 4 MG PO Q6H PRN for NAUSEA/VOMITING, #8 TAB 0 Refills Prov: KEILA SHARPE 01/02/18 Nitrofurantoin Macrocrystal (Nitrofurantoin) 100 Mg Capsule 100 MG PO BID for 6 Days, #12 CAP 0 Refills Prov: KEILA SHARPE 01/02/18 KEILA SHARPE Jan 02, 2018 19:17
[2018-01-02 19:27] LABS: BASOPHILS % (AUTO) 0 % (0-10); EOSINOPHILS # (AUTO) 0.1 10^3/uL (0.0-0.3); EOSINOPHILS % (AUTO) 1 % (0-10); HEMATOCRIT 37 % (35-52); HEMOGLOBIN 12.6 G/DL (11.5-16.0); LYMPHOCYTES # (AUTO) 1.6 X 10^3 (1.0-4.0); LYMPHOCYTES % (AUTO) 19 % (12-44); MEAN CORPUSCULAR HEMOGLOBIN 28 PG (25-34); MEAN CORPUSCULAR HGB CONC 34 G/DL (32-36); MEAN CORPUSCULAR VOLUME 81 FL (80-99); MEAN PLATELET VOLUME 8.8 FL (7.4-10.4); MONOCYTES # (AUTO) 0.7 X 10^3 (0.0-1.0); MONOCYTES % (AUTO) 8 % (0-12); NEUTROPHILS # (AUTO) 5.9 X 10^3 (1.8-7.8); NEUTROPHILS % (AUTO) 72 % (42-75); PLATELET COUNT 298 10^3/uL (130-400); RED BLOOD COUNT 4.57 10^6/uL (4.35-5.85); RED CELL DISTRIBUTION WIDTH 13.2 % (10.0-14.5); WHITE BLOOD COUNT 8.3 10^3/uL (4.3-11.0)
[2018-01-02] MEDS ORDERED: KETOROLAC 30 MG/ML VIAL IVP ONE (19:30)
[2018-01-02] MEDS ORDERED: ONDANSETRON 4 MG/2 ML (SDV) Z0FRAN IVP ONE (19:30)
[2018-01-02 19:44] LABS: ALANINE AMINOTRANSFERASE 47 U/L (0-55); ALBUMIN 3.4 GM/DL (3.2-4.5); ALKALINE PHOSPHATASE 202 U/L (40-136); BILIRUBIN,TOTAL 1.1 MG/DL (0.1-1.0); BUN/CREATININE RATIO 18; CALCIUM 8.3 MG/DL (8.5-10.1); CARBON DIOXIDE 20 MMOL/L (21-32); CHLORIDE 108 MMOL/L (98-107); CREATININE SERUM 0.74 MG/DL (0.60-1.30); GFR ESTIMATED > 60; GLUCOSE 159 MG/DL (70-105); LIPASE 239 U/L (8-78); MAGNESIUM 1.7 MG/DL (1.8-2.4); POTASSIUM 3.6 MMOL/L (3.6-5.0); SODIUM 138 MMOL/L (135-145); TOTAL PROTEIN 6.5 GM/DL (6.4-8.2)
[2018-01-02] MEDS ORDERED: MAGNESIUM 1 GM/100 ML IVPB 100 ML IV ONE (20:00)
[2018-01-02 20:05] LABS: BILIRUBIN,URINE NEGATIVE (NEGATIVE); CLARITY,URINE SLIGHTLY CLOUDY; COLOR,URINE YELLOW; GLUCOSE, URINE (UA) NEGATIVE (NEGATIVE); KETONES,URINE 1+ (NEGATIVE); LEUKOCYTE ESTERASE ,URINE 1+ (NEGATIVE); NITRITE,URINE NEGATIVE (NEGATIVE); PH,URINE 5 (5-9); PROTEIN,URINE 2+ (NEGATIVE); UROBILINOGEN,URINE 1 MG/DL (NORMAL)
[2018-01-02 20:24] LABS: BACTERIA,URINE MODERATE /HPF
[2018-01-02 20:25] LABS: SQUAMOUS EPITHELIAL CELL,UR 25-50 /HPF
[2018-01-02] MEDS ORDERED: cefTRIAXone FOR IV USE 1,000 MG in NS (IVPB) 50 ML IV ONE (21:30)
[2018-01-02] MEDS ORDERED: NITR100C PO (21:38)
[2018-01-02] MEDS ORDERED: ONDA4TAB11 PO (21:38)
--- NOTE | 2018-01-02 21:38 | Diagnostic Imaging Report ---
INDICATION: Chest pain COMPARISON: 03/17/2017 FINDINGS: Single frontal view of the chest demonstrates normal heart size and pulmonary vascularity. The lungs show low inspiratory volumes, but otherwise clear. No large pleural effusion or pneumothorax is seen. The visualized osseous structures show no acute abnormalities. IMPRESSION: 1. No acute cardiopulmonary process. Dictated by: Dictated on workstation # [id number]
[2018-01-02 22:30] VITALS: BP 162/84
== END 2018-01-02 22:31 | disposition home or self-care (01) ==
LOC: EDUNIT# 19:01 → ER 19:03
DX: A08.4 Viral intestinal infection, unspecified (principal); E83.42 Hypomagnesemia; R07.9 Chest pain, unspecified; E11.9 Type 2 diabetes mellitus without complications; I25.10 Atherosclerotic heart disease of native coronary artery without angina pectoris; E78.00 Pure hypercholesterolemia, unspecified; I10 Essential (primary) hypertension; K21.9 Gastro-esophageal reflux disease without esophagitis; M17.11 Unilateral primary osteoarthritis, right knee; Z82.49 Family history of ischemic heart disease and other diseases of the circulatory system; Z87.448 Personal history of other diseases of urinary system; Z95.5 Presence of coronary angioplasty implant and graft; Z79.84 Long term (current) use of oral hypoglycemic drugs; Z88.0 Allergy status to penicillin; Z79.82 Long term (current) use of aspirin; Z79.52 Long term (current) use of systemic steroids
CPT/HCPCS: 36415; 71045; 80053; 81000; 83690; 83735; 83880; 84478; 84484; 84703; 85025; 87088; 87804; 93005; 96361; 96365; 96367; 96375

== ENCOUNTER → 2018-01-19 | Outpatient (CLI) | payer MEDICAID ==
[~2018-01-19] MED LIST changes: +NITR100C PO; +ONDA4TAB11 PO
[2018-01-19 11:05] LABS: BASOPHILS % (AUTO) 0 % (0-10); EOSINOPHILS # (AUTO) 0.1 10^3/uL (0.0-0.3); EOSINOPHILS % (AUTO) 1 % (0-10); HEMATOCRIT 39 % (35-52); HEMOGLOBIN 13.1 G/DL (11.5-16.0); LYMPHOCYTES # (AUTO) 1.8 X 10^3 (1.0-4.0); LYMPHOCYTES % (AUTO) 27 % (12-44); MEAN CORPUSCULAR HEMOGLOBIN 27 PG (25-34); MEAN CORPUSCULAR HGB CONC 34 G/DL (32-36); MEAN CORPUSCULAR VOLUME 81 FL (80-99); MEAN PLATELET VOLUME 8.9 FL (7.4-10.4); MONOCYTES # (AUTO) 0.5 X 10^3 (0.0-1.0); MONOCYTES % (AUTO) 8 % (0-12); NEUTROPHILS # (AUTO) 4.2 X 10^3 (1.8-7.8); NEUTROPHILS % (AUTO) 63 % (42-75); PLATELET COUNT 342 10^3/uL (130-400); RED BLOOD COUNT 4.78 10^6/uL (4.35-5.85); RED CELL DISTRIBUTION WIDTH 13.2 % (10.0-14.5); WHITE BLOOD COUNT 6.6 10^3/uL (4.3-11.0)
[2018-01-19 11:32] LABS: ALANINE AMINOTRANSFERASE 20 U/L (0-55); ALBUMIN 3.7 GM/DL (3.2-4.5); ALKALINE PHOSPHATASE 166 U/L (40-136); BILIRUBIN,TOTAL 0.5 MG/DL (0.1-1.0); BUN/CREATININE RATIO 18; CALCIUM 8.7 MG/DL (8.5-10.1); CARBON DIOXIDE 21 MMOL/L (21-32); CHLORIDE 107 MMOL/L (98-107); CREATININE SERUM 0.74 MG/DL (0.60-1.30); GFR ESTIMATED > 60; GLUCOSE 171 MG/DL (70-105); SODIUM 137 MMOL/L (135-145); TOTAL PROTEIN 6.7 GM/DL (6.4-8.2)
--- NOTE | 2018-01-20 08:08 | Diagnostic Imaging Report ---
INDICATION: Screening. EXAMINATION: Digital mammogram bilateral screening with 3-D tomosynthesis. This study was compared to prior exams of 04/08/2016, 09/19/2014 and 09/13/2013. At this time, there are no current complaints. The current study was also evaluated with a Computer Aided Detection (CAD) system. FINDINGS: There are scattered fibroglandular densities in both breasts which could obscure a lesion. Overall, there does not appear to have been any significant change when compared to the prior exam. No primary or secondary sign of malignancy is noted. IMPRESSION: There is no radiographic evidence for malignancy. ACR BI-RADS Category 1: Negative. Result letter will be mailed to the patient. Note: At least 10% of breast cancer is not imaged by mammography. Dictated by: Dictated on workstation # [id number]
== END ==
LOC: RAD 10:37
PROVIDERS: ATTEND Nurse Practitioner Family
DX: Z12.31 Encounter for screening mammogram for malignant neoplasm of breast (principal)
CPT/HCPCS: 36415; 77067; 80053; 83036; 84443; 85025

== ENCOUNTER → 2018-02-04 | Outpatient (CLI) | payer MEDICAID ==
[~2018-02-04] VITALS: Ht 160 cm; Wt 136.1 kg
[~2018-02-04] MED LIST changes: +GADOBUTROL 7.5 MMOL/7.5 ML (GADAVIST) VIAL IV ONE; +IOHEXOL 240 MGI/ML 20 ML (OMNIPAQUE) VIAL IV ONE; +LIDOCAINE 1% INJ 20 ML 20 ML VIAL INJ ONE
--- NOTE | 2018-02-04 12:21 | Diagnostic Imaging Report ---
INDICATION: Left shoulder pain. PROCEDURE: Left shoulder injection DESCRIPTION OF PROCEDURE: The patient was brought to the procedure room, placed on the table in the supine position. The skin over the left shoulder was prepped and draped in the usual sterile fashion. A small amount of 1% lidocaine was utilized for local anesthesia. 21G needle was advanced into left shoulder at the rotator interval. A 15 mL solution of iodinated contrast, normal saline and gadolinium was injected under fluoroscopic observation. The needle was withdrawn and hemostasis was obtained. A total of 20 seconds of fluoroscopic time was utilized. The patient tolerated the procedure well and was sent to MRI in satisfactory condition. IMPRESSION: Successful left shoulder injection of gadolinium contrast solution, using fluoroscopy. Dictated by: Dictated on workstation # [id number]
--- NOTE | 2018-02-04 12:29 | Diagnostic Imaging Report ---
PROCEDURE: MRI left joint upper extremity with contrast. TECHNIQUE: Multiplanar, multisequence MR imaging of the left shoulder was performed with intra-articular contrast. COMPARISON: Left shoulder radiographs of 11/10/2017. INDICATION: Left shoulder pain after lifting injury. FINDINGS: Examination is mildly limited due to patient motion artifact along with decreased nfypra-th-vmpnl ratio due to patient's large body habitus. Rotator cuff: No high-grade partial or full-thickness rotator cuff tear. Mild tendinopathy of the supraspinatus, has no superimposed tearing. The remainder of the rotator cuff is intact. No rotator cuff muscle atrophy. Glenoid labrum: Glenoid labrum is normal in morphology without tear. Long head of biceps: Long head of biceps is normally positioned within the bicipital groove. The intracapsular segment is intact. Bones and cartilage: Humeral head is normal in morphology without fracture or focal osseous lesion. No glenohumeral chondromalacia. Mild hypertrophic degenerative changes of acromioclavicular joint. Soft tissues: No proliferative synovitis or loose bodies within the glenohumeral joint. No MRI findings to suggest adhesive capsulitis. No fluid or inflammatory like signal within the subacromial/subdeltoid space to indicate bursitis. IMPRESSION: 1. No rotator cuff tear. Supraspinatus tendinopathy is present. 2. Long head of biceps is intact. 3. Normal glenoid labrum. Dictated by: Dictated on workstation # [id number]
== END ==
LOC: RAD 09:04
PROVIDERS: ATTEND Nurse Practitioner Family
DX: S49.92XA Unspecified injury of left shoulder and upper arm, initial encounter (principal); X50.9XXA Other and unspecified overexertion or strenuous movements or postures, initial encounter
CPT/HCPCS: 23350; 73040; 73222

== ENCOUNTER → 2018-04-22 | Outpatient (CLI) | payer MEDICAID ==
[~2018-04-22] MED LIST changes: -AMLO5TAB7 PO; +AMLO5TAB9 PO; -GADOBUTROL 7.5 MMOL/7.5 ML (GADAVIST) VIAL IV ONE; -IOHEXOL 240 MGI/ML 20 ML (OMNIPAQUE) VIAL IV ONE; -LIDOCAINE 1% INJ 20 ML 20 ML VIAL INJ ONE
[2018-04-22 09:46] LABS: BASOPHILS % (AUTO) 0 % (0-10); EOSINOPHILS # (AUTO) 0.1 10^3/uL (0.0-0.3); EOSINOPHILS % (AUTO) 1 % (0-10); HEMATOCRIT 38 % (35-52); HEMOGLOBIN 13.1 G/DL (11.5-16.0); LYMPHOCYTES # (AUTO) 2.1 X 10^3 (1.0-4.0); LYMPHOCYTES % (AUTO) 28 % (12-44); MEAN CORPUSCULAR HEMOGLOBIN 27 PG (25-34); MEAN CORPUSCULAR HGB CONC 34 G/DL (32-36); MEAN CORPUSCULAR VOLUME 80 FL (80-99); MEAN PLATELET VOLUME 8.6 FL (7.4-10.4); MONOCYTES # (AUTO) 0.7 X 10^3 (0.0-1.0); MONOCYTES % (AUTO) 9 % (0-12); NEUTROPHILS # (AUTO) 4.5 X 10^3 (1.8-7.8); NEUTROPHILS % (AUTO) 61 % (42-75); PLATELET COUNT 327 10^3/uL (130-400); RED CELL DISTRIBUTION WIDTH 13.5 % (10.0-14.5); WHITE BLOOD COUNT 7.3 10^3/uL (4.3-11.0)
[2018-04-22 10:04] LABS: ALANINE AMINOTRANSFERASE 15 U/L (0-55); ALBUMIN 3.5 GM/DL (3.2-4.5); ALKALINE PHOSPHATASE 122 U/L (40-136); BILIRUBIN,TOTAL 0.5 MG/DL (0.1-1.0); BUN/CREATININE RATIO 19; CALCIUM 8.4 MG/DL (8.5-10.1); CARBON DIOXIDE 24 MMOL/L (21-32); CHLORIDE 105 MMOL/L (98-107); CHOLESTEROL 163 MG/DL (< 200); CREATININE SERUM 0.73 MG/DL (0.60-1.30); GFR ESTIMATED > 60; GLUCOSE 208 MG/DL (70-105); HDL CHOLESTEROL 46 MG/DL (40-60); SODIUM 136 MMOL/L (135-145); TOTAL PROTEIN 6.5 GM/DL (6.4-8.2); TRIGLYCERIDES 117 MG/DL (<150); VLDL CHOLESTEROL 23 MG/DL (5-40)
== END ==
LOC: LAB 09:27
PROVIDERS: ATTEND Nurse Practitioner Family
DX: E88.81 Metabolic syndrome and other insulin resistance (principal); E78.2 Mixed hyperlipidemia; E11.9 Type 2 diabetes mellitus without complications; R53.83 Other fatigue
CPT/HCPCS: 36415; 80053; 80061; 82043; 83036; 84443; 85025

== ENCOUNTER → 2018-10-08 | Outpatient (CLI) | payer MEDICAID ==
[2018-10-08 09:39] LABS: BASOPHILS % (AUTO) 0 % (0-10); EOSINOPHILS % (AUTO) 0 % (0-10); HEMATOCRIT 39 % (35-52); HEMOGLOBIN 12.9 G/DL (11.5-16.0); LYMPHOCYTES # (AUTO) 1.8 X 10^3 (1.0-4.0); LYMPHOCYTES % (AUTO) 24 % (12-44); MEAN CORPUSCULAR HEMOGLOBIN 27 PG (25-34); MEAN CORPUSCULAR HGB CONC 34 G/DL (32-36); MEAN CORPUSCULAR VOLUME 81 FL (80-99); MEAN PLATELET VOLUME 9.2 FL (7.4-10.4); MONOCYTES # (AUTO) 0.7 X 10^3 (0.0-1.0); MONOCYTES % (AUTO) 10 % (0-12); NEUTROPHILS # (AUTO) 4.7 X 10^3 (1.8-7.8); NEUTROPHILS % (AUTO) 66 % (42-75); PLATELET COUNT 316 10^3/uL (130-400); RED CELL DISTRIBUTION WIDTH 13.4 % (10.0-14.5); WHITE BLOOD COUNT 7.2 10^3/uL (4.3-11.0)
[2018-10-08 10:04] LABS: ALANINE AMINOTRANSFERASE 23 U/L (0-55); ALBUMIN 3.7 GM/DL (3.2-4.5); ALKALINE PHOSPHATASE 109 U/L (40-136); BILIRUBIN,TOTAL 0.5 MG/DL (0.1-1.0); BUN/CREATININE RATIO 22; CALCIUM 8.8 MG/DL (8.5-10.1); CARBON DIOXIDE 21 MMOL/L (21-32); CHLORIDE 104 MMOL/L (98-107); CHOLESTEROL 137 MG/DL (< 200); CREATININE SERUM 0.73 MG/DL (0.60-1.30); GFR ESTIMATED > 60; GLUCOSE 160 MG/DL (70-105); HDL CHOLESTEROL 34 MG/DL (40-60); POTASSIUM 3.9 MMOL/L (3.6-5.0); SODIUM 137 MMOL/L (135-145); TOTAL PROTEIN 6.7 GM/DL (6.4-8.2); TRIGLYCERIDES 142 MG/DL (<150); VLDL CHOLESTEROL 28 MG/DL (5-40)
== END ==
LOC: LAB 09:23
PROVIDERS: ATTEND Nurse Practitioner Family
DX: E78.2 Mixed hyperlipidemia (principal); I10 Essential (primary) hypertension; E11.9 Type 2 diabetes mellitus without complications
CPT/HCPCS: 36415; 80053; 80061; 83036; 84443; 85025

== ENCOUNTER → 2018-12-01 | Outpatient (CLI) | payer MEDICAID ==
--- NOTE | 2018-12-01 11:58 | Diagnostic Imaging Report ---
INDICATION: Sharp pain in the left foot. Time of exam 10:10 a.m. Three views of the left foot were obtained. FINDINGS: The metatarsals appear to be intact. No periosteal reaction or stress reaction is seen. The phalanges appear to be intact. Midfoot and hindfoot are unremarkable apart from posterior and plantar calcaneal spurs. No fractures are seen. IMPRESSION: No acute bony abnormality is detected. Dictated by: Dictated on workstation # [id number]
== END ==
LOC: RAD 09:52
PROVIDERS: ATTEND Nurse Practitioner Family
DX: M79.672 Pain in left foot (principal)
CPT/HCPCS: 73630

== ENCOUNTER 2019-08-31 10:41 | Emergency (ER) | payer MEDICAID ==
[~2019-08-31] VITALS: Ht 160 cm; Wt 136.3 kg
[~2019-08-31 10:41] MED LIST changes: -MONT10TA24 PO; +MONT10TA26 PO; -TRAM50TA2 PO; +TRM50T PO
[2019-08-31] MEDS ORDERED: VALA10007 PO (11:02)
[2019-08-31] MEDS ORDERED: METO50TA15 PO (11:02)
[2019-08-31] MEDS ORDERED: HYDR-3870 PO (11:02)
[2019-08-31] MEDS ORDERED: PRED10TA22 PO (11:02)
--- NOTE | 2019-08-31 11:02 | ED Integumentary General ---
General Stated Complaint: R ARM/BACK INJ Source: patient Exam Limitations: no limitations History of Present Illness Date Seen by Provider: Aug 31, 2019 Time Seen by Provider: 10:58 Initial Comments To ER with right scapula, right axilla, right anterior chest redness and pain since a fall off the treadmill 1 week ago. She is also out of her metoprolol 50 mg tablets Timing/Duration: just prior to arrival Severity: moderate Location: extremities Possible Cause: other (fall off treadmill) Associated Symptoms: other (itching burning tingling) Allergies and Home Medications Allergies Coded Allergies: Penicillins (Unverified Allergy, Mild, 11/10/17) Home Medications Amlodipine Besylate 5 Mg Tablet, 5 MG PO DAILY, (Reported) Aspirin 81 Mg Tabec, 81 MG PO DAILY, (Reported) Atorvastatin Calcium 20 Mg Tablet, 20 MG PO HS, (Reported) Cyclobenzaprine HCl 10 Mg Tablet, 10 MG PO Q8H PRN for SPASMS Prescribed by: RENETTA PRATHER on 02/20/161924 Cyclobenzaprine HCl 5 Mg Tablet, 5 MG PO TID PRN for BACK PAIN Prescribed by: SHERRI PUENTES on 11/11/16 1050 Furosemide 40 Mg Tablet, 40 MG PO DAILY, (Reported) Hydrochlorothiazide 25 Mg Tablet, 25 MG PO DAILY, (Reported) Hydrocodone/Acetaminophen 1 Each Tablet, 1 EACH PO 4 times a day Prescribed by: LESTER BEACH on 10/24/16 165 Lidocaine HCl 30 Ml Jel..ml., 2 ML MM BID PRN Prescribed by: SHERRI PUENTES on 06/19/162101 Loratadine 10 Mg Capsule, 10 MG PO DAILY Prescribed by: SHERRI PUENTES on 08/22/14 190 Meloxicam 15 Mg Tablet, 15 MG PO DAILY, (Reported) Metoprolol Tartrate 50 Mg Tablet, 50 MG PO BID, (Reported) Montelukast Sodium 10 Mg Tablet, 10 MG PO HS, (Reported) Nitrofurantoin Macrocrystal 100 Mg Capsule, 100 MG PO BID Prescribed by: KEILA SHARPE on 01/02/182137 [place]-3 Fatty Acids/Fish Oil 1 Each Capsule, 1,000 MG PO DAILY, (Reported) Ondansetron 4 Mg Tab.rapdis, 4 MG PO Q6H PRN for NAUSEA/VOMITING Prescribed by: KEILA SHARPE on 01/02/182137 Orphenadrine Citrate 100 Mg Tablet.er, 100 MG PO BID PRN for PAIN-MODERATE Prescribed by: SHERRI PUENTES on 07/27/16 193 Pantoprazole Sodium 40 Mg Tablet.dr, 40 MG PO DAILY, (Reported) Prednisone 20 Mg Tab, 40 MG PO DAILY Prescribed by: SHERRI PUENTES on 11/11/16 1050 Tramadol HCl 50 Mg Tablet, 50 MG PO Q6H PRN for PAIN Prescribed by: VIOLA GUNN on 08/12/15 1235 Tramadol HCl 50 Mg Tablet, 50 MG PO Q4H PRN for pain Prescribed by: RENETTA PRATHER on 07/12/16 2337 Venlafaxine HCl 150 Mg Cap.er.24h, 1 CAP PO UD, (Reported) Patient Home Medication List Home Medication List Reviewed: Yes Review of Systems Review of Systems Constitutional: see HPI EENTM: see HPI Respiratory: no symptoms reported Cardiovascular: no symptoms reported Genitourinary: no symptoms reported Musculoskeletal: see HPI Skin: see HPI, lesions, rash Psychiatric/Neurological: No Symptoms Reported Past Jhuoyvb-Enhela-Bfdgxv Hx Patient Social History 2nd Hand Smoke Exposure: No Recent Hopitalizations: No Immunizations Up To Date Tetanus Booster (TDap): More than 5yrs Date of Pneumonia Vaccine: Nov 24, 2011 Date of Influenza Vaccine: Dec 26, 2015 Seasonal Allergies Seasonal Allergies: No Past Medical History Surgeries: Yes (D&C, Right knee arthroscopy) Respiratory: No Cardiac: Yes ("blockage in heart" 40-50%) Coronary Artery Disease, Congenital Heart Disease, High Cholesterol, Hypertension Neurological: No 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 Sexually Transmitted Disease: No HIV/AIDS: No Genitourinary: Yes Bladder Infection Gastrointestinal: Yes Gastroesophageal Reflux Musculoskeletal: Yes (Right knee arthritis) Arthritis Endocrine: Yes Diabetes, Non-Insulin dep HEENT: No Cancer: No Psychosocial: Yes Depression Integumentary: No Blood Disorders: No Adverse Reaction/Blood Tranf: No Family Medical History Hypertension 19 FATHER Not obtainable due to adoption G8 BROTHER (GOUT) No Pertinent Family Hx Physical Exam Vital Signs Capillary Refill : General Appearance: WD/WN, no apparent distress, obese HEENT: PERRL/EOMI, normal ENT inspection Respiratory: no respiratory distress, no accessory muscle use Neurologic/Psychiatric: alert, normal mood/affect, oriented x 3 Skin: normal color, warm/dry Skin Problem Location: other (erythematous papulovesicular rash to the right scapula axilla and anterior chest consistent with herpes zoster) Departure Impression Primary Impression: Herpes zoster Qualified Codes: B02.9 - Zoster without complications Disposition: 01 HOME, SELF-CARE Condition: Stable Departure-Patient Inst. Decision time for Depature: 11:00 Referrals: KATERINA HEBERT MD (PCP/Family) Primary Care Physician Patient Instructions: Shingles Add. Discharge Instructions: 1. Take the antiviral cold valacyclovir, the prednisone, hydrocodone as directed. Follow-up with your doctor next week. Scripts Metoprolol Tartrate (Metoprolol Tartrate) 50 Mg Tablet 50 MG PO BID, #60 TAB Prov: SHERRI PUENTES APRN 08/31/19 Valacyclovir HCl (Valacyclovir) 1,000 Mg Tablet 1000 MG PO TID, #21 TAB Prov: SHERRI PUENTES APRN 08/31/19 Prednisone (Prednisone) 10 Mg Tab.ds.pk 10 MG PO DAILY, #21 EA Take 6 tabs(60mg)daily,decrease by 1 tab(10MG)daily. Prov: SHERRI PUENTES APRN 08/31/19 SHERRI PUENTES APRN Aug 31, 2019 11:02
[2019-08-31 11:11] VITALS: BP 194/104
--- OUTSIDE RECORDS SUMMARY | 2019-08-31 11:43 | XMS REPORT ---
Author Author Arianne TOMPKINS Organization [facility] Address [address] [place] [address] Care Team Providers Care Weather Reporter Name Role Phone BRISSA TOMPKINS Unavailable PROBLEMS Type Condition ICD9-CM Code VVT86-LD Code Onset Dates Condition S tatus SNOMED Code Problem Missed period N92.6 Active 220753 00 Problem Frontal sinusitis, unspecified chronicity J32.1 Active 67132876 Problem Mild mental retardation F70 Active 09842585 Problem Rash R21 Active 112575362 Problem Adjustment disorder with mixed anxiety and depressed mood F43.23 Active 74171291 Problem Gastroesophageal reflux disease, esophagitis pre sence not specified K21.9 Active 507732301 ALLERGIES No Information ENCOUNTERS Encounter Location Date Diagnosis [facility] [address] [address] Apr, Blood pressure check Z01.30 [facility] [address] [address] Jan, Bronchitis J40 [facility] [address] [place] [phone] 04 Oct, 2018 Frontal sinusitis, unspecifi ed chronicity J32.1 and Sore throat J02.9 [facility] [address] [address] 09 Feb, 2018 Acute upper respiratory infe ction J06.9 and BMI 50.0- 59.9, adult Z68.43 [facility] [address] [place] [id number] [place] [phone] 12 Mar, 2017 Cough R05 and BMI 50.0-59.9, adult Z68.43 [facility] [address] [place] [id number] [address] [place] [phone] 14 Dec, 2016 Encounter for immunization Z 23 [facility] [address] [id number] [address] [place] [phone] Sep, Acute allergic rhinitis J30. 9 [facility] [address] [id number] [address] [place] [phone] Jul, Missed period N92.6 [facility] [address] [id number] [place] [address] [phone] Jul, Dental caries K02.9 [facility] [address] [id number] [id number] Jul, Dental examination Z01.20 [facility] [address] [facility] [id number] [address] [place] [phone] June, Abscess of mouth K12.2 [facility] [address] [place] [address] [phone] Feb, Dental examination Z01.20 [facility] [address] [id number] [address] [place] [phone] Jan, Sore throat J02.9 and Strep pharyngitis J02.0 [facility] [address] [id number] [place] [address] [phone] Dec, Encounter for other specifie d administrative purpose Z02.89 [facility] [address] [id number] [address] [place] [phone] Dec, Encounter for immunization Z 23 [facility] [address] [facility] [id number] [address] [place] [phone] Nov, Gastroesophageal reflux dise ase, esophagitis presence not specified K21.9 [facility] [address] [id number] [address] [place] [address] [phone] Jul, Dental examination Z01.20 [facility] [address] [id number] [address] [place] [address] [phone] May, Encounter for dental examina tion Z01.20 [facility] [address] [facility] [id number] [address] [place] [phone] 10 Apr, 2015 Acute bacterial sinusitis J0 1.90 [facility] [address] [facility] [id number] [address] [place] [phone] 13 Mar, 2015 Acute vomiting R11.10 and Se asonal allergies J30.2 [facility] [address] [facility] [id number] [address] [place] [address] [id number] 12 Feb, 2015 Dental examination Z01.20 [facility] [address] [facility] [id number] [address] [place] [phone] 02 Feb, 2015 Personal history of other di seases of the respiratory system Z87.09 [facility] [address] [facility] [id number] [address] [place] [phone] 02 Jan, 2015 Rash R21 ; Mild mental retar dation F70 and Adjustment disorder with mixed anxiety and depressed mood F43.23 [facility] [address] [place] [id number] [address] [place] [phone] 14 Feb, 2013 [facility] [address] [address] 14 Feb, 2013 [facility] [address] [place] [id number] [address] [place] [phone] Oct, [facility] [address] [place] [id number] [address] [place] [phone] Oct, [facility] [address] [place] [id number] [address] [place] [phone] Aug, [facility] [address] [place] [id number] [address] [place] [phone] Dec, IMMUNIZATIONS No Known Immunizations SOCIAL HISTORY Never Assessed REASON FOR VISIT PLAN OF CARE VITAL SIGNS MEDICATIONS Unknown Medications RESULTS No Results PROCEDURES No Known procedures INSTRUCTIONS MEDICATIONS ADMINISTERED No Known Medications MEDICAL (GENERAL) HISTORY Type Description Date Medical History hypertension Medical History hyperlipidemia Medical History Adjustment disorder with depressed mood Surgical History cholecystectomy Surgical History right knee arthroscopy 2011 Surgical History D&C Hospitalization History Surgery(s)/Childbirth(s) only Hospitalization History anxiety 2015
--- OUTSIDE RECORDS SUMMARY | 2019-08-31 11:43 | XMS REPORT ---
Author Author Arianne Aviles Doctor Organization [facility] Address Unknown Phone Unavailable Care Team Providers Care Septic Technician Name Role Phone Migration, Doctor Unavailable Unavailable PROBLEMS Type Condition ICD9-CM Code RCD78-NQ Code Onset Dates Condition S tatus SNOMED Code Problem Missed period N92.6 Active 835624 00 Problem Frontal sinusitis, unspecified chronicity J32.1 Active 82448578 Problem Mild mental retardation F70 Active 95177087 Problem Rash R21 Active 050896110 Problem Adjustment disorder with mixed anxiety and depressed mood F43.23 Active 85858576 Problem Gastroesophageal reflux disease, esophagitis pre sence not specified K21.9 Active 830554259 ALLERGIES No Information ENCOUNTERS Encounter Location Date Diagnosis [facility] [address] [address] 06 Apr, 2019 Blood pressure check Z01.30 [facility] [address] [address] Jan, Bronchitis J40 [facility] [place] [address] [address] 04 Oct, 2018 Frontal sinusitis, unspecifi ed chronicity J32.1 and Sore throat J02.9 [facility] [address] [address] 09 Feb, 2018 Acute upper respiratory infe ction J06.9 and BMI 50.0- 59.9, adult Z68.43 [facility] WALK IN [facility] [address] [address] 12 Mar, 2017 Cough R05 and BMI 50.0-59.9, adult Z68.43 [facility] [address] [address] 14 Dec, 2016 Encounter for immunization Z 23 [facility] [address] [facility] [id number] [address] [place] [phone] Sep, Acute allergic rhinitis J30. 9 [facility] [address] [facility] [id number] [place] [phone] Jul, Missed period N92.6 [facility] [address] [id number] [place] [address] [phone] Jul, Dental caries K02.9 [facility] [id number] [id number] Jul, Dental examination Z01.20 [facility] WALK IN [facility] [address] [facility] [id number] [place] [phone] June, Abscess of mouth K12.2 [facility] [address] [facility] [id number] [place] [address] [id number] Feb, Dental examination Z01.20 [facility] [address] [facility] [id number] [address] [place] [phone] Jan, Sore throat J02.9 and Strep pharyngitis J02.0 [facility] [address] [id number] Dec, Encounter for other specifie d administrative purpose Z02.89 [facility] [address] [place] [id number] [place] [phone] Dec, Encounter for immunization Z 23 [facility] [address] [facility] [id number] [address] [place] [phone] Nov, Gastroesophageal reflux dise ase, esophagitis presence not specified K21.9 [facility] [address] [id number] [place] [address] [phone] Jul, Dental examination Z01.20 [facility] [address] [id number] [place] [address] [phone] May, Encounter for dental examina tion Z01.20 [facility] [address] [id number] [address] [place] [phone] 10 Apr, 2015 Acute bacterial sinusitis J0 1.90 [facility] [address] [facility] [id number] [address] [place] [phone] 13 Mar, 2015 Acute vomiting R11.10 and Se asonal allergies J30.2 [facility] [address] [id number] [address] [place] [address] [id number] 12 Feb, 2015 Dental examination Z01.20 [facility] WALK IN [facility] [address] [facility] [id number] [address] [place] [phone] 02 Feb, 2015 Personal history of other di seases of the respiratory system Z87.09 [facility]ALK IN [facility] [address] [facility] [id number] [address] [place] [phone] 02 Jan, 2015 Rash R21 ; Mild mental retar dation F70 and Adjustment disorder with mixed anxiety and depressed mood F43.23 [facility] [address] [place] [id number] [address] [place] [phone] Feb, [facility] [address] [facility] [id number] [address] [place] [phone] Feb, [facility] [address] [place] [id number] [address] [place] [phone] Oct, [facility] [address] [facility] [id number] [address] [place] [phone] Oct, [facility] [address] [place] [id number] [address] [place] [phone] Aug, [facility] [address] [facility] [id number] [address] [place] [phone] Dec, IMMUNIZATIONS No Known Immunizations SOCIAL HISTORY [...]
--- OUTSIDE RECORDS SUMMARY | 2019-08-31 11:43 | XMS REPORT ---
Author Author Arianne DARLING Organization [facility] Address Unknown Care Team Providers Care Yarn Skeins Examiner Name Role Phone KEREN DARLING Unavailable PROBLEMS Type Condition ICD9-CM Code EGI09-EV Code Onset Dates Condition S tatus SNOMED Code Problem Missed period N92.6 Active 300062 00 Problem Frontal sinusitis, unspecified chronicity J32.1 Active 23967391 Problem Mild mental retardation F70 Active 85249297 Problem Rash R21 Active 135993565 Problem Adjustment disorder with mixed anxiety and depressed mood F43.23 Active 66144832 Problem Gastroesophageal reflux disease, esophagitis pre sence not specified K21.9 Active 750640315 ALLERGIES No Information ENCOUNTERS Encounter Location Date Diagnosis [facility] [address] [address] 06 Apr, 2019 Blood pressure check Z01.30 [facility] [address] [place] [phone] Jan, Bronchitis J40 [facility] [address] [place] [phone] 04 Oct, 2018 Frontal sinusitis, unspecifi ed chronicity J32.1 and Sore throat J02.9 [facility] [address] [address] 09 Feb, 2018 Acute upper respiratory infe ction J06.9 and BMI 50.0- 59.9, adult Z68.43 [facility] [address] [address] 12 Mar, 2017 Cough R05 and BMI 50.0-59.9, adult Z68.43 [facility] [address] [address] Dec, Encounter for immunization Z 23 [facility] [address] [id number] [address] [place] [phone] Sep, Acute allergic rhinitis J30. 9 [facility] [address] [id number] [address] [place] [phone] Jul, Missed period N92.6 [facility] [id number] [place] [address] [phone] Jul, Dental caries K02.9 [facility] [address] [id number] [place] [address] [phone] Jul, Dental examination Z01.20 [facility] [address] [facility] [id number] [address] [place] [phone] June, Abscess of mouth K12.2 [facility] [address] [id number] [place] [address] [phone] Feb, Dental examination Z01.20 [facility] [address] [id number] [address] [place] [phone] Jan, Sore throat J02.9 and Strep pharyngitis J02.0 [facility] [address] [facility] [id number] [place] [address] [phone] Dec, Encounter for other specifie d administrative purpose Z02.89 [facility] [address] [facility] [id number] [address] [place] [phone] Dec, Encounter for immunization Z 23 [facility] [address] [id number] [address] [place] [phone] Nov, Gastroesophageal reflux dise ase, esophagitis presence not specified K21.9 [facility] [address] [id number] [address] [place] [address] [phone] Jul, Dental examination Z01.20 [facility] [address] [id number] [address] [place] [address] [phone] May, Encounter for dental examina tion Z01.20 [facility] [address] [place] [id number] [address] [place] [phone] 10 Apr, 2015 Acute bacterial sinusitis J0 1.90 [facility] WALK IN [facility] [address] [address] 13 Mar, 2015 Acute vomiting R11.10 and Se asonal allergies J30.2 [facility] [id number] [place] [address] [id number] 12 Feb, 2015 Dental examination Z01.20 [facility] [place] [address] [place] [id number] [address] [place] [phone] 02 Feb, 2015 Personal history of other di seases of the respiratory system Z87.09 [facility] [place] [address] [place] [id number] [address] [place] [phone] 02 Jan, 2015 Rash R21 ; Mild mental retar dation F70 and Adjustment disorder with mixed anxiety and depressed mood F43.23 [place] [address] [address] 14 Feb, 2013 [facility] [address] [address] Feb, [place] [address] [address] Oct, [place] [address] [place] [id number] [address] [place] [phone] Oct, [place] [address] [place] [id number] [address] [place] [phone] Aug, [place] [address] [place] [id number] [address] [place] [phone] Dec, IMMUNIZATIONS No Known Immunizations SOCIAL HISTORY Never Assessed REASON FOR VISIT PLAN OF CARE VITAL SIGNS MEDICATIONS Unknown Medications RESULTS No Results PROCEDURES Procedure Date Ordered Result Body Site PSYCH DIAGNOSTIC EVALUATION August 25, 2012 INSTRUCTIONS MEDICATIONS ADMINISTERED No Known Medications MEDICAL (GENERAL) HISTORY Type Description Date Medical History hypertension Medical History hyperlipidemia Medical History Adjustment disorder with depressed mood Surgical History cholecystectomy Surgical History right knee arthroscopy 2012 Surgical History D&C Hospitalization History Surgery(s)/Childbirth(s) only Hospitalization History anxiety 2015
--- OUTSIDE RECORDS SUMMARY | 2019-08-31 11:43 | XMS REPORT ---
Author Author Arianne TOMPKINS Organization [facility] Address [address] [place] [address] Care Team Providers Care Optical Engineering Technician Name Role Phone BRISSA TOMPKINS Unavailable PROBLEMS Type Condition ICD9-CM Code VPB86-BY Code Onset Dates Condition S tatus SNOMED Code Problem Missed period N92.6 Active 964739 00 Problem Frontal sinusitis, unspecified chronicity J32.1 Active 34692181 Problem Mild mental retardation F70 Active 97467715 Problem Rash R21 Active 953169487 Problem Adjustment disorder with mixed anxiety and depressed mood F43.23 Active 47389425 Problem Gastroesophageal reflux disease, esophagitis pre sence not specified K21.9 Active 729313183 ALLERGIES No Information ENCOUNTERS Encounter Location Date Diagnosis [facility] [address] [address] Apr, Blood pressure check Z01.30 [facility] [address] [address] Jan, Bronchitis J40 [facility] [address] [place] [phone] 04 Oct, 2018 Frontal sinusitis, unspecifi ed chronicity J32.1 and Sore throat J02.9 [facility] [address] [address] 09 Feb, 2018 Acute upper respiratory infe ction J06.9 and BMI 50.0- 59.9, adult Z68.43 [facility] [address] [place] [id number] [place] [address] 12 Mar, 2017 Cough R05 and BMI 50.0-59.9, adult Z68.43 [facility] [address] [place] [id number] [address] [place] [phone] 14 Dec, 2016 Encounter for immunization Z 23 [facility] [address] [id number] [address] [place] [phone] Sep, Acute allergic rhinitis J30. 9 [facility] [address] [id number] [address] [place] [phone] Jul, Missed period N92.6 [facility] [address] [id number] [place] [address] [id number] Jul, Dental caries K02.9 [facility] [id number] [id number] Jul, Dental examination Z01.20 [facility] [address] [facility] [id number] [address] [place] [phone] June, Abscess of mouth K12.2 [facility] [address] [place] [address] [id number] Feb, Dental examination Z01.20 [facility] [address] [id number] [address] [place] [phone] Jan, Sore throat J02.9 and Strep pharyngitis J02.0 [facility] [address] [id number] [place] [address] [phone] Dec, Encounter for other specifie d administrative purpose Z02.89 [facility] [address] [id number] [address] [place] [phone] Dec, Encounter for immunization Z 23 [facility] [address] [facility] [id number] [address] [place] [phone] Nov, Gastroesophageal reflux dise ase, esophagitis presence not specified K21.9 [facility] [address] [id number] [address] [place] [address] [id number] Jul, Dental examination Z01.20 [facility] [address] [id number] [address] [place] [address] [phone] May, Encounter for dental examina tion Z01.20 [facility] [address] [facility] [id number] [address] [place] [phone] 10 Apr, 2015 Acute bacterial sinusitis J0 1.90 [facility] [address] [facility] [id number] [address] [place] [phone] 13 Mar, 2015 Acute vomiting R11.10 and Se asonal allergies J30.2 [facility] [address] [facility] [id number] [address] [place] [address] [id number] 12 Feb, 2015 Dental examination Z01.20 [facility] [address] [facility] [id number] [address] [place] [phone] 02 Feb, 2015 Personal history of other di seases of the respiratory system Z87.09 [facility] [address] [facility] [id number] [address] [place] [phone] 02 Jan, 2015 Rash R21 ; Mild mental retar dation F70 and Adjustment disorder with mixed anxiety and depressed mood F43.23 [facility] [address] [place] [id number] [address] [place] [phone] 14 Feb, 2013 [facility] [address] [address] 14 Feb, 2013 [facility] [address] [place] [id number] [address] [place] [phone] Oct, [facility] [address] [place] [id number] [address] [place] [phone] Oct, [facility] [address] [place] [id number] [address] [place] [phone] Aug, [facility] [address] [place] [id number] [address] [place] [phone] Dec, IMMUNIZATIONS No Known Immunizations SOCIAL HISTORY Never Assessed REASON FOR VISIT PLAN OF CARE VITAL SIGNS MEDICATIONS Unknown Medications RESULTS No Results PROCEDURES Procedure Date Ordered Result Body Site PSYTX PT&/FAMILY 45 MINUTES Nov 01, 2012 INSTRUCTIONS MEDICATIONS ADMINISTERED No Known Medications MEDICAL (GENERAL) HISTORY Type Description Date Medical History hypertension Medical History hyperlipidemia Medical History Adjustment disorder with depressed mood Surgical History cholecystectomy Surgical History right knee arthroscopy 2012 Surgical History D&C Hospitalization History Surgery(s)/Childbirth(s) only Hospitalization History anxiety 2015
--- OUTSIDE RECORDS SUMMARY | 2019-08-31 11:43 | XMS REPORT ---
Author Author [facility] Address [address] [address] Care Team Providers Care Title Coordinator Name Role Phone KATERINA HEBERT Unavailable NAVA SANDS Unavailable Unavailable PARMJIT HURST Unavailable Unavailable YO HAYNES Unavailable Unavailable KATERINA HEBERT Unavailable KATERINA HEBERT Unavailable TRUPTI RANDHAWA Unavailable JANAYSOLOMON [facility], TRUPTI Unavailable CHENTE SHORT DO Unavailable Unavailable KATERINA HEBERT MD Unavailable Unavailable IMTIAZ BRYANT 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 TRADES WORKER Unavailable Unavailable CHRIS CORDOVA DO Unavailable Unavailable RUSS HERNANDEZ STRUCTURAL STEEL TRADES WORKER Unavailable Unavailable SHERRI PUENTES FAMILY DENTIST Unavailable Unavailable JOE [place] FAC, GURVINDER NO CCDS Unavailable UnavailDOROTA Aguirre FAMILY DENTIST Unavailable Unavailable RENETTA EARL Unavailable Unavailable DARON MAYERS MD Unavailable Unavailable KATERINA HEBERT MD Unavailable Unavailable VIOLA GUNN MD Unavailable Unavailable PEDRITO ANN DO Unavailable Unavailable HIREN STYLES MD Unavailable Unavailable HIREN STYLES MD Unavailable Unavailable ALISON ALVAREZ MD Unavailable Unavailable LESTER BEACH MD Unavailable Unavailable LUPIS TIPTON FAMILY DENTIST Unavailable Unavailable BRISSA TOMPKINS Unavailable Migration, Doctor Unavailable Unavailable BRISSA TOMPKINS Unavailable KEREN DARLING Unavailable VIOLA GUNN MD Unavailable Unavailable Unavailable Unavailable Unavailable Unavailable Allergies The data below is from unstructured sources No Information No Information No Information No Information No Information No Information No Information Encounters Encounter Date Encounter Type Encounter Diagnosis Care Provider Facility Start: Emergency department VIOLA MONTANA V Via [facility] 08-31-2019 patient visit [facility] Start: Nursing evaluation of Encounter for [facility] 04-15-2019 patient and report examination of bloo d pressure without abnormal findings Start: [facility] Bronchitis, not ALEXIA BRYAN [facility] 01-26-2019 CARE specified as acute or CARE chronic Start: Patient encounter LUPIS TIPTON [facility] Via [facility] isti 12-01-2018 procedure [facility] ([id number]) Start: [facility] Chronic frontal DYLAN BERNOT [facility] 10-13-2018 CARE sinusitis CARE Start: Patient encounter LUPIS TIPTON [facility] Via [facility] is 10-08-2018 procedure [facility] ([id number]) Start: Patient encounter LUPIS TIPTON Not Avail[facility] ([id number]) 04-22-2018 procedure Start: Patient encounter [facility] 02-17-2018 procedure [facility] ([id number]) Start: [facility] Acute upper JAIME TORCHIA [facility] 02-17-2018 CARE respiratory CARE infection, unspecified Start: Patient encounter LUPIS TIPTON Not [facility] ([id number]) 02-04-2018 procedure Start: Patient encounter LUPIS TIPTON Not [facility] ([id number]) 01-19-2018 procedure Start: Emergency department KEILA SHARPE Not Avai lable ([id number]) 01-02-2018 patient visit End: 01-02-2018 Start: Patient encounter KEILA SHARPE Not [facility] ([id number]) 01-02-2018 procedure Start: Emergency department DYLAN SIFUENTES Not Avai lable ([id number]) 11-10-2017 patient visit End: 11-10-2017 Start: Patient encounter NA NA Not [facility]ail[facility] ([id number]) 07-15-2017 procedure Start: Patient encounter 04-14-2017 procedure Start: Patient encounter DOROTA CABELLO Not [facility] ([id number]) 04-06-2017 procedure Start: Patient encounter NA NA Not [facility] ([id number]) 03-17-2017 procedure Start: Patient encounter 12-03-2016 procedure Start: Patient encounter 11-11-2016 procedure Start: Patient encounter SHERRI PUENTES Not [facility] ([id number]) 11-11-2016 procedure Start: Patient encounter KATERINA HEBERT MD Not Avai lable ([id number]) 08-05-2016 procedure End: 09-03-2016 Start: Patient encounter SHERRI PUENTES Not [facility]ail[facility] ([id number]) 07-27-2016 procedure Start: Patient encounter RENETTA CRESCENCIO CASTILLO Not [place] il[place] ([id number]) 07-12-2016 procedure Start: Patient encounter KATERINA HEBERT MD Not Avai lable ([id number]) 05-23-2016 procedure Start: Patient encounter KATERINA HEBERT MD Not Avai lable ([id number]) 04-23-2016 procedure End: 04-25-2016 Start: Patient encounter KATERINA HEBERT MD Not Avai lable ([id number]) 04-22-2016 procedure Start: Patient encounter KATERINA HEBERT MD Not Avai lable ([id number]) 04-17-2016 procedure Start: Patient encounter KATERINA HEBERT MD Not Avai lable ([id number]) 04-14-2016 procedure Start: Patient encounter KATERINA HEBERT MD Not Avai lable ([id number]) 04-10-2016 procedure Start: Patient encounter KATERINA HEBERT MD Not Avai lable ([id number]) 04-08-2016 procedure Start: Patient encounter KATERINA HEBERT MD Not Avai lable ([id number]) 04-07-2016 procedure Start: Patient encounter KATERINA HEBERT MD Not Avai lable ([id number]) 04-03-2016 procedure Start: Patient encounter KATERINA HEBERT MD Not Avai lable ([id number]) 04-02-2016 procedure Start: Patient encounter KATERINA HEBERT MD Not Avai lable ([id number]) 03-26-2016 procedure Start: Patient encounter KATERINA HEBERT MD Not Avai lable ([id number]) 03-24-2016 procedure Start: Patient encounter KATERINA HEBERT MD Not Avai lable ([id number]) 03-20-2016 procedure Start: Patient encounter KATERINA HEBERT MD Not Avai lable ([id number]) 03-17-2016 procedure Start: Patient encounter 03-04-2016 procedure Start: Patient encounter RENETTA CRESCENCIO CASTILLO Not [place] ([id number]) 02-20-2016 procedure Start: Patient encounter DOROTA CABELLO Not Availab le ([id number]) 05-01-2015 procedure End: 06-13-2015 Start: Patient encounter DOROTA CABELLO Not [facility]ail[facility] le ([id number]) 11-29-2014 procedure Start: Patient encounter DOROTA CABELLO Not [facility]ail[facility] le ([id number]) 10-19-2014 procedure Start: Patient encounter DOROTA CABELLO Not [facility]ail[facility] ([id number]) 10-03-2014 procedure Start: Patient encounter DOROTA CABELLO Not Availab le ([id number]) 09-19-2014 procedure Start: Emergency department SHERRI PUENTES Not Avai lable ([id number]) 08-22-2014 patient visit End: 08-22-2014 Start: Patient encounter KATERINA HEBERT MD Not Avai lable ([id number]) 08-15-2014 procedure Start: Patient encounter 04-07-2014 procedure Start: Patient encounter IMTIAZ BRYANT Not Avail[facility] le ([id number]) 09-23-2013 procedure Start: Patient encounter ALISON ALVAREZ MD Not Availab le ([id number]) 05-10-2013 procedure Start: Patient encounter RUSS HERNANDEZ Not Avail[facility] le ([id number]) 03-30-2013 procedure End: 04-20-2013 Start: Patient encounter 03-10-2013 procedure Start: Emergency department CHENTE HAN Not Avai lable ([id number]) 02-02-2013 patient visit End: 02-02-2013 Start: Patient encounter GURVINDER DIAZ MD, FACC Not [place] [facility] ([id number]) 09-27-2012 procedure Start: Patient encounter KATERINA HEBERT MD Not Avai lable ([id number]) 09-02-2012 procedure Start: Patient encounter IMTIAZ BRYANT Not Availab le ([id number]) 08-02-2012 procedure Start: Patient encounter IMTIAZ REDMANMA Not Availab le ([id number]) 04-26-2012 procedure Start: Patient encounter GURVINDER DIAZ MD, FACC Not [place] [facility] ([id number]) 01-15-2012 procedure Start: Patient encounter IMTIAZ BRYANT Not Availab le ([id number]) 12-02-2011 procedure Start: Patient encounter GURVINDER DIAZ MD, FACC Not [place] [facility] ([id number]) 11-27-2011 procedure End: 11-27-2011 Start: Patient encounter GURVINDER DIAZ MD, FACC Not [place] [facility] ([id number]) 11-24-2011 procedure Start: Patient encounter KATERINA HEBERT MD Not Avai lable ([id number]) 11-19-2011 procedure Start: Patient encounter KATERINA HEBERT MD Not Avai lable ([id number]) 09-03-2011 procedure Start: Patient encounter KATERINA HEBERT MD Not Avai labelizabeth ([id number]) 08-26-2011 procedure Patient encounter NA NA Not Available (0000 0) procedure Encounter for BRISSA TOMPKINS [facility] examination of blood Other Phone: [facility] without [place] ([id number]) abnormal findings Medical Equipment No Information Goals No Information Immunizations Immunizatio Immunization Notes Care Provider Facility n Date 12-23-2016 influenza, injectable, NA NA Not Av ailable ([id number]) quadrivalent, preservative free Interventions No Information Medications Medication Drug Dates Sig Sig (Original) Class(es) (Normalized) nitrofurantoin, Nitrofuran Start: take 1 capsule Nitrofu rantoin Macrocrystal macrocrystals 100 mg Antibacter 01-02-2018 by mouth twice (N itrofurantoin) 100 Mg Capsule 100 Mg oral capsule ial daily ORAL Twice A Day 6 Days 12 Cap 01/02/18 (1 source) End: 01-08-2018 ondansetron 4 mg Serotonin- Start: take 1 tablet Ondanse chidi (Ondansetron Odt) 4 Mg disintegrating oral 3 Receptor 01-02-2018 by mouth every Tab .rapdis 4 Mg ORAL Every 6 Hours as tablet Antagonist six hours as needed for Naus ea/Vomiting 8 Tab (1 source) needed for 01/02/18 nausea Pantoprazole Sodium 40 take 1 tablet Pantoprazole Sodium 40 Mg Tablet.dr 40 Mg Tablet.dr by mouth once Mg ORAL Daily (2 sources) daily Payers No Information Plan of Treatment Date Care Activity Detail Author Start: Electrocardiographic Tracing only of Via [facility] 01-02-2018 procedure electrocardiogram Clifford (0 [phone]) Problems Active Problems Problem Problem Date Last Documented Episodic/Chr Provider Classificati Recorded Date onic on Cardiac and Congenital heart block ; Chronic GRE TCHEN circulatory Translations: [Other specified MART IN [place] congenital congenital malformations of heart] anomalies (11 sources) Chronic Bronchitis, not specified as acute Episodic BRISSA LAZCANO obstructive or chronic ; Translations: [ - INDIRA EEARY pulmonary Bronchitis J40] Other Phone: disease and [phone] bronchiectas 3 is (4 sources) Congestive Congestive heart failure, Chronic RI CK heart unspecified ANUP MONTA[place] failure; nonhypertens sara (5 sources) 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 PUENTES atherosclero gambell coronary artery with out sis and angina pectoris ; Translati ons: other heart [Coronary atherosclerosis o f disease unspecified type of vessel, gambell (24 sources) or graft] Diabetes Type 2 diabetes mellitus without Chronic SHERRI PUENTES mellitus complications without complication (22 sources) Disorders of Pure hypercholesterolemia, Chronic lipid unspecified ; Translations: metabolism [Hyperlipidemia, unspecifie d] (21 sources) E Codes: Overexertion from strenuous Episodic LESTER Natural/envi movement or load, initial encounter YONG ernandez ; Translations: [Exposure t o other (13 sources) specified factors, initial encounter] Genitourinar Personal history of other diseases Episodic LESTER y symptoms of urinary system ; Translations: O BECCA [place] and [Hematuria, unspecified] ill-defined conditions (20 sources) Mood Major depressive disorder, single Chronic PETER PUENTES disorders episode, unspecified (18 sources) Occlusion or Occlusion and stenosis of Chronic stenosis of unspecified carotid artery precerebral arteries (4 sources) Other termite helper (current) use of aspirin Episodic SHERRI MORALESES aftercare (20 sources) Other termite helper (current) use of oral Episodic SHERRI MORALESES aftercare hypoglycemic drugs (21 sources) Other Pain in right leg Episodic RENETTA connective CRESCENCIO PA tissue disease (11 sources) Other Pain in left leg Episodic RENETTA connective CRESCENCIO PA tissue disease (6 sources) Other Personal history of other diseases Episodic RENETTA connective of the musculoskeletal system and M SUSU PA tissue connective tissue disease (6 sources) Other Morbid (severe) obesity due to Chron ic nutritional; excess calories endocrine; and metabolic disorders (4 sources) Other Body Mass Index 50.0-59.9, adult Chronic ALI JOE chery; FACC endocrine; and metabolic disorders (12 sources) Other Morbid obesity Chronic KATERINA nutritional; ANUP MONTANA endocrine; and metabolic disorders (7 sources) Other Obesity, unspecified Chronic ALI CHRISTAL ZIMMER nutritional; FACC endocrine; and metabolic disorders (12 sources) Other Obesity, unspecified Chronic HIREN greene MD endocrine; and metabolic disorders (7 sources) Other Hypomagnesemia Chronic KATERINA nutritional; ANUP endocrine; Work Phone: and [phone] metabolic 0 disorders (1 source) Other Hypomagnesemia Chronic KEILA ANNEMARIE nutritional; endocrine; and metabolic disorders (4 sources) Other Metabolic syndrome Chronic LUPIS PAUL ELL nutritional; endocrine; and metabolic disorders (2 sources) Other upper Frontal sinusitis ; Translations: Chronic ANTONIA respiratory [Chronic frontal sinusitis] MCCLEEA RY infections Other Phone: (8 sources) Residual Obstructive sleep apnea (adult) Chronic CHRIS CORDOVA codes; (pediatric) DO unclassified (18 sources) Skull and Fracture of tooth (traumatic), Episodic LESTER face initial encounter for closed ODGERS fractures fracture (5 sources) Spondylosis; Spinal enthesopathy, thoracic Chroni c intervertebr region al disc disorders; other back problems (8 sources) Past or Other Problems Problem Problem Date Last Documented Episodic/Chr Provider Classificati Recorded Date onic on Allergic Allergy status to penicillin Episodi c reactions (17 sources) Bacterial Other and unspecified Escherichia Episodic KATERINA infection; coli [E. coli] ANUP MONTANA unspecified site (7 sources) Conditions Dizziness and giddiness Episodic RICO R PUENTES associated with dizziness or vertigo (7 sources) Diabetes Other abnormal glucose ; Episodic HEA THER mellitus Translations: [Impaired fasting FEROZ MA without glucose] complication (24 sources) E Codes: Kitchen of unspecified Episodic Place of non-institutional (private) occurrence residence as the place of (4 sources) occurrence of the external cause Intestinal Viral intestinal infection, Episodic KEILA ANNEMARIE infection unspecified (4 sources) Malaise and Other fatigue ; Translations: Episodic ASHDEN CABELLO fatigue [Other malaise and fatigue] (21 sources) Other termite helper (current) use of systemic Episodic aftercare steroids (11 sources) Other Long-term (current) use of other Episodic ALI JOE aftercare medications FAC (22 sources) Other Other fpc (current) drug Episodic PETER PUENTES aftercare therapy (26 sources) Other Care involving other physical Episodic RUSS HERNANDEZ aftercare therapy (7 sources) Other Plantar fascial fibromatosis Episodic RUSS HERNANDEZ connective tissue disease (7 sources) Other Pain in left foot Episodic LUPIS RUSSE LL connective tissue disease (1 source) Other Diarrhea Episodic KATERINA gastrointest ANUP MONTANA inal disorders (7 sources) Other Unspecified injury of left shoulder Episodic LUPIS DANUTA injuries and and upper arm, initial enco unter conditions due to external causes (2 sources) Other lower Shortness of breath Episodic KATERINA respiratory ANUP MONTANA disease (12 sources) Other Pain in left knee Episodic non-traumati c joint disorders (4 sources) Other Pain in left shoulder Episodic DYLAN non-traumati BERNOT c joint disorders (2 sources) Other Pain in joint, lower leg Episodic JOSE KAYLEE non-traumati YONG parr joint disorders (13 sources) Other Other screening mammogram ; Episodic KATERINA screening Translations: [Other screening SHELTON THIBODEAUX MD for breast examination] suspected conditions (not mental disorders or infectious disease) (26 sources) Other skin Generalized hyperhidrosis Episodic RI CK disorders ANUP MONTANA (7 sources) Pancreatic Pancreatitis Episodic KATERINA disorders ANUP (not Work Phone: diabetes) [phone] (1 source) 0 Residual Edema Episodic IMTIAZ codes; BAIMA unclassified (7 sources) Residual Localized edema Episodic ASHDEN CABELLO codes; unclassified (7 sources) Residual Edema, unspecified Episodic KATERINA codes; ANUP MONTANA unclassified (8 sources) Residual Family history of ischemic heart Episodic DYLAN codes; disease and other diseases of the B ERNOT unclassified circulatory system (6 sources) Sprains and Strain of unspecified muscle, Episodic DYLAN strains fascia and tendon at shoulder and B ERNOT (2 sources) upper arm level, left arm, initial encounter Procedures Date Procedure Procedure Detail Performing Cl inician Start: Plain chest X-ray KEILA J ANNEMARIE 01-02-2018 Start: Radiography of DYLAN BERNOT 11-10-2017 shoulder Start: Psychotherapy BRISSA TOMPKINS 11-01-2012 w/patient 43 Other Phone: minutes Start: Psychiatric KEREN DARLING 08-25-2012 diagnostic Other Phone: evaluation Results Test Name Value Interpreta Reference Facilit Date tion Range y Time wbc lm.hpf (urine sed) [#/area] on 2018-01-02 WBC LM.HPF (Urine Invalid Via sed) [#/Area] Interpreta Amy tion Code [facility] ([id number]) wbc auto (bld) [#/vol] on 2018-01-02 WBC (Bld) [#/Vol] 8.3 10*3/uL 4.3-11.0 Via Amy [facility] ([id number]) urobilinogen auto test strip (u) [mass/vol] on 2018-01-02 Urobilinogen (U) 1 mg/dL NORMAL Via [Mass/Vol] [facility] emelyn [facility] ([id number]) urinalysis complete w reflex culture panel (u) on 2018-01-02 Urinalysis complete YES Via W Reflex Culture Amy panel - Urine [facility] ([id number]) urea nitrogen/creatinine [mass ratio] on 2018-01-02 Urea 18 mg/mg Via nitrogen/Creatinine Amy [Mass ratio] [facility] ([id number]) urea nitrogen [mass/vol] on 2018-01-02 Urea nitrogen 13 mg/dL 7-18 Via [Mass/Vol] [facility] ([id number]) troponin i.cardiac [mass/vol] on 2018-01-02 Troponin I.cardiac <0.30 Via [Mass/Vol] [facility] ([id number]) triglyceride [mass/vol] on 2018-01-02 Triglyceride 136 mg/dL <150 Via [Mass/Vol] [facility] ([id number]) specific gravity test strip (u) [rel density] on 2018-01-02 Specific gravity (U) 1.020 1.016-1.02 Via [Rel density] 2 [facility] ([id number]) sodium [moles/vol] on 2018-01-02 Sodium [Moles/Vol] 138 mmol/L 135-145 Via [facility] ([id number]) rbc lm.hpf (urine sed) [#/area] on 2018-01-02 RBC LM.HPF (Urine NONE Via sed) [#/Area] [facility] ([id number]) rbc lm ql (urine sed) on 2018-01-02 RBC Ql (U) 1+ Invalid NEGATIVE Via Interpreta Amy tion Code [facility] ([id number]) rbc auto (bld) [#/vol] on 2018-01-02 RBC (Bld) [#/Vol] 4.57 10*6/uL 4.35-5.85 Via [facility] ([id number]) protein test strip ql (u) on 2018-01-02 Protein Ql (U) 2+ Invalid NEGATIVE Via Interpreta Amy tion Code [facility] ([id number]) protein [mass/vol] on 2018-01-02 Protein [Mass/Vol] 6.5 g/dL 6.4-8.2 [facility] [place] ([id number][facility] potassium [moles/vol] on 2018-01-02 Potassium 3.6 mmol/L 3.6-5.0 [facility] [place] [facility] ([id number]) platelets auto (bld) [#/vol] on 2018-01-02 Platelets (Bld) 298 10*3/uL 130-400 Via [#/Vol] [facility] [place] ([id number]) platelet mean volume auto (bld) [entitic vol] on 2018-01-02 Platelet mean volume 8.8 fL 7.4-10.4 Via (Bld) [Entitic vol] [facility] l [place] ([id number]) ph test strip (u) on 2018-01-02 pH (U) 5 [pH] 5-9 Via [facility] [place] ([id number]) nitrite test strip ql (u) on 2018-01-02 Nitrite Ql (U) Negative NEGATIVE Via [facility] [place] ([id number]) neutrophils/100 wbc auto (bld) on 2018-01-02 Neutrophils/100 WBC 72 % 42-75 Via (Bld) [facility] [place] ([id number]) neutrophils auto (bld) [#/vol] on 2018-01-02 Neutrophils (Bld) 5.9 10*3/uL 1.8-7.8 Via [#/Vol] [facility] [place] ([id number]) natriuretic peptide b [mass/vol] on 2018-01-02 Natriuretic peptide 52.0 pg/mL <100.0 Via B (Bld) [Mass/Vol] Amy [facility] [place] ([id number]) mucus lm ql (urine sed) on 2018-01-02 Mucus Ql (Urine sed) LARGE Invalid Via Interpreta Amy pernell Atkinson [facility] [place] ([id number]) monocytes/100 wbc (bld) on 2018-01-02 Monocytes/100 WBC 8 % 0-12 Via (Bld) [facility] [place] ([id number]) monocytes auto (bld) [#/vol] on 2018-01-02 Monocytes (Bld) 0.7 10*3/uL 0.0-1.0 Via [#/Vol] [facility] (59286) mcv auto (rbc) [entitic vol] on 2018-01-02 MCV (RBC) [Entitic 81 fL 80-99 Via vol] [facility] ([id number]) mchc auto (rbc) [mass/vol] on 2018-01-02 MCHC (RBC) 34 g/dL 32-36 Via [Mass/Vol] [facility] ([id number]) mch auto (rbc) [entitic mass] on 2018-01-02 MCH (RBC) [Entitic 28 pg 25-34 Via mass] [facility] ([id number]) magnesium on 2018-01-02 Magnesium [Mass/Vol] 1.7 mg/dL Low 1.8-2.4 Via [facility] ([id number]) lymphocytes/100 wbc auto (bld) on 2018-01-02 Lymphocytes/100 WBC 19 % 12-44 Via (Bld) [facility] (48575) lymphocytes auto (bld) [#/vol] on 2018-01-02 Lymphocytes (Bld) 1.6 10*3/uL 1.0-4.0 Via [#/Vol] [facility] (30492) lipase [catalytic activity/vol] on 2018-01-02 Lipase [Catalytic 239 U/L High 8-78 Via activity/Vol] [facility] ([id number]) leukocyte esterase test strip ql (u) on 2018-01-02 Leukocyte esterase 1+ Invalid NEGATIVE Via Test strip Ql (U) Interpreta Amy tion Code [facility] ([id number]) ketones auto test strip ql (u) on 2018-01-02 Ketones Auto test 1+ Invalid NEGATIVE Via strip Ql (U) Interpreta Amy tion Code [facility] ([id number]) hemoglobin (bldv) [mass/vol] on 2018-01-02 Hemoglobin (Bld) 12.6 g/dL 11.5-16.0 Via [Mass/Vol] [facility] (06960) hematocrit (bld) [volume fraction] on 2018-01-02 Hematocrit (Bld) 37 % 35-52 Via [Volume fraction] Amy [facility] [place] (55003) glucose auto test strip ql (u) on 2018-01-02 Glucose Auto test Negative NEGATIVE Via strip Ql (U) [facility] [place] ([id number]) glucose [mass/vol] on 2018-01-02 Glucose [Mass/Vol] 159 mg/dL High 70-105 Via [facility] [place] (07394) erythrocyte distribution width auto (rbc) [ratio] on 2018-01-02 Erythrocyte 13.2 % 10.0-14.5 Via distribution width Amy (RBC) [Ratio] [facility] [place] (61703) epithelial cells.squamous lm ql (urine sed) on 2018-01-02 Epithelial Invalid Via cells.squamous LM Ql Interpreta Amy (Urine sed) [facility] [place] (67913) eosinophils/100 wbc auto (bld) on 2018-01-02 Eosinophils/100 WBC 1 % 0-10 Via (Bld) Amy [facility] [place] (69353) eosinophils auto (bld) [#/vol] on 2018-01-02 Eosinophils (Bld) 0.1 10*3/uL 0.0-0.3 Via [#/Vol] Amy [facility] [place] ([id number]) crystals lm ql (urine sed) on 2018-01-02 Crystals LM Ql NONE Via (Urine sed) Amy [facility] [place] ([id number]) creatinine and glomerular filtration rate.predicted panel (s/p/bld) on 2018-01-02 GFR/1.73 sq Via M.predicted among Amy non-blacks MDRD Hospita (S/P/Bld) [Vol l rate/Area] [place] (03501) creatinine [mass/vol] on 2018-01-02 Creatinine 0.74 mg/dL 0.60-1.30 Via [Mass/Vol] [facility] [place] (40854) color (u) on 2018-01-02 Color (U) YELLOW Via [facility] [place] (36290) clarity (u) on 2018-01-02 Clarity (U) SLIGHTLY CLOUDY Via [facility] [place] (38602) chloride [moles/vol] on 2018-01-02 Chloride [Moles/Vol] 108 mmol/L High 98-107 Via [facility] (58524) casts lm ql (urine sed) on 2018-01-02 Casts LM Ql (Urine NONE Via sed) [facility] () carbon dioxide on 2018-01-02 CO2 [Moles/Vol] 20 mmol/L Low 21-32 Via [facility] (63542) calcium measurement corrected for albumin on 2018-01-02 Albumin [Mass/Vol] 8.8 g/dL 8.5-10.1 Via [facility] ([id number]) calcium [mass/vol] on 2018-01-02 Calcium [Mass/Vol] 8.3 mg/dL Low 8.5-10.1 Via [facility] ([id number]) bilirubin test strip ql (u) on 2018-01-02 Bilirubin Ql (U) Negative NEGATIVE Via [facility] (37144) bilirubin [mass/vol] on 2018-01-02 Bilirubin [Mass/Vol] 1.1 mg/dL High 0.1-1.0 Via [facility] (30656) basophils/100 wbc auto (bld) on 2018-01-02 Basophils/100 WBC 0 % 0-10 Via (Bld) [facility] ([id number]) basophils auto (bld) [#/vol] on 2018-01-02 Basophils (Bld) 0.0 10*3/uL 0.0-0.1 Via [#/Vol] [facility] ([id number]) bacteria lm ql (urine sed) on 2018-01-02 Bacteria LM Ql MODERATE Invalid Via (Urine sed) Interpreta Amy tion [facility] ([id number]) ast [catalytic activity/vol] on 2018-01-02 AST [Catalytic 109 U/L High 5-34 Via activity/Vol] [facility] ([id number]) anion gap [moles/vol] on 2018-01-02 Anion gap 10 mmol/L 5-14 Via [Moles/Vol] [facility] ([id number]) alt [catalytic activity/vol] on 2018-01-02 ALT [Catalytic 47 U/L 0-55 Via activity/Vol] [facility] ([id number]) alp [catalytic activity/vol] on 2018-01-02 ALP [Catalytic 202 U/L High 40-136 Via activity/Vol] [facility] ([id number]) albumin [mass/vol] on 2018-01-02 Albumin [Mass/Vol] 3.4 g/dL 3.2-4.5 Via [facility] ([id number]) Social History No Information Vital Signs The data below is from unstructured sources Vital Response Date/Time Temperature (Fahrenheit) 98.0 degree s F (97.6 - 99.5) 12/24/2015 8:32pm Temperature (Calculated Celsius) 36. 41893 degrees C (36.4 - 37.5) 12/24/2015 8:32pm Temperature Source Temporal 12/24/2015 8:32pm Pulse Rate (adult) 86 bpm (60 - 90) 12/24/2015 8:05pm Respiratory Rate 18 bpm (12 - 24) 12/24/2015 8:05pm O2 Sat by Pulse Oximetry 98 % (88 - 100) 12/24/2015 8:05pm Blood Pressure 143/95 mm Hg 12/24/2015 8:05pm Blood Pressure Mean 111 mm Hg 12/24/2015 8:05pm Pain Numeric Pain Scale 8 8:32pm Height (Feet) 5 feet 8:05pm Height (Inches) 3 inches 12/24/2015 8:05pm Height (Calculated Centimeters) 160. 645839 cm 12/24/2015 8:05pm Weight (Pounds) 289 pounds 12/24/2015 8:05pm Weight (Calculated Kilograms) 131.08 8196 kilograms 12/24/2015 8:05pm Capillary Refill Capillary Refill Less Than 3 Seconds 12/24/2015 8:05pm Height 5 ft 3 in Weight 289 lb Body Mass Index 51.2 kg/m^2 Vital Response Date/Time Temperature (Fahrenheit) 98.2 degree s F (97.6 - 99.5) 01/16/2016 3:50pm Temperature (Calculated Celsius) 36. 17057 degrees C (36.4 - 37.5) 01/16/2016 3:50pm Temperature Source Temporal 01/16/2016 3:50pm Pulse Rate (adult) 75 bpm (60 - 90) 01/16/2016 3:50pm Respiratory Rate 18 bpm (12 - 24) 01/16/2016 3:50pm O2 Sat by Pulse Oximetry 97 % (88 - 100) 01/16/2016 3:50pm Blood Pressure 173/104 mm Hg 01/16/2016 3:50pm Blood Pressure Mean 127 mm Hg 01/16/2016 3:50pm Pain Numeric Pain Scale 0-No Pain 01/16/2016 3:50pm Height (Feet) 5 feet 08/2015 3:50pm Height (Inches) 3 inches 01/16/2016 3:50pm Height (Calculated Centimeters) 160. 637350 cm 01/16/2016 3:50pm Weight (Pounds) 350 pounds 01/16/2016 3:50pm Weight (Ounces) 8.0 oz 1 03/18/2015 3:50pm Weight (Calculated Grams) 643456.196 gm 01/16/2016 3:50pm Weight (Calculated Kilograms) 158.98 4127 kilograms 01/16/2016 3:50pm Calculated BMI 56.15 08/2015 3:50pm Capillary Refill Capillary Refill Less Than 3 Seconds 01/16/2016 3:50pm Vital Response Date/Time Temperature (Fahrenheit) 97.7 degree s F (97.6 - 99.5) 02/20/2016 7:37pm Temperature (Calculated Celsius) 36. 74915 degrees C (36.4 - 37.5) 02/20/2016 7:37pm Temperature Source Tympanic 02/20/2016 7:37pm Pulse Rate (adult) 78 bpm (60 - 90) 02/20/2016 7:37pm Respiratory Rate 18 bpm (12 - 24) 02/20/2016 7:37pm O2 Sat by Pulse Oximetry 98 % (88 - 100) 02/20/2016 7:37pm Blood Pressure 167/85 mm Hg 02/20/2016 7:37pm Blood Pressure Mean 112 mm Hg 02/20/2016 5:23pm Pain Numeric Pain Scale 8 7:37pm Height (Feet) 5 feet 12/2016 5:23pm Height (Inches) 3 inches 02/20/2016 5:23pm Height (Calculated Centimeters) 160. 143028 cm 02/20/2016 5:23pm Weight (Pounds) 292 pounds 02/20/2016 5:23pm Weight (Calculated Kilograms) 132.44 8973 kilograms 02/20/2016 5:23pm Capillary Refill Capillary Refill Less Than 3 Seconds 02/20/2016 5:23pm Height 5 ft 3 in Weight 292 lb Body Mass Index 51.7 kg/m^2 Vital Response Date/Time Temperature (Fahrenheit) 97.6 degree s F (97.6 - 99.5) 08/12/2015 12:22pm Temperature (Calculated Celsius) 36. 27429 degrees C (36.4 - 37.5) 08/12/2015 12:22pm Temperature Source Temporal 08/12/2015 12:22pm Pulse Rate (adult) 61 bpm (60 - 90) 08/12/2015 12:22pm Respiratory Rate 18 bpm (12 - 24) 08/12/2015 12:22pm O2 Sat by Pulse Oximetry 97 % (88 - 100) 08/12/2015 12:22pm Blood Pressure 149/70 mm Hg 08/12/2015 12:22pm Blood Pressure Mean 96 mm Hg 08/12/2015 12:22pm Pain Numeric Pain Scale 5-Moderate Pain 08/12/2015 12:22pm Height (Feet) 5 feet 04/2015 12:22pm Height (Inches) 3 inches 08/12/2015 12:22pm Height (Calculated Centimeters) 160. 033489 cm 08/12/2015 12:22pm Weight (Pounds) 318 pounds 08/12/2015 12:22pm Weight (Ounces) 8.0 oz 0 08/12/2015 12:22pm Weight (Calculated Grams) 170633.375 gm 08/12/2015 12:22pm Weight (Calculated Kilograms) 144.46 9171 kilograms 08/12/2015 12:22pm Calculated BMI 56.15 04/2015 12:22pm Vital Response Date/Time Temperature (Fahrenheit) 97.6 degree s F (97.6 - 99.5) 02/05/2015 3:30pm Temperature (Calculated Celsius) 36. 81374 degrees C (36.4 - 37.5) 02/05/2015 12:00pm Temperature Source Temporal 02/05/2015 3:30pm Pulse Rate (adult) 91 bpm (60 - 90) 02/05/2015 3:30pm Respiratory Rate 18 bpm (12 - 24) 02/05/2015 3:30pm O2 Sat by Pulse Oximetry 95 % (88 - 100) 02/05/2015 3:30pm Blood Pressure 165/92 mm Hg 02/05/2015 3:30pm Blood Pressure Mean 116 mm Hg 02/05/2015 12:00pm Blood Pressure / Pain Pain Intensity 0 2014 12:00pm Height (Feet) 0 feet 9:22am Height (Inches) 63.00 inches 02/05/2015 9:22am Height (Calculated Centimeters) 160. 296250 cm 02/05/2015 9:22am Weight (Pounds) 317 pounds 02/05/2015 9:22am Weight (Ounces) 8.0 oz 1 04/08/2014 5:03am Weight (Calculated Grams) 496299.783 gm 02/05/2015 9:22am Weight (Calculated Kilograms) 143.78 8783 kilograms 02/05/2015 9:22am Calculated BMI 56.15 9:22am Vital Response Date/Time Temperature (Fahrenheit) 97.7 degree s F (97.6 - 99.5) 05/24/2015 10:53am Temperature (Calculated Celsius) 36. 68639 degrees C (36.4 - 37.5) 05/24/2015 10:53am Pulse Rate (adult) 70 bpm (60 - 90) 05/24/2015 10:53am Respiratory Rate 16 bpm (12 - 24) 05/24/2015 10:53am O2 Sat by Pulse Oximetry 98 % (88 - 100) 05/24/2015 10:53am Blood Pressure 142/82 mm Hg 05/24/2015 10:53am Pain Pain Intensity 1 2015 10:53am Height (Feet) 5 feet 9:48am Height (Inches) 3 inches 05/24/2015 9:48am Height (Calculated Centimeters) 160. 409050 cm 05/24/2015 9:48am Weight (Pounds) 318 pounds 05/24/2015 9:48am Weight (Calculated Kilograms) 144.24 2375 kilograms 05/24/2015 9:48am Vital Response Date/Time Temperature (Fahrenheit) 97.7 degree s F (97.6 - 99.5) 05/24/2015 9:48am Temperature (Calculated Celsius) 36. 20574 degrees C (36.4 - 37.5) 05/24/2015 9:48am Pain Pain Intensity 1 2015 9:48am Height (Feet) 5 feet 9:48am Height (Inches) 3 inches 05/24/2015 9:48am Height (Calculated Centimeters) 160. 008317 cm 05/24/2015 9:48am Weight (Pounds) 318 pounds 05/24/2015 9:48am Weight (Calculated Kilograms) 144.24 2375 kilograms 05/24/2015 9:48am Height 5 ft 3 in Weight 318 lb Body Mass Index 56.3 kg/m^2 Vital Response Date/Time Temperature (Fahrenheit) 98.2 degree s F (97.6 - 99.5) 07/12/2016 11:43pm Temperature (Calculated Celsius) 36. 48355 degrees C (36.4 - 37.5) 07/12/2016 11:43pm Temperature Source Temporal 06/19/2016 9:14pm Pulse Rate (adult) 83 bpm (60 - 90) 07/12/2016 11:43pm Respiratory Rate 18 bpm (12 - 24) 07/12/2016 11:43pm O2 Sat by Pulse Oximetry 99 % (88 - 100) 07/12/2016 11:43pm Blood Pressure 163/98 mm Hg 07/12/2016 11:43pm Blood Pressure Mean 119 mm Hg 07/12/2016 8:02pm Pain Numeric Pain Scale 5-Moderate Pain 07/12/2016 11:43pm Height (Feet) 5 feet 04/2016 8:02pm Height (Inches) 3.00 inches 07/12/2016 8:02pm Height (Calculated Centimeters) 160. 229510 cm 07/12/2016 8:02pm Weight (Pounds) 300 pounds 07/12/2016 8:02pm Weight (Ounces) 8.0 oz 0 07/12/2016 8:02pm Weight (Calculated Grams) 668162.712 gm 07/12/2016 8:02pm Weight (Calculated Kilograms) 136.30 4509 kilograms 07/12/2016 8:02pm Calculated BMI 56.15 04/2016 8:02pm Capillary Refill Capillary Refill Less Than 3 Seconds 07/12/2016 8:02pm Vital Response Date/Time Temperature (Fahrenheit) 98.3 degree s F (97.6 - 99.5) Temperature (Calculated Celsius) 36. 02600 degrees C (36.4 - 37.5) Temperature Source Temporal Pulse Rate (adult) 87 bpm (60 - 90) Respiratory Rate 20 bpm (12 - 24) O2 Sat by Pulse Oximetry 95 % (88 - 100) Blood Pressure 171/97 mm Hg Pain Pain Intensity 10 Height (Feet) 5 feet Height (Inches) 3 inches Height (Calculated Centimeters) 160. 269975 cm Weight (Pounds) 300 pounds Weight (Calculated Grams) 033973.120 gm Weight (Calculated Kilograms) 136.07 7712 kilograms Calculated BMI 53.14 Vital Response Date/Time Temperature (Fahrenheit) 99.1 degree s F (97.6 - 99.5) Temperature (Calculated Celsius) 37. 93821 degrees C (36.4 - 37.5) Pulse Rate (adult) 83 bpm (60 - 90) Respiratory Rate 20 bpm (12 - 24) O2 Sat by Pulse Oximetry 99 % (88 - 100) Blood Pressure 178/99 mm Hg Pain Pain Intensity 8 Height (Feet) 5 feet Height (Inches) 1 inches Height (Calculated Centimeters) 154. 667635 cm Weight (Pounds) 350 pounds Weight (Calculated Kilograms) 158.75 7331 kilograms Calculated BMI 66.12 Vital Response Date/Time Temperature (Fahrenheit) 99.2 degree s F (97.6 - 99.5) Temperature (Calculated Celsius) 37. 58040 degrees C (36.4 - 37.5) Temperature Source Tympanic Pulse Rate (adult) 78 bpm (60 - 90) Respiratory Rate 18 bpm (12 - 24) O2 Sat by Pulse Oximetry 95 % (88 - 100) Blood Pressure 130/85 mm Hg Pain Pain Intensity 0 Height (Feet) 5 feet Height (Inches) 3.00 inches Height (Calculated Centimeters) 160. 086699 cm Weight (Pounds) 299 pounds Weight (Calculated Grams) 821396.120 gm Weight (Calculated Kilograms) 135.62 4120 kilograms Calculated BMI 52.96 Vital Response Date/Time Temperature (Fahrenheit) 98.4 degree s F (97.6 - 99.5) 07/27/2016 7:31pm Temperature (Calculated Celsius) 36. 83713 degrees C (36.4 - 37.5) 07/27/2016 7:31pm Temperature Source Temporal 07/27/2016 7:31pm Pulse Rate (adult) 86 bpm (60 - 90) 07/27/2016 8:14pm Respiratory Rate 14 bpm (12 - 24) 07/27/2016 8:14pm O2 Sat by Pulse Oximetry 98 % (88 - 100) 07/27/2016 8:14pm Blood Pressure 160/100 mm Hg 07/27/2016 8:14pm Blood Pressure Mean 115 mm Hg 07/27/2016 7:31pm Pain Numeric Pain Scale 3 8:14pm Height (Feet) 5 feet 7:31pm Height (Inches) 3.00 inches 07/27/2016 7:31pm Height (Calculated Centimeters) 160. 495290 cm 07/27/2016 7:31pm Weight (Pounds) 300 pounds 07/27/2016 7:31pm Weight (Ounces) 8.0 oz 0 07/12/2016 8:02pm Weight (Calculated Grams) 411752.712 gm 07/12/2016 8:02pm Weight (Calculated Kilograms) 136.07 7712 kilograms 07/27/2016 7:31pm Calculated BMI 56.15 04/2016 8:02pm Capillary Refill Capillary Refill Less Than 3 Seconds 07/27/2016 7:31pm Vital Response Date/Time Temperature (Fahrenheit) 97.9 degree s F (97.6 - 99.5) 10/24/2016 3:13pm Temperature (Calculated Celsius) 36. 69073 degrees C (36.4 - 37.5) 10/24/2016 3:13pm Temperature Source Temporal 10/24/2016 3:13pm Pulse Rate (adult) 59 bpm (60 - 90) 10/24/2016 3:13pm Respiratory Rate 20 bpm (12 - 24) 10/24/2016 3:13pm O2 Sat by Pulse Oximetry 98 % (88 - 100) 10/24/2016 3:13pm Blood Pressure 125/71 mm Hg 10/24/2016 3:13pm Blood Pressure Mean 89 mm Hg 10/24/2016 3:13pm Pain Numeric Pain Scale 10-Worst Possible Pain 10/24/2016 3:13pm Height (Feet) 5 feet 3:13pm Height (Inches) 3.00 inches 10/24/2016 3:13pm Height (Calculated Centimeters) 160. 271749 cm 10/24/2016 3:13pm Height Method Stated 3:13pm Weight (Pounds) 300 pounds 10/24/2016 3:13pm Weight (Ounces) 8.0 oz 0 10/24/2016 3:13pm Weight (Calculated Grams) 180532.712 gm 10/24/2016 3:13pm Weight (Calculated Kilograms) 136.30 4509 kilograms 10/24/2016 3:13pm Calculated BMI 56.15 3:13pm Weight Method Stated 3:13pm Capillary Refill Capillary Refill Less Than 3 Seconds 10/24/2016 3:13pm Vital Response Date/Time Temperature (Fahrenheit) 98.2 degree s F (97.6 - 99.5) 11/11/2016 10:33am Temperature (Calculated Celsius) 36. 41557 degrees C (36.4 - 37.5) 11/11/2016 10:33am Temperature Source Temporal 10/24/2016 5:04pm Pulse Rate (adult) 77 bpm (60 - 90) 11/11/2016 10:33am Respiratory Rate 18 bpm (12 - 24) 11/11/2016 10:33am O2 Sat by Pulse Oximetry 97 % (88 - 100) 11/11/2016 10:33am Blood Pressure 144/68 mm Hg 11/11/2016 10:33am Blood Pressure Mean 93 mm Hg 11/11/2016 10:33am Pain Numeric Pain Scale 9 10:33am Height (Feet) 5 feet 04/2016 10:33am Height (Inches) 4.00 inches 11/11/2016 10:33am Height (Calculated Centimeters) 162. 523798 cm 11/11/2016 10:33am Height Method Stated 3:13pm Weight (Pounds) 300 pounds 11/11/2016 10:33am Weight (Ounces) 8.0 oz 0 10/24/2016 3:13pm Weight (Calculated Grams) 495860.712 gm 10/24/2016 3:13pm Weight (Calculated Kilograms) 136.07 7712 kilograms 11/11/2016 10:33am Calculated BMI 56.15 3:13pm Weight Method Stated 04/2016 10:33am Capillary Refill Capillary Refill Less Than 3 Seconds 11/11/2016 10:33am Vital Response Date/Time Temperature (Fahrenheit) 98.8 degree s F (97.6 - 99.5) 03/17/2017 7:51pm Temperature (Calculated Celsius) 37. 17490 degrees C (36.4 - 37.5) 03/17/2017 7:51pm Temperature Source Temporal 03/17/2017 7:51pm Pulse Rate (adult) 83 bpm (60 - 90) 03/17/2017 7:51pm Respiratory Rate 20 bpm (12 - 24) 03/17/2017 7:51pm O2 Sat by Pulse Oximetry 99 % (88 - 100) 03/17/2017 9:35pm Blood Pressure 156/96 mm Hg 03/17/2017 7:51pm Blood Pressure Mean 116 mm Hg (65 - 110) 03/17/2017 7:51pm Pain Numeric Pain Scale 7 8:42pm Height (Feet) 5 feet 07/2017 7:51pm Height (Inches) 3.00 inches 03/17/2017 7:51pm Height (Calculated Centimeters) 160. 819839 cm 03/17/2017 7:51pm Height Method Stated 07/2017 7:51pm Weight (Pounds) 290 pounds 03/17/2017 7:51pm Weight (Calculated Kilograms) 131.54 1789 kilograms 03/17/2017 7:51pm Weight Method Stated 07/2017 7:51pm Capillary Refill Capillary Refill Less Than 3 Seconds 03/17/2017 7:51pm Height 5 ft 3 in 018 7:51pm Weight 290 lb 03/17/2017 7:51pm Body Mass Index 51.4 kg/m^2 03/17/2017 7:51pm Blood pressure systolic 131 mmHg 2016-07-10 Blood pressure diastolic 69 mmHg 2016-07-10 Vital Response Date/Time Temperature (Fahrenheit) 98.4 degree s F (97.6 - 99.5) 07/15/2017 6:55pm Temperature (Calculated Celsius) 36. 02271 degrees C (36.4 - 37.5) 07/15/2017 6:55pm Temperature Source Temporal 07/15/2017 6:55pm Pulse Rate (adult) 53 bpm (60 - 90) 07/15/2017 6:34pm Respiratory Rate 18 bpm (12 - 24) 07/15/2017 6:34pm O2 Sat by Pulse Oximetry 95 % (88 - 100) 07/15/2017 6:34pm Blood Pressure 165/87 mm Hg 07/15/2017 6:34pm Blood Pressure Mean 113 mm Hg (65 - 110) 07/15/2017 6:34pm Pain Numeric Pain Scale 8 6:55pm Height (Feet) 5 feet 07/2017 6:34pm Height (Inches) 3.00 inches 07/15/2017 6:34pm Height (Calculated Centimeters) 160. 561197 cm 07/15/2017 6:34pm Weight (Pounds) 280 pounds 07/15/2017 6:34pm Weight (Calculated Grams) 602011.87 gm 07/15/2017 6:34pm Weight (Calculated Kilograms) 127.00 5865 kilograms 07/15/2017 6:34pm Weight Method Stated 07/2017 6:34pm Capillary Refill Capillary Refill Less Than 3 Seconds 07/15/2017 6:34pm Height 5 ft 3 in 018 6:34pm Weight 280 lb 07/15/2017 6:34pm Body Mass Index 49.6 kg/m^2 07/15/2017 6:34pm Vital Response Date/Time Temperature (Fahrenheit) 98.7 degree s F (97.6 - 99.5) 11/10/2017 7:02pm Temperature (Calculated Celsius) 37. 51731 degrees C (36.4 - 37.5) 11/10/2017 7:02pm Temperature Source Temporal 11/10/2017 7:02pm Pulse Rate (adult) 68 bpm (60 - 90) 11/10/2017 7:02pm Respiratory Rate 16 bpm (12 - 24) 11/10/2017 7:02pm O2 Sat by Pulse Oximetry 100 % (88 - 100) 11/10/2017 7:02pm Blood Pressure 169/69 mm Hg 11/10/2017 7:02pm Blood Pressure Mean 102 mm Hg (65 - 110) 11/10/2017 7:02pm Pain Numeric Pain Scale 5-Moderate Pain 11/10/2017 7:02pm Height (Feet) 5 feet 03/2017 7:02pm Height (Inches) 3.00 inches 11/10/2017 7:02pm Height (Calculated Centimeters) 160. 274803 cm 11/10/2017 7:02pm Height Method Stated 03/2017 7:02pm Weight (Pounds) 280 pounds 11/10/2017 7:02pm Weight (Ounces) 0.0 oz 1 7:02pm Weight (Calculated Grams) 421918.87 gm 11/10/2017 7:02pm Weight (Calculated Kilograms) 127.00 5865 kilograms 11/10/2017 7:02pm Calculated BMI 42.2 03/2017 7:02pm Weight Method Stated 03/2017 7:02pm Capillary Refill Capillary Refill Less Than 3 Seconds 11/10/2017 7:02pm Vital Response Date/Time Pain Numeric Pain Scale 8 7:37pm Functional Status The data below is from unstructured sources Query Response Date Jung rded Patient Orientation Person Place Time Situation February 05, 2015 3:52pm Comprehension Ability Understands Co ncepts February 05, 2015 9:00am Query Response Date Jung rded Patient Orientation Person Place Time Situation Normal For Age September 14, 2013 4:54pm Comprehension Ability Understands Co ncepts September 13, 2013 9:05pm Mental Status No Information History general Narrative - Reported Note Date & Note Facility Type History general Narrative - Reported Type Medical hypertension History Medical hyperlipidemia History Medical Adjustment disorder with de pressed mood History Surgical cholecystectomy History Surgical right knee arthroscopy 2011 History Surgical D&C History Hospitalizatio Surgery(s)/Childbirth(s) on ly n History Hospitalizatio anxiety 2015 n History [facility] ([id number]) Advance Directives Directive Response Recor ded Date/Time Advance Directives No 8:05pm Health Care Power of Metal [employer] Scientist No 12/24/15 8:05pm Organ Donor No 12/24/15 8:05pm Resuscitation Status Full Code 12/24/15 8:05pm Directive Response Recor ded Date/Time Advance Directives No 3:50pm Health Care Power of Metal [employer] Scientist No 01/16/16 3:50pm Organ Donor No 01/16/16 3:50pm Resuscitation Status Full Code 01/16/16 3:50pm Directive Response Recor ded Date/Time Advance Directives No 3:50pm Health Care Power of Metal [employer] Scientist No 01/16/16 3:50pm Organ Donor No 01/16/16 3:50pm Directive Response Recor ded Date/Time Advance Directives No 12:16pm Health Care Power of Metal [employer] Scientist No 08/12/15 12:16pm Organ Donor No 08/12/15 12:16pm Resuscitation Status Full Code 08/12/15 12:16pm Directive Response Recor ded Date/Time Advance Directives No 10:41pm Health Care Power of [employer] Scientist No 02/04/15 10:41pm Organ Donor No 02/04/15 10:41pm Directive Response Recor ded Date/Time Advance Directives No 10:41pm Health Care Power of Metal [employer] Scientist No 02/04/15 10:41pm Organ Donor No 02/04/15 10:41pm Resuscitation Status Full Code 02/04/15 10:41pm Directive Response Recor ded Date/Time Advance Directives No 9:52am Health Care Power of Metal [employer] Scientist No 05/24/15 9:52am Organ Donor No 05/24/15 9:52am Directive Response Recor ded Date/Time Advance Directives No 9:52am Health Care Power of Metal [employer] Scientist No 05/24/15 9:52am Organ Donor No 05/24/15 9:52am Resuscitation Status Full Code 05/24/15 9:52am Directive Response Recor ded Date/Time Advance Directives No 8:02pm Health Care Power of Metal [employer] Scientist No 07/12/16 8:02pm Organ Donor No 07/12/16 8:02pm Resuscitation Status Full Code 07/12/16 8:02pm Directive Response Recor ded Date/Time Advance Directives No 8:40am Health Care Power of Metal [employer] Scientist No 09/16/13 8:40am Organ Donor No 09/16/13 8:40am Resuscitation Status Full Code 09/16/13 8:40am Directive Response Recor ded Date/Time Advance Directives No 6:30pm Health Care Power of Metal [employer] Scientist No 08/05/14 6:30pm Organ Donor No 08/05/14 6:30pm Resuscitation Status Full Code 08/05/14 6:30pm Directive Response Recor ded Date/Time Advance Directives No 2:41pm Health Care Power of Metal [employer] Scientist No 09/13/13 2:41pm Organ Donor No 09/13/13 2:41pm Resuscitation Status Full Code 09/13/13 2:41pm Resuscitation Status Full Code 09/13/13 2:26pm Directive Response Recor ded Date/Time Advance Directives No 7:31pm Health Care Power of Metal [employer] Scientist No 07/27/16 7:31pm Organ Donor No 07/27/16 7:31pm Resuscitation Status Full Code 07/27/16 7:31pm Directive Response Recor ded Date/Time Advance Directives No 7:31pm Health Care Power of Metal [employer] Scientist No 07/27/16 7:31pm Organ Donor No 07/27/16 7:31pm Directive Response Recor ded Date/Time Advance Directives No 3:13pm Health Care Power of Metal [employer] Scientist No 10/24/16 3:13pm Organ Donor No 10/24/16 3:13pm Resuscitation Status Full Code 10/24/16 3:13pm Directive Response Recor ded Date/Time Advance Directives No 10:38am Health Care Power of Metal [employer] Scientist No 11/11/16 10:38am Organ Donor No 11/11/16 10:38am Resuscitation Status Full Code 11/11/16 10:38am Directive Response Recor ded Date/Time Advance Directives No 7:51pm Health Care Power of Metal [employer] Scientist No 03/17/17 7:51pm Organ Donor No 03/17/17 7:51pm Resuscitation Status Full Code 03/17/17 7:51pm Directive Response Recor ded Date/Time Advance Directives No 6:45pm Health Care Power of Metal [employer] Scientist No 07/15/17 6:45pm Organ Donor No 07/15/17 6:45pm Resuscitation Status Full Code 07/15/17 6:45pm Directive Response Recor ded Date/Time Advance Directives No 7:02pm Health Care Power of Metal [employer] Scientist No 11/10/17 7:02pm Organ Donor No 11/10/17 7:02pm Resuscitation Status Full Code 11/10/17 7:02pm Directive Response Recor ded Date/Time Advance Directives No 7:02pm Health Care Power of Metal [employer] Scientist No 11/10/17 7:02pm Organ Donor No 11/10/17 7:02pm Discharge Instructions No hospital discharge instructions.No hospital discharge instructions.No hospital discharge instructions.No hospital discharge instructions.No hospital discharge instructions.No hospital discharge instructions.Current inpatient/outpatient. Discharge instructions are currently unavailable.No hospital discharge instructions.No hospital discharge instructions.No hospital discharge instruction information available.No hospital discharge instructions.No hospital discharge instructions.No hospital discharge instructions.No hospital discharge instruction information available.Current inpatient/outpatient. Discharge instructions are currently unavailable.No hospital discharge instruction information available.No hospital discharge instruction information available.No hospital discharge instruction information available.No hospital discharge instruction information available.No hospital discharge instruction information available.No hospital discharge instruction information available. Summary Purpose eClinicalWorks SubmissioneClinicalWorks SubmissioneClinicalWorks SubmissioneClinicalWorks Submission Chief Complaint and Reason for Visit Chief Complaint Upper Extremity Reason for Visit [id number] Chief Complaint Abdominal/GI Problem s Reason for Visit [id number] Hypomagnesemia Additional Source Comments This clinical document has been generated using [employer] software that has been certified by the Office of the National Coordinator for Health Information Technology (ONC 15.99.04.3023.Diam.31.00.0.207029) and the National Committee for Communications Systems Engineer (NCQA, as an eMeasure certified technology). FOR RECORDS PERTAINING TO PATIENTS WHO ARE OR HAVE BEEN ENROLLED IN A CHEMICAL D EPENDENCY/SUBSTANCE ABUSE PROGRAM, SOME INFORMATION MAY BE OMITTED. This clinica l summary was aggregated from multiple sources. Caution should be exercised in using it in the provision of clinical care. This summary normalizes information from multiple sources, and as a consequence, information in this document may ma terially change the coding, format and clinical context of patient data. In billy tion, data may be omitted in some cases. CLINICAL DECISIONS SHOULD BE BASED ON T HE PRIMARY CLINICAL RECORDS. [employer] [facility]. provides no warranty or guara ntee of the accuracy or completeness of information in this document.The followi information is based on time limited clinical information
--- OUTSIDE RECORDS SUMMARY | 2019-08-31 11:45 | XMS REPORT | Continuity of Care Document ---
Author Organization Unknown Address Unknown Phone Unavailable Allergies Active Description Code Type Severity Reaction Onset Reported/Identified Relationship to Patient Clinical Status Yes Penicillins [id number] Drug Aller gy Mild N/A 11/10/2017 Medications There is no data. Problems Date Dx Coded Attending Type Code Diagnosis Diagnosed By 01/09/1048 ANUP MONTANA, MELE Rose Ot M54.5 LOW BACK PAIN 01/08/1054 DOROTA CABELLO EXECUTIVE VICE 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 Ot R60.0 LOCALIZED EDEMA 01/08/1319 ANUP MONTANA, MELE Rose Ot R60.9 EDEMA, UNSPECIFIED 09/20/2009 Ot 717.9 09/20/2009 Ot 786.52 09/20/2009 Ot 959.7 09/20/2009 Ot E818.9 09/20/2009 Ot E849.5 09/21/2009 Ot 787.01 11/24/2009 Ot 787.03 11/24/2009 Ot E935.2 02/15/2010 Ot 401.9 02/15/2010 Ot 530.81 02/15/2010 Ot 786.50 02/15/2010 Ot V58.69 11/27/2011 Ot 272.4 HYPE RLIPIDEMIA NEC/NOS 11/27/2011 Ot 278.00 OBE SITY, NOS 11/27/2011 Ot 401.9 HYPE RTENSION NOS 11/27/2011 Ot 414.01 COR ONARY ATHEROSCLEROSIS OF [place] CORON 11/27/[address] PAIN NEC 11/27/2011 Ot V58.69 OTH MED,LT,CURRENT USE 11/27/2011 Ot V85.43 BOD Y MASS INDEX 50.0-59.9, ADULT 08/25/2012 SHIV ORTA DO 309.0 AD ADJ D/O W DEPRESSED 08/25/2012 SHIV ORTA DO 317 MENTAL RETARDATION-MILD 11/01/2012 SHIV ORTA DO 309.28 AD ADJ D/O W ANX DEP MOOD 11/01/2012 ORTA DO, SHIV K V04.81 FLU SHOT 02/02/2013 CHENTE SHORT DO Ot 599.0 URIN TRACT INFECTION NOS 02/02/2013 CHENTE SHORT DO Ot 724.2 LUMBAGO 04/20/2013 RUSS HERNANDEZ EDUCATIONAL ADVISOR Ot 728. 71 PLANTAR FIBROMATOSIS 04/20/2013 RUSS HERNANDEZ EDUCATIONAL ADVISOR Ot V57. 1 PHYSICAL THERAPY NEC 09/14/2013 MELE HEBERT MD Ot 041.49 OTHER AND UNSPECIFIED ESCHERICHIA COLI [ 09/14/2013 ANUP MONTANA, MELE Rose Ot 272.4 HYPERLIPIDEMIA NEC/NOS 09/14/2013 MELE HEBERT MD Ot 278.01 MORBID OBESITY 09/14/2013 MELE HEBERT MD Ot 401.9 HYPERTENSION NOS 09/14/2013 MELE HEBERT MD Ot 414.01 CORONARY ATHEROSCLEROSIS OF [place] CORON 09/14/2013 MELE HEBERT MD Ot 530.81 ESOPHAGEAL REFLUX 09/14/2013 MELE HEBERT MD Ot 599.0 URIN TRACT INFECTION NOS 09/14/2013 MLEE HEBERT MD Ot 780.8 GENERALIZED HYPERHIDROSIS 09/14/2013 [...] 07/28/2014 Ot V58.69 07/28/2014 BAIMA, IMTIAZ L EDUCATIONAL ADVISOR Ot 272.4 07/28/2014 ANUP MONTANA, MELE Rose Ot V76.19 07/28/2014 JOE MONTANA FAC, ALI FACP CCDS Ot 401.9 07/28/2014 JOE MONTANA FAC, ALI FACP CCDS Ot V58.69 07/28/2014 BAIMA, IMTIAZ L EDUCATIONAL ADVISOR Ot 272.4 07/28/2014 BAIMA, IMTIAZ L EDUCATIONAL ADVISOR Ot 401.9 07/28/2014 BAIMA, IMTIAZ L EDUCATIONAL ADVISOR Ot 414.01 07/28/2014 BAIMA, IMTIAZ L EDUCATIONAL ADVISOR Ot V58.69 07/28/2014 ANTONIO MONTANA, ALISON Bush Ot 599.7 0 07/28/2014 ANTONIO MONTANA, ALISON Bush Ot 793.5 07/28/2014 BAIMA, IMTIAZ L EDUCATIONAL ADVISOR Ot 272.4 07/28/2014 BAIMA, IMTIAZ L EDUCATIONAL ADVISOR Ot 414.00 07/28/2014 ANUP MONTANA, MELE Rose Ot V76.12 07/28/2014 BAIMA, IMTIAZ L EDUCATIONAL ADVISOR Ot 272.4 07/28/2014 BAIMA, IMTIAZ L EDUCATIONAL ADVISOR Ot 278.00 07/28/2014 BAIMA, IMTIAZ L EDUCATIONAL ADVISOR Ot 401.9 07/28/2014 BAIMA, IMTIAZ L EDUCATIONAL ADVISOR Ot 414.00 07/28/2014 BAIMA, IMTIAZ L EDUCATIONAL ADVISOR Ot 790.21 07/28/2014 Ot 272.4 07/28/2014 Ot 414.00 08/04/2014 BAIMA, IMITAZ L EDUCATIONAL ADVISOR Ot 272.4 08/04/2014 BAIMA, IMTIAZ L EDUCATIONAL ADVISOR Ot 401.9 08/04/2014 IMTIAZ BRYANT EDUCATIONAL ADVISOR Ot 414.9 08/04/2014 BAIIMTIAZ ADHIKARI L EDUCATIONAL ADVISOR Ot 782.3 08/05/2014 SHERRI PUENTES EXECUTIVE VICE 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 Ot 724 .2 LUMBAGO 08/05/2014 SHERRI PUENTES EXECUTIVE VICE 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 Ot 724 .4 LUMBOSACRAL NEURITIS NOS 08/15/2014 BAIIMTIAZ ADHIKARI L EDUCATIONAL ADVISOR Ot 272.4 08/15/2014 BAIIMTIAZ ADHIKARI L EDUCATIONAL ADVISOR Ot 401.9 08/15/2014 BAIIMTIAZ ADHIKARI L EDUCATIONAL ADVISOR Ot 414.9 08/15/2014 BAIIMTIAZ ADHIKARI EDUCATIONAL ADVISOR Ot 782.3 08/22/2014 SHERRI PUENTES EXECUTIVE VICE 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 Ot 465 .9 ACUTE URI NOS 08/22/2014 SHERRI PUENTES EXECUTIVE VICE 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 Ot 780 .4 DIZZINESS AND GIDDINESS 09/07/2014 ANUP MONTANA, MELE Rose Ot 724.2 09/21/2014 DOROTA CABELLO EXECUTIVE VICE 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 Ot V76.12 10/06/2014 DOROTA CABELLO EXECUTIVE VICE 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 Ot V76.12 10/18/2014 DOROTA CABELLO EXECUTIVE VICE 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 Ot 786.05 11/02/2014 DOROTA CABELLO EXECUTIVE VICE 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 Ot 272.4 11/02/2014 DOROTA CABELLO EXECUTIVE VICE 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 Ot 780.79 12/18/2014 DOROTA CABELLO EXECUTIVE VICE 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 Ot R73.09 12/18/2014 IMTIAZ BRYANT EDUCATIONAL ADVISOR Ot E78.5 12/18/2014 IMTIAZ BRYANT EDUCATIONAL ADVISOR Ot I25.10 02/05/2015 HIREN STYLES MD Ot E66. 9 OBESITY, UNSPECIFIED 02/05/2015 HIREN STYLES MD Ot E78. 5 HYPERLIPIDEMIA, UNSPECIFIED 02/05/2015 HIREN STYLES MD Ot I10 ESSENTIAL (PRIMARY) HYPERTENSION 02/05/2015 HIREN STYLES MD Ot I25. 10 ATHSCL HEART DISEASE OF [place] CORONARY 02/05/2015 HIREN STYLES MD Ot K21. 9 GASTRO-ESOPHAGEAL REFLUX DISEASE WITHOUT 02/05/2015 HIREN STYLES MD Ot R07. 89 OTHER CHEST PAIN 02/05/2015 HIREN STYLES MD Ot Z68. 43 BODY MASS INDEX (BMI) 50-59.9 , ADULT [...] 04/05/2015 Ot 272.4 04/05/2015 Ot V58.69 04/05/2015 ANNETTE IMTIAZ L EDUCATIONAL ADVISOR Ot 272.4 04/05/2015 ANUP MONTANA, MELE Rose Ot V76.19 04/05/2015 JOE MONTANA FAC, ALI FACP CCDS Ot 401.9 04/05/2015 JOE MONTANA FAC, ALI FACP CCDS Ot V58.69 04/05/2015 ANNETTE, IMTIAZ L EDUCATIONAL ADVISOR Ot 272.4 04/05/2015 BAIMA, IMTIAZ L EDUCATIONAL ADVISOR Ot 401.9 04/05/2015 BAIMA, IMTIAZ L EDUCATIONAL ADVISOR Ot 414.01 04/05/2015 BAIMA, IMTIAZ L EDUCATIONAL ADVISOR Ot V58.69 04/05/2015 ANTONIO MONTANA, ALISON Bush Ot 599.7 0 04/05/2015 ANTONIO MONTANA, ALISON Bush Ot 793.5 04/05/2015 BAIMA, IMTIAZ L EDUCATIONAL ADVISOR Ot 272.4 04/05/2015 BAIMA, IMTIAZ L EDUCATIONAL ADVISOR Ot 414.00 04/05/2015 ANUP MONTANA, MELE Rose Ot V76.12 04/05/2015 BAIMA, IMTIAZ L EDUCATIONAL ADVISOR Ot 272.4 04/05/2015 BAIMA, IMTIAZ L EDUCATIONAL ADVISOR Ot 278.00 04/05/2015 BAIIMTIAZ ADHIKARI L EDUCATIONAL ADVISOR Ot 401.9 04/05/2015 BAIMA, IMTIAZ L EDUCATIONAL ADVISOR Ot 414.00 04/05/2015 BAIMA, IMTIAZ L EDUCATIONAL ADVISOR Ot 790.21 04/05/2015 Ot 272.4 04/05/2015 Ot 414.00 04/05/2015 BAIMA, IMTIAZ L EDUCATIONAL ADVISOR Ot 272.4 04/05/2015 BAIMA, IMTIAZ L EDUCATIONAL ADVISOR Ot 401.9 04/05/2015 BAIMA, IMTIAZ L EDUCATIONAL ADVISOR Ot 414.9 04/05/2015 BAIMA, IMTIAZ L EDUCATIONAL ADVISOR Ot 782.3 04/05/2015 ANUP MONTANA, MELE Rose Ot 724.2 04/05/2015 DOROTA CABELLO APRN Ot V76.12 04/05/2015 DOROTA CABELLO EXECUTIVE VICE 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 Ot 786.05 04/05/2015 DOROTA CABELLO EXECUTIVE VICE 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 Ot 272.4 04/05/2015 DOROTA CABELLO EXECUTIVE VICE 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 Ot 780.79 04/05/2015 DOROTA CABELLO EXECUTIVE VICE 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 Ot R73.09 04/05/2015 BAIIMTIAZ ADHIKARI L EDUCATIONAL ADVISOR Ot E78.5 04/05/2015 BAIIMTIAZ ADHIKARI L EDUCATIONAL ADVISOR Ot I25.10 04/06/2015 CHRIS CORDOVA DO Ot G47. 33 OBSTRUCTIVE SLEEP APNEA (ADULT) (PEDIATR 04/06/2015 CHRIS CORDOVA DO Ot I10 ESSENTIAL (PRIMARY) HYPERTENSION 05/08/2015 DOROTA CABELLO APRN Ot R60.0 05/23/2015 CHRIS CORDOVA DO Ot G47. 33 OBSTRUCTIVE SLEEP APNEA (ADULT) (PEDIATR 05/24/2015 SHERRI PUENTES EXECUTIVE VICE 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 Ot L01.00 IMPETIGO, UNSPECIFIED 05/24/2015 SHERRI PUENTES EXECUTIVE VICE 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 Ot L01.00 05/25/2015 DOROTA CABELLO APRN Ot R60.0 LOCALIZED EDEMA 06/01/2015 DOROTA CABELLO APRN Ot R60.0 LOCALIZED EDEMA 06/13/2015 DOROTA CABELLO EXECUTIVE VICE 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 Ot R60.0 LOCALIZED EDEMA 06/21/2015 ANNETTEMAGDIELIMTIAZ L EDUCATIONAL ADVISOR Ot E78.5 HYPERLIPIDEMIA, UNSPECIFIED 08/12/2015 LUIS A MONTANA, VIOLA Rose Ot M54.9 DORSALGIA, UNSPECIFIED 08/17/2015 LUIS A MONTANA, VIOLA Rose Ot M54.9 DORSALGIA, UNSPECIFIED 11/28/2015 Ot V76.12 OTH SCREEN MAMMO- MALIGN NEOPLASM OF [place] 11/28/2015 Ot 401.9 HYPE RTENSION NOS 11/28/2015 Ot 272.0 PURE HYPERCHOLESTEROLEM 11/28/2015 Ot 401.9 HYPE RTENSION NOS 11/28/2015 Ot 428.0 UMAIR ESTIVE HEART FAILURE NOS 11/28/2015 Ot 786.05 FRANKO RTNESS OF BREATH 11/28/2015 Ot 272.4 HYPE RLIPIDEMIA NEC/NOS 11/28/[address] PAIN NEC 11/28/2015 Ot 401.9 HYPE RTENSION NOS 11/28/2015 Ot 414.00 COR ON ATHEROSCLER NOS TYPE VESSEL, NATIV 11/28/2015 Ot 272.4 HYPE RLIPIDEMIA NEC/NOS 11/28/2015 Ot V58.69 OTH MED,LT,CURRENT USE 11/28/2015 Ot 272.4 HYPE RLIPIDEMIA NEC/NOS 11/28/2015 Ot V58.69 OTH MED,LT,CURRENT USE 11/28/2015 BAIMA, IMTIAZ L EDUCATIONAL ADVISOR Ot 272.4 HYPERLIPIDEMIA NEC/NOS 11/28/2015 ANUP MONTANA, MELE Rose Ot V76.19 OTH SCREEN BREAST EXAM FOR MALIGNANT CADE 11/28/2015 JOE MONTANA FACC, ALI FACP CCDS Ot 401.9 HYPERTENSION NOS 11/28/2015 JOE MONTANA FACC, ALI FACP CCDS Ot V58.69 OTH MED,LT,CURRENT USE 11/28/2015 BAIMA, IMTIAZ L EDUCATIONAL ADVISOR Ot 272.4 HYPERLIPIDEMIA NEC/NOS 11/28/2015 BAIMA, IMTIAZ L EDUCATIONAL ADVISOR Ot 401.9 HYPERTENSION NOS 11/28/2015 BAIMA, IMTIAZ L EDUCATIONAL ADVISOR Ot 414.01 CORONARY ATHEROSCLEROSIS OF [place] CORON 11/28/2015 BAIMA, IMTIAZ L EDUCATIONAL ADVISOR Ot V58.69 OTH MED,LT,CURRENT USE 11/28/2015 ANTONIO MONTANA, ALISON Bush Ot 599.7 0 HEMATURIA, UNSPECIFIED 11/28/2015 ANTONIO MONTANA, ALISON Bush Ot 793.5 NOSP (ABN) FINDINGS ON RADIOLOGICAL OT 11/28/2015 BAIMA, IMTIAZ L EDUCATIONAL ADVISOR Ot 272.4 HYPERLIPIDEMIA NEC/NOS 11/28/2015 BAIMA, IMTIAZ L EDUCATIONAL ADVISOR Ot 414.00 CORON ATHEROSCLER NOS TYPE VESSEL, NATIV 11/28/2015 ANUP MONTANA, MELE Rose Ot V76.12 OTH SCREEN MAMMO-MALIGN NEOPLASM OF [place] 11/28/2015 BAIMA, IMTIAZ L EDUCATIONAL ADVISOR Ot 272.4 HYPERLIPIDEMIA NEC/NOS 11/28/2015 BAIMA, IMTIAZ L EDUCATIONAL ADVISOR Ot 278.00 OBESITY, NOS 11/28/2015 BAIMA, IMTIAZ L EDUCATIONAL ADVISOR Ot 401.9 HYPERTENSION NOS 11/28/2015 BAIMA, IMTIAZ L EDUCATIONAL ADVISOR Ot 414.00 CORON ATHEROSCLER NOS TYPE VESSEL, NATIV 11/28/2015 BAIMA, IMTIAZ L EDUCATIONAL ADVISOR Ot 790.21 IMPAIRED FASTING GLUCOSE 11/28/2015 Ot 272.4 HYPE RLIPIDEMIA NEC/NOS 11/28/2015 Ot 414.00 COR ON ATHEROSCLER NOS TYPE VESSEL, NATIV 11/28/2015 BAIMA, IMTIAZ L EDUCATIONAL ADVISOR Ot 272.4 HYPERLIPIDEMIA NEC/NOS 11/28/2015 BAIMA, IMTIAZ L EDUCATIONAL ADVISOR Ot 401.9 HYPERTENSION NOS 11/28/2015 BAIMA, IMTIAZ L EDUCATIONAL ADVISOR Ot 414.9 CHR ISCHEMIC HRT DIS NOS 11/28/2015 BAIMA, IMTIAZ L EDUCATIONAL ADVISOR Ot 782.3 EDEMA 11/28/2015 ANUP MONTANA, MELE Rose Ot 724.2 LUMBAGO 11/28/2015 DOROTA CABELLO EXECUTIVE VICE 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 Ot V76.12 OTH SCREEN MAMMO-MALIGN NEOPLASM OF [place] 11/28/2015 DORTOA CABELLO EXECUTIVE VICE 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 Ot 786.05 SHORTNESS OF BREATH 11/28/2015 DOROTA CABELLO EXECUTIVE VICE 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 Ot 272.4 HYPERLIPIDEMIA NEC/NOS 11/28/2015 DOROTA CABELLO EXECUTIVE VICE 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 Ot 780.79 OTH MALAISE FATIGUE 11/28/2015 DOROTA CABELLO N EXECUTIVE VICE 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 Ot R73.09 OTHER ABNORMAL GLUCOSE 11/28/2015 BAIMA, IMTIAZ L EDUCATIONAL ADVISOR Ot E78.5 HYPERLIPIDEMIA, UNSPECIFIED 11/28/2015 BAIMA, IMTIAZ L EDUCATIONAL ADVISOR Ot I25.10 ATHSCL HEART DISEASE OF [place] CORONARY 11/28/2015 BAIMA, IMTIAZ L EDUCATIONAL ADVISOR Ot E78.5 HYPERLIPIDEMIA, UNSPECIFIED 12/13/2015 BAIMA, IMTIAZ L EDUCATIONAL ADVISOR Ot I 10 ESSENTIAL (PRIMARY) HYPERTENSION 12/13/2015 IMTIAZ BRYANT SARAH Ot R53.83 OTHER FATIGUE 12/24/2015 SHERRI PUENTES APRN Ot H61.22 IMPACTED CERUMEN, LEFT EAR 12/24/2015 SHERRI PUENTES APRN Ot I10 ESSENTIAL (PRIMARY) HYPERTENSION 12/24/2015 SHERRI PUENTES APRN Ot J02 .9 ACUTE PHARYNGITIS, UNSPECIFIED 12/24/2015 SHERRI PUENTES APRN Ot J06 .9 ACUTE UPPER RESPIRATORY INFECTION, UNSPE 12/24/2015 SHERRI PUENTES APRN Ot Z79.82 LIFE TEACHER (CURRENT) USE OF ASPIRIN 12/24/2015 SHERRI PUENTES APRN Ot Z79.899 OTHER LIFE TEACHER (CURRENT) DRUG THERAPY 12/25/2015 SHERRI PUENTES APRN Ot H61.22 IMPACTED CERUMEN, LEFT EAR 12/25/2015 SHERRI PUENTES APRN Ot I10 ESSENTIAL (PRIMARY) HYPERTENSION 12/25/2015 SHERRI PUENTES APRN Ot J02 .9 ACUTE PHARYNGITIS, UNSPECIFIED 12/25/2015 SHERRI PUENTES APRN Ot J06 .9 ACUTE UPPER RESPIRATORY INFECTION, UNSPE 12/25/2015 SHERRI PUENTES APRN Ot Z79.82 LIFE TEACHER (CURRENT) USE OF ASPIRIN 12/25/2015 SHERRI PUENTES APRN Ot Z79.899 OTHER HALF-WAY (CURRENT) DRUG THERAPY 01/14/2016 MELE HEBERT MD Ot E78.00 PURE HYPERCHOLESTEROLEMIA, UNSPECIFIED 01/14/2016 MELE HEBERT MD Ot I25.10 ATHSCL HEART DISEASE OF [place] CORONARY 01/14/2016 MELE HEBERT MD Ot R73.9 HYPERGLYCEMIA, UNSPECIFIED 01/16/2016 SHERRI PUENTES APRN Ot I10 ESSENTIAL (PRIMARY) HYPERTENSION 01/16/2016 SHERRI PUENTES APRN Ot M79.662 PAIN IN LEFT LOWER LEG 01/16/2016 SHERRI PUENTES APRN Ot Z79.82 HALF-WAY (CURRENT) USE OF ASPIRIN 01/16/2016 SHERRI PUENTES APRN Ot Z79.899 OTHER LIFE TEACHER (CURRENT) DRUG THERAPY 01/17/2016 SHERRI PUENTES APRN Ot I10 ESSENTIAL (PRIMARY) HYPERTENSION 01/17/2016 PUENTES, PETER J EXECUTIVE VICE 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 Ot M79.662 PAIN IN LEFT LOWER LEG 01/17/2016 SHERRI PUENTES EXECUTIVE VICE 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 Ot Z79.82 LIFE TEACHER (CURRENT) USE OF ASPIRIN 01/17/2016 SHERRI PUENTES EXECUTIVE VICE 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 Ot Z79.899 OTHER HALF-WAY (CURRENT) DRUG THERAPY 01/18/2016 PUENTESSHERRI EXECUTIVE VICE 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 Ot I10 ESSENTIAL (PRIMARY) HYPERTENSION 01/18/2016 SHERRI PUENTES EXECUTIVE VICE 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 Ot M79.662 PAIN IN LEFT LOWER LEG 01/18/2016 SHERRI PUENTES EXECUTIVE VICE 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 Ot Z79.82 HALF-WAY (CURRENT) USE OF ASPIRIN 01/18/2016 SHERRI PUENTES EXECUTIVE VICE 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 Ot Z79.899 OTHER HALF-WAY (CURRENT) DRUG THERAPY 01/24/2016 ANUP MONTANA, MELE Rose Ot E78.00 PURE HYPERCHOLESTEROLEMIA, UNSPECIFIED 01/24/2016 MELE HEBERT MD Ot I25.10 ATHSCL HEART DISEASE OF [place] CORONARY 01/24/2016 ANUP MONTANA, MELE Rose Ot R73.9 HYPERGLYCEMIA, UNSPECIFIED 02/20/2016 Ot V76.12 OTH SCREEN MAMMO- MALIGN NEOPLASM OF [place] 02/20/2016 Ot 401.9 HYPE RTENSION NOS 02/20/2016 Ot 272.0 PURE HYPERCHOLESTEROLEM 02/20/2016 Ot 401.9 HYPE RTENSION NOS 02/20/2016 Ot 428.0 UMAIR ESTIVE HEART FAILURE NOS 02/20/2016 Ot 786.05 FRANKO RTNESS OF BREATH 02/20/2016 Ot 272.4 HYPE RLIPIDEMIA NEC/NOS 02/20/[address] PAIN NEC 02/20/2016 Ot 401.9 HYPE RTENSION NOS 02/20/2016 Ot 414.00 COR ON ATHEROSCLER NOS TYPE VESSEL, NATIV 02/20/2016 Ot 272.4 HYPE RLIPIDEMIA NEC/NOS 02/20/2016 Ot V58.69 OTH MED,LT,CURRENT USE 02/20/2016 Ot 272.4 HYPE RLIPIDEMIA NEC/NOS 02/20/2016 Ot V58.69 OTH MED,LT,CURRENT USE 02/20/2016 IMTIAZ BRYANT EDUCATIONAL ADVISOR Ot 272.4 HYPERLIPIDEMIA NEC/NOS 02/20/2016 ANUP MONTANA, MELE Rose Ot V76.19 OTH SCREEN BREAST EXAM FOR MALIGNANT CADE 02/20/2016 JOE MONTANA FACC, ALI FACP CCDS Ot 401.9 HYPERTENSION NOS 02/20/2016 JOE MONTANA FAC, ALI FACP CCDS Ot V58.69 OTH MED,LT,CURRENT USE 02/20/2016 BAIMA, IMTIAZ L EDUCATIONAL ADVISOR Ot 272.4 HYPERLIPIDEMIA NEC/NOS 02/20/2016 BAIMA, IMTIAZ L EDUCATIONAL ADVISOR Ot 401.9 HYPERTENSION NOS 02/20/2016 BAIMA, IMTIAZ L EDUCATIONAL ADVISOR Ot 414.01 CORONARY ATHEROSCLEROSIS OF [place] CORON 02/20/2016 BAIMA, IMTIAZ L EDUCATIONAL ADVISOR Ot V58.69 OTH MED,LT,CURRENT USE 02/20/2016 ANTONIO MONTANA, ALISON Bush Ot 599.7 0 HEMATURIA, UNSPECIFIED 02/20/2016 ANTONIO MONTANA, ALISON Bush Ot 793.5 NOSP (ABN) FINDINGS ON RADIOLOGICAL OT 02/20/2016 BAIMA, IMTIAZ L EDUCATIONAL ADVISOR Ot 272.4 HYPERLIPIDEMIA NEC/NOS 02/20/2016 BAIMA, IMTIAZ L EDUCATIONAL ADVISOR Ot 414.00 CORON ATHEROSCLER NOS TYPE VESSEL, NATIV 02/20/2016 ANUP MONTANA, MELE Rose Ot V76.12 OTH SCREEN MAMMO-MALIGN NEOPLASM OF [place] 02/20/2016 BAIMA, IMTIAZ L EDUCATIONAL ADVISOR Ot 272.4 HYPERLIPIDEMIA NEC/NOS 02/20/2016 BAIMA, IMTIAZ L EDUCATIONAL ADVISOR Ot 278.00 OBESITY, NOS 02/20/2016 BAIMA, IMTIAZ L EDUCATIONAL ADVISOR Ot 401.9 HYPERTENSION NOS 02/20/2016 BAIMA, IMTIAZ L EDUCATIONAL ADVISOR Ot 414.00 CORON ATHEROSCLER NOS TYPE VESSEL, NATIV 02/20/2016 BAIMA, IMTIAZ L EDUCATIONAL ADVISOR Ot 790.21 IMPAIRED FASTING GLUCOSE 02/20/2016 Ot 272.4 HYPE RLIPIDEMIA NEC/NOS 02/20/2016 Ot 414.00 COR ON ATHEROSCLER NOS TYPE VESSEL, NATIV 02/20/2016 BAIMA, IMTIAZ L EDUCATIONAL ADVISOR Ot 272.4 HYPERLIPIDEMIA NEC/NOS 02/20/2016 BAIMA, IMTIAZ L EDUCATIONAL ADVISOR Ot 401.9 HYPERTENSION NOS 02/20/2016 BAIMA, IMTIAZ L EDUCATIONAL ADVISOR Ot 414.9 CHR ISCHEMIC HRT DIS NOS 02/20/2016 BAIMA, IMTIAZ L EDUCATIONAL ADVISOR Ot 782.3 EDEMA 02/20/2016 ANUP MONTANA, MELE Rose Ot 724.2 LUMBAGO 02/20/2016 DOROTA CABELLO EXECUTIVE VICE 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 Ot V76.12 OTH SCREEN MAMMO-MALIGN NEOPLASM OF [place] 02/20/2016 DOROTA CABELLO EXECUTIVE VICE 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 Ot 786.05 SHORTNESS OF BREATH 02/20/2016 DOROTA CABELLO EXECUTIVE VICE 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 Ot 272.4 HYPERLIPIDEMIA NEC/NOS 02/20/2016 DOROTA CABELLO EXECUTIVE VICE 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 Ot 780.79 OTH MALAISE FATIGUE 02/20/2016 DOROTA CABELLO EXECUTIVE VICE 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 Ot R73.09 OTHER ABNORMAL GLUCOSE 02/20/2016 BAIMA IMTIAZ L EDUCATIONAL ADVISOR Ot E78.5 HYPERLIPIDEMIA, UNSPECIFIED 02/20/2016 BAIMA, IMTIAZ L EDUCATIONAL ADVISOR Ot I25.10 ATHSCL HEART DISEASE OF [place] CORONARY 02/20/2016 BAIMA IMTIAZ L EDUCATIONAL ADVISOR Ot E78.5 HYPERLIPIDEMIA, UNSPECIFIED 02/20/2016 BAIMA, IMTIAZ L EDUCATIONAL ADVISOR Ot I 10 ESSENTIAL (PRIMARY) HYPERTENSION 02/20/2016 BAIMA IMTIAZ L EDUCATIONAL ADVISOR Ot R53.83 OTHER FATIGUE 02/20/2016 ANUP MONTANA, MELE Rose Ot E78.00 PURE HYPERCHOLESTEROLEMIA, UNSPECIFIED 02/20/2016 ANUP MONTANA, MELE Rose Ot I25.10 ATHSCL HEART DISEASE OF [place] CORONARY 02/20/2016 ANUP MONTANA, MELE Rose Ot R73.9 HYPERGLYCEMIA, UNSPECIFIED 02/20/2016 RENETTA EARL Ot I 10 ESSENTIAL (PRIMARY) HYPERTENSION 02/20/2016 RENETTA EARL Ot M54.5 LOW BACK PAIN 02/20/2016 RENETTA EARL Ot Z79.82 HALF-WAY (CURRENT) USE OF ASPIRIN 02/20/2016 RENETTA EARL Ot Z79.899 OTHER LIFE TEACHER (CURRENT) DRUG THERAPY 02/21/2016 RENETTA EARL Ot I 10 ESSENTIAL (PRIMARY) HYPERTENSION 02/21/2016 RENETTA EARL Ot M54.5 LOW BACK PAIN 02/21/2016 RENETTA EARL Ot Z79.82 LIFE TEACHER (CURRENT) USE OF ASPIRIN 02/21/2016 RENETTA EARL Ot Z79.899 OTHER LIFE TEACHER (CURRENT) DRUG THERAPY 03/04/2016 Ot V76.12 OTH SCREEN MAMMO- MALIGN NEOPLASM OF [place] 03/04/2016 Ot 401.9 HYPE RTENSION NOS 03/04/2016 Ot 272.0 PURE HYPERCHOLESTEROLEM 03/04/2016 Ot 401.9 HYPE RTENSION NOS 03/04/2016 Ot 428.0 UMAIR ESTIVE HEART FAILURE NOS 03/04/2016 Ot 786.05 FRANKO RTNESS OF BREATH 03/04/2016 Ot 272.4 HYPE RLIPIDEMIA NEC/NOS 03/04/[address] PAIN NEC 03/04/2016 Ot 401.9 HYPE RTENSION NOS 03/04/2016 Ot 414.00 COR ON ATHEROSCLER NOS TYPE VESSEL, NATIV 03/04/2016 Ot 272.4 HYPE RLIPIDEMIA NEC/NOS 03/04/2016 Ot V58.69 OTH MED,LT,CURRENT USE 03/04/2016 Ot 272.4 HYPE RLIPIDEMIA NEC/NOS 03/04/2016 Ot V58.69 OTH MED,LT,CURRENT USE 03/04/2016 BAIMA, IMTIAZ L EDUCATIONAL ADVISOR Ot 272.4 HYPERLIPIDEMIA NEC/NOS 03/04/2016 ANUP MONTANA, MLEE Rose Ot V76.19 OTH SCREEN BREAST EXAM FOR MALIGNANT CADE 03/04/2016 JOE MONTANA FACC, ALI FACP CCDS Ot 401.9 HYPERTENSION NOS 03/04/2016 JOE MONTANA FACC, ALI FACP CCDS Ot V58.69 OTH MED,LT,CURRENT USE 03/04/2016 BAIMA, IMTIAZ L EDUCATIONAL ADVISOR Ot 272.4 HYPERLIPIDEMIA NEC/NOS 03/04/2016 BAIMA, IMTIAZ L EDUCATIONAL ADVISOR Ot 401.9 HYPERTENSION NOS 03/04/2016 BAIMA, IMTIAZ L EDUCATIONAL ADVISOR Ot 414.01 CORONARY ATHEROSCLEROSIS OF [place] CORON 03/04/2016 BAIMA, IMTIAZ L EDUCATIONAL ADVISOR Ot V58.69 OTH MED,LT,CURRENT USE 03/04/2016 ALISON ALVAREZ MD Ot 599.7 0 HEMATURIA, UNSPECIFIED 03/04/2016 ALISON ALVAREZ MD Ot 793.5 NOSP (ABN) FINDINGS ON RADIOLOGICAL OT 03/04/2016 BAIMA, IMTIAZ L EDUCATIONAL ADVISOR Ot 272.4 HYPERLIPIDEMIA NEC/NOS 03/04/2016 BAIMA, IMTIAZ L EDUCATIONAL ADVISOR Ot 414.00 CORON ATHEROSCLER NOS TYPE VESSEL, NATIV 03/04/2016 ANUP MONTANA, MELE Rose Ot V76.12 OTH SCREEN MAMMO-MALIGN NEOPLASM OF [place] 03/04/2016 ANNETTE IMTIAZ L EDUCATIONAL ADVISOR Ot 272.4 HYPERLIPIDEMIA NEC/NOS 03/04/2016 BAIONOFRE, IMTIAZ L EDUCATIONAL ADVISOR Ot 278.00 OBESITY, NOS 03/04/2016 BAIONOFRE, IMTIAZ L EDUCATIONAL ADVISOR Ot 401.9 HYPERTENSION NOS 03/04/2016 ANNETTE, IMTIAZ L EDUCATIONAL ADVISOR Ot 414.00 CORON ATHEROSCLER NOS TYPE VESSEL, NATIV 03/04/2016 BAIONOFRE IMTIAZ L EDUCATIONAL ADVISOR Ot 790.21 IMPAIRED FASTING GLUCOSE 03/04/2016 Ot 272.4 HYPE RLIPIDEMIA NEC/NOS 03/04/2016 Ot 414.00 COR ON ATHEROSCLER NOS TYPE VESSEL, NATIV 03/04/2016 BAIONOFRE, IMTIAZ L EDUCATIONAL ADVISOR Ot 272.4 HYPERLIPIDEMIA NEC/NOS 03/04/2016 BAIONOFRE, IMTIAZ L EDUCATIONAL ADVISOR Ot 401.9 HYPERTENSION NOS 03/04/2016 ANNETTE, IMTIAZ L EDUCATIONAL ADVISOR Ot 414.9 CHR ISCHEMIC HRT DIS NOS 03/04/2016 FEROZMAGDIEL ADIHKARIHER L EDUCATIONAL ADVISOR Ot 782.3 EDEMA 03/04/2016 ANUP [place], MELE Rose Ot 724.2 LUMBAGO 03/04/2016 DOROTA CABELLO EXECUTIVE VICE 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 Ot V76.12 OTH SCREEN MAMMO-MALIGN NEOPLASM OF [place] 03/04/2016 DOROTA CABELLO EXECUTIVE VICE 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 Ot 786.05 SHORTNESS OF BREATH 03/04/2016 DOROTA CABELLO EXECUTIVE VICE 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 Ot 272.4 HYPERLIPIDEMIA NEC/NOS 03/04/2016 DOROTA CABELLO EXECUTIVE VICE 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 Ot 780.79 OTH MALAISE FATIGUE 03/04/2016 DOROTA CABELLO EXECUTIVE VICE 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 Ot R73.09 OTHER ABNORMAL GLUCOSE 03/04/2016 FEROZONOFRE IMTIAZ L EDUCATIONAL ADVISOR Ot E78.5 HYPERLIPIDEMIA, UNSPECIFIED 03/04/2016 FEROZONOFRE IMTIAZ L EDUCATIONAL ADVISOR Ot I25.10 ATHSCL HEART DISEASE OF [place] CORONARY 03/04/2016 FEROZONOFRE IMTIAZ L EDUCATIONAL ADVISOR Ot E78.5 HYPERLIPIDEMIA, UNSPECIFIED 03/04/2016 FEROZONOFRE, IMTIAZ L EDUCATIONAL ADVISOR Ot I 10 ESSENTIAL (PRIMARY) HYPERTENSION 03/04/2016 FEROZONOFRE, IMTIAZ L EDUCATIONAL ADVISOR Ot R53.83 OTHER FATIGUE 03/04/2016 ANUP MONTA[place], MELE Rose Ot E78.00 PURE HYPERCHOLESTEROLEMIA, UNSPECIFIED 03/04/2016 ANUP MON[place], MELE Rose Ot I25.10 ATHSCL HEART DISEASE OF [place] CORONARY 03/04/2016 ANUP MON[place], MELE Rose Ot R73.9 HYPERGLYCEMIA, UNSPECIFIED 03/05/2016 ANUP MON[place], MELE Rose Ot M46.04 SPINAL ENTHESOPATHY, THORACIC REGION 03/10/2016 ANUP MON[place], MELE Rose Ot M46.04 SPINAL ENTHESOPATHY, THORACIC REGION 03/17/2016 Ot V76.12 OTH SCREEN MAMMO- MALIGN NEOPLASM OF [place] 03/17/2016 Ot 401.9 HYPE RTENSION NOS 03/17/2016 Ot 272.0 PURE HYPERCHOLESTEROLEM 03/17/2016 Ot 401.9 HYPE RTENSION NOS 03/17/2016 Ot 428.0 UMAIR ESTIVE HEART FAILURE NOS 03/17/2016 Ot 786.05 FRANKO RTNESS OF BREATH 03/17/2016 Ot 272.4 HYPE RLIPIDEMIA NEC/NOS 03/17/[address] PAIN NEC 03/17/2016 Ot 401.9 HYPE RTENSION NOS 03/17/2016 Ot 414.00 COR ON ATHEROSCLER NOS TYPE VESSEL, NATIV 03/17/2016 Ot 272.4 HYPE RLIPIDEMIA NEC/NOS 03/17/2016 Ot V58.69 OTH MED,LT,CURRENT USE 03/17/2016 Ot 272.4 HYPE RLIPIDEMIA NEC/NOS 03/17/2016 Ot V58.69 OTH MED,LT,CURRENT USE 03/17/2016 BAIMA, IMTIAZ L EDUCATIONAL ADVISOR Ot 272.4 HYPERLIPIDEMIA NEC/NOS 03/17/2016 ANUP MON[place], MELE Rose Ot V76.19 OTH SCREEN BREAST EXAM FOR MALIGNANT CADE 03/17/2016 JOE MONTANA FACC, ALI FACP CCDS Ot 401.9 HYPERTENSION NOS 03/17/2016 JOE [place] FACC, ALI FACP CCDS Ot V58.69 OTH MED,LT,CURRENT USE 03/17/2016 BAIMA, IMTIAZ L EDUCATIONAL ADVISOR Ot 272.4 HYPERLIPIDEMIA NEC/NOS 03/17/2016 BAIMA, IMTIAZ L EDUCATIONAL ADVISOR Ot 401.9 HYPERTENSION NOS 03/17/2016 BAIMA, IMTIAZ L EDUCATIONAL ADVISOR Ot 414.01 CORONARY ATHEROSCLEROSIS OF [place] CORON 03/17/2016 BAIMA, IMTIAZ L EDUCATIONAL ADVISOR Ot V58.69 OTH MED,LT,CURRENT USE 03/17/2016 ANTONIO MD, ALISON A Ot 599.7 0 HEMATURIA, UNSPECIFIED 03/17/2016 ANTONIO [place], ALISON A Ot 793.5 NOSP (ABN) FINDINGS ON RADIOLOGICAL OT 03/17/2016 BAIMA, IMTIAZ L EDUCATIONAL ADVISOR Ot 272.4 HYPERLIPIDEMIA NEC/NOS 03/17/2016 BAIMA, IMTIAZ L EDUCATIONAL ADVISOR Ot 414.00 CORON ATHEROSCLER NOS TYPE VESSEL, NATIV 03/17/2016 ANUP MON[place], MELE Rose Ot V76.12 OTH SCREEN MAMMO-MALIGN NEOPLASM OF [place] 03/17/2016 BAIMA, IMTIAZ L EDUCATIONAL ADVISOR Ot 272.4 HYPERLIPIDEMIA NEC/NOS 03/17/2016 BAIMA, IMTIAZ L EDUCATIONAL ADVISOR Ot 278.00 OBESITY, NOS 03/17/2016 BAIMA, IMTIAZ L EDUCATIONAL ADVISOR Ot 401.9 HYPERTENSION NOS 03/17/2016 BAIMA, IMTIAZ L EDUCATIONAL ADVISOR Ot 414.00 CORON ATHEROSCLER NOS TYPE VESSEL, NATIV 03/17/2016 BAIMA, IMTIAZ L EDUCATIONAL ADVISOR Ot 790.21 IMPAIRED FASTING GLUCOSE 03/17/2016 Ot 272.4 HYPE RLIPIDEMIA NEC/NOS 03/17/2016 Ot 414.00 COR ON ATHEROSCLER NOS TYPE VESSEL, NATIV 03/17/2016 BAIMA, IMTIAZ L EDUCATIONAL ADVISOR Ot 272.4 HYPERLIPIDEMIA NEC/NOS 03/17/2016 BAIMA, IMTIAZ L EDUCATIONAL ADVISOR Ot 401.9 HYPERTENSION NOS 03/17/2016 BAIMA, IMTIAZ L EDUCATIONAL ADVISOR Ot 414.9 CHR ISCHEMIC HRT DIS NOS 03/17/2016 BAIMA, IMTIAZ L EDUCATIONAL ADVISOR Ot 782.3 EDEMA 03/17/2016 ANUP MONTANA, MELE Rose Ot 724.2 LUMBAGO 03/17/2016 DOROTA CABELLO EXECUTIVE VICE 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 Ot V76.12 OTH SCREEN MAMMO-MALIGN NEOPLASM OF [place] 03/17/2016 DOROTA CABELLO EXECUTIVE VICE 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 Ot 786.05 SHORTNESS OF BREATH 03/17/2016 DOROTA CABELLO EXECUTIVE VICE 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 Ot 272.4 HYPERLIPIDEMIA NEC/NOS 03/17/2016 DOROTA CABELLO EXECUTIVE VICE 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 Ot 780.79 OTH MALAISE FATIGUE 03/17/2016 DOROTA CABELLO EXECUTIVE VICE 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 Ot R73.09 OTHER ABNORMAL GLUCOSE 03/17/2016 BAIMA, IMTIAZ L EDUCATIONAL ADVISOR Ot E78.5 HYPERLIPIDEMIA, UNSPECIFIED 03/17/2016 BAIMA, IMTIAZ L EDUCATIONAL ADVISOR Ot I25.10 ATHSCL HEART DISEASE OF [place] CORONARY 03/17/2016 IMTIAZ BRYANT EDUCATIONAL ADVISOR Ot E78.5 HYPERLIPIDEMIA, UNSPECIFIED 03/17/2016 IMTIAZ BRYANT L EDUCATIONAL ADVISOR Ot I 10 ESSENTIAL (PRIMARY) HYPERTENSION 03/17/2016 IMTIAZ BRYANT L EDUCATIONAL ADVISOR Ot R53.83 OTHER FATIGUE 03/17/2016 ANUP MONTANA, MELE Rose Ot E78.00 PURE HYPERCHOLESTEROLEMIA, UNSPECIFIED 03/17/2016 ANUP MONTANA, MELE Rose Ot I25.10 ATHSCL HEART DISEASE OF [place] CORONARY 03/17/2016 ANUP MONTANA, MELE Rose Ot R73.9 HYPERGLYCEMIA, UNSPECIFIED 03/17/2016 ANUP MONTANA, MELE Rose Ot M46.04 SPINAL ENTHESOPATHY, THORACIC REGION 03/20/2016 ANUP MONTANA, MELE Rose Ot M46.04 SPINAL ENTHESOPATHY, THORACIC REGION 04/01/2016 ANUP MONTANA, MELE Rose Ot M54.5 LOW BACK PAIN 04/08/2016 Ot V76.12 OTH SCREEN MAMMO- MALIGN NEOPLASM OF [place] 04/08/2016 Ot 401.9 HYPE RTENSION NOS 04/08/2016 Ot 272.0 PURE HYPERCHOLESTEROLEM 04/08/2016 Ot 401.9 HYPE RTENSION NOS 04/08/2016 Ot 428.0 UMAIR ESTIVE HEART FAILURE NOS 04/08/2016 Ot 786.05 FRANKO RTNESS OF BREATH 04/08/2016 Ot 272.4 HYPE RLIPIDEMIA NEC/NOS 04/08/[address] PAIN NEC 04/08/2016 Ot 401.9 HYPE RTENSION NOS 04/08/2016 Ot 414.00 COR ON ATHEROSCLER NOS TYPE VESSEL, NATIV 04/08/2016 Ot 272.4 HYPE RLIPIDEMIA NEC/NOS 04/08/2016 Ot V58.69 OTH MED,LT,CURRENT USE 04/08/2016 Ot 272.4 HYPE RLIPIDEMIA NEC/NOS 04/08/2016 Ot V58.69 OTH MED,LT,CURRENT USE 04/08/2016 FEROZIMTIAZ ADHIKARI L EDUCATIONAL ADVISOR Ot 272.4 HYPERLIPIDEMIA NEC/NOS 04/08/2016 ANUP MONTANA, MELE Rose Ot V76.19 OTH SCREEN BREAST EXAM FOR MALIGNANT CADE 04/08/2016 JOE MONTANA FACC, GURVINDER NO CCDS Ot 401.9 HYPERTENSION NOS 04/08/2016 JOE MONTANA FACC, GURVINDER LOTTP CCDS Ot V58.69 OTH MED,LT,CURRENT USE 04/08/2016 BAIMA, IMTIAZ L EDUCATIONAL ADVISOR Ot 272.4 HYPERLIPIDEMIA NEC/NOS 04/08/2016 BAIMA, IMTIAZ L EDUCATIONAL ADVISOR Ot 401.9 HYPERTENSION NOS 04/08/2016 BAIMA, IMTIAZ L EDUCATIONAL ADVISOR Ot 414.01 CORONARY ATHEROSCLEROSIS OF [place] CORON 04/08/2016 BAIMA, IMTIAZ L EDUCATIONAL ADVISOR Ot V58.69 OTH MED,LT,CURRENT USE 04/08/2016 ANTONIO MONTANA, ALISON Bush Ot 599.7 0 HEMATURIA, UNSPECIFIED 04/08/2016 ALISON ALVAREZ MD Ot 793.5 NOSP (ABN) FINDINGS ON RADIOLOGICAL OT 04/08/2016 BAIMA, IMTIAZ L EDUCATIONAL ADVISOR Ot 272.4 HYPERLIPIDEMIA NEC/NOS 04/08/2016 BAIMA, IMTIAZ L EDUCATIONAL ADVISOR Ot 414.00 CORON ATHEROSCLER NOS TYPE VESSEL, NATIV 04/08/2016 ANUP MONTANA, MELE Rose Ot V76.12 OTH SCREEN MAMMO-MALIGN NEOPLASM OF [place] 04/08/2016 BAIMA, IMTIAZ L EDUCATIONAL ADVISOR Ot 272.4 HYPERLIPIDEMIA NEC/NOS 04/08/2016 BAIMA, IMTIAZ L EDUCATIONAL ADVISOR Ot 278.00 OBESITY, NOS 04/08/2016 BAIMA, IMTIAZ L EDUCATIONAL ADVISOR Ot 401.9 HYPERTENSION NOS 04/08/2016 BAIMA, IMTIAZ L EDUCATIONAL ADVISOR Ot 414.00 CORON ATHEROSCLER NOS TYPE VESSEL, NATIV 04/08/2016 BAIMA, IMTIAZ L EDUCATIONAL ADVISOR Ot 790.21 IMPAIRED FASTING GLUCOSE 04/08/2016 Ot 272.4 HYPE RLIPIDEMIA NEC/NOS 04/08/2016 Ot 414.00 COR ON ATHEROSCLER NOS TYPE VESSEL, NATIV 04/08/2016 BAIMA, IMTIAZ L EDUCATIONAL ADVISOR Ot 272.4 HYPERLIPIDEMIA NEC/NOS 04/08/2016 BAIMA, IMTIAZ L EDUCATIONAL ADVISOR Ot 401.9 HYPERTENSION NOS 04/08/2016 BAIMA, IMTIAZ L EDUCATIONAL ADVISOR Ot 414.9 CHR ISCHEMIC HRT DIS NOS 04/08/2016 BAIMA, IMTIAZ L EDUCATIONAL ADVISOR Ot 782.3 EDEMA 04/08/2016 ANUP MONTANA, MELE Rose Ot 724.2 LUMBAGO 04/08/2016 DOROTA CABELLO APRN Ot V76.12 OTH SCREEN MAMMO-MALIGN NEOPLASM OF [place] 04/08/2016 DOROTA CABELLO EXECUTIVE VICE 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 Ot 786.05 SHORTNESS OF BREATH 04/08/2016 DOROTA CABELLO EXECUTIVE VICE 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 Ot 272.4 HYPERLIPIDEMIA NEC/NOS 04/08/2016 DOROTA CABELLO EXECUTIVE VICE 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 Ot 780.79 OTH MALAISE FATIGUE 04/08/2016 DOROTA CABELLO EXECUTIVE VICE 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 Ot R73.09 OTHER ABNORMAL GLUCOSE 04/08/2016 BAIMA IMTIAZ L EDUCATIONAL ADVISOR Ot E78.5 HYPERLIPIDEMIA, UNSPECIFIED 04/08/2016 BAIMA, IMTIAZ L EDUCATIONAL ADVISOR Ot I25.10 ATHSCL HEART DISEASE OF [place] CORONARY 04/08/2016 BAIMA, IMTIAZ L EDUCATIONAL ADVISOR Ot E78.5 HYPERLIPIDEMIA, UNSPECIFIED 04/08/2016 BAIMA, IMTIAZ L EDUCATIONAL ADVISOR Ot I 10 ESSENTIAL (PRIMARY) HYPERTENSION 04/08/2016 BAIMA, IMTIAZ L EDUCATIONAL ADVISOR Ot R53.83 OTHER FATIGUE 04/08/2016 ANUP MONTANA, MELE Rose Ot E78.00 PURE HYPERCHOLESTEROLEMIA, UNSPECIFIED 04/08/2016 ANUP MONTANA, MELE Rose Ot I25.10 ATHSCL HEART DISEASE OF [place] CORONARY 04/08/2016 MELE HEBERT MD Ot R73.9 HYPERGLYCEMIA, UNSPECIFIED 04/08/2016 MELE HEBERT MD Ot M46.04 SPINAL ENTHESOPATHY, THORACIC REGION 04/08/2016 MELE HEBERT MD Ot M54.5 LOW BACK PAIN 04/09/2016 MELE HEBERT MD Ot Z12.31 ENCNTR SCREEN MAMMOGRAM FOR MALIGNANT NE 04/21/2016 MELE HEBERT MD Ot Z12.31 ENCNTR SCREEN MAMMOGRAM FOR MALIGNANT NE 04/25/2016 MELE HEBERT MD Ot M54.5 LOW BACK PAIN 05/29/2016 MELE HEBERT MD Ot E78.5 HYPERLIPIDEMIA, UNSPECIFIED 05/29/2016 MELE HEBERT MD Ot R53.83 OTHER FATIGUE 05/29/2016 MELE HEBERT MD Ot R73.09 OTHER ABNORMAL GLUCOSE 06/06/2016 MELE HEBERT MD Ot E78.5 HYPERLIPIDEMIA, UNSPECIFIED 06/06/2016 MELE HEBERT MD Ot R53.83 OTHER FATIGUE 06/06/2016 MELE HEBERT MD Ot R73.09 OTHER ABNORMAL GLUCOSE 06/19/2016 SHERRI PUENTES EXECUTIVE VICE 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 Ot I10 ESSENTIAL (PRIMARY) HYPERTENSION 06/19/2016 SHERRI PUENTES APRN Ot I25.10 ATHSCL HEART DISEASE OF [place] CORONARY 06/19/2016 SHERRI PUENTES APRN Ot K04 .7 PERIAPICAL ABSCESS WITHOUT SINUS 06/19/2016 SHERRI PUENTES APRN Ot K08 .9 DISORDER OF TEETH AND SUPPORTING STRUCTU 06/19/2016 SHERRI PUENTES APRN Ot Z79.82 HALF-WAY (CURRENT) USE OF ASPIRIN 06/19/2016 SHERRI PUENTES APRN Ot Z79.899 OTHER LIFE TEACHER (CURRENT) DRUG THERAPY 07/12/2016 RENETTA EARL Ot E11.9 TYPE 2 DIABETES MELLITUS WITHOUT COMPLIC 07/12/2016 RENETTA EARL Ot I 10 ESSENTIAL (PRIMARY) HYPERTENSION 07/12/2016 RENETTA EARL Ot I25.10 ATHSCL HEART DISEASE OF [place] CORONARY 07/12/2016 RENETTA EARL Ot K04.7 PERIAPICAL ABSCESS WITHOUT SINUS 07/12/2016 RENETTA EARL Ot K13.79 OTHER LESIONS OF [place]AL [place]UCOSA 07/12/2016 RENETTA EARL Ot M79.604 PAIN IN RIGHT LEG 07/12/2016 RENETTA EARL Ot M79.605 PAIN IN LEFT LEG 07/12/2016 RENETTA EARL Ot Q24.8 OTHER SPECIFIED CONGENITAL MALFORMATIONS 07/12/2016 RENETTA EARL Ot Z79.82 HALF-WAY (CURRENT) USE OF ASPIRIN 07/12/2016 RENETTA EARL Ot Z79.84 HALF-WAY (CURRENT) USE OF ORAL HYPOGLYC 07/12/2016 RENETTA EARL Ot Z87.39 PERSONAL HISTORY OF DISEASES OF THE MS S 07/15/2016 RENETTA EARL Ot E11.9 TYPE 2 DIABETES MELLITUS WITHOUT COMPLIC 07/15/2016 RENETTA EARL Ot I 10 ESSENTIAL (PRIMARY) HYPERTENSION 07/15/2016 RENETTA EARL Ot I25.10 ATHSCL HEART DISEASE OF [place] CORONARY 07/15/2016 RENETTA EARL Ot K04.7 PERIAPICAL ABSCESS WITHOUT SINUS 07/15/2016 RENETTA EARL Ot K13.79 OTHER LESIONS OF ORAL MUCOSA 07/15/2016 RENETTA EARL Ot M79.604 PAIN IN RIGHT LEG 07/15/2016 RENETTA EARL Ot M79.605 PAIN IN LEFT LEG 07/15/2016 RENETTA EARL Ot Q24.8 OTHER SPECIFIED CONGENITAL MALFORMATIONS 07/15/2016 RENETTA EARL Ot Z79.82 LIFE TEACHER (CURRENT) USE OF ASPIRIN 07/15/2016 RENETTA EARL Ot Z79.84 LIFE TEACHER (CURRENT) USE OF ORAL HYPOGLYC 07/15/2016 RENETTA EARL Ot Z87.39 PERSONAL HISTORY OF DISEASES OF THE MS S 07/15/2016 RENETTA EARL Ot E11.9 TYPE 2 DIABETES MELLITUS WITHOUT COMPLIC 07/15/2016 RENETTA EARL Ot I 10 ESSENTIAL (PRIMARY) HYPERTENSION 07/15/2016 RENETTA EARL Ot I25.10 ATHSCL HEART DISEASE OF [place] CORONARY 07/15/2016 RENETTA EARL Ot K04.7 PERIAPICAL ABSCESS WITHOUT SINUS 07/15/2016 RENETTA EARL Ot K13.79 OTHER LESIONS OF ORAL MUCOSA 07/15/2016 RENETTA EARL Ot M79.604 PAIN IN RIGHT LEG 07/15/2016 RENETTA EARL Ot M79.605 PAIN IN LEFT LEG 07/15/2016 RENETTA EARL Ot Q24.8 OTHER SPECIFIED CONGENITAL MALFORMATIONS 07/15/2016 RENETTA EARL Ot Z79.82 HALF-WAY (CURRENT) USE OF ASPIRIN 07/15/2016 RENETTA EARL Ot Z79.84 HALF-WAY (CURRENT) USE OF ORAL HYPOGLYC 07/15/2016 RENETTA EARL Ot Z87.39 PERSONAL HISTORY OF DISEASES OF THE MS S 07/27/2016 SHERRI PUENTES APRN Ot E11 .9 TYPE 2 DIABETES MELLITUS WITHOUT COMPLIC 07/27/2016 SHERRI PUENTES APRN Ot I10 ESSENTIAL (PRIMARY) HYPERTENSION 07/27/2016 SHERRI PUENTES APRN Ot I25.10 ATHSCL HEART DISEASE OF [place] CORONARY 07/27/2016 SHERRI PUENTES APRN Ot M17.11 UNILATERAL PRIMARY OSTEOARTHRITIS, RIGHT 07/27/2016 SHERRI PUENTES EXECUTIVE VICE 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 Ot M54 .6 PAIN IN THORACIC SPINE 07/27/2016 SHERRI PUENTES EXECUTIVE VICE 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 Ot Z79.82 HALF-WAY (CURRENT) USE OF ASPIRIN 07/27/2016 SHERRI PUENTES EXECUTIVE VICE 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 Ot Z79.84 LIFE TEACHER (CURRENT) USE OF ORAL HYPOGLYC 07/29/2016 SHERRI PUENTES EXECUTIVE VICE 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 Ot E11 .9 TYPE 2 DIABETES MELLITUS WITHOUT COMPLIC 07/29/2016 SHERRI PUENTES EXECUTIVE VICE 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 Ot I10 ESSENTIAL (PRIMARY) HYPERTENSION 07/29/2016 SHERRI PUENTES EXECUTIVE VICE 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 Ot I25.10 ATHSCL HEART DISEASE OF [place] CORONARY 07/29/2016 SHERRI PUENTES APRN Ot M17.11 UNILATERAL PRIMARY OSTEOARTHRITIS, RIGHT 07/29/2016 SHERRI PUENTES APRN Ot M54 .6 PAIN IN THORACIC SPINE 07/29/2016 SHERRI PUENTES APRN Ot Z79.82 LIFE TEACHER (CURRENT) USE OF ASPIRIN 07/29/2016 SHERRI PUENTES EXECUTIVE VICE 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 Ot Z79.84 HALF-WAY (CURRENT) USE OF ORAL HYPOGLYC 08/06/2016 NAUP MONTANA, MELE Rose Ot R60.9 EDEMA, UNSPECIFIED 08/25/2016 ANUP MONTANA, MELE D Ot R60.9 EDEMA, UNSPECIFIED 08/27/2016 DOROTA CABELLO EXECUTIVE VICE 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 Ot E11.9 TYPE 2 DIABETES MELLITUS WITHOUT COMPLIC 08/27/2016 DOROTA CABELLO EXECUTIVE VICE 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 Ot E78.5 HYPERLIPIDEMIA, UNSPECIFIED 09/02/2016 ANUP MONTANA MELE D Ot R60.9 EDEMA, UNSPECIFIED 09/03/2016 ANUP MONTANA MELE D Ot R60.9 EDEMA, UNSPECIFIED 09/11/2016 DOROTA CABELLO EXECUTIVE VICE 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 Ot E11.9 TYPE 2 DIABETES MELLITUS WITHOUT COMPLIC 09/11/2016 DOROTA CABELLO EXECUTIVE VICE 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 Ot E78.5 HYPERLIPIDEMIA, UNSPECIFIED 10/24/2016 LESTER BEACH MD Ot E78.00 PURE HYPERCHOLESTEROLEMIA, UNSPECIFIED 10/24/2016 LESTER BEACH MD Ot I10 ESSENTIAL (PRIMARY) HYPERTENSION 10/24/2016 LESTER BEACH MD Ot I25.10 ATHSCL HEART DISEASE OF [place] CORONARY 10/24/2016 LESTER BEACH MD Ot K02 .9 DENTAL CARIES, UNSPECIFIED 10/24/2016 LESTER BEACH MD Ot K08.89 OTHER SPECIFIED DISORDERS OF TEETH AND S 10/24/2016 LESTER BEACH MD Ot K21 .9 GASTRO-ESOPHAGEAL REFLUX DISEASE WITHOUT 10/24/2016 LESTER BEACH MD Ot M17.11 UNILATERAL PRIMARY OSTEOARTHRITIS, RIGHT 10/24/2016 LESTER BEACH MD Ot Q24 .6 CONGENITAL HEART BLOCK 10/24/2016 LESTER BEACH MD Ot S02.5XXA FRACTURE OF TOOTH (TRAUMATIC), INIT FOR 10/24/2016 LESTER BEACH MD Ot X58.XXXA EXPOSURE TO OTHER SPECIFIED FACTORS, INI 10/24/2016 LESTER BEACH MD, Ot Z79.82 LIFE TEACHER (CURRENT) USE OF ASPIRIN 10/24/2016 LESTER BEACH MD Ot Z79.84 LIFE TEACHER (CURRENT) USE OF ORAL HYPOGLYC 10/24/2016 LESTER BEACH MD Ot Z87.448 PERSONAL HISTORY OF OTHER DISEASES OF UR 10/27/2016 LESTER BEACH MD Ot E78.00 PURE HYPERCHOLESTEROLEMIA, UNSPECIFIED 10/27/2016 LESTER BEACH MD Ot I10 ESSENTIAL (PRIMARY) HYPERTENSION 10/27/2016 LESTER BEACH MD Ot I25.10 ATHSCL HEART DISEASE OF [place] CORONARY 10/27/2016 LESTER BEACH MD Ot K02 .9 DENTAL CARIES, UNSPECIFIED 10/27/2016 LESTER BEACH MD Ot K08.89 OTHER SPECIFIED DISORDERS OF TEETH AND S 10/27/2016 LESTER BEACH MD Ot K21 .9 GASTRO-ESOPHAGEAL REFLUX DISEASE WITHOUT 10/27/2016 LESTER BEACH MD Ot M17.11 UNILATERAL PRIMARY OSTEOARTHRITIS, RIGHT 10/27/2016 LESTER BEACH MD Ot Q24 .6 CONGENITAL HEART BLOCK 10/27/2016 LESTER BEACH MD Ot S02.5XXA FRACTURE OF TOOTH (TRAUMATIC), INIT FOR 10/27/2016 LESTER BEACH MD Ot X58.XXXA EXPOSURE TO OTHER SPECIFIED FACTORS, INI 10/27/2016 LESTER BEACH MD Ot Z79.82 HALF-WAY (CURRENT) USE OF ASPIRIN 10/27/2016 LESTER BEACH MD Ot Z79.84 HALF-WAY (CURRENT) USE OF ORAL HYPOGLYC 10/27/2016 YONG MONTANA, LESTER Daley Ot Z87.448 PERSONAL HISTORY OF OTHER DISEASES OF UR 11/11/2016 SHERRI PUENTES APRN Ot E11 .9 TYPE 2 DIABETES MELLITUS WITHOUT COMPLIC 11/11/2016 SHERRI PUENTES APRN Ot E78.00 PURE HYPERCHOLESTEROLEMIA, UNSPECIFIED 11/11/2016 SHERRI PUENTES APRN Ot F32 .9 MAJOR DEPRESSIVE DISORDER, SINGLE EPISOD 11/11/2016 SHERRI PUENTES EXECUTIVE VICE 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 Ot I10 ESSENTIAL (PRIMARY) HYPERTENSION 11/11/2016 SHERRI PUENTES APRN Ot I25.10 ATHSCL HEART DISEASE OF [place] CORONARY 11/11/2016 SHERRI PUENTES APRN Ot K21 .9 GASTRO-ESOPHAGEAL REFLUX DISEASE WITHOUT 11/11/2016 SHERRI PUENTES APRN Ot M17.11 UNILATERAL PRIMARY OSTEOARTHRITIS, RIGHT 11/11/2016 SHERRI PUENTES APRN Ot M54.16 RADICULOPATHY, LUMBAR REGION 11/11/2016 SHERRI PUENTES APRN Ot M79.604 PAIN IN RIGHT LEG 11/11/2016 SHERRI PUENTES APRN Ot Z79.82 HALF-WAY (CURRENT) USE OF ASPIRIN 11/11/2016 SHERRI PUENTES APRN Ot Z79.84 HALF-WAY (CURRENT) USE OF ORAL HYPOGLYC 11/11/2016 SHERRI PUENTES APRN Ot Z87.448 PERSONAL HISTORY OF OTHER DISEASES OF UR 11/11/2016 JOE MONTANA FACC, ALI FACP CCDS Ot E78.4 OTHER HYPERLIPIDEMIA 11/11/2016 JOE MONTANA FACC, ALI FACP CCDS Ot I10 ESSENTIAL (PRIMARY) HYPERTENSION 11/11/2016 JOE MONTANA FACC, ALI FACP CCDS Ot I25.10 ATHSCL HEART DISEASE OF [place] CORONARY 11/13/2016 SHERRI PUENTES APRN Ot E11 .9 TYPE 2 DIABETES MELLITUS WITHOUT COMPLIC 11/13/2016 SHERRI PUENTES APRN Ot E78.00 PURE HYPERCHOLESTEROLEMIA, UNSPECIFIED 11/13/2016 SHERRI PUENTES APRN Ot F32 .9 MAJOR DEPRESSIVE DISORDER, SINGLE EPISOD 11/13/2016 SHERRI PUENTES EXECUTIVE VICE 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 Ot I10 ESSENTIAL (PRIMARY) HYPERTENSION 11/13/2016 SHERRI PUENTES EXECUTIVE VICE 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 Ot I25.10 ATHSCL HEART DISEASE OF [place] CORONARY 11/13/2016 SHERRI PUENTES EXECUTIVE VICE 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 Ot K21 .9 GASTRO-ESOPHAGEAL REFLUX DISEASE WITHOUT 11/13/2016 SHERRI PUENTES EXECUTIVE VICE 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 Ot M17.11 UNILATERAL PRIMARY OSTEOARTHRITIS, RIGHT 11/13/2016 SHERRI PUENTES EXECUTIVE VICE 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 Ot M54.16 RADICULOPATHY, LUMBAR REGION 11/13/2016 SHERRI PUENTES EXECUTIVE VICE 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 Ot M79.604 PAIN IN RIGHT LEG 11/13/2016 SHERRI PUENTES EXECUTIVE VICE 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 Ot Z79.82 LIFE TEACHER (CURRENT) USE OF ASPIRIN 11/13/2016 SHERRI PUENTES EXECUTIVE VICE 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 Ot Z79.84 LIFE TEACHER (CURRENT) USE OF ORAL HYPOGLYC 11/13/2016 SHERRI PUENTES EXECUTIVE VICE 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 Ot Z87.448 PERSONAL HISTORY OF OTHER DISEASES OF UR 11/20/2016 JOE MONTANA FACC, ALI FACP CCDS Ot E78.4 OTHER HYPERLIPIDEMIA 11/20/2016 JOE MONTANA FACC, ALI FACP CCDS Ot I10 ESSENTIAL (PRIMARY) HYPERTENSION 11/20/2016 JOE MONTANA FACC, ALI FACP CCDS Ot I25.10 ATHSCL HEART DISEASE OF [place] CORONARY 12/02/2016 JOE MONTANA FACC, ALI FACP CCDS Ot E78.4 OTHER HYPERLIPIDEMIA 12/02/2016 JOE MONTANA FACC, ALI FACP CCDS Ot I10 ESSENTIAL (PRIMARY) HYPERTENSION 12/02/2016 JOE MONTANA FACC, ALI FACP CCDS Ot I25.10 ATHSCL HEART DISEASE OF [place] CORONARY 12/09/2016 MELE HEBERT MD Ot E11.9 TYPE 2 DIABETES MELLITUS WITHOUT COMPLIC 12/09/2016 MELE HEBERT MD Ot R53.83 OTHER FATIGUE 12/23/2016 ANUP MONTANA MELE D Ot E11.9 TYPE 2 DIABETES MELLITUS WITHOUT COMPLIC 12/23/2016 MELE HEBERT MD Ot R53.83 OTHER FATIGUE 03/17/2017 VIOLA GUNN MD Ot E11.9 TYPE 2 DIABETES MELLITUS WITHOUT COMPLIC 03/17/2017 VIOLA GUNN MD Ot E78.00 PURE HYPERCHOLESTEROLEMIA, UNSPECIFIED 03/17/2017 VIOLA GUNN MD Ot F32.9 MAJOR DEPRESSIVE DISORDER, SINGLE EPISOD 03/17/2017 VIOLA GUNN MD Ot I10 ESSENTIAL (PRIMARY) HYPERTENSION 03/17/2017 VIOLA GUNN MD, Ot I25.10 ATHSCL HEART DISEASE OF [place] CORONARY 03/17/2017 VIOLA GUNN MD, Ot J06.9 ACUTE UPPER RESPIRATORY INFECTION, UNSPE 03/17/2017 VIOLA GUNN MD, Ot K21.9 GASTRO-ESOPHAGEAL REFLUX DISEASE WITHOUT 03/17/2017 VIOLA GUNN MD, Ot M17.11 UNILATERAL PRIMARY OSTEOARTHRITIS, RIGHT 03/17/2017 VIOLA GUNN MD Ot R05 COUGH 03/17/2017 VIOLA GUNN MD, Ot Z79.52 LIFE TEACHER (CURRENT) USE OF SYSTEMIC STER 03/17/2017 VIOLA GUNN MD, Ot Z79.82 LIFE TEACHER (CURRENT) USE OF ASPIRIN 03/17/2017 VIOLA GUNN MD, Ot Z79.84 HALF-WAY (CURRENT) USE OF ORAL HYPOGLYC 03/17/2017 VIOLA [...] I10 ESSENTIAL (PRIMARY) HYPERTENSION 03/19/2017 VIOLA GUNN MD, Ot I25.10 ATHSCL HEART DISEASE OF [place] CORONARY 03/19/2017 VIOLA GUNN MD, Ot J06.9 ACUTE UPPER RESPIRATORY INFECTION, UNSPE 03/19/2017 VIOLA GUNN MD, Ot K21.9 GASTRO-ESOPHAGEAL REFLUX DISEASE WITHOUT 03/19/2017 VIOLA GUNN MD, Ot M17.11 UNILATERAL PRIMARY OSTEOARTHRITIS, RIGHT 03/19/2017 VIOLA GUNN MD Ot R05 COUGH 03/19/2017 VIOLA GUNN MD, Ot Z79.52 LIFE TEACHER (CURRENT) USE OF SYSTEMIC STER 03/19/2017 VIOLA GUNN MD Ot Z79.82 HALF-WAY (CURRENT) USE OF ASPIRIN 03/19/2017 VIOLA GUNN MD Ot Z79.84 LIFE TEACHER (CURRENT) USE OF ORAL HYPOGLYC 03/19/2017 VIOLA GUNN MD, Ot Z87.448 PERSONAL HISTORY OF OTHER DISEASES OF UR 03/19/2017 VIOLA GUNN MD Ot Z88.0 ALLERGY STATUS TO PENICILLIN 03/19/2017 VIOLA GUNN MD Ot E11.9 TYPE 2 DIABETES MELLITUS WITHOUT COMPLIC 03/19/2017 VIOLA GUNN MD Ot E78.00 PURE HYPERCHOLESTEROLEMIA, UNSPECIFIED 03/19/2017 VIOLA GUNN MD, Ot F32.9 MAJOR DEPRESSIVE DISORDER, SINGLE EPISOD 03/19/2017 VIOLA GUNN MD, Ot I10 ESSENTIAL (PRIMARY) HYPERTENSION 03/19/2017 VIOLA GUNN MD, Ot I25.10 ATHSCL HEART DISEASE OF [place] CORONARY 03/19/2017 VIOLA GUNN MD, Ot J06.9 ACUTE UPPER RESPIRATORY INFECTION, UNSPE 03/19/2017 VIOLA GUNN MD, Ot K21.9 GASTRO-ESOPHAGEAL REFLUX DISEASE WITHOUT 03/19/2017 VIOLA GUNN MD, Ot M17.11 UNILATERAL PRIMARY OSTEOARTHRITIS, RIGHT 03/19/2017 VIOLA GUNN MD Ot R05 COUGH 03/19/2017 VIOLA GUNN MD Ot Z79.52 HALF-WAY (CURRENT) USE OF SYSTEMIC STER 03/19/2017 VIOLA GUNN MD Ot Z79.82 HALF-WAY (CURRENT) USE OF ASPIRIN 03/19/2017 VIOLA GUNN MD, Ot Z79.84 LIFE TEACHER (CURRENT) USE OF ORAL HYPOGLYC 03/19/2017 VIOLA GUNN MD, Ot Z87.448 PERSONAL HISTORY OF OTHER DISEASES OF UR 03/19/2017 VIOLA GUNN MD Ot Z88.0 ALLERGY STATUS TO PENICILLIN 04/07/2017 DOROTA CABELLO APRN Ot E11.9 TYPE 2 DIABETES MELLITUS WITHOUT COMPLIC 04/07/2017 DOROTA CABELLO APRN Ot E78.5 HYPERLIPIDEMIA, UNSPECIFIED 04/07/2017 DOROTA CABELLO EXECUTIVE VICE 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 Ot R53.83 OTHER FATIGUE 04/10/2017 Ot 272.0 PURE HYPERCHOLESTEROLEM 04/10/2017 Ot 401.9 HYPE RTENSION NOS 04/10/2017 Ot 428.0 UMAIR ESTIVE HEART FAILURE NOS 04/10/2017 Ot 786.05 FRANKO RTNESS OF BREATH 04/10/2017 Ot 272.4 HYPE RLIPIDEMIA NEC/NOS 04/10/[address] PAIN NEC 04/10/2017 Ot 401.9 HYPE RTENSION NOS 04/10/2017 Ot 414.00 COR ON ATHEROSCLER NOS TYPE VESSEL, NATIV 04/10/2017 Ot 272.4 HYPE RLIPIDEMIA NEC/NOS 04/10/2017 Ot V58.69 OTH MED,LT,CURRENT USE 04/10/2017 Ot 272.4 HYPE RLIPIDEMIA NEC/NOS 04/10/2017 Ot V58.69 OTH MED,LT,CURRENT USE 04/10/2017 BAIMA, IMTIAZ L EDUCATIONAL ADVISOR Ot 272.4 HYPERLIPIDEMIA NEC/NOS 04/10/2017 ANUP MONTANA, MELE Rose Ot V76.19 OTH SCREEN BREAST EXAM FOR MALIGNANT CADE 04/10/2017 JOE MONTANA FACC, ALI FACP CCDS Ot 401.9 HYPERTENSION NOS 04/10/2017 JOE MONTANA FACC, ALI FACP CCDS Ot V58.69 OTH MED,LT,CURRENT USE 04/10/2017 BAIMA, IMTIAZ L EDUCATIONAL ADVISOR Ot 272.4 HYPERLIPIDEMIA NEC/NOS 04/10/2017 BAIMA, IMTIAZ L EDUCATIONAL ADVISOR Ot 401.9 HYPERTENSION NOS 04/10/2017 BAIMA, IMTIAZ L EDUCATIONAL ADVISOR Ot 414.01 CORONARY ATHEROSCLEROSIS OF [place] CORON 04/10/2017 BAIMA, IMTIAZ L EDUCATIONAL ADVISOR Ot V58.69 OTH MED,LT,CURRENT USE 04/10/2017 ALISON ALVAREZ MD Ot 599.7 0 HEMATURIA, UNSPECIFIED 04/10/2017 ALISON ALVAREZ MD Ot 793.5 NOSP (ABN) FINDINGS ON RADIOLOGICAL OT 04/10/2017 BAIMA, IMTIAZ L EDUCATIONAL ADVISOR Ot 272.4 HYPERLIPIDEMIA NEC/NOS 04/10/2017 BAIMA, IMTIAZ L EDUCATIONAL ADVISOR Ot 414.00 CORON ATHEROSCLER NOS TYPE VESSEL, NATIV 04/10/2017 MELE HEBERT MD Ot V76.12 OTH SCREEN MAMMO-MALIGN NEOPLASM OF [place] 04/10/2017 BAIMA, IMTIAZ L EDUCATIONAL ADVISOR Ot 272.4 HYPERLIPIDEMIA NEC/NOS 04/10/2017 BAIMA, IMTIAZ L EDUCATIONAL ADVISOR Ot 278.00 OBESITY, NOS 04/10/2017 BAIONOFRE, IMTIAZ L EDUCATIONAL ADVISOR Ot 401.9 HYPERTENSION NOS 04/10/2017 BAIONOFRE, IMTIAZ L EDUCATIONAL ADVISOR Ot 414.00 CORON ATHEROSCLER NOS TYPE VESSEL, NATIV 04/10/2017 ANNETTE, IMTIAZ L EDUCATIONAL ADVISOR Ot 790.21 IMPAIRED FASTING GLUCOSE 04/10/2017 Ot 272.4 HYPE RLIPIDEMIA NEC/NOS 04/10/2017 Ot 414.00 COR ON ATHEROSCLER NOS TYPE VESSEL, NATIV 04/10/2017 BAIMA, IMTIAZ L EDUCATIONAL ADVISOR Ot 272.4 HYPERLIPIDEMIA NEC/NOS 04/10/2017 BAIMA, IMTIAZ L EDUCATIONAL ADVISOR Ot 401.9 HYPERTENSION NOS 04/10/2017 BAIMA, IMTIAZ L EDUCATIONAL ADVISOR Ot 414.9 CHR ISCHEMIC HRT DIS NOS 04/10/2017 ANNETTE IMTIAZ L EDUCATIONAL ADVISOR Ot 782.3 EDEMA 04/10/2017 ANUP MONTANA, MELE Rose Ot 724.2 LUMBAGO 04/10/2017 DOROTA CABELLO EXECUTIVE VICE 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 Ot V76.12 OTH SCREEN MAMMO-MALIGN NEOPLASM OF [place] 04/10/2017 DOROTA CABELLO N EXECUTIVE VICE 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 Ot 786.05 SHORTNESS OF BREATH 04/10/2017 DOROTA CABELLO EXECUTIVE VICE 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 Ot 272.4 HYPERLIPIDEMIA NEC/NOS 04/10/2017 DOROTA CABELLO EXECUTIVE VICE 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 Ot 780.79 OTH MALAISE FATIGUE 04/10/2017 DOROTA CABELLO N EXECUTIVE VICE 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 Ot R73.09 OTHER ABNORMAL GLUCOSE 04/10/2017 FEROZONOFRE, IMTIAZ L EDUCATIONAL ADVISOR Ot E78.5 HYPERLIPIDEMIA, UNSPECIFIED 04/10/2017 FEROZONOFRE IMTIAZ L EDUCATIONAL ADVISOR Ot I25.10 ATHSCL HEART DISEASE OF [place] CORONARY 04/10/2017 ANNETTE, IMTIAZ L EDUCATIONAL ADVISOR Ot E78.5 HYPERLIPIDEMIA, UNSPECIFIED 04/10/2017 BAIONOFRE, IMTIAZ L EDUCATIONAL ADVISOR Ot I 10 ESSENTIAL (PRIMARY) HYPERTENSION 04/10/2017 BAIONOFRE, IMTIAZ L EDUCATIONAL ADVISOR Ot R53.83 OTHER FATIGUE 04/10/2017 ANUP MONTANA, MELE Rose Ot E78.00 PURE HYPERCHOLESTEROLEMIA, UNSPECIFIED 04/10/2017 ANUP MONTANA, MELE Rose Ot I25.10 ATHSCL HEART DISEASE OF [place] CORONARY 04/10/2017 ANUP MONTANA, MELE Rose Ot R73.9 HYPERGLYCEMIA, UNSPECIFIED 04/10/2017 MELE HEBERT MD Ot M46.04 SPINAL ENTHESOPATHY, THORACIC REGION 04/10/2017 ANUP MONTANA, MELE Rose Ot Z12.31 ENCNTR SCREEN MAMMOGRAM FOR MALIGNANT NE 04/10/2017 MELE HEBERT MD Ot E78.5 HYPERLIPIDEMIA, UNSPECIFIED 04/10/2017 MELE HEBERT MD Ot R53.83 OTHER FATIGUE 04/10/2017 MELE HEBERT MD Ot R73.09 OTHER ABNORMAL GLUCOSE 04/10/2017 DOROTA CABELLO EXECUTIVE VICE 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 Ot E11.9 TYPE 2 DIABETES MELLITUS WITHOUT COMPLIC 04/10/2017 DOROTA CABELLO EXECUTIVE VICE 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 Ot E78.5 HYPERLIPIDEMIA, UNSPECIFIED 04/10/2017 JOE MONTANA FACC, ALI FACP CCDS Ot E78.4 OTHER HYPERLIPIDEMIA 04/10/2017 JOE MONTANA FACC, ALI FACP CCDS Ot I10 ESSENTIAL (PRIMARY) HYPERTENSION 04/10/2017 JOE MONTANA FACC, ALI FACP CCDS Ot I25.10 ATHSCL HEART DISEASE OF [place] CORONARY 04/10/2017 JOE MONTANA FACC, ALI FACP CCDS Ot E78.4 OTHER HYPERLIPIDEMIA 04/10/2017 JOE MONTANA FACC, ALI FACP CCDS Ot I10 ESSENTIAL (PRIMARY) HYPERTENSION 04/10/2017 JOE MONTANA FACC, ALI FACP CCDS Ot I25.10 ATHSCL HEART DISEASE OF [place] CORONARY 04/10/2017 MELE HEBERT MD Ot E11.9 TYPE 2 DIABETES MELLITUS WITHOUT COMPLIC 04/10/2017 MELE HEBERT MD Ot R53.83 OTHER FATIGUE 04/10/2017 DOROTA CABELLO EXECUTIVE VICE 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 Ot E11.9 TYPE 2 DIABETES MELLITUS WITHOUT COMPLIC 04/10/2017 DOROTA CABELLO EXECUTIVE VICE 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 Ot E78.5 HYPERLIPIDEMIA, UNSPECIFIED 04/10/2017 DOROTA CABELLO EXECUTIVE VICE 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 Ot R53.83 OTHER FATIGUE 04/12/2017 DOROTA CABELLO EXECUTIVE VICE 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 Ot E11.9 TYPE 2 DIABETES MELLITUS WITHOUT COMPLIC 04/12/2017 DOROTA CABELLO EXECUTIVE VICE 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 Ot E78.5 HYPERLIPIDEMIA, UNSPECIFIED 04/12/2017 DOROTA CABELLO EXECUTIVE VICE 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 Ot R53.83 OTHER FATIGUE 04/15/2017 IMTIAZ BRYANT EDUCATIONAL ADVISOR Ot E66.01 MORBID (SEVERE) OBESITY DUE TO EXCESS CA 04/15/2017 BAIMA, IMTIAZ L EDUCATIONAL ADVISOR Ot E78.5 HYPERLIPIDEMIA, UNSPECIFIED 04/15/2017 BAIMA, IMTIAZ L EDUCATIONAL ADVISOR Ot G47.33 OBSTRUCTIVE SLEEP APNEA (ADULT) (PEDIATR 04/15/2017 BAIMA, IMTIAZ L EDUCATIONAL ADVISOR Ot I 10 ESSENTIAL (PRIMARY) HYPERTENSION 04/15/2017 BAIMA, IMTIAZ L EDUCATIONAL ADVISOR Ot I25.10 ATHSCL HEART DISEASE OF [place] CORONARY 04/15/2017 BAIMA, IMTIAZ L EDUCATIONAL ADVISOR Ot I65.29 OCCLUSION AND STENOSIS OF UNSPECIFIED CA 04/15/2017 BAIMA, IMTIAZ L EDUCATIONAL ADVISOR Ot R07.9 CHEST PAIN, UNSPECIFIED 04/20/2017 BAIMA, IMTIAZ L EDUCATIONAL ADVISOR Ot E66.01 MORBID (SEVERE) OBESITY DUE TO EXCESS CA 04/20/2017 BAIMA, IMTIAZ L EDUCATIONAL ADVISOR Ot E78.5 HYPERLIPIDEMIA, UNSPECIFIED 04/20/2017 BAIMA, IMTIAZ L EDUCATIONAL ADVISOR Ot G47.33 OBSTRUCTIVE SLEEP APNEA (ADULT) (PEDIATR 04/20/2017 BAIMA, IMTIAZ L EDUCATIONAL ADVISOR Ot I 10 ESSENTIAL (PRIMARY) HYPERTENSION 04/20/2017 BAIMA, IMTIAZ L EDUCATIONAL ADVISOR Ot I25.10 ATHSCL HEART DISEASE OF [place] CORONARY 04/20/2017 BAIMA, IMTIAZ L EDUCATIONAL ADVISOR Ot I65.29 OCCLUSION AND STENOSIS OF UNSPECIFIED CA 04/20/2017 BAIMA, IMTIAZ L EDUCATIONAL ADVISOR Ot R07.9 CHEST PAIN, UNSPECIFIED 04/23/2017 DOROTA CABELLO EXECUTIVE VICE 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 Ot E11.9 TYPE 2 DIABETES MELLITUS WITHOUT COMPLIC 04/23/2017 DOROTA CABELLO EXECUTIVE VICE 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 Ot E78.5 HYPERLIPIDEMIA, UNSPECIFIED 04/23/2017 DOROTA CABELLO EXECUTIVE VICE 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 Ot R53.83 OTHER FATIGUE 07/15/2017 SHERRI PUENTES APRN Ot E11 .9 TYPE 2 DIABETES MELLITUS WITHOUT COMPLIC 07/15/2017 SHERRI PUENTES APRN Ot E78.00 PURE HYPERCHOLESTEROLEMIA, UNSPECIFIED 07/15/2017 SHERRI PUENTES APRN Ot F32 .9 MAJOR DEPRESSIVE DISORDER, SINGLE EPISOD 07/15/2017 SHERRI PUENTES APRN Ot I10 ESSENTIAL (PRIMARY) HYPERTENSION 07/15/2017 SHERRI PUENTES APRN Ot I25.10 ATHSCL HEART DISEASE OF [place] CORONARY 07/15/2017 SHERRI PUENTES APRN Ot K21 .9 GASTRO-ESOPHAGEAL REFLUX DISEASE WITHOUT 07/15/2017 SHERRI PUENTES APRN Ot M17.12 UNILATERAL PRIMARY OSTEOARTHRITIS, LEFT 07/15/2017 SHERRI PUENTES APRN Ot M25.562 PAIN IN LEFT KNEE 07/15/2017 SHERRI PUENTES APRN Ot X50.0XXA OVEREXERTION FROM STRENUOUS MOVEMENT OR 07/15/2017 SHERRI PUENTES APRN Ot Y92.000 [facility] R 07/15/2017 SHERRI PUENTES APRN Ot Z79.82 HALF-WAY (CURRENT) USE OF ASPIRIN 07/15/2017 SHERRI PUENTES APRN Ot Z87.448 PERSONAL HISTORY OF OTHER DISEASES OF UR 07/15/2017 SHERRI PUENTES APRN Ot Z88 .0 ALLERGY STATUS TO PENICILLIN 07/17/2017 SHERRI PUENTES APRN Ot E11 .9 TYPE 2 DIABETES MELLITUS WITHOUT COMPLIC 07/17/2017 SHERRI PUENTES APRN Ot E78.00 PURE HYPERCHOLESTEROLEMIA, UNSPECIFIED 07/17/2017 SHERRI PUENTES APRN Ot F32 .9 MAJOR DEPRESSIVE DISORDER, SINGLE EPISOD 07/17/2017 SHERRI PUENTES APRN Ot I10 ESSENTIAL (PRIMARY) HYPERTENSION 07/17/2017 SHERRI PUENTES APRN Ot I25.10 ATHSCL HEART DISEASE OF [place] CORONARY 07/17/2017 SHERRI PUENTES APRN Ot K21 .9 GASTRO-ESOPHAGEAL REFLUX DISEASE WITHOUT 07/17/2017 SHERRI PUENTES APRN Ot M17.12 UNILATERAL PRIMARY OSTEOARTHRITIS, LEFT 07/17/2017 SHERRI PUENTES APRN Ot M25.562 PAIN IN LEFT KNEE 07/17/2017 SHERRI PUENTES APRN Ot X50.0XXA OVEREXERTION FROM STRENUOUS MOVEMENT OR 07/17/2017 SHERRI PUENTES APRN Ot Y92.000 KITCHEN OF [facility] (PRIVATE) R 07/17/2017 SHERRI PUENTES APRN Ot Z79.82 HALF-WAY (CURRENT) USE OF ASPIRIN 07/17/2017 SHERRI PUENTES APRN Ot Z87.448 PERSONAL HISTORY OF OTHER DISEASES OF UR 07/17/2017 SHERRI PUENTES APRN Ot Z88 .0 ALLERGY STATUS TO PENICILLIN 11/10/2017 DYLAN SIFUENTES Ot E11.9 TYPE 2 DIABETES MELLITUS WITHOUT COMPLIC 11/10/2017 JAMES SIFUENTESIS Ot E78.00 PURE HYPERCHOLESTEROLEMIA, UNSPECIFIED 11/10/2017 DYLAN SIFUENTES Ot F32.9 MAJOR DEPRESSIVE DISORDER, SINGLE EPISOD 11/10/2017 DYLAN SIFUENTES Ot I10 ESSENTIAL (PRIMARY) HYPERTENSION 11/10/2017 JAMES SIFUENTESIS Ot I25.10 ATHSCL HEART DISEASE OF [place] CORONARY 11/10/2017 DYLAN SIFUENTES Ot K21.9 GASTRO-ESOPHAGEAL REFLUX DISEASE WITHOUT 11/10/2017 DYLAN SIFUENTES Ot M25.512 PAIN IN LEFT SHOULDER 11/10/2017 DYLAN SIFUENTES Ot S46.912A STRAIN UNSP MUSC/FASC/TEND AT SHLDR/UP A 11/10/2017 DYLAN SIFUENTES Ot X50.1XXA OVEREXERTION FROM PROLONGED STATIC OR AW 11/10/2017 JAMES SIFUENTESIS Ot Z79.82 HALF-WAY (CURRENT) USE OF ASPIRIN 11/10/2017 DYLAN SIFUENTES Ot Z82.49 FAMILY HX OF ISCHEM HEART DIS AND OTH DI 11/10/2017 DYLAN SIFUENTES Ot Z87.448 PERSONAL HISTORY OF OTHER DISEASES OF UR 11/10/2017 DYLAN SIFUENTES Ot Z88.0 ALLERGY STATUS TO PENICILLIN 01/02/2018 MAGDIEL BRYANTHER L EDUCATIONAL ADVISOR Ot 272.4 HYPERLIPIDEMIA NEC/NOS 01/02/2018 ANUP MONTANA, MELE Rose Ot V76.19 OTH SCREEN BREAST EXAM FOR MALIGNANT CADE 01/02/2018 JOE MONTANA FACC, ALI FACP CCDS Ot 401.9 HYPERTENSION NOS 01/02/2018 JOE MONTANA FACC, ALI FACP CCDS Ot V58.69 OTH MED,LT,CURRENT USE 01/02/2018 BAIMA IMTIAZ L EDUCATIONAL ADVISOR Ot 272.4 HYPERLIPIDEMIA NEC/NOS 01/02/2018 FEROZMA IMTIAZ L EDUCATIONAL ADVISOR Ot 401.9 HYPERTENSION NOS 01/02/2018 FEROZMA IMTIAZ L EDUCATIONAL ADVISOR Ot 414.01 CORONARY ATHEROSCLEROSIS OF [place] CORON 01/02/2018 ANNETTE IMTIAZ L EDUCATIONAL ADVISOR Ot V58.69 OTH MED,LT,CURRENT USE 01/02/2018 ALISON ALVAREZ MD Ot 599.7 0 HEMATURIA, UNSPECIFIED 01/02/2018 ANTONIO MD, ALISON A Ot 793.5 NOSP (ABN) FINDINGS ON RADIOLOGICAL OT 01/02/2018 BAIMA, IMTIAZ L EDUCATIONAL ADVISOR Ot 272.4 HYPERLIPIDEMIA NEC/NOS 01/02/2018 BAIMA, IMTIAZ L EDUCATIONAL ADVISOR Ot 414.00 CORON ATHEROSCLER NOS TYPE VESSEL, NATIV 01/02/2018 ANUP MONTANA, MELE Rose Ot V76.12 OTH SCREEN MAMMO-MALIGN NEOPLASM OF [place] 01/02/2018 BAIMA, IMTIAZ L EDUCATIONAL ADVISOR Ot 272.4 HYPERLIPIDEMIA NEC/NOS 01/02/2018 BAIMA, IMTIAZ L EDUCATIONAL ADVISOR Ot 278.00 OBESITY, NOS 01/02/2018 BAIMA, IMTIAZ L EDUCATIONAL ADVISOR Ot 401.9 HYPERTENSION NOS 01/02/2018 BAIMA, IMTIAZ L EDUCATIONAL ADVISOR Ot 414.00 CORON ATHEROSCLER NOS TYPE VESSEL, NATIV 01/02/2018 BAIMA, IMTIAZ L EDUCATIONAL ADVISOR Ot 790.21 IMPAIRED FASTING GLUCOSE 01/02/2018 Ot 272.4 HYPE RLIPIDEMIA NEC/NOS 01/02/2018 Ot 414.00 COR ON ATHEROSCLER NOS TYPE VESSEL, NATIV 01/02/2018 BAIMA, IMTIAZ L EDUCATIONAL ADVISOR Ot 272.4 HYPERLIPIDEMIA NEC/NOS 01/02/2018 BAIMA, IMTIAZ L EDUCATIONAL ADVISOR Ot 401.9 HYPERTENSION NOS 01/02/2018 BAIMA, IMTIAZ L EDUCATIONAL ADVISOR Ot 414.9 CHR ISCHEMIC HRT DIS NOS 01/02/2018 BAIMA, IMTIAZ L EDUCATIONAL ADVISOR Ot 782.3 EDEMA 01/02/2018 ANUP MONTANA, MELE Rose Ot 724.2 LUMBAGO 01/02/2018 DOROTA CABELLO N EXECUTIVE VICE 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 Ot V76.12 OTH SCREEN MAMMO-MALIGN NEOPLASM OF [place] 01/02/2018 DOROTA CABELLO N EXECUTIVE VICE 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 Ot 786.05 SHORTNESS OF BREATH 01/02/2018 DOROTA CABELLO EXECUTIVE VICE 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 Ot 272.4 HYPERLIPIDEMIA NEC/NOS 01/02/2018 DOROTA CABELLO EXECUTIVE VICE 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 Ot 780.79 OTH MALAISE FATIGUE 01/02/2018 DOROTA CABELLO EXECUTIVE VICE 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 Ot R73.09 OTHER ABNORMAL GLUCOSE 01/02/2018 BAIMA, IMTIAZ L EDUCATIONAL ADVISOR Ot E78.5 HYPERLIPIDEMIA, UNSPECIFIED 01/02/2018 BAIMA, IMTIAZ L EDUCATIONAL ADVISOR Ot I25.10 ATHSCL HEART DISEASE OF [place] CORONARY 01/02/2018 BAIMA, IMTIAZ L EDUCATIONAL ADVISOR Ot E78.5 HYPERLIPIDEMIA, UNSPECIFIED 01/02/2018 IMTIAZ BRYANT EDUCATIONAL ADVISOR Ot I 10 ESSENTIAL (PRIMARY) HYPERTENSION 01/02/2018 IMTIAZ BRYANT EDUCATIONAL ADVISOR Ot R53.83 OTHER FATIGUE 01/02/2018 MELE HEBERT MD Ot E78.00 PURE HYPERCHOLESTEROLEMIA, UNSPECIFIED 01/02/2018 MELE HEBERT MD Ot I25.10 ATHSCL HEART DISEASE OF [place] CORONARY 01/02/2018 MELE HEBERT MD Ot R73.9 HYPERGLYCEMIA, UNSPECIFIED 01/02/2018 MELE HEBERT MD Ot M46.04 SPINAL ENTHESOPATHY, THORACIC REGION 01/02/2018 MELE HEBERT MD Ot Z12.31 ENCNTR SCREEN MAMMOGRAM FOR MALIGNANT NE 01/02/2018 MELE HEBERT MD Ot E78.5 HYPERLIPIDEMIA, UNSPECIFIED 01/02/2018 MELE HEBERT MD Ot R53.83 OTHER FATIGUE 01/02/2018 MELE HEBERT MD Ot R73.09 OTHER ABNORMAL GLUCOSE 01/02/2018 DOROTA CABELLO EXECUTIVE VICE 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 Ot E11.9 TYPE 2 DIABETES MELLITUS WITHOUT COMPLIC 01/02/2018 DOROTA CABELLO EXECUTIVE VICE 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 Ot E78.5 HYPERLIPIDEMIA, UNSPECIFIED 01/02/2018 JOE MONTANA FACSamy, ALI FACP CCDS Ot E78.4 OTHER HYPERLIPIDEMIA 01/02/2018 JOE MONTANA FACC, ALI FACP CCDS Ot I10 ESSENTIAL (PRIMARY) HYPERTENSION 01/02/2018 JOE MONTANA FACC, ALI FACP CCDS Ot I25.10 ATHSCL HEART DISEASE OF [place] CORONARY 01/02/2018 JOE MONTANA FACSamy, ALI FACP CCDS Ot E78.4 OTHER HYPERLIPIDEMIA 01/02/2018 JOE MONTANA FACC, ALI FACP CCDS Ot I10 ESSENTIAL (PRIMARY) HYPERTENSION 01/02/2018 JOE MONTANA FACC, ALI FACP CCDS Ot I25.10 ATHSCL HEART DISEASE OF [place] CORONARY 01/02/2018 MELE HEBERT MD Ot E11.9 TYPE 2 DIABETES MELLITUS WITHOUT COMPLIC 01/02/2018 MELE HEBERT MD Ot R53.83 OTHER FATIGUE 01/02/2018 IMTIAZ BRYANT EDUCATIONAL ADVISOR Ot E66.01 MORBID (SEVERE) OBESITY DUE TO EXCESS CA 01/02/2018 IMTIAZ BRYANT EDUCATIONAL ADVISOR Ot E78.5 HYPERLIPIDEMIA, UNSPECIFIED 01/02/2018 IMTIAZ BRYANT EDUCATIONAL ADVISOR Ot G47.33 OBSTRUCTIVE SLEEP APNEA (ADULT) (PEDIATR 01/02/2018 IMTIAZ BRYANT EDUCATIONAL ADVISOR Ot I 10 ESSENTIAL (PRIMARY) HYPERTENSION 01/02/2018 IMTIAZ BRYANT EDUCATIONAL ADVISOR Ot I25.10 ATHSCL HEART DISEASE OF [place] CORONARY 01/02/2018 IMTIAZ BRYANT EDUCATIONAL ADVISOR Ot I65.29 OCCLUSION AND STENOSIS OF UNSPECIFIED CA 01/02/2018 IMTIAZ BRYANT EDUCATIONAL ADVISOR Ot R07.9 CHEST PAIN, UNSPECIFIED 01/02/2018 DOROTA CABELLO N EXECUTIVE VICE 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 Ot E11.9 TYPE 2 DIABETES MELLITUS WITHOUT COMPLIC 01/02/2018 DOROTA CABELLO N EXECUTIVE VICE 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 Ot E78.5 HYPERLIPIDEMIA, UNSPECIFIED 01/02/2018 DOROTA CABELLO N EXECUTIVE VICE 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 Ot R53.83 OTHER FATIGUE 01/02/2018 KEILA SHARPE MD Ot A08. 4 VIRAL INTESTINAL INFECTION, UNSPECIFIED 01/02/2018 KEILA SHARPE MD Ot E11. 9 TYPE 2 DIABETES MELLITUS WITHOUT COMPLIC 01/02/2018 KEILA SHARPE MD Ot E78. 00 PURE HYPERCHOLESTEROLEMIA, UNSPECIFIED 01/02/2018 KEILA SHARPE MD Ot E83. 42 HYPOMAGNESEMIA 01/02/2018 KEILA SHARPE MD Ot I10 ESSENTIAL (PRIMARY) HYPERTENSION 01/02/2018 KEILA SHARPE MD Ot I25. 10 ATHSCL HEART DISEASE OF [place] CORONARY 01/02/2018 KEILA SHARPE MD Ot K21. 9 GASTRO-ESOPHAGEAL REFLUX DISEASE WITHOUT 01/02/2018 KEILA SHARPE MD Ot M17. 11 UNILATERAL PRIMARY OSTEOARTHRITIS, RIGHT 01/02/2018 KEILA SHARPE MD Ot R07. 9 CHEST PAIN, UNSPECIFIED 01/02/2018 KEILA SHARPE MD Ot R11. 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 82 HALF-WAY (CURRENT) USE OF ASPIRIN 01/02/2018 KEILA SHARPE MD Ot Z79. 84 HALF-WAY (CURRENT) USE OF ORAL HYPOGLYC 01/02/2018 KEILA SHARPE MD Ot Z82. 49 FAMILY HX OF ISCHEM HEART DIS AND OTH DI 01/02/2018 KEILA SHARPE MD Ot Z87.448 PERSONAL HISTORY OF OTHER DISEASES OF UR 01/02/2018 KEILA SHARPE MD Ot Z88. 0 ALLERGY STATUS TO PENICILLIN 01/02/2018 KEILA SHARPE MD Ot Z95. 5 PRESENCE OF CORONARY ANGIOPLASTY IMPLANT 01/05/2018 KEILA SHARPE MD Ot A08. 4 VIRAL INTESTINAL INFECTION, UNSPECIFIED 01/05/2018 KEILA SHARPE MD Ot E11. 9 TYPE 2 DIABETES MELLITUS WITHOUT COMPLIC 01/05/2018 KEILA SHARPE MD Ot E78. 00 PURE HYPERCHOLESTEROLEMIA, UNSPECIFIED 01/05/2018 KEILA SHARPE MD Ot E83. 42 HYPOMAGNESEMIA 01/05/2018 KEILA SHARPE MD Ot I10 ESSENTIAL (PRIMARY) HYPERTENSION 01/05/2018 KEILA SHARPE MD Ot I25. 10 ATHSCL HEART DISEASE OF [place] CORONARY 01/05/2018 KEILA SHARPE MD Ot K21. 9 GASTRO-ESOPHAGEAL REFLUX DISEASE WITHOUT 01/05/2018 KEILA SHARPE MD Ot M17. 11 UNILATERAL PRIMARY OSTEOARTHRITIS, RIGHT 01/05/2018 KEILA SHARPE MD Ot R11. 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 82 LIFE TEACHER (CURRENT) USE OF ASPIRIN 01/05/2018 KEILA SHARPE MD Ot Z79. 84 LIFE TEACHER (CURRENT) USE OF ORAL HYPOGLYC 01/05/2018 KEILA SHARPE MD Ot Z82. 49 FAMILY HX OF ISCHEM HEART DIS AND OTH DI 01/05/2018 KEILA SHARPE MD Ot Z87.448 PERSONAL HISTORY OF OTHER DISEASES OF UR 01/05/2018 KEILA SHARPE MD Ot Z88. 0 ALLERGY STATUS TO PENICILLIN 01/05/2018 KEILA SHARPE MD Ot Z95. 5 PRESENCE OF CORONARY ANGIOPLASTY IMPLANT 01/05/2018 KEILA SHARPE MD Ot A08. 4 VIRAL INTESTINAL INFECTION, UNSPECIFIED 01/05/2018 KEILA SHARPE MD Ot E11. 9 TYPE 2 DIABETES MELLITUS WITHOUT COMPLIC 01/05/2018 KEILA SHARPE MD Ot E78. 00 PURE HYPERCHOLESTEROLEMIA, UNSPECIFIED 01/05/2018 KEILA SHARPE MD Ot E83. 42 HYPOMAGNESEMIA 01/05/2018 KEILA SHARPE MD Ot I10 ESSENTIAL (PRIMARY) HYPERTENSION 01/05/2018 KEILA SHARPE MD Ot I25. 10 ATHSCL HEART DISEASE OF [place] CORONARY 01/05/2018 KEILA SHARPE MD Ot K21. 9 GASTRO-ESOPHAGEAL REFLUX DISEASE WITHOUT 01/05/2018 KEILA SHARPE MD Ot M17. 11 UNILATERAL PRIMARY OSTEOARTHRITIS, RIGHT 01/05/2018 KEILA SHARPE MD Ot R07. 9 CHEST PAIN, UNSPECIFIED 01/05/2018 KEILA SHARPE MD Ot R11. 2 NAUSEA WITH VOMITING, UNSPECIFIED 01/05/2018 KEILA SHARPE MD Ot Z79. 52 HALF-WAY (CURRENT) USE OF SYSTEMIC STER 01/05/2018 KEILA SHARPE MD Ot Z79. 82 LIFE TEACHER (CURRENT) USE OF ASPIRIN 01/05/2018 KEILA SHARPE MD Ot Z79. 84 LIFE TEACHER (CURRENT) USE OF ORAL HYPOGLYC 01/05/2018 KEILA SHARPE MD Ot Z82. 49 FAMILY HX OF ISCHEM HEART DIS AND OTH DI 01/05/2018 KEILA SHARPE MD Ot Z87.448 PERSONAL HISTORY OF OTHER DISEASES OF UR 01/05/2018 KEILA SHARPE MD Ot Z88. 0 ALLERGY STATUS TO PENICILLIN 01/05/2018 KEILA SHARPE MD Ot Z95. 5 PRESENCE OF CORONARY ANGIOPLASTY IMPLANT 01/21/2018 LUPIS TIPTON APRN Ot Z12.31 ENCNTR SCREEN MAMMOGRAM FOR MALIGNANT NE 02/04/2018 ANUP MONTANA, MELE Rose Ot V76.19 OTH SCREEN BREAST EXAM FOR MALIGNANT CADE 02/04/2018 JOE MONTANA FACC, ALI FACP CCDS Ot 401.9 HYPERTENSION NOS 02/04/2018 JOE MONTANA FACC, ALI FACP CCDS Ot V58.69 OTH MED,LT,CURRENT USE 02/04/2018 IMTIAZ BRYANT EDUCATIONAL ADVISOR Ot 272.4 HYPERLIPIDEMIA NEC/NOS 02/04/2018 BAIMA, IMTIAZ L EDUCATIONAL ADVISOR Ot 401.9 HYPERTENSION NOS 02/04/2018 BAIMA, IMTIAZ L EDUCATIONAL ADVISOR Ot 414.01 CORONARY ATHEROSCLEROSIS OF [place] CORON 02/04/2018 BAIMA, IMTIAZ L EDUCATIONAL ADVISOR Ot V58.69 OTH MED,LT,CURRENT USE 02/04/2018 ANTONIO MONTANA, ALISON Bush Ot 599.7 0 HEMATURIA, UNSPECIFIED 02/04/2018 ANTONIO MONTANA, ALISON Bush Ot 793.5 NOSP (ABN) FINDINGS ON RADIOLOGICAL OT 02/04/2018 BAIMA, IMTIAZ L EDUCATIONAL ADVISOR Ot 272.4 HYPERLIPIDEMIA NEC/NOS 02/04/2018 BAIMA, IMTIAZ L EDUCATIONAL ADVISOR Ot 414.00 CORON ATHEROSCLER NOS TYPE VESSEL, NATIV 02/04/2018 ANUP MONTANA, MELE Rose Ot V76.12 OTH SCREEN MAMMO-MALIGN NEOPLASM OF [place] 02/04/2018 BAIMA, IMTIAZ L EDUCATIONAL ADVISOR Ot 272.4 HYPERLIPIDEMIA NEC/NOS 02/04/2018 BAIMA, IMTIAZ L EDUCATIONAL ADVISOR Ot 278.00 OBESITY, NOS 02/04/2018 BAIMA, IMTIAZ L EDUCATIONAL ADVISOR Ot 401.9 HYPERTENSION NOS 02/04/2018 BAIMA, IMTIAZ L EDUCATIONAL ADVISOR Ot 414.00 CORON ATHEROSCLER NOS TYPE VESSEL, NATIV 02/04/2018 BAIMA, IMTIAZ L EDUCATIONAL ADVISOR Ot 790.21 IMPAIRED FASTING GLUCOSE 02/04/2018 Ot 272.4 HYPE RLIPIDEMIA NEC/NOS 02/04/2018 Ot 414.00 COR ON ATHEROSCLER NOS TYPE VESSEL, NATIV 02/04/2018 BAIMA, IMTIAZ L EDUCATIONAL ADVISOR Ot 272.4 HYPERLIPIDEMIA NEC/NOS 02/04/2018 BAIMA, IMTIAZ L EDUCATIONAL ADVISOR Ot 401.9 HYPERTENSION NOS 02/04/2018 BAIMA, IMTIAZ L EDUCATIONAL ADVISOR Ot 414.9 CHR ISCHEMIC HRT DIS NOS 02/04/2018 BAIMA, IMTIAZ L EDUCATIONAL ADVISOR Ot 782.3 EDEMA 02/04/2018 ANUP MONTANA, MELE Rose Ot 724.2 LUMBAGO 02/04/2018 DOROTA CABELLO N EXECUTIVE VICE 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 Ot V76.12 OTH SCREEN MAMMO-MALIGN NEOPLASM OF [place] 02/04/2018 DOROTA CABELLO N EXECUTIVE VICE 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 Ot 786.05 SHORTNESS OF BREATH 02/04/2018 DOROTA CABELLO N EXECUTIVE VICE 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 Ot 272.4 HYPERLIPIDEMIA NEC/NOS 02/04/2018 DOROTA CABELLO EXECUTIVE VICE 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 Ot 780.79 OTH MALAISE FATIGUE 02/04/2018 DOROTA CABELLO EXECUTIVE VICE 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 Ot R73.09 OTHER ABNORMAL GLUCOSE 02/04/2018 BAIMAIMTIAZ L EDUCATIONAL ADVISOR Ot E78.5 HYPERLIPIDEMIA, UNSPECIFIED 02/04/2018 BAIMA, IMTIAZ L EDUCATIONAL ADVISOR Ot I25.10 ATHSCL HEART DISEASE OF [place] CORONARY 02/04/2018 BAIMA, IMTIAZ L EDUCATIONAL ADVISOR Ot E78.5 HYPERLIPIDEMIA, UNSPECIFIED 02/04/2018 BAIMA, IMTIAZ L EDUCATIONAL ADVISOR Ot I 10 ESSENTIAL (PRIMARY) HYPERTENSION 02/04/2018 BAIMA, IMTIAZ L EDUCATIONAL ADVISOR Ot R53.83 OTHER FATIGUE 02/04/2018 ANUP MONTANA, MELE Rose Ot E78.00 PURE HYPERCHOLESTEROLEMIA, UNSPECIFIED 02/04/2018 ANUP MONTANA, MELE Rose Ot I25.10 ATHSCL HEART DISEASE OF [place] CORONARY 02/04/2018 MELE HEBERT MD Ot R73.9 HYPERGLYCEMIA, UNSPECIFIED 02/04/2018 ANUP MONTANA, MELE Rose Ot M46.04 SPINAL ENTHESOPATHY, THORACIC REGION 02/04/2018 MELE HEBERT MD Ot Z12.31 ENCNTR SCREEN MAMMOGRAM FOR MALIGNANT NE 02/04/2018 MELE HEBERT MD Ot E78.5 HYPERLIPIDEMIA, UNSPECIFIED 02/04/2018 ANUP MONTANA, MELE Rose Ot R53.83 OTHER FATIGUE 02/04/2018 ANUP MONTANA, MELE Rose Ot R73.09 OTHER ABNORMAL GLUCOSE 02/04/2018 DOROTA CABELLO Richard EXECUTIVE VICE 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 Ot E11.9 TYPE 2 DIABETES MELLITUS WITHOUT COMPLIC 02/04/2018 DARRELL CABELLOKELLEY Ramos EXECUTIVE VICE 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 Ot E78.5 HYPERLIPIDEMIA, UNSPECIFIED 02/04/2018 JOE MONTANA FACC, ALI FACP CCDS Ot E78.4 OTHER HYPERLIPIDEMIA 02/04/2018 JOE MONTANA FACC, ALI FACP CCDS Ot I10 ESSENTIAL (PRIMARY) HYPERTENSION 02/04/2018 JOE MONTANA FACC, ALI FACP CCDS Ot I25.10 ATHSCL HEART DISEASE OF [place] CORONARY 02/04/2018 JOE MONTANA FACC, ALI FACP CCDS Ot E78.4 OTHER HYPERLIPIDEMIA 02/04/2018 JOE MONTANA FACC, ALI FACP CCDS Ot I10 ESSENTIAL (PRIMARY) HYPERTENSION 02/04/2018 JOE MONTANA FACC, GURVINDER NO CCDS Ot I25.10 ATHSCL HEART DISEASE OF [place] CORONARY 02/04/2018 ANUP MONTANA, MELE Rose Ot E11.9 TYPE 2 DIABETES MELLITUS WITHOUT COMPLIC 02/04/2018 ANUP MONTANA, MELE Rose Ot R53.83 OTHER FATIGUE 02/04/2018 BAIMA, IMTIAZ L EDUCATIONAL ADVISOR Ot E66.01 MORBID (SEVERE) OBESITY DUE TO EXCESS CA 02/04/2018 BAIMA, IMTIAZ L EDUCATIONAL ADVISOR Ot E78.5 HYPERLIPIDEMIA, UNSPECIFIED 02/04/2018 BAIMA, IMTIAZ L EDUCATIONAL ADVISOR Ot G47.33 OBSTRUCTIVE SLEEP APNEA (ADULT) (PEDIATR 02/04/2018 BAIMA, IMTIAZ L EDUCATIONAL ADVISOR Ot I 10 ESSENTIAL (PRIMARY) HYPERTENSION 02/04/2018 BAIMA, IMTIAZ L EDUCATIONAL ADVISOR Ot I25.10 ATHSCL HEART DISEASE OF [place] CORONARY 02/04/2018 BAIMA, IMTIAZ L EDUCATIONAL ADVISOR Ot I65.29 OCCLUSION AND STENOSIS OF UNSPECIFIED CA 02/04/2018 BAIMA, IMTIAZ L EDUCATIONAL ADVISOR Ot R07.9 CHEST PAIN, UNSPECIFIED 02/04/2018 DOROTA CABELLO EXECUTIVE VICE 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 Ot E11.9 TYPE 2 DIABETES MELLITUS WITHOUT COMPLIC 02/04/2018 DOROTA CABELLO EXECUTIVE VICE 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 Ot E78.5 HYPERLIPIDEMIA, UNSPECIFIED 02/04/2018 DOROTA CABELLO EXECUTIVE VICE 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 Ot R53.83 OTHER FATIGUE 02/04/2018 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 Ot Z12.31 ENCNTR SCREEN MAMMOGRAM FOR MALIGNANT NE 02/08/2018 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 Ot S49.92XA UNSP INJURY OF LEFT SHOULDER AND UPPER A 02/08/2018 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 Ot X50.9XXA OTHER AND UNSPECIFIED OVREXRTN OR STRNOU 02/19/2018 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 Ot S49.92XA UNSP INJURY OF LEFT SHOULDER AND UPPER A 02/19/2018 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 Ot X50.9XXA OTHER AND UNSPECIFIED OVREXRTN OR STRNOU 04/26/2018 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 Ot E11.9 TYPE 2 DIABETES MELLITUS WITHOUT COMPLIC 04/26/2018 LUPIS TIPTON APRN Ot E78.2 MIXED HYPERLIPIDEMIA 04/26/2018 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 Ot E88.81 METABOLIC SYNDROME 04/26/2018 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 Ot R53.83 OTHER FATIGUE 05/06/2018 LUPIS TIPTON APRN Ot E11.9 TYPE 2 DIABETES MELLITUS WITHOUT COMPLIC 05/06/2018 LUPIS TIPTON APRN Ot E78.2 MIXED HYPERLIPIDEMIA 05/06/2018 LUPIS TIPTON APRN Ot E88.81 METABOLIC SYNDROME 05/06/2018 LUPIS TIPTON APRN Ot R53.83 OTHER FATIGUE 12/20/2018 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 Ot M79.672 PAIN IN LEFT FOOT Procedures Code [place] [address] PSYT X PT&/FAMILY 45 MINUTES 11/02/2012 Results Test Result Range Automated blood complete blood count (he mogram) panel - 01/11/16 10:35 Blood leukocytes automated count (number/volume) 14.1 10*3/uL 4.3-11.0 Blood erythrocytes automated count (number/volume) 4.76 10*6/uL 4.35-5.85 Venous blood hemoglobin measurement (mass/volume) 13.2 g/dL 11.5-16.0 Blood hematocrit (volume fraction) 39 % 35-52 Automated erythrocyte mean corpuscular volume 81 [ foz_us] 80-99 Automated erythrocyte mean corpuscular h emoglobin (mass per erythrocyte) 28 pg 25-34 Automated erythrocyte mean corpuscular h emoglobin concentration measurement (mass/volume) 34 g/dL 32-36 Automated erythrocyte distribution width ratio 13. 0 % 10.0- 14.5 Automated blood platelet count (count/volume) 378 10*3/uL [...] 5-14 Serum or plasma urea nitrogen measurement (mass/volume ) 16 mg/dL 7-18 Serum or plasma creatinine measurement (mass/volume) 0.78 mg/dL 0.60-1.30 Serum or plasma urea nitrogen/creatinine mass ratio 21 NRG Serum or plasma creatinine measurement w ith calculation of estimated glomerular filtration rate > NRG Serum or plasma glucose measurement (mass/volume) 160 mg/dL 70-105 Serum or plasma calcium measurement (mass/volume) 9.1 mg/dL 8.5-10.1 Serum or plasma total bilirubin measurement (mass/volu me) 0.5 mg/dL 0.1-1.0 Serum or plasma alkaline phosphatase jess surement (enzymatic activity/volume) 118 U/L 40-136 Serum or plasma aspartate aminotransfera se measurement (enzymatic activity/volume) 8 U/L 5-34 Serum or plasma alanine aminotransferase measurement (enzymatic activity/volume) 14 U/L 0-55 Serum or plasma protein measurement (mass/volume) 6.6 g/dL 6.4-8.2 Serum or plasma albumin measurement (mass/volume) 3.7 g/dL 3.2-4.5 Lipid 1996 panel - 01/11/16 10:35 Serum or plasma triglyceride measurement (mass/volume) 115 mg/dL <150 Serum or plasma cholesterol measurement (mass/volume) 157 mg/dL < 200 Serum or plasma cholesterol in HDL measurement (mass/v olume) 40 mg/dL 40-60 Cholesterol in LDL [mass/volume] in serum or plasma by direct assay 98 mg/dL 1-129 Serum or plasma cholesterol in VLDL measurement (mass/ volume) 23 mg/dL 5-40 Hemoglobin A1c - 01/11/16 10:35 Hemoglobin A1c 6.2 % 4.5-6.2 THYROID STIMULATING HORMONE - 01/11/16 1 0:35 THYROID STIMULATING HORMONE 1.13 u[iU]/mL 0.35-4.94 Complete urinalysis with reflex to cultu re - 02/20/16 18:10 Urine color determination YELLOW NRG Urine clarity determination CLEAR NR G Urine pH measurement by test strip 5 5-9 Specific gravity of urine by test strip 1.030 1.016-1.022 Urine protein assay by test strip, semi-quantitative 2+ NEGATIVE Urine glucose detection by automated test strip 3+ NEGATIVE Erythrocytes detection in urine sediment by light micr oscopy 3+ NEGATIVE Urine ketones detection by automated test strip NE GATIVE NEGATIVE Urine nitrite detection by test strip NEGATIVE NEGATIVE Urine total bilirubin detection by test strip NEGA TIVE NEGATIVE Urine urobilinogen measurement by automated test strip (mass/volume) NORMAL NORMAL Urine leukocyte esterase detection by dipstick NEG ATIVE NEGATIVE Automated urine sediment erythrocyte cou nt by microscopy (number/high power field) NONE NRG Automated urine sediment leukocyte count by microscopy (number/high power field) RARE NRG Bacteria detection in urine sediment by light microsco py FEW NRG Squamous epithelial cells detection in u rine sediment by light microscopy 5-10 NRG Crystals detection in urine sediment by light microsco py NONE NRG Casts detection in urine sediment by light microscopy NONE NRG Mucus detection in urine sediment by light microscopy MODERATE NRG Complete urinalysis with reflex to culture NO NRG Automated blood complete blood count (he mogram) panel - 05/23/16 10:56 Blood leukocytes automated count (number/volume) 9.3 10*3/uL 4.3-11.0 Blood erythrocytes automated count (number/volume) 4.71 10*6/uL 4.35-5.85 Venous blood hemoglobin measurement (mass/volume) 13.2 g/dL 11.5-16.0 Blood hematocrit (volume fraction) 39 % 35-52 Automated erythrocyte mean corpuscular volume 82 [ foz_us] 80-99 Automated erythrocyte mean corpuscular h emoglobin (mass per erythrocyte) 28 pg 25-34 Automated erythrocyte mean corpuscular h emoglobin concentration measurement (mass/volume) 34 g/dL 32-36 Automated erythrocyte distribution width ratio 12. 4 % 10.0- 14.5 Automated blood platelet count (count/volume) 428 10*3/uL [...] 5-14 Serum or plasma urea nitrogen measurement (mass/volume ) 11 mg/dL 7-18 Serum or plasma creatinine measurement (mass/volume) 0.74 mg/dL 0.60-1.30 Serum or plasma urea nitrogen/creatinine mass ratio 15 NRG Serum or plasma creatinine measurement w ith calculation of estimated glomerular filtration rate > NRG Serum or plasma glucose measurement (mass/volume) 201 mg/dL 70-105 Serum or plasma calcium measurement (mass/volume) 8.5 mg/dL 8.5-10.1 Serum or plasma total bilirubin measurement (mass/volu me) 0.5 mg/dL 0.1-1.0 Serum or plasma alkaline phosphatase jess surement (enzymatic activity/volume) 142 U/L 40-136 Serum or plasma aspartate aminotransfera se measurement (enzymatic activity/volume) 12 U/L 5-34 Serum or plasma alanine aminotransferase measurement (enzymatic activity/volume) 16 U/L 0-55 Serum or plasma protein measurement (mass/volume) 6.9 g/dL 6.4-8.2 Serum or plasma albumin measurement (mass/volume) 3.6 g/dL 3.2-4.5 Lipid 1996 panel - 05/23/16 10:56 Serum or plasma triglyceride measurement (mass/volume) 128 mg/dL <150 Serum or plasma cholesterol measurement (mass/volume) 158 mg/dL < 200 Serum or plasma cholesterol in HDL measurement (mass/v olume) 38 mg/dL 40-60 Cholesterol in LDL [mass/volume] in serum or plasma by direct assay 95 mg/dL 1-129 Serum or plasma cholesterol in VLDL measurement (mass/ volume) 26 mg/dL 5-40 THYROID STIMULATING HORMONE - 05/23/16 1 0:56 THYROID STIMULATING HORMONE 1.32 u[iU]/mL 0.35-4.94 Hemoglobin A1c - 05/23/16 10:56 Hemoglobin A1c 7.6 % 4.5-6.2 Automated blood complete blood count (he mogram) panel - 08/26/16 11:00 Blood leukocytes automated count (number/volume) 8.4 10*3/uL 4.3-11.0 Blood erythrocytes automated count (number/volume) 4.95 10*6/uL 4.35-5.85 Venous blood hemoglobin measurement (mass/volume) 13.2 g/dL 11.5-16.0 Blood hematocrit (volume fraction) 40 % 35-52 Automated erythrocyte mean corpuscular volume 81 [ foz_us] 80-99 Automated erythrocyte mean corpuscular h emoglobin (mass per erythrocyte) 27 pg 25-34 Automated erythrocyte mean corpuscular h emoglobin concentration measurement (mass/volume) 33 g/dL 32-36 Automated erythrocyte distribution width ratio 12. 6 % 10.0- 14.5 Automated blood platelet count (count/volume) 412 10*3/uL [...] 5-14 Serum or plasma urea nitrogen measurement (mass/volume ) 13 mg/dL 7-18 Serum or plasma creatinine measurement (mass/volume) 0.72 mg/dL 0.60-1.30 Serum or plasma urea nitrogen/creatinine mass ratio 18 NRG Serum or plasma creatinine measurement w ith calculation of estimated glomerular filtration rate > NRG Serum or plasma glucose measurement (mass/volume) 141 mg/dL 70-105 Serum or plasma calcium measurement (mass/volume) 8.6 mg/dL 8.5-10.1 Serum or plasma total bilirubin measurement (mass/volu me) 0.5 mg/dL 0.1-1.0 Serum or plasma alkaline phosphatase jess surement (enzymatic activity/volume) 119 U/L 40-136 Serum or plasma aspartate aminotransfera se measurement (enzymatic activity/volume) 16 U/L 5-34 Serum or plasma alanine aminotransferase measurement (enzymatic activity/volume) 18 U/L 0-55 Serum or plasma protein measurement (mass/volume) 6.7 g/dL 6.4-8.2 Serum or plasma albumin measurement (mass/volume) 3.5 g/dL 3.2-4.5 Lipid 1996 panel - 08/26/16 11:00 Serum or plasma triglyceride measurement (mass/volume) 160 mg/dL <150 Serum or plasma cholesterol measurement (mass/volume) 146 mg/dL < 200 Serum or plasma cholesterol in HDL measurement (mass/v olume) 35 mg/dL 40-60 Cholesterol in LDL [mass/volume] in serum or plasma by direct assay 87 mg/dL 1-129 Serum or plasma cholesterol in VLDL measurement (mass/ volume) 32 mg/dL 5-40 Hemoglobin A1c - 08/26/16 11:00 Hemoglobin A1c 6.5 % 4.5-6.2 THYROID STIMULATING HORMONE - 08/26/16 1 1:00 THYROID STIMULATING HORMONE 1.74 u[iU]/mL 0.35-4.94 Automated blood complete blood count (he mogram) panel - 12/03/16 10:30 Blood leukocytes automated count (number/volume) 8.5 10*3/uL 4.3-11.0 Blood erythrocytes automated count (number/volume) 4.89 10*6/uL 4.35-5.85 Venous blood hemoglobin measurement (mass/volume) 13.4 g/dL 11.5-16.0 Blood hematocrit (volume fraction) 40 % 35-52 Automated erythrocyte mean corpuscular volume 82 [ foz_us] 80-99 Automated erythrocyte mean corpuscular h emoglobin (mass per erythrocyte) 27 pg 25-34 Automated erythrocyte mean corpuscular h emoglobin concentration measurement (mass/volume) 34 g/dL 32-36 Automated erythrocyte distribution width ratio 13. 0 % 10.0- 14.5 Automated blood platelet count (count/volume) 349 10*3/uL [...] 5-14 Serum or plasma urea nitrogen measurement (mass/volume ) 13 mg/dL 7-18 Serum or plasma creatinine measurement (mass/volume) 0.77 mg/dL 0.60-1.30 Serum or plasma urea nitrogen/creatinine mass ratio 17 NRG Serum or plasma creatinine measurement w ith calculation of estimated glomerular filtration rate > NRG Serum or plasma glucose measurement (mass/volume) 126 mg/dL 70-105 Serum or plasma calcium measurement (mass/volume) 8.5 mg/dL 8.5-10.1 Serum or plasma total bilirubin measurement (mass/volu me) 0.6 mg/dL 0.1-1.0 Serum or plasma alkaline phosphatase jess surement (enzymatic activity/volume) 146 U/L 40-136 Serum or plasma aspartate aminotransfera se measurement (enzymatic activity/volume) 13 U/L 5-34 Serum or plasma alanine aminotransferase measurement (enzymatic activity/volume) 14 U/L 0-55 Serum or plasma protein measurement (mass/volume) 7.0 g/dL 6.4-8.2 Serum or plasma albumin measurement (mass/volume) 3.7 g/dL 3.2-4.5 THYROID STIMULATING HORMONE - 12/03/16 1 0:30 THYROID STIMULATING HORMONE 1.72 u[iU]/mL 0.35-4.94 Hemoglobin A1c - 12/03/16 10:30 Hemoglobin A1c 6.8 % 4.5-6.2 PT panel in platelet poor plasma by coag ulation assay - 03/17/17 20:10 Prothrombin time (PT) in platelet poor plasma by coagu lation assay 12.6 s 12.2-14.7 INR in platelet poor plasma or blood by coagulation as say 0.9 0.8-1.4 Activated partial thromboplastin time (a PTT) in platelet poor plasma bycoagulation assay - 03/17/17 20:10 Activated partial thromboplastin time (a PTT) in platelet poor plasma bycoagulation assay 25 s 24-35 Complete blood count (CBC) with automate d white blood cell (WBC) differential - 03/17/17 20:10 Blood leukocytes automated count (number/volume) 5.3 10*3/uL 4.3-11.0 Blood erythrocytes automated count (number/volume) 4.75 10*6/uL 4.35-5.85 Venous blood hemoglobin measurement (mass/volume) 13.3 g/dL 11.5-16.0 Blood hematocrit (volume fraction) 39 % 35-52 Automated erythrocyte mean corpuscular volume 81 [ foz_us] 80-99 Automated erythrocyte mean corpuscular h emoglobin (mass per erythrocyte) 28 pg 25-34 Automated erythrocyte mean corpuscular h emoglobin concentration measurement (mass/volume) 35 g/dL 32-36 Automated erythrocyte distribution width ratio 12. 7 % 10.0- 14.5 Automated blood platelet count (count/volume) 282 10*3/uL [...] 10*3 1.0-4.0 Blood monocytes automated count (number/volume) 0. 6 10*3 0.0-1.0 Automated eosinophil count 0.1 10*3/uL 0 .0-0.3 Automated blood basophil count (count/volume) 0.0 10*3/uL 0.0-0.1 Comprehensive metabolic panel - 03/17/17 20:10 Serum or plasma sodium measurement (moles/volume) 136 mmol/L 135-145 Serum or plasma potassium measurement (moles/volume) 3.6 mmol/L 3.6-5.0 Serum or plasma chloride measurement (moles/volume) 103 mmol/L 98-107 Carbon dioxide 25 mmol/L 21-32 Serum or plasma anion gap determination (moles/volume) 8 mmol/L 5-14 Serum or plasma urea nitrogen measurement (mass/volume ) 14 mg/dL 7-18 Serum or plasma creatinine measurement (mass/volume) 0.71 mg/dL 0.60-1.30 Serum or plasma urea nitrogen/creatinine mass ratio 20 NRG Serum or plasma creatinine measurement w ith calculation of estimated glomerular filtration rate > NRG Serum or plasma glucose measurement (mass/volume) 141 mg/dL 70-105 Serum or plasma calcium measurement (mass/volume) 8.9 mg/dL 8.5-10.1 Serum or plasma total bilirubin measurement (mass/volu me) 0.5 mg/dL 0.1-1.0 Serum or plasma alkaline phosphatase jess surement (enzymatic activity/volume) 125 U/L 40-136 Serum or plasma aspartate aminotransfera se measurement (enzymatic activity/volume) 18 U/L 5-34 Serum or plasma alanine aminotransferase measurement (enzymatic activity/volume) 17 U/L 0-55 Serum or plasma protein measurement (mass/volume) 6.8 g/dL 6.4-8.2 Serum or plasma albumin measurement (mass/volume) 3.6 g/dL 3.2-4.5 Magnesium - 03/17/17 20:10 Magnesium 1.9 mg/dL 1.8-2.4 Serum or plasma troponin i.cardiac measu rement (mass/volume) - 03/17/17 20:10 Serum or plasma troponin i.cardiac measurement (mass/v olume) < ng/mL <0.30 Myoglobin, serum - 03/17/17 20:10 Myoglobin, serum 75.1 ng/mL 10.0-92.0 Influenza virus A and B antigen detectio n - 03/17/17 22:26 FLU RESULT NEGATIVE FOR INFLUENZA A AND B ANTIGENS BY [place] [facility] [place] Automated blood complete blood count (he mogram) panel - 04/06/17 12:22 Blood leukocytes automated count (number/volume) 8.5 10*3/uL 4.3-11.0 Blood erythrocytes automated count (number/volume) 4.86 10*6/uL 4.35-5.85 Venous blood hemoglobin measurement (mass/volume) 13.6 g/dL 11.5-16.0 Blood hematocrit (volume fraction) 40 % 35-52 Automated erythrocyte mean corpuscular volume 82 [ foz_us] 80-99 Automated erythrocyte mean corpuscular h emoglobin (mass per erythrocyte) 28 pg 25-34 Automated erythrocyte mean corpuscular h emoglobin concentration measurement (mass/volume) 34 g/dL 32-36 Automated erythrocyte distribution width ratio 13. 1 % 10.0- 14.5 Automated blood platelet count (count/volume) 379 10*3/uL [...] 5-14 Serum or plasma urea nitrogen measurement (mass/volume ) 19 mg/dL 7-18 Serum or plasma creatinine measurement (mass/volume) 0.79 mg/dL 0.60-1.30 Serum or plasma urea nitrogen/creatinine mass ratio 24 NRG Serum or plasma creatinine measurement w ith calculation of estimated glomerular filtration rate > NRG Serum or plasma glucose measurement (mass/volume) 136 mg/dL 70-105 Serum or plasma calcium measurement (mass/volume) 8.7 mg/dL 8.5-10.1 Serum or plasma total bilirubin measurement (mass/volu me) 0.8 mg/dL 0.1-1.0 Serum or plasma alkaline phosphatase jess surement (enzymatic activity/volume) 120 U/L 40-136 Serum or plasma aspartate aminotransfera se measurement (enzymatic activity/volume) 12 U/L 5-34 Serum or plasma alanine aminotransferase measurement (enzymatic activity/volume) 11 U/L 0-55 Serum or plasma protein measurement (mass/volume) 7.2 g/dL 6.4-8.2 Serum or plasma albumin measurement (mass/volume) 3.8 g/dL 3.2-4.5 Lipid 1996 panel - 04/06/17 12:22 Serum or plasma triglyceride measurement (mass/volume) 95 mg/dL <150 Serum or plasma cholesterol measurement (mass/volume) 158 mg/dL < 200 Serum or plasma cholesterol in HDL measurement (mass/v olume) 39 mg/dL 40-60 Cholesterol in LDL [mass/volume] in serum or plasma by direct assay 97 mg/dL 1-129 Serum or plasma cholesterol in VLDL measurement (mass/ volume) 19 mg/dL 5-40 THYROID STIMULATING HORMONE - 04/06/17 1 2:22 THYROID STIMULATING HORMONE 1.40 u[iU]/mL 0.35-4.94 Hemoglobin A1c - 04/06/17 12:22 Blood hemoglobin A1C measurement (mass/volume) 6.8 % 4.0-5.6 MEAN BLOOD GLUCOSE 148 % <=126 Complete blood count (CBC) with automate d white blood cell (WBC) differential - 01/02/18 19:20 Blood leukocytes automated count (number/volume) 8.3 10*3/uL 4.3-11.0 Blood erythrocytes automated count (number/volume) 4.57 10*6/uL 4.35-5.85 Venous blood hemoglobin measurement (mass/volume) 12.6 g/dL 11.5-16.0 Blood hematocrit (volume fraction) 37 % 35-52 Automated erythrocyte mean corpuscular volume 81 [ foz_us] 80-99 Automated erythrocyte mean corpuscular h emoglobin (mass per erythrocyte) 28 pg 25-34 Automated erythrocyte mean corpuscular h emoglobin concentration measurement (mass/volume) 34 g/dL 32-36 Automated erythrocyte distribution width ratio 13. 2 % 10.0- 14.5 Automated blood platelet count (count/volume) 298 10*3/uL 130-400 Automated blood platelet mean volume measurement 8.8 [foz_us] 7.4-10.4 Automated blood neutrophils/100 leukocytes 72 % 42-75 Automated blood lymphocytes/100 leukocytes 19 % 12-44 Blood monocytes/100 leukocytes 8 % 0-12 Automated blood eosinophils/100 leukocytes 1 % 0-10 Automated blood basophils/100 leukocytes 0 % 0-10 Blood neutrophils automated count (number/volume) 5.9 10*3 1.8-7.8 Blood lymphocytes automated count (number/volume) 1.6 10*3 1.0-4.0 Blood monocytes automated count (number/volume) 0. 7 10*3 0.0-1.0 Automated eosinophil count 0.1 10*3/uL 0 .0-0.3 Automated blood basophil count (count/volume) 0.0 10*3/uL 0.0-0.1 Comprehensive metabolic panel - 01/02/18 19:20 Serum or plasma sodium measurement (moles/volume) 138 mmol/L 135-145 Serum or plasma potassium measurement (moles/volume) 3.6 mmol/L 3.6-5.0 Serum or plasma chloride measurement (moles/volume) 108 mmol/L 98-107 Carbon dioxide 20 mmol/L 21-32 Serum or plasma anion gap determination (moles/volume) 10 mmol/L 5-14 Serum or plasma urea nitrogen measurement (mass/volume ) 13 mg/dL 7-18 Serum or plasma creatinine measurement (mass/volume) 0.74 mg/dL 0.60-1.30 Serum or plasma urea nitrogen/creatinine mass ratio 18 NRG Serum or plasma creatinine measurement w ith calculation of estimated glomerular filtration rate > NRG Serum or plasma glucose measurement (mass/volume) 159 mg/dL 70-105 Serum or plasma calcium measurement (mass/volume) 8.3 mg/dL 8.5-10.1 Serum or plasma total bilirubin measurement (mass/volu me) 1.1 mg/dL 0.1-1.0 Serum or plasma alkaline phosphatase jess surement (enzymatic activity/volume) 202 U/L 40-136 Serum or plasma aspartate aminotransfera se measurement (enzymatic activity/volume) 109 U/L 5-34 Serum or plasma alanine aminotransferase measurement (enzymatic activity/volume) 47 U/L 0-55 Serum or plasma protein measurement (mass/volume) 6.5 g/dL 6.4-8.2 Serum or plasma albumin measurement (mass/volume) 3.4 g/dL 3.2-4.5 CALCIUM CORRECTED 8.8 mg/dL 8.5-10.1 Magnesium - 01/02/18 19:20 Magnesium 1.7 mg/dL 1.8-2.4 Serum or plasma troponin i.cardiac measu rement (mass/volume) - 01/02/18 19:20 Serum or plasma troponin i.cardiac measurement (mass/v olume) < ng/mL <0.30 Lipase - 01/02/18 19:20 Lipase 239 U/L 8-78 Serum or plasma lithium measurement (mol es/volume) - 01/02/18 19:20 BNP level 52.0 pg/mL <100.0 Serum or plasma choriogonadotropin (preg chante test) detection - 01/02/18 19:20 Serum or plasma choriogonadotropin ( test) de tection NEGATIVE NEGATIVE Serum or plasma triglyceride measurement (mass/volume) - 01/02/18 19:20 Serum or plasma triglyceride measurement (mass/volume) 136 mg/dL <150 Influenza virus A and B antigen detectio n - 01/02/18 19:36 FLU RESULT NEGATIVE FOR INFLUENZA A AND B ANTIGENS BY IA NRG Complete urinalysis with reflex to cultu re - 01/02/18 19:45 Urine color determination YELLOW NRG Urine clarity determination SLIGHTLY CLOUDY NRG Urine pH measurement by test strip 5 5-9 Specific gravity of urine by test strip 1.020 1.016-1.022 Urine protein assay by test strip, semi-quantitative 2+ NEGATIVE Urine glucose detection by automated test strip NE GATIVE NEGATIVE Erythrocytes detection in urine sediment by light micr oscopy 1+ NEGATIVE Urine ketones detection by automated test strip 1+ NEGATIVE Urine nitrite detection by test strip NEGATIVE NEGATIVE Urine total bilirubin detection by test strip NEGA TIVE NEGATIVE Urine urobilinogen measurement by automated test strip (mass/volume) 1 mg/dL NORMAL Urine leukocyte esterase detection by dipstick 1+ NEGATIVE Automated urine sediment erythrocyte cou nt by microscopy (number/high power field) NONE NRG Automated urine sediment leukocyte count by microscopy (number/high power field) [HPF] NRG Bacteria detection in urine sediment by light microsco py MODERATE NRG Squamous epithelial cells detection in u rine sediment by light microscopy 25-50 NRG Crystals detection in urine sediment by light microsco py NONE NRG Casts detection in urine sediment by light microscopy NONE NRG Mucus detection in urine sediment by light microscopy LARGE NRG Complete urinalysis with reflex to culture YES NRG Bacterial urine culture - 01/02/18 19:45 Bacterial urine culture NG NRG Complete blood count (CBC) with automate d white blood cell (WBC) differential - 01/19/18 11:00 Blood leukocytes automated count (number/volume) 6.6 10*3/uL 4.3-11.0 Blood erythrocytes automated count (number/volume) 4.78 10*6/uL 4.35-5.85 Venous blood hemoglobin measurement (mass/volume) 13.1 g/dL 11.5-16.0 Blood hematocrit (volume fraction) 39 % 35-52 Automated erythrocyte mean corpuscular volume 81 [ foz_us] 80-99 Automated erythrocyte mean corpuscular h emoglobin (mass per erythrocyte) 27 pg 25-34 Automated erythrocyte mean corpuscular h emoglobin concentration measurement (mass/volume) 34 g/dL 32-36 Automated erythrocyte distribution width ratio 13. 2 % 10.0- 14.5 Automated blood platelet count (count/volume) 342 10*3/uL 130-400 Automated blood platelet mean volume measurement 8.9 [foz_us] 7.4-10.4 Automated blood neutrophils/100 leukocytes 63 % 42-75 Automated blood lymphocytes/100 leukocytes 27 % 12-44 Blood monocytes/100 leukocytes 8 % 0-12 Automated blood eosinophils/100 leukocytes 1 % 0-10 Automated blood basophils/100 leukocytes 0 % 0-10 Blood neutrophils automated count (number/volume) 4.2 10*3 1.8-7.8 Blood lymphocytes automated count (number/volume) 1.8 10*3 1.0-4.0 Blood monocytes automated count (number/volume) 0. 5 10*3 0.0-1.0 Automated eosinophil count 0.1 10*3/uL 0 .0-0.3 Automated blood basophil count (count/volume) 0.0 10*3/uL 0.0-0.1 Comprehensive metabolic panel - 01/19/18 11:00 Serum or plasma sodium measurement (moles/volume) 137 mmol/L 135-145 Serum or plasma potassium measurement (moles/volume) 4.0 mmol/L 3.6-5.0 Serum or plasma chloride measurement (moles/volume) 107 mmol/L 98-107 Carbon dioxide 21 mmol/L 21-32 Serum or plasma anion gap determination (moles/volume) 9 mmol/L 5-14 Serum or plasma urea nitrogen measurement (mass/volume ) 13 mg/dL 7-18 Serum or plasma creatinine measurement (mass/volume) 0.74 mg/dL 0.60-1.30 Serum or plasma urea nitrogen/creatinine mass ratio 18 NRG Serum or plasma creatinine measurement w ith calculation of estimated glomerular filtration rate > NRG Serum or plasma glucose measurement (mass/volume) 171 mg/dL 70-105 Serum or plasma calcium measurement (mass/volume) 8.7 mg/dL 8.5-10.1 Serum or plasma total bilirubin measurement (mass/volu me) 0.5 mg/dL 0.1-1.0 Serum or plasma alkaline phosphatase jess surement (enzymatic activity/volume) 166 U/L 40-136 Serum or plasma aspartate aminotransfera se measurement (enzymatic activity/volume) 14 U/L 5-34 Serum or plasma alanine aminotransferase measurement (enzymatic activity/volume) 20 U/L 0-55 Serum or plasma protein measurement (mass/volume) 6.7 g/dL 6.4-8.2 Serum or plasma albumin measurement (mass/volume) 3.7 g/dL 3.2-4.5 CALCIUM CORRECTED 8.9 mg/dL 8.5-10.1 THYROID STIMULATING HORMONE - 01/19/18 1 1:00 THYROID STIMULATING HORMONE 1.28 u[iU]/mL 0.35-4.94 Hemoglobin A1c - 01/19/18 11:00 Blood hemoglobin A1C measurement (mass/volume) 7.9 % 4.0-5.6 MEAN BLOOD GLUCOSE 180 % <=126 Complete blood count (CBC) with automate d white blood cell (WBC) differential - 04/22/18 09:41 Blood leukocytes automated count (number/volume) 7.3 10*3/uL 4.3-11.0 Blood erythrocytes automated count (number/volume) 4.80 10*6/uL 4.35-5.85 Venous blood hemoglobin measurement (mass/volume) 13.1 g/dL 11.5-16.0 Blood hematocrit (volume fraction) 38 % 35-52 Automated erythrocyte mean corpuscular volume 80 [ foz_us] 80-99 Automated erythrocyte mean corpuscular h emoglobin (mass per erythrocyte) 27 pg 25-34 Automated erythrocyte mean corpuscular h emoglobin concentration measurement (mass/volume) 34 g/dL 32-36 Automated erythrocyte distribution width ratio 13. 5 % 10.0- 14.5 Automated blood platelet count (count/volume) 327 10*3/uL 130-400 Automated blood platelet mean volume measurement 8.6 [foz_us] 7.4-10.4 Automated blood neutrophils/100 leukocytes 61 % 42-75 Automated blood lymphocytes/100 leukocytes 28 % 12-44 Blood monocytes/100 leukocytes 9 % 0-12 Automated blood eosinophils/100 leukocytes 1 % 0-10 Automated blood basophils/100 leukocytes 0 % 0-10 Blood neutrophils automated count (number/volume) 4.5 10*3 1.8-7.8 Blood lymphocytes automated count (number/volume) 2.1 10*3 1.0-4.0 Blood monocytes automated count (number/volume) 0. 7 10*3 0.0-1.0 Automated eosinophil count 0.1 10*3/uL 0 .0-0.3 Automated blood basophil count (count/volume) 0.0 10*3/uL 0.0-0.1 Comprehensive metabolic panel - 04/22/18 09:41 Serum or plasma sodium measurement (moles/volume) 136 mmol/L 135-145 Serum or plasma potassium measurement (moles/volume) 4.0 mmol/L 3.6-5.0 Serum or plasma chloride measurement (moles/volume) 105 mmol/L 98-107 Carbon dioxide 24 mmol/L 21-32 Serum or plasma anion gap determination (moles/volume) 7 mmol/L 5-14 Serum or plasma urea nitrogen measurement (mass/volume ) 14 mg/dL 7-18 Serum or plasma creatinine measurement (mass/volume) 0.73 mg/dL 0.60-1.30 Serum or plasma urea nitrogen/creatinine mass ratio 19 NRG Serum or plasma creatinine measurement w ith calculation of estimated glomerular filtration rate > NRG Serum or plasma glucose measurement (mass/volume) 208 mg/dL 70-105 Serum or plasma calcium measurement (mass/volume) 8.4 mg/dL 8.5-10.1 Serum or plasma total bilirubin measurement (mass/volu me) 0.5 mg/dL 0.1-1.0 Serum or plasma alkaline phosphatase jess surement (enzymatic activity/volume) 122 U/L 40-136 Serum or plasma aspartate aminotransfera se measurement (enzymatic activity/volume) 13 U/L 5-34 Serum or plasma alanine aminotransferase measurement (enzymatic activity/volume) 15 U/L 0-55 Serum or plasma protein measurement (mass/volume) 6.5 g/dL 6.4-8.2 Serum or plasma albumin measurement (mass/volume) 3.5 g/dL 3.2-4.5 CALCIUM CORRECTED 8.8 mg/dL 8.5-10.1 Lipid 1996 panel - 04/22/18 09:41 Serum or plasma triglyceride measurement (mass/volume) 117 mg/dL <150 Serum or plasma cholesterol measurement (mass/volume) 163 mg/dL < 200 Serum or plasma cholesterol in HDL measurement (mass/v olume) 46 mg/dL 40-60 Cholesterol in LDL [mass/volume] in serum or plasma by direct assay 102 mg/dL 1-129 Serum or plasma cholesterol in VLDL measurement (mass/ volume) 23 mg/dL 5-40 THYROID STIMULATING HORMONE - 04/22/18 0 9:41 THYROID STIMULATING HORMONE 2.11 u[iU]/mL 0.35-4.94 Hemoglobin A1c - 04/22/18 09:41 Blood hemoglobin A1C measurement (mass/volume) 8.6 % 4.0-5.6 MEAN BLOOD GLUCOSE 200 % <=126 Urine microalbumin measurement by test s trip (mass/volume) - 04/22/18 09:41 Urine creatinine measurement (mass/volume) 130 % NRG Microalbumin [mass/volume] in urine 38.5 % 0.0-20.0 Microalbumin/creatinine [ratio] in urine 29.6 mg/g {Cre} 0.0- 30.0 Complete blood count (CBC) with automate d white blood cell (WBC) differential - 10/08/18 09:35 Blood leukocytes automated count (number/volume) 7.2 10*3/uL 4.3-11.0 Blood erythrocytes automated count (number/volume) 4.76 10*6/uL 4.35-5.85 Venous blood hemoglobin measurement (mass/volume) 12.9 g/dL 11.5-16.0 Blood hematocrit (volume fraction) 39 % 35-52 Automated erythrocyte mean corpuscular volume 81 [ foz_us] 80-99 Automated erythrocyte mean corpuscular h emoglobin (mass per erythrocyte) 27 pg 25-34 Automated erythrocyte mean corpuscular h emoglobin concentration measurement (mass/volume) 34 g/dL 32-36 Automated erythrocyte distribution width ratio 13. 4 % 10.0- 14.5 Automated blood platelet count (count/volume) 316 10*3/uL 130-400 Automated blood platelet mean volume measurement 9.2 [foz_us] 7.4-10.4 Automated blood neutrophils/100 leukocytes 66 % 42-75 Automated blood lymphocytes/100 leukocytes 24 % 12-44 Blood monocytes/100 leukocytes 10 % 0-12 Automated blood eosinophils/100 leukocytes 0 % 0-10 Automated blood basophils/100 leukocytes 0 % 0-10 Blood neutrophils automated count (number/volume) 4.7 10*3 1.8-7.8 Blood lymphocytes automated count (number/volume) 1.8 10*3 1.0-4.0 Blood monocytes automated count (number/volume) 0. 7 10*3 0.0-1.0 Automated eosinophil count 0.0 10*3/uL 0 .0-0.3 Automated blood basophil count (count/volume) 0.0 10*3/uL 0.0-0.1 Comprehensive metabolic panel - 10/08/18 09:35 Serum or plasma sodium measurement (moles/volume) 137 mmol/L 135-145 Serum or plasma potassium measurement (moles/volume) 3.9 mmol/L 3.6-5.0 Serum or plasma chloride measurement (moles/volume) 104 mmol/L 98-107 Carbon dioxide 21 mmol/L 21-32 Serum or plasma anion gap determination (moles/volume) 12 mmol/L 5-14 Serum or plasma urea nitrogen measurement (mass/volume ) 16 mg/dL 7-18 Serum or plasma creatinine measurement (mass/volume) 0.73 mg/dL 0.60-1.30 Serum or plasma urea nitrogen/creatinine mass ratio 22 NRG Serum or plasma creatinine measurement w ith calculation of estimated glomerular filtration rate > NRG Serum or plasma glucose measurement (mass/volume) 160 mg/dL 70-105 Serum or plasma calcium measurement (mass/volume) 8.8 mg/dL 8.5-10.1 Serum or plasma total bilirubin measurement (mass/volu me) 0.5 mg/dL 0.1-1.0 Serum or plasma alkaline phosphatase jess surement (enzymatic activity/volume) 109 U/L 40-136 Serum or plasma aspartate aminotransfera se measurement (enzymatic activity/volume) 19 U/L 5-34 Serum or plasma alanine aminotransferase measurement (enzymatic activity/volume) 23 U/L 0-55 Serum or plasma protein measurement (mass/volume) 6.7 g/dL 6.4-8.2 Serum or plasma albumin measurement (mass/volume) 3.7 g/dL 3.2-4.5 CALCIUM CORRECTED 9.0 mg/dL 8.5-10.1 Lipid 1996 panel - 10/08/18 09:35 Serum or plasma triglyceride measurement (mass/volume) 142 mg/dL <150 Serum or plasma cholesterol measurement (mass/volume) 137 mg/dL < 200 Serum or plasma cholesterol in HDL measurement (mass/v olume) 34 mg/dL 40-60 Cholesterol in LDL [mass/volume] in serum or plasma by direct assay 77 mg/dL 1-129 Serum or plasma cholesterol in VLDL measurement (mass/ volume) 28 mg/dL 5-40 THYROID STIMULATING HORMONE - 10/08/18 0 9:35 THYROID STIMULATING HORMONE 2.11 u[iU]/mL 0.35-4.94 Hemoglobin A1c measurement - 10/08/18 09 :35 Blood hemoglobin A1C measurement (mass/volume) 8.0 % 4.0-5.6 MEAN BLOOD GLUCOSE 183 % <=126 Encounters ACCT No. Visit Date/Time Discharge Status Pt. Type Provider Facility Loc./Unit Complaint [id number] 02/17/2018 09:15:00 02/17/2018 23:59: 59 CLS Outpatient Mele Hebert [facility] [id number] 12/01/2018 09:52:00 23:59:59 CLS Outpatient 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 [facility] RAD M79.672 [id number] 10/08/2018 09:23:00 23:59:59 CLS Outpatient 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 [facility] LAB I10 [id number] 04/22/2018 09:27:00 23:59:59 CLS Outpatient 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 [facility] LAB E88.81,E78.2 [id number] 02/08/2018 11:58:00 23:59:59 CLS Preadmit MELE HEBERT MD [facility] REHAB PT [id number] 02/04/2018 09:04:00 23:59:59 CLS Outpatient 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 [facility] RAD PAIN IN LEFT SHOULDER [id number] 01/19/2018 10:37:00 23:59:59 CLS Outpatient 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 [facility] RAD SCREENING [id number] 01/13/2018 09:14:00 23:59:59 CLS Preadmit 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 [facility] RAD PAIN IN LEFT SHOULDER [id number] 01/02/2018 19:03:00 018 22:31:00 DIS Emergency KEILA SHARPE MD [facility] ER FLU LIKE SYMPTOMS [id number] 11/10/2017 18:35:00 018 20:26:00 DIS Emergency DYLAN SIFUENTES [facility] ER ARM PAIN, SHOULDER PAIN , ELEVATED BLOOD PRESSURE, [id number] 07/15/2017 18:32:00 018 19:32:00 DIS Emergency SHERRI PUENTES EXECUTIVE VICE 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 [facility] ER ARTHRITIS IN R LEG/L LE G PAIN, POPPED LAST NIGHT [id number] 04/14/2017 11:19:00 018 23:59:59 CLS Outpatient IMTIAZ BRYANT [facility] CARD I25.10 CAD [id number] 04/06/2017 12:08:00 018 23:59:59 CLS Outpatient DOROTA CABELLO APRN [facility] LAB FATIGUE,DM TYPE II,HYP ERLIPIDEMIA [id number] 03/17/2017 19:03:00 018 23:50:00 DIS Emergency VIOLA GUNN MD [facility] ER COUGH [id number] 12/03/2016 10:11:00 23:59:59 CLS Outpatient MELE HEBERT MD [facility] LAB FATIGUE DM TYPE 2 [id number] 11/11/2016 11:07:00 017 23:59:59 CLS Outpatient JOE MONTANA FACC, GURVINDER NO CC DS [facility] LAB I25.10 E78. 4 [id number] 11/11/2016 09:54:00 017 10:51:00 DIS Emergency SHERRI PUENTES APRN [facility] ER PAIN IN BOTH LEGS [id number] 11/04/2016 09:52:00 017 23:59:59 CLS Outpatient JOE MONTANA FACSamy, GURVINDER NO CC DS [facility] CARD CAD I25.10 [id number] 10/24/2016 14:58:00 017 17:04:00 DIS Emergency LESTER BEACH MD [facility] ER EAR ACHE/TOOTH PAIN [id number] 08/05/2016 14:50:00 017 13:20:00 DIS Outpatient MELE HEBERT MD [facility] REHAB EDEMA; MEASUREMENT FOR COMPRESSION SOCKS [id number] 08/26/2016 10:46:00 017 23:59:59 CLS Outpatient DOROTA CABELLO GHISLAINE [facility] LAB R53.8 E78.5 [id number] 07/27/2016 18:33:00 017 20:14:00 DIS Emergency SHERRI PUENTES APRN [facility] ER KNOT IN BACK [id number] 07/12/2016 19:10:00 017 23:43:00 DIS Emergency RENETTA EARL [facility] ER BOTH LEGS SWOLLEN/MOUT H PAIN [id number] 06/19/2016 20:33:00 017 21:10:00 DIS Emergency SHERRI PUENTES APRN [facility] ER TOOTH PAIN [id number] 05/23/2016 10:45:00 017 23:59:59 CLS Outpatient MELE HEBERT MD [facility] LAB FATIGUE,HYPERLIDEMIA,A BNORMAL GLUCOSE [id number] 04/23/2016 13:22:00 017 10:49:00 DIS Outpatient MELE HEBERT MD [facility] REHAB LOW BACK PAIN [id number] 04/08/2016 09:36:00 017 23:59:59 CLS Outpatient MELE HEBERT MD [facility] RAD SCREENING [id number] 03/04/2016 11:55:00 017 23:59:59 CLS Outpatient MELE HEBERT MD [facility] RAD M46.04 [id number] 02/20/2016 17:01:00 017 19:38:00 DIS Emergency RENETTA EARL [facility] ER LOWER BACK PAIN [id number] 01/16/2016 15:08:00 016 16:29:00 DIS Emergency SHERRI PUENTES APRN [facility] ER LEG SWELLING [id number] 01/11/2016 10:07:00 016 23:59:59 CLS Outpatient MELE HEBERT MD [facility] LAB ELEVATED BLOOD SUGAR [id number] 12/24/2015 19:34:00 20:36:00 DIS Emergency SHERRI PUENTES EXECUTIVE VICE 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 [facility] ER SORE THROAT, VOMITING [id number] 11/28/2015 10:59:00 23:59:59 CLS Outpatient IMTIAZ BRYANT [facility] LAB HYPERTENSION [id number] 08/12/2015 11:34:00 016 12:39:00 DIS Emergency VIOLA GUNN MD [facility] ER UPPER BACK ABCE SS [id number] 05/01/2015 15:12:00 10:55:00 DIS Outpatient DOROTA CABELLO APRN [facility] REHAB B LE EDEMA [id number] 06/05/2015 08:19:00 23:59:59 CLS Outpatient IMTIAZ BRYANTP [facility] LAB HYPERLIPIDEMIA [id number] 05/24/2015 09:42:00 10:53:00 DIS Emergency SHERRI PUENTES APRN [facility] ER WHITE SPOTS ON FACE [id number] 05/22/2015 19:44:00 06:55:00 DIS Outpatient CHRIS CORDOVA DO [facility] SLEEP SNORING,CHOKING/GASPING DURING SLEEP, [id number] 04/05/2015 20:40:00 08:08:00 DIS Outpatient CHRIS CORDOVA DO [facility] SLEEP SNORING,HTN,MOOD DISORDER,MORINING HEADACHE [id number] 02/04/2015 22:30:00 15:30:00 DIS Inpatient HIREN STYLES MD [facility] ICU CHEST PAIN [id number] 11/29/2014 09:02:00 23:59:59 CLS Outpatient IMTIAZ BRYANT EDUCATIONAL ADVISOR [facility] LAB CAD,HLP [id number] 11/29/2014 08:58:00 23:59:59 CLS Outpatient DOROTA CABELLO EXECUTIVE VICE 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 [facility] LAB ABNORMAL GLUCOSE [id number] 10/19/2014 14:22:00 015 23:59:59 CLS Outpatient DOROTA CABELLO EXECUTIVE VICE 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 [facility] LAB MALAISE,FATIGUE,HLP [id number] 10/03/2014 09:46:00 23:59:59 CLS Outpatient DOROTA CABELLO EXECUTIVE VICE 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 [facility] RAD SOB [id number] 09/19/2014 10:44:00 23:59:59 CLS Outpatient DOROTA CABELLO EXECUTIVE VICE 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 [facility] RAD SCREENING [id number] 08/22/2014 18:56:00 015 19:11:00 DIS Emergency SHERRI PUENTES APRN [facility] ER NAUSEA,DIZZINESS,SORE T HROAT [id number] 08/15/2014 13:59:00 015 23:59:59 CLS Outpatient ANUP MONTANA, MELE Rose [facility] RAD LBP,RADICULAR PAIN RT LEG [id number] 08/05/2014 17:17:00 015 19:34:00 DIS Emergency SHERRI PUENTES APRN [facility] ER VISION PROBLEMS/LEG PRO BLEMS [id number] 07/28/2014 11:55:00 015 23:59:59 CLS Outpatient IMTIAZ BRYANT [facility] RAD EDEMA OF RIGHT LOWER EXTREMITY [id number] 09/23/2013 11:27:00 014 23:59:59 CLS Outpatient IMTIAZ BRYANT [facility] LAB CAD,HTN,HYPERLIPADEMIA,IMPARIED FASTING GLUCOSE, [id number] 09/16/2013 08:33:00 014 10:31:00 DIS Emergency LESTER BEACH MD [facility] ER KNEE PAIN [id number] 09/13/2013 13:43:00 08/06/2 014 16:40:00 DIS Inpatient MELE HEBERT MD [facility] ICU CHEST PAIN HTN [id number] 09/13/2013 09:50:00 23:59:59 CLS Outpatient MELE HEBERT MD [facility] RAD ROUTINE [id number] 09/05/2013 09:13:00 23:59:59 CLS Outpatient IMTIAZ BRYANT [facility] LAB CAD,HYPERLIPIDE WAYLON [id number] 05/10/2013 11:36:00 23:59:59 CLS Outpatient ALISON ALVAREZ MD [facility] RAD HEMATURIA [id number] 03/30/2013 09:50:00 08:16:00 DIS Outpatient RUSS HERNANDEZ [facility] REHAB PLANTAR FASCITIS R FOOT [id number] 03/10/2013 12:01:00 23:59:59 CLS Outpatient IMTIAZ BRYANT [facility] LAB STATIN TX,HTN,HYPERLIPADEMIA [id number] 02/02/2013 13:29:00 16:15:00 DIS Emergency HAN ANG CHENTE Daley [facility] ER BACK PAIN [id number] 09/27/2012 08:17:00 23:59:59 CLS Outpatient JOE MONTANA FACC, GURVINDER NO CC DS [facility] LAB HTN [id number] 09/02/2012 09:29:00 23:59:59 CLS Outpatient MELE HEBERT MD [facility] RAD SCREENING [id number] 08/31/2012 10:06:00 23:59:59 CLS Outpatient [id number] 08/02/2012 08:30:00 23:59:59 CLS Outpatient IMTIAZ BRYANT [facility] LAB HYPERLIPIDEMIA [id number] 07/28/2014 11:57:00 Document Registration [id number] 04/07/2014 09:51:00 Document Registration [id number] 04/26/2012 10:17:00 Document Registration [id number] 01/15/2012 12:01:00 Document Registration [id number] 12/02/2011 08:36:00 Document Registration [id number] 11/27/2011 06:46:00 Document Registration [id number] 11/24/2011 08:28:00 Document Registration [id number] 11/19/2011 14:39:00 Document Registration [id number] 09/03/2011 09:50:00 Document Registration [id number] 08/26/2011 08:46:00 Document Registration [id number] 02/15/2010 13:12:00 Document Registration [id number] 11/24/2009 11:23:00 Document Registration [id number] 11/21/2009 06:01:00 Document Registration [id number] 11/14/2009 10:01:00 Document Registration [id number] 09/21/2009 13:23:00 Document Registration [id number] 09/20/2009 15:47:00 Document Registration [id number] 08/24/2009 07:11:00 Document Registration [id number] 11/01/2012 09:51:00 11/01/2012 23:59: 59 SHIV Sood DO
== END 2019-08-31 11:11 | disposition home or self-care (01) ==
LOC: EDUNIT# 10:41 → ER 10:42
DX: B02.9 Zoster without complications (principal); I10 Essential (primary) hypertension; I25.10 Atherosclerotic heart disease of native coronary artery without angina pectoris; E78.00 Pure hypercholesterolemia, unspecified; K21.9 Gastro-esophageal reflux disease without esophagitis; F32.9 Major depressive disorder, single episode, unspecified; M17.11 Unilateral primary osteoarthritis, right knee; Z88.0 Allergy status to penicillin; Z79.82 Long term (current) use of aspirin; Z79.52 Long term (current) use of systemic steroids; W17.89XA Other fall from one level to another, initial encounter
CPT/HCPCS: 99282

== ENCOUNTER 2021-11-13 13:43 | Emergency (ER) | payer MEDICAID ==
[~2021-11-13] VITALS: Ht 160 cm; Wt 133.0 kg
[~2021-11-13 13:43] MED LIST changes: +AMLO-250 PO; -AMLO5TAB9 PO; +CLIN-144 PO; -CLIN150C17 PO; +CLIN150C20 PO; -CLIN300C11 PO; +CYCL10TA25 PO; +HYDR-3870 PO; +MONT-40 PO; -MONT10TA26 PO; -PANT40TA3 PO; +PANT40TA52 PO; +PRED10TA22 PO; +VALA10007 PO
[2021-11-13] MEDS ORDERED: NS IV 1000 ML 1,000 ML IV SCH (14:00)
[2021-11-13 14:10] LABS: BASOPHILS % (AUTO) 0 % (0-10); EOSINOPHILS % (AUTO) 0 % (0-10); HEMATOCRIT 38 % (35-52); HEMOGLOBIN 12.9 g/dL (11.5-16.0); LYMPHOCYTES # (AUTO) 1.9 10^3/uL (1.0-4.0); LYMPHOCYTES % (AUTO) 31 % (12-44); MEAN CORPUSCULAR HEMOGLOBIN 27 pg (25-34); MEAN CORPUSCULAR HGB CONC 34 g/dL (32-36); MEAN CORPUSCULAR VOLUME 79 fL (80-99); MEAN PLATELET VOLUME 8.8 fL (9.0-12.2); MONOCYTES # (AUTO) 0.6 10^3/uL (0.0-1.0); MONOCYTES % (AUTO) 9 % (0-12); NEUTROPHILS # (AUTO) 3.7 10^3/uL (1.8-7.8); NEUTROPHILS % (AUTO) 60 % (42-75); PLATELET COUNT 267 10^3/uL (130-400); POTASSIUM 3.7 MMOL/L (3.6-5.0); WHITE BLOOD COUNT 6.2 10^3/uL (4.3-11.0)
[2021-11-13 14:19] LABS: CALCIUM 8.6 MG/DL (8.5-10.1)
[2021-11-13 14:23] LABS: CREATININE SERUM 0.96 MG/DL (0.60-1.30)
[2021-11-13 14:25] LABS: MAGNESIUM 1.6 MG/DL (1.6-2.4)
--- NOTE | 2021-11-13 14:41 | Diagnostic Imaging Report ---
INDICATION: Right elbow injury from a fall. FINDINGS: Three views of the right elbow show no fracture, dislocation or pathologic effusion. IMPRESSION: Negative right elbow. Dictated by: Dictated on workstation # [id number]
[2021-11-13 15:30] LABS: BILIRUBIN,URINE NEGATIVE (NEGATIVE); CLARITY,URINE CLEAR; COLOR,URINE YELLOW; GLUCOSE, URINE (UA) 3+ (NEGATIVE); KETONES,URINE NEGATIVE (NEGATIVE); LEUKOCYTE ESTERASE ,URINE NEGATIVE (NEGATIVE); NITRITE,URINE POSITIVE (NEGATIVE); PROTEIN,URINE NEGATIVE (NEGATIVE)
[2021-11-13 15:47] LABS: BACTERIA,URINE LARGE /HPF; SQUAMOUS EPITHELIAL CELL,UR 0-2 /HPF; WBC,URINE 0-2 /HPF
[2021-11-13] MEDS ORDERED: metFORMIN 500 MG (GLUCOPHAGE) TAB PO ONE (17:00)
[2021-11-13] MEDS ORDERED: NITROFURANTOIN 100 MG (MACROBID) CAPSULE PO ONE (17:00)
[2021-11-13] MEDS ORDERED: LOSARTAN 50 MG (COZAAR) TAB PO ONE (17:00)
--- NOTE | 2021-11-13 17:03 | ED General ---
General Chief Complaint: Trauma-Non Activation Stated Complaint: FALL Nursing Triage Note: PT TO [facility] BY [facility] WITH CC OF FALL WHILE WALKING THROUGH THE PARKING LOT AT [employer]. PT GOT DIZZY AND WENT TO THE GROUND CC OF PAIN ON RT FOREARM WITH ABRASION, CHRONIC BACK PAIN IS WORSE AND PAIN IN RT KNEE. SHE STATES THIS HAPPENS SOMETIMES. PT STATES HX OF GLUCOSE ISSUES, DIABETIC, FINGER STICK IS 445 AT TRIAGE. Source of Information: Patient Exam Limitations: No Limitations History of Present Illness Date Seen by Provider: Nov 13, 2021 Allergies and Home Medications Allergies Coded Allergies: Penicillins (Unverified Allergy, Mild, 11/10/17) Patient Home Medication List Amlodipine Besylate (Amlodipine Besylate) 5 Mg Tablet, 5 MG PO DAILY, (Reported) Entered as Reported by: ELIZABETH SINGH on 02/05/15 0845 Aspirin (Aspirin Ec 81 Mg) 81 Mg Tabec, 81 MG PO DAILY, (Reported) Entered as Reported by: BETH ULRICH on 11/27/11 1120 Atorvastatin Calcium (Atorvastatin Calcium) 20 Mg Tablet, 20 MG PO HS, (Reported) Entered as Reported by: ELIZABETH SINGH on 02/05/15 0845 Blood-Glucose Meter (tolingouch Ultra2) 1 Each Kit, (Reported), (DME) Entered as Reported by: ALIA SURESH on 06/19/162041 Cyclobenzaprine HCl (Cyclobenzaprine HCl) 10 Mg Tablet, 10 MG PO Q8H PRN for SPASMS Prescribed by: RENETTA PRATHER on 02/20/16 1925 Cyclobenzaprine HCl (Cyclobenzaprine HCl) 5 Mg Tablet, 5 MG PO TID PRN for BACK PAIN Prescribed by: SHERRI PUENTES on 11/11/16 1050 Furosemide (Lasix) 40 Mg Tablet, 40 MG PO DAILY, (Reported) Entered as Reported by: FELICITAS VALDOVINOS on 05/24/15 0955 Hydrochlorothiazide (Hydrochlorothiazide) 25 Mg Tablet, 25 MG PO DAILY, (Repor naomi) Entered as Reported by: ELIZABETH SINGH on 02/05/15 0845 Hydrocodone Bit/Acetaminophen (Lortab 5 Mg Tablet) 1 Each Tablet, (Reported) Entered as Reported by: YASMIN YARBROUGH on 11/11/16 1042 Hydrocodone/Acetaminophen (Hydrocodone/Acetaminophen 5 MG/325 MG TAB) 1 Each Tablet, 1 EACH PO 4 times a day Prescribed by: LESTER BEACH on 10/24/16 1651 Hydrocodone/Acetaminophen (Lorcet 5-325 mg Tablet) 1 Each Tablet, 1 EACH PO Q4- 6HR PRN for PAIN-MODERATE Prescribed by: SHERRI PUENTES on 08/31/19 1103 Lancets (Onetouch Delica) 1 Each Each, (Reported), (DME) Entered as Reported by: ALIA SURESH on 06/19/162041 Lidocaine HCl (Lidocaine HCl) 30 Ml Jel..ml., 2 ML MM BID PRN Prescribed by: SHERRI PUENTES on 06/19/162101 Loratadine (Claritin) 10 Mg Capsule, 10 MG PO DAILY Prescribed by: SHERRI PUENTES on 08/22/141904 Losartan Potassium (Losartan Potassium) 100 Mg Tablet, 100 MG PO DAILY Prescribed by: LOYD LINDSEY on 11/13/211717 Meloxicam (Meloxicam) 15 Mg Tablet, 15 MG PO DAILY, (Reported) Entered as Reported by: ELIZABETH SINGH on 02/05/15 08 Metformin HCl (Metformin HCl) 500 Mg Tablet, (Reported) Entered as Reported by: WERNER CISNEROS on 07/12/162004 Metformin HCl (Metformin HCl) 500 Mg Tablet, 500 MG PO BID Prescribed by: LOYD LINDSEY on 11/13/211717 Metoprolol Tartrate (Metoprolol Tartrate) 50 Mg Tablet, 50 MG PO BID, (Reported) Entered as Reported by: ELIZABETH SINGH on 02/05/15 0845 Metoprolol Tartrate (Metoprolol Tartrate) 50 Mg Tablet, 50 MG PO BID Prescribed by: SHERRI PUENTES on 08/31/19 110 Montelukast Sodium (Montelukast Sodium) 10 Mg Tablet, 10 MG PO HS, (Reported) Entered as Reported by: ELIZABETH SINGH on 02/05/15 0845 Nitrofurantoin Macrocrystal (Nitrofurantoin) 100 Mg Capsule, 100 MG PO BID Prescribed by: KEILA SHARPE on 01/02/18 2138 Nitrofurantoin Monohyd/M-Cryst (Macrobid 100 mg Capsule) 100 Mg Capsule, 1 TAB PO BID Prescribed by: LOYD LINDSEY on 11/13/21 1718 Blomkest-3 Fatty Acids/Fish Oil (Fish Oil 1,000 Mg Softgel) 1 Each Capsule, 1,000 MG PO DAILY, (Reported) Entered as Reported by: CHANG GOODRICH on 09/13/13 1510 Ondansetron (Ondansetron Odt) 4 Mg Tab.rapdis, 4 MG PO Q6H PRN for NAUSEA/VOMITING Prescribed by: KEILA SHARPE on 01/02/18 2138 Orphenadrine Citrate (Orphenadrine Citrate) 100 Mg Tablet.er, 100 MG PO BID PRN for PAIN-MODERATE Prescribed by: SHERRI PUENTES on 07/27/16 1935 Pantoprazole Sodium (Pantoprazole Sodium) 40 Mg Tablet.dr, 40 MG PO DAILY, (Reported) Entered as Reported by: ELIZABETH SINGH on 02/05/15 0845 Prednisone (Prednisone) 20 Mg Tab, 40 MG PO DAILY Prescribed by: SHERRI PUENTES on 11/11/16 1050 Prednisone (Prednisone) 10 Mg Tab.ds.pk, 10 MG PO DAILY Prescribed by: SHERRI PUENTES on 08/31/19 1102 Tramadol HCl (Tramadol HCl) 50 Mg Tablet, 50 MG PO Q6H PRN for PAIN Prescribed by: VIOLA GUNN on 08/12/15 1235 Tramadol HCl (Tramadol HCl) 50 Mg Tablet, 50 MG PO Q4H PRN for pain Prescribed by: RENETTA PRATHER on 07/12/16 2337 Valacyclovir HCl (Valacyclovir) 1,000 Mg Tablet, 1,000 MG PO TID Prescribed by: SHERRI PUENTES on 08/31/19 1102 Venlafaxine HCl (Venlafaxine HCl ER) 150 Mg Cap.er.24h, 1 CAP PO UD, (Reported) Entered as Reported by: ALIA SURESH on 06/19/162041 Past Xqucnmy-Cdpsvv-Yxmqgp Hx Patient Social History Tobacco Use?: No Substance use?: No Alcohol Use?: No Immunizations Up To Date Tetanus Booster (TDap): More than 5yrs Third COVID19 Vaccination Date: YES Seasonal Allergies Seasonal Allergies: No Past Medical History Surgery/Hospitalization HX: CHRONIS BACK PAIN, DIABETIC, GALLBLADDER Surgeries: Yes (D&C, Right knee arthroscopy) Respiratory: No Cardiac: Yes ("blockage in heart" 40-50%) Coronary Artery Disease, Congenital Heart Disease, High Cholesterol, H ypertension Neurological: No Reproductive Disorders: No 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 History: Menopausal Sexually Transmitted Disease: No HIV/AIDS: No Genitourinary: Yes Bladder Infection Gastrointestinal: Yes Gastroesophageal Reflux Musculoskeletal: Yes (Right knee arthritis) Arthritis Endocrine: Yes Diabetes, Non-Insulin dep HEENT: No Cancer: No Psychosocial: Yes Depression Integumentary: No Blood Disorders: No Adverse Reaction/Blood Tranf: No Family Medical History Hypertension 19 FATHER Not obtainable due to adoption G8 BROTHER (GOUT) No Pertinent Family Hx Physical Exam Vital Signs Vital Signs - First Documented 11/13/21 13:44 Temp 36.8 Pulse 101 Resp 20 B/P (MAP) 150/77 (101) Pulse Ox 96 O2 Delivery Room Air Capillary Refill : Less Than 3 Seconds Height, Weight, BMI Height: 5'3.00" Weight: 300lbs. 0.0oz. 136.947735gd; 51.00 BMI Method:Stated Progress/Results/Core Measures Suspected Sepsis SIRS Temperature: Pulse: 101 Respiratory Rate: 20 Laboratory Tests 11/13/21 13:53: White Blood Count 6.2 Blood Pressure 150 /77 Mean: 101 Laboratory Tests 11/13/21 13:53: Creatinine 0.96, Platelet Count 267 Results/Orders Lab Results Laboratory Tests Test 11/13/21 13:53 11/13/21 13:56 11/13/21 15:20 Range/Units White Blood Count 6.2 4.3-11.0 10^3/uL Red Blood Count 4.81 3.80-5.11 10^6/uL Hemoglobin 12.9 11.5-16.0 g/dL Hematocrit 38 35-52 % Mean Corpuscular Volume 79 L 80-99 fL Mean Corpuscular Hemoglobin 27 25-34 pg Mean Corpuscular Hemoglobin Concent 34 32-36 g/dL Red Cell Distribution Width 12.4 10.0-14.5 % Platelet Count 267 130-400 10^3/uL Mean Platelet Volume 8.8 L 9.0-12.2 fL Immature Granulocyte % (Auto) 0 % Neutrophils (%) (Auto) 60 42-75 % Lymphocytes (%) (Auto) 31 12-44 % Monocytes (%) (Auto) 9 0-12 % Eosinophils (%) (Auto) 0 0-10 % Basophils (%) (Auto) 0 0-10 % Neutrophils # (Auto) 3.7 1.8-7.8 10^3/uL Lymphocytes # (Auto) 1.9 1.0-4.0 10^3/uL Monocytes # (Auto) 0.6 0.0-1.0 10^3/uL Eosinophils # (Auto) 0.0 0.0-0.3 10^3/uL Basophils # (Auto) 0.0 0.0-0.1 10^3/uL Immature Granulocyte # (Auto) 0.0 0.0-0.1 10^3/uL Sodium Level 136 135-145 MMOL/L Potassium Level 3.7 3.6-5.0 MMOL/L Chloride Level 105 98-107 MMOL/L Carbon Dioxide Level 22 21-32 MMOL/L Anion Gap 9 5-14 MMOL/L Blood Urea Nitrogen 14 7-18 MG/DL Creatinine 0.96 0.60-1.30 MG/DL Estimat Glomerular Filtration Rate 71 BUN/Creatinine Ratio 15 Glucose Level 496 *H 70-105 MG/DL Calcium Level 8.6 8.5-10.1 MG/DL Magnesium Level 1.6 1.6-2.4 MG/DL Glucometer 445 *H 70-110 MG/DL Urine Color YELLOW Urine Clarity CLEAR Urine pH 6.0 5-9 Urine Specific [place] 1.010 L 1.016-1.022 Urine Protein NEGATIVE NEGATIVE Urine Glucose (UA) 3+ H NEGATIVE Urine Ketones NEGATIVE NEGATIVE Urine Nitrite POSITIVE H NEGATIVE Urine Bilirubin NEGATIVE NEGATIVE Urine Urobilinogen 0.2 < = 1.0 MG/DL Urine Leukocyte Esterase NEGATIVE NEGATIVE Urine RBC (Auto) 3+ H NEGATIVE Urine RBC 2-5 H /HPF Urine WBC 0-2 /HPF Urine Squamous Epithelial Cells 0-2 /HPF Urine Crystals NONE /LPF Urine Bacteria LARGE H /HPF Urine Casts NONE /LPF Urine Mucus NEGATIVE /LPF Urine Culture Indicated YES My Orders Orders - LOYD STARR MD Basic Metabolic Panel (11/13/21 13:59) Cbc With Automated Diff (11/13/21 13:59) Magnesium (11/13/21 13:59) Ua Culture If Indicated (11/13/21 13:59) Ekg Tracing (11/13/21 13:59) Monitor-Rhythm Ecg Trace Only (11/13/21 13:59) Ed Iv/Invasive Line Start (11/13/21 13:59) Ns Iv 1000 Ml (Sodium Chloride 0.9%) (11/13/21 14:00) Accucheck Stat ONCE (11/13/21 13:59) Accucheck Stat ONCE (11/13/21 13:59) Elbow, Right, 3 Views (11/13/21 14:17) Urine Culture (11/13/21 15:20) Losartan Tablet (Cozaar Tablet) (11/13/21 17:00) Nitrofurantoin Capsule,Macro (Macrobid C (11/13/21 17:00) Metformin Tablet (Glucophage Tablet) (11/13/21 17:00) Dipht,Pertuss(Acell),Tet Adult (Boostrix (11/13/21 17:15) Medications Given in ED Current Medications Medications Dose Ordered Sig/Sissy Route Start Time Stop Time Status Last Admin Dose Admin Diphtheria/ Tetanus/Acell Pertussis 0.5 ml ONCE ONCE IM 11/13/21 17:15 11/13/21 17:16 DC 11/13/21 17:57 0.5 ML Losartan Potassium 50 mg ONCE ONCE PO 11/13/21 17:00 11/13/21 17:01 DC 11/13/21 17:56 50 MG Metformin HCl 500 mg ONCE ONCE PO 11/13/21 17:00 11/13/21 17:01 DC 11/13/21 17:56 500 MG Nitrofurantoin Macrocrystals 100 mg ONCE ONCE PO 11/13/21 17:00 11/13/21 17:01 DC 11/13/21 17:56 100 MG Vital Signs/I&O 11/13/21 13:44 Temp 36.8 Pulse 101 Resp 20 B/P (MAP) 150/77 (101) Pulse Ox 96 O2 Delivery Room Air Capillary Refill : Less Than 3 Seconds Blood Pressure Mean: 101 Point of Care Testing Finger Stick Blood Glucose: 346 Blood Glucose Action Taken: INFORMED PROVIDER ECG Initial ECG Impression Date: Nov 13, 2021 Initial ECG Impression Time: 14:12 Initial ECG Rate: 90 Initial ECG Rhythm: Normal Sinus Initial ECG Intervals: Normal Initial ECG Impression: Normal Comment Normal sinus rhythm with no ST elevation or depression. No abnormal intervals or axis deviation. Departure Impression Primary Impression: Hyperglycemia Additional Impressions: Urinary tract infection Qualified Codes: N39.0 - Urinary tract infection, site not specified Hypertension Qualified Codes: I10 - Essential (primary) hypertension Fall on same level Qualified Codes: W18.30XA - Fall on same level, unspecified, initial encounter Abrasion of right elbow Qualified Codes: S50.311A - Abrasion of right elbow, initial encounter Contusion of right elbow Qualified Codes: S50.01XA - Contusion of right elbow, initial encounter Disposition: HOME, SELF-CARE Condition: Improved Departure-Patient Inst. Patient Instructions: Diabetes and Diet, Urinary Tract Infection, Adult ED Add. Discharge Instructions: Drink plenty of water and other sugar-free clear liquids. Eat a low carbohydrate and low sugar diet. Complete your antibiotic as prescribed. Please note this antibiotic may cause your urine to turn an orange or red color. Do not be alarmed by the change in color of your urine. Start metformin as prescribed until your new diabetes medication is available. Check your blood sugars often, preferably fasting in the morning and 2 hours after meals. Follow-up with your doctor soon as possible and review blood sugars at that follow-up appointment. Your blood pressure is very high today. Please increase losartan to 100 mg daily and discuss further with your doctor at your follow-up appointment. A new prescription for losartan 100 mg tablets was sent to the pharmacy. You may replace the 50 mg tablets you have been taking with the new 100 mg tablets. For elbow pain you may take Tylenol (acetaminophen) up to 1000 mg every 6 hours as needed. You may also apply ice in 20-minute intervals. Return to the emergency room if you have worsening symptoms. All discharge instructions reviewed with patient and/or family. Voiced understanding. Scripts Losartan Potassium (Losartan Potassium) 100 Mg Tablet 100 MG PO DAILY, #30 TAB Prov: LOYD STARR MD 11/13/21 Metformin HCl (Metformin HCl) 500 Mg Tablet 500 MG PO BID, #60 TAB Prov: LOYD STARR MD 11/13/21 Nitrofurantoin Monohyd/M-Cryst (Macrobid 100 mg Capsule) 100 Mg Capsule 1 TAB PO BID, #14 CAP Prov: LOYD STARR MD 11/13/21 LOYD STARR MD Nov 13, 2021 17:03
[2021-11-13] MEDS ORDERED: TETANUS,DIPTH,PERTUSS P/F (BOOSTRIX) 0.5 ML VIAL IM ONE (17:15)
[2021-11-13] MEDS ORDERED: METF-397 PO (17:18)
[2021-11-13] MEDS ORDERED: NITR-65 PO (17:18)
[2021-11-13] MEDS ORDERED: LOSA100T57 PO (17:18)
[2021-11-13 18:14] VITALS: BP 170/98
== END 2021-11-13 18:14 | disposition home or self-care (01) ==
LOC: EDUNIT# 13:43 → ER 13:45
DX: S50.01XA Contusion of right elbow, initial encounter (principal); I10 Essential (primary) hypertension; N39.0 Urinary tract infection, site not specified; E11.65 Type 2 diabetes mellitus with hyperglycemia; W18.30XA Fall on same level, unspecified, initial encounter; Y93.01 Activity, walking, marching and hiking; Y92.481 Parking lot as the place of occurrence of the external cause
CPT/HCPCS: 36415; 73080; 80048; 81000; 82947; 83735; 85025; 87077; 87088; 87186; 90471; 90715; 93005; 93041; 96360

== ENCOUNTER 2021-12-28 10:51 | Emergency (ER) | payer MEDICAID ==
[~2021-12-28] VITALS: Ht 160 cm; Wt 122.4 kg
[~2021-12-28 10:51] MED LIST changes: +LOSA100T57 PO; +METF-397 PO
--- NOTE | 2021-12-28 11:14 | ED Chest Pain ---
General Chief Complaint: Chest Pain Stated Complaint: CHEST PAIN Nursing Triage Note: PT PRESENTS TO ED VIA EMS FROM [facility] FOR INCREASED CP WHILE SHE WAS THERE SHOPPING. PT STATES SHE HAD DIARRHEA LAST NIGHT. CP STARTING AT 0900 TODAY AND THEN INCREASING IN INTENSITY WHILE SHE WAS SHOPPING. Source: patient Exam Limitations: no limitations History of Present Illness Date Seen by Provider: Dec 28, 2021 Time Seen by Provider: 10:50 Initial Comments Patient is a 51-year-old female who presents to the emergency department today with a chief complaint of midsternal chest discomfort. She states that she had onset of pain around 9 AM this morning. She states that she started feeling poorly last night having some diarrhea. She took 4 ctnu-ucq-skyavoy Imodium tablets and was able to sleep normally. She states the pain is reproduced with movement as well as touching the area. She denies any associated lightheadedness, palpitations, shortness of breath or sweating. She is not nauseous. She did not take anything for the pain. She was able to go to [facility] and do some shopping however when she got back from [facility] the pain seem to be worse. She rated it at a "8 or 9". She was given 4 baby aspirin in the ambulance which she states seems to have made it a little bit better. She denies recent illnesses such as fevers, cough, shortness of breath or congestion. She does have a history of diabetes and hypertension. No known coronary artery disease. She has had previous heart cath without intervention. She used to see Dr. Packer. Former very light remote smoker. EKG room reviewed at presentation and shows normal sinus rhythm without ectopy, ST segment change or interval concerns. Vital signs are stable All other review of systems reviewed and negative except as stated. 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 SL POLISHING MACHINE OPERATOR HELPER: No Associated Symptoms: denies symptoms Allergies and Home Medications Allergies Coded Allergies: Penicillins (Unverified Allergy, Mild, 11/10/17) Patient Home Medication List Home Medication List Reviewed: Yes Amlodipine Besylate (Amlodipine Besylate) 5 Mg Tablet, 5 MG PO DAILY, (Reported) Entered as Reported by: ELIZABETH SINGH on 02/05/15 0845 Aspirin (Aspirin Ec 81 Mg) 81 Mg Tabec, 81 MG PO DAILY, (Reported) Entered as Reported by: BETH ULRICH on 11/27/11 1120 Atorvastatin Calcium (Atorvastatin Calcium) 20 Mg Tablet, 20 MG PO HS, (Reported) Entered as Reported by: ELIZABETH SINGH on 02/05/15 0845 Blood-Glucose Meter (Casengouch Ultra2) 1 Each Kit, (Reported), (DME) Entered as Reported by: ALIA SURESH on 06/19/162041 Cyclobenzaprine HCl (Cyclobenzaprine HCl) 10 Mg Tablet, 10 MG PO Q8H PRN for SPASMS Prescribed by: RENETTA PRATHER on 02/20/16 192 Cyclobenzaprine HCl (Cyclobenzaprine HCl) 5 Mg Tablet, 5 MG PO TID PRN for BACK PAIN Prescribed by: SHERRI PUENTES on 11/11/16 1050 Furosemide (Lasix) 40 Mg Tablet, 40 MG PO DAILY, (Reported) Entered as Reported by: FELICITAS VALDOVINOS on 05/24/15 0955 Hydrochlorothiazide (Hydrochlorothiazide) 25 Mg Tablet, 25 MG PO DAILY, (Reported) Entered as Reported by: ELIZABETH SINGH on 02/05/15 0845 Hydrocodone Bit/Acetaminophen (Lortab 5 Mg Tablet) 1 Each Tablet, (Reported) Entered as Reported by: YASMIN YARBROUGH on 11/11/16 1042 Hydrocodone/Acetaminophen (Hydrocodone/Acetaminophen 5 MG/325 MG TAB) 1 Each Tablet, 1 EACH PO 4 times a day Prescribed by: LESTER BEACH on 10/24/16 1651 Hydrocodone/Acetaminophen (Lorcet 5-325 mg Tablet) 1 Each Tablet, 1 EACH PO Q4- 6HR PRN for PAIN-MODERATE Prescribed by: SHERRI PUENTES on 08/31/19 1103 Lancets (Onetouch Delica) 1 Each Each, (Reported), (DME) Entered as Reported by: ALIA SURESH on 06/19/162041 Lidocaine HCl (Lidocaine HCl) 30 Ml Jel..ml., 2 ML MM BID PRN Prescribed by: SHERRI PUENTES on 06/19/162101 Loratadine (Claritin) 10 Mg Capsule, 10 MG PO DAILY Prescribed by: SHERRI PUENTES on 08/22/14 190 Losartan Potassium (Losartan Potassium) 100 Mg Tablet, 100 MG PO DAILY Prescribed by: LOYD LINDSEY on 11/13/211717 Meloxicam (Meloxicam) 15 Mg Tablet, 15 MG PO DAILY, (Reported) Entered as Reported by: ELIZABETH SINGH on 02/05/15 08 Metformin HCl (Metformin HCl) 500 Mg Tablet, (Reported) Entered as Reported by: WERNER CISNEROS on 07/12/162004 Metformin HCl (Metformin HCl) 500 Mg Tablet, 500 MG PO BID Prescribed by: LOYD LINDSEY on 11/13/211717 Metoprolol Tartrate (Metoprolol Tartrate) 50 Mg Tablet, 50 MG PO BID, (Reported) Entered as Reported by: ELIZABETH SINGH on 02/05/15844 Metoprolol Tartrate (Metoprolol Tartrate) 50 Mg Tablet, 50 MG PO BID Prescribed by: SHERRI PUENTES on 08/31/191101 Montelukast Sodium (Montelukast Sodium) 10 Mg Tablet, 10 MG PO HS, (Reported) Entered as Reported by: ELIZABETH SINGH on 02/05/15844 Nitrofurantoin Macrocrystal (Nitrofurantoin) 100 Mg Capsule, 100 MG PO BID Prescribed by: KEILA SHARPE on 01/02/182137 Nitrofurantoin Monohyd/M-Cryst (Macrobid 100 mg Capsule) 100 Mg Capsule, 1 TAB PO BID Prescribed by: LOYD LINDSEY on 11/13/211717 Arcade-3 Fatty Acids/Fish Oil (Fish Oil 1,000 Mg Softgel) 1 Each Capsule, 1,000 MG PO DAILY, (Reported) Entered as Reported by: CHANG GOODRICH on 09/13/13 1510 Ondansetron (Ondansetron Odt) 4 Mg Tab.rapdis, 4 MG PO Q6H PRN for NAUSEA/VOMITING Prescribed by: KEILA SHARPE on 01/02/182137 Orphenadrine Citrate (Orphenadrine Citrate) 100 Mg Tablet.er, 100 MG PO BID PRN for PAIN-MODERATE Prescribed by: SHERRI PUENTES on 07/27/161934 Pantoprazole Sodium (Pantoprazole Sodium) 40 Mg Tablet.dr, 40 MG PO DAILY, (Reported) Entered as Reported by: ELIZABETH SINGH on 02/05/15 0845 Prednisone (Prednisone) 20 Mg Tab, 40 MG PO DAILY Prescribed by: SHERRI PUENTES on 11/11/16 1050 Prednisone (Prednisone) 10 Mg Tab.ds.pk, 10 MG PO DAILY Prescribed by: SHERRI PUENTES on 08/31/19 1102 Tramadol HCl (Tramadol HCl) 50 Mg Tablet, 50 MG PO Q6H PRN for PAIN Prescribed by: VIOLA GUNN on 08/12/15 1235 Tramadol HCl (Tramadol HCl) 50 Mg Tablet, 50 MG PO Q4H PRN for pain Prescribed by: RENETTA PRATHER on 07/12/16 2337 Valacyclovir HCl (Valacyclovir) 1,000 Mg Tablet, 1,000 MG PO TID Prescribed by: SHERRI PUENTES on 08/31/19 110 Venlafaxine HCl (Venlafaxine HCl ER) 150 Mg Cap.er.24h, 1 CAP PO UD, (Reported) Entered as Reported by: ALIA SURESH on 06/19/162041 Review of Systems Review of Systems Constitutional: see HPI EENTM: No Symptoms Reported Respiratory: No Symptoms Reported Cardiovascular: Chest Pain Gastrointestinal: Diarrhea Genitourinary: No Symptoms Reported Musculoskeletal: no symptoms reported Skin: no symptoms reported Psychiatric/Neurological: No Symptoms Reported All Other Systems Reviewed Negative Unless Noted: Yes Past Krvbaop-Qayuiu-Numqoj Hx Patient Social History Tobacco Use?: No Substance use?: No Alcohol Use?: No Pt feels they are or have been: No Immunizations Up To Date Tetanus Booster (TDap): More than 5yrs First/Initial COVID19 Vaccinat: YES Second COVID19 Vaccination Tim: YES Third COVID19 Vaccination Date: YES Seasonal Allergies Seasonal Allergies: No Past Medical History Surgery/Hospitalization HX: CHRONIC BACK PAIN, DIABETIC, GALLBLADDER Surgeries: Yes (D&C, Right knee arthroscopy) Gallbladder, Orthopedic Respiratory: No Cardiac: Yes ("blockage in heart" 40-50%) Coronary Artery Disease, Congenital Heart Disease, High Cholesterol, Hypertension Neurological: No 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 Sexually Transmitted Disease: No HIV/AIDS: No Genitourinary: Yes Bladder Infection Gastrointestinal: Yes Gastroesophageal Reflux Musculoskeletal: Yes (Right knee arthritis) Arthritis, Chronic Back Pain Endocrine: Yes Diabetes, Non-Insulin dep HEENT: No Cancer: No Psychosocial: Yes Depression Integumentary: No Blood Disorders: No Adverse Reaction/Blood Tranf: No Family Medical History Hypertension 19 FATHER Not obtainable due to adoption G8 BROTHER (GOUT) No Pertinent Family Hx Physical Exam Vital Signs Vital Signs - First Documented 12/28/21 11:03 Temp 36.2 Pulse 73 Resp 18 B/P (MAP) 173/90 (117) Pulse Ox 97 Capillary Refill : Less Than 3 Seconds Height, Weight, BMI Height: 5'3.00" Weight: 300lbs. 0.0oz. 136.627271ob; 47.00 BMI Method:Stated General Appearance: No Apparent Distress, WD/WN, Obese HEENT: PERRL/EOMI Neck: Normal Inspection, Supple Respiratory: Lungs Clear, Normal Breath Sounds, No Accessory Muscle Use, No Respiratory Distress, Other (tenderness to palpation anterior chest wall along the sternum and mild ttp in the epigastrum) Cardiovascular: Regular Rate, Rhythm, Normal Peripheral Pulses Gastrointestinal: Tenderness (epigastrum) Extremity: Normal Capillary Refill, Normal Range of Motion, No Calf Tenderness Neurologic/Psychiatric: Alert, Oriented x3, No Motor/Sensory Deficits, Normal 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, 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 Norm as Tested Skin: Normal Color, Warm/Dry Progress/Results/Core Measures Results/Orders Lab Results Laboratory Tests Test 12/28/21 10:58 Range/Units White Blood Count 11.4 H 4.3-11.0 10^3/uL Red Blood Count 5.27 H 3.80-5.11 10^6/uL Hemoglobin 14.2 11.5-16.0 g/dL Hematocrit 42 35-52 % Mean Corpuscular Volume 80 80-99 fL Mean Corpuscular Hemoglobin 27 25-34 pg Mean Corpuscular Hemoglobin Concent 34 32-36 g/dL Red Cell Distribution Width 12.9 10.0-14.5 % Platelet Count 297 130-400 10^3/uL Mean Platelet Volume 9.2 9.0-12.2 fL Immature Granulocyte % (Auto) 0 % Neutrophils (%) (Auto) 73 42-75 % Lymphocytes (%) (Auto) 20 12-44 % Monocytes (%) (Auto) 7 0-12 % Eosinophils (%) (Auto) 0 0-10 % Basophils (%) (Auto) 0 0-10 % Neutrophils # (Auto) 8.3 H 1.8-7.8 10^3/uL Lymphocytes # (Auto) 2.2 1.0-4.0 10^3/uL Monocytes # (Auto) 0.8 0.0-1.0 10^3/uL Eosinophils # (Auto) 0.0 0.0-0.3 10^3/uL Basophils # (Auto) 0.0 0.0-0.1 10^3/uL Immature Granulocyte # (Auto) 0.1 0.0-0.1 10^3/uL Sodium Level 136 135-145 MMOL/L Potassium Level 4.3 3.6-5.0 MMOL/L Chloride Level 107 98-107 MMOL/L Carbon Dioxide Level 17 L 21-32 MMOL/L Anion Gap 12 5-14 MMOL/L Blood Urea Nitrogen 16 7-18 MG/DL Creatinine 0.76 0.60-1.30 MG/DL Estimat Glomerular Filtration Rate 94 BUN/Creatinine Ratio 21 Glucose Level 249 H 70-105 MG/DL Calcium Level 9.1 8.5-10.1 MG/DL Troponin I < 0.028 <0.028 NG/ML My Orders Orders - GASTON PARKS MD Ekg Tracing (12/28/21 10:59) Ed Iv/Invasive Line Start (12/28/21 11:13) Cbc With Automated Diff (12/28/21 11:13) Basic Metabolic Panel (12/28/21 11:13) Troponin I Nadya (12/28/21 11:13) Chest 1 View, Ap/Pa Only (12/28/21 11:13) Ketorolac Injection (Toradol Injection) (12/28/21 12:00) Medications Given in ED Current Medications Medications Dose Ordered Sig/Sissy Route Start Time Stop Time Status Last Admin Dose Admin Ketorolac Tromethamine 15 mg ONCE ONCE IVP 12/28/21 12:00 12/28/21 12:01 DC 12/28/21 12:16 15 MG Vital Signs/I&O 12/28/21 11:03 Temp 36.2 Pulse 73 Resp 18 B/P (MAP) 173/90 (117) Pulse Ox 97 Blood Pressure Mean: 117 Progress Progress Note : Time: 12:29 Progress Note Patient seen and evaluated, obese 51-year-old with a history of diabetes and hypertension, no known coronary artery disease with midsternal chest pain onset at 9 AM. Exam reveals tenderness to the chest wall. Stable vital signs. Evaluation today includes physical exam, EKG, chest x-ray, basic labs including a troponin. Labs have been reviewed and are all within normal limits. Troponin is undetectable approximately 3 hours post onset of symptoms. Patient is treated in the ambulance with 4 baby aspirin and after renal function profile was returned to normal was given 15 mg of IV Toradol. Patient was reevaluated, examined and found to have complete relief of her symptoms. I feel secondary to HPI and physical examination she is a low concern for acute coronary syndrome especially because the chest pain was entirely reproducible. Consideration for acute coronary syndrome however due to the above she is low risk. I did advise her that if she has return of symptoms especially associated with sweating, na usea or shortness of breath, palpitations or lightheadedness she should return to the emergency room for reevaluation. She verbalized understanding. I recommended follow-up with her primary care physician she also agrees with this. All questions are sought and answered. Patient is stable for discharge. Initial ECG Impression Date: Dec 28, 2021 Initial ECG Impression Time: 10:57 Initial ECG Rate: 70 Initial ECG Rhythm: Normal Sinus Initial ECG Intervals: Normal Initial ECG Impression: Normal Diagnostic Imaging Diagonstic Imaging: Xray Plain Films/CT/US/NM/MRI: chest Comments [facility], [place] NAME: ROOSEVELT LEIVA [facility] REC#: [id number] PT STATUS: REG ER : 1970 PHYSICIAN: GASTON PARKS MD ADMIT DATE: 12/28/21/ER Signed Date of Exam:12/28/21 CHEST 1 VIEW, AP/PA ONLY INDICATION: Chest pain. Comparison is made with prior exam of 01/02/2018. FINDINGS: The heart size, mediastinal configuration, and pulmonary vascularity are within normal limits. There is no pleural effusion, pneumothorax, or pneumonia. The osseous structures are unremarkable. IMPRESSION: No acute cardiopulmonary abnormality. Dictated by: Dictated on workstation # [id number] Dict: 12/28/21 1130 Trans: 12/28/21 1209 CVB [id number] Interpreted by: VIELKA QUEEN MD Electronically signed by: VIELKA QUEEN MD 12/28/21 1209 Departure Impression Primary Impression: Chest wall pain Disposition: 01 HOME, SELF-CARE Condition: Improved Departure-Patient Inst. Decision time for Depature: 12:31 Referrals: [facility] [place], [place] Patient Instructions: Chest Pain That Is Not Caused by the Heart (DC) Add. Discharge Instructions: You can take wmtw-lde-dotvsbs extra strength Tylenol, 2 tablets every 6 hours as needed for pain or 3 tablets of plsw-zgd-vzpkldy ibuprofen which is 600 mg every 6 hours for pain. Always take ibuprofen with food. Continue your other daily medications as prescribed by your provider at [facility]. If you have a return of chest pain especially pain that causes shortness of breath, nausea, sweating, palpitations or feeling of lightheadedness please come back to the emergency department for reevaluation. Follow-up with your primary care provider in 1 week Copy Copies To 1: SHIV ORTA KATHRYN M MD Dec 28, 2021 11:14
[2021-12-28 11:18] LABS: BASOPHILS % (AUTO) 0 % (0-10); EOSINOPHILS % (AUTO) 0 % (0-10); HEMATOCRIT 42 % (35-52); HEMOGLOBIN 14.2 g/dL (11.5-16.0); LYMPHOCYTES # (AUTO) 2.2 10^3/uL (1.0-4.0); LYMPHOCYTES % (AUTO) 20 % (12-44); MEAN CORPUSCULAR HEMOGLOBIN 27 pg (25-34); MEAN CORPUSCULAR HGB CONC 34 g/dL (32-36); MEAN CORPUSCULAR VOLUME 80 fL (80-99); MEAN PLATELET VOLUME 9.2 fL (9.0-12.2); MONOCYTES # (AUTO) 0.8 10^3/uL (0.0-1.0); MONOCYTES % (AUTO) 7 % (0-12); NEUTROPHILS # (AUTO) 8.3 10^3/uL (1.8-7.8); NEUTROPHILS % (AUTO) 73 % (42-75); PLATELET COUNT 297 10^3/uL (130-400); WHITE BLOOD COUNT 11.4 10^3/uL (4.3-11.0)
[2021-12-28 11:21] LABS: CHLORIDE 107 MMOL/L (98-107); POTASSIUM 4.3 MMOL/L (3.6-5.0); SODIUM 136 MMOL/L (135-145)
[2021-12-28 11:22] LABS: CALCIUM 9.1 MG/DL (8.5-10.1); GLUCOSE 249 MG/DL (70-105)
[2021-12-28 11:24] LABS: CARBON DIOXIDE 17 MMOL/L (21-32)
[2021-12-28 11:26] LABS: CREATININE SERUM 0.76 MG/DL (0.60-1.30); GFR ESTIMATED 94
[2021-12-28 11:27] LABS: BUN/CREATININE RATIO 21
--- NOTE | 2021-12-28 11:31 | Diagnostic Imaging Report ---
INDICATION: Chest pain. Comparison is made with prior exam of 01/02/2018. FINDINGS: The heart size, mediastinal configuration, and pulmonary vascularity are within normal limits. There is no pleural effusion, pneumothorax, or pneumonia. The osseous structures are unremarkable. IMPRESSION: No acute cardiopulmonary abnormality. Dictated by: Dictated on workstation # [id number]
[2021-12-28] MEDS ORDERED: KETOROLAC 30 MG/ML VIAL IVP ONE (12:00)
[2021-12-28 12:44] VITALS: BP 144/93
== END 2021-12-28 12:44 | disposition home or self-care (01) ==
LOC: EDUNIT# 10:51 → ER 10:52
DX: R07.89 Other chest pain (principal); Z87.891 Personal history of nicotine dependence
CPT/HCPCS: 36415; 71045; 80048; 84484; 85025; 93005

== ENCOUNTER 2022-07-28 16:30 | Emergency (ER) | payer MEDICAID ==
[~2022-07-28] VITALS: Ht 160 cm; Wt 117.9 kg
[~2022-07-28 16:30] MED LIST changes: -BLOO-274; -LOSA100T57 PO; +LOSA100T58 PO; -ORPH100T PO; +ORPH100T3 PO; +[UNRECOGNIZED DRUG - CODE]
[2022-07-28] MEDS ORDERED: NS IV 1000 ML 1,000 ML IV STA (16:58)
--- NOTE | 2022-07-28 16:58 | ED Abdominal Pain ---
General Chief Complaint: Abdominal/GI Problems Stated Complaint: VOMITING Nursing Triage Note: PT AMBULATORY TO ER. PT REPORTS MADE SOME HOMEMADE SOUP ON THURSDAY, CONSUMED SOME LAST NIGHT. PT THEN STARTED TO EXPERIENCE HEARTBURN, TOOK HER PROTONIX. PT REPORTS VOMITING STARTED TODAY, UNABLE TO KEEP ANYTHING DOWN. HX OF DIABETES, SUGARS RUNNING IN 200'S TODAY. Source of Information: Patient Exam Limitations: No Limitations History of Present Illness Date Seen by Provider: Jul 28, 2022 Time Seen by Provider: 16:56 Initial Comments Patient is a 52-year-old female who presents to the ED with abdominal pain and vomiting. She states started develop pain in her upper abdomen this morning whe n she up. She reports 8 episodes of nonbilious vomiting without hematemesis. She reports pain 9 out of 10 to her upper abdomen. Pain radiating up into the chest described as burning. History of GERD. She does take Protonix. She states she has not been able to eat or drink since this morning. She did eat some homemade soup this last Thursday. She states she does have a history of diabetes. History of cholecystectomy. Normal urination. Denies history of coronary artery disease. Denies cough, shortness of breath, visual changes, sore throat or ear pain or fever, fever, chills, current chest pain. She does report a frontal headache with the vomiting. She states she feels dehydrated. Patient takes Ozempic and metformin. Allergies and Home Medications Allergies Coded Allergies: Penicillins (Unverified Allergy, Mild, 11/10/17) Patient Home Medication List Home Medication List Reviewed: Yes Amlodipine Besylate (Amlodipine Besylate) 5 Mg Tablet, 5 MG PO DAILY, (Reported) Entered as Reported by: ELIZABETH SINGH on 02/05/15 0845 Aspirin (Aspirin Ec 81 Mg) 81 Mg Tabec, 81 MG PO DAILY, (Reported) Entered as Reported by: BETH ULRICH on 11/27/11 1120 Atorvastatin Calcium (Atorvastatin Calcium) 20 Mg Tablet, 20 MG PO HS, (Reported) Entered as Reported by: ELIZABETH SINGH on 02/05/15 0845 Blood-Glucose Meter (Liquid5uch Ultra2) 1 Each Kit, (Reported), (DME) Entered as Reported by: ALIA SURESH on 06/19/162041 Cyclobenzaprine HCl (Cyclobenzaprine HCl) 10 Mg Tablet, 10 MG PO Q8H PRN for SPASMS Prescribed by: RENETTA PRATHER on 02/20/16 1925 Cyclobenzaprine HCl (Cyclobenzaprine HCl) 5 Mg Tablet, 5 MG PO TID PRN for BACK PAIN Prescribed by: SHERRI PUENTES on 11/11/16 1050 Furosemide (Lasix) 40 Mg Tablet, 40 MG PO DAILY, (Reported) Entered as Reported by: FELICITAS VALDOVINOS on 05/24/15 0955 Hydrochlorothiazide (Hydrochlorothiazide) 25 Mg Tablet, 25 MG PO DAILY, (Reported) Entered as Reported by: ELIZABETH SINGH on 02/05/15 0845 Hydrocodone Bit/Acetaminophen (Lortab 5 Mg Tablet) 1 Each Tablet, (Reported) Entered as Reported by: YASMIN YARBROUGH on 11/11/16 1042 Hydrocodone/Acetaminophen (Hydrocodone/Acetaminophen 5 MG/325 MG TAB) 1 Each Tablet, 1 EACH PO 4 times a day Prescribed by: LESTER BEACH on 10/24/16 1651 Hydrocodone/Acetaminophen (Lorcet 5-325 mg Tablet) 1 Each Tablet, 1 EACH PO Q4- 6HR PRN for PAIN-MODERATE Prescribed by: SHERRI PUENTES on 08/31/19 1103 Lancets (Onetouch Delica) 1 Each Each, (Reported), (DME) Entered as Reported by: ALIA SURESH on 06/19/162041 Lidocaine HCl (Lidocaine HCl) 30 Ml Jel..ml., 2 ML MM BID PRN Prescribed by: SHERRI PUENTES on 06/19/162101 Loratadine (Claritin) 10 Mg Capsule, 10 MG PO DAILY Prescribed by: SHERRI PUENTES on 08/22/14 190 Losartan Potassium (Losartan Potassium) 100 Mg Tablet, 100 MG PO DAILY Prescribed by: LOYD LINDSEY on 11/13/211717 Meloxicam (Meloxicam) 15 Mg Tablet, 15 MG PO DAILY, (Reported) Entered as Reported by: ELIZABETH SINGH on 02/05/15 0845 Metformin HCl (Metformin HCl) 500 Mg Tablet, (Reported) Entered as Reported by: WERNER CISNEROS on 07/12/162004 Metformin HCl (Metformin HCl) 500 Mg Tablet, 500 MG PO BID Prescribed by: LOYD LINDSEY on 11/13/211717 Metoprolol Tartrate (Metoprolol Tartrate) 50 Mg Tablet, 50 MG PO BID, (Reported) Entered as Reported by: ELIZABETH SINGH on 02/05/15 0845 Metoprolol Tartrate (Metoprolol Tartrate) 50 Mg Tablet, 50 MG PO BID Prescribed by: SHERRI PUENTES on 08/31/19 110 Montelukast Sodium (Montelukast Sodium) 10 Mg Tablet, 10 MG PO HS, (Reported) Entered as Reported by: ELIZABETH SINGH on 02/05/15 0845 Nitrofurantoin Macrocrystal (Nitrofurantoin) 100 Mg Capsule, 100 MG PO BID Prescribed by: KEILA SHARPE on 01/02/182137 Nitrofurantoin Monohyd/M-Cryst (Macrobid 100 mg Capsule) 100 Mg Capsule, 1 TAB PO BID Prescribed by: LOYD LINDSEY on 11/13/211717 [place]-3 Fatty Acids/Fish Oil (Fish Oil 1,000 Mg Softgel) 1 Each Capsule, 1,000 MG PO DAILY, (Reported) Entered as Reported by: CHANG GOODRICH on 09/13/13 1510 Ondansetron (Ondansetron Odt) 4 Mg Tab.rapdis, 4 MG PO Q6H PRN for NAUSEA/VOMITING Prescribed by: KEILA SHARPE on 01/02/182137 Ondansetron (Ondansetron Odt) 4 Mg Tab.rapdis, 4 MG SL Q4H PRN for NAUSEA/VOMITING Prescribed by: ANNA FARNSWORTH on 07/28/22 1814 Orphenadrine Citrate (Orphenadrine Citrate) 100 Mg Tablet.er, 100 MG PO BID PRN for PAIN-MODERATE Prescribed by: SHERRI PUENTES on 07/27/16 193 Pantoprazole Sodium (Pantoprazole Sodium) 40 Mg Tablet.dr, 40 MG PO DAILY, (Reported) Entered as Reported by: ELIZABETH SINGH on 02/05/15 0845 Prednisone (Prednisone) 20 Mg Tab, 40 MG PO DAILY Prescribed by: SHERRI PUENTES on 11/11/16 1050 Prednisone (Prednisone) 10 Mg Tab.ds.pk, 10 MG PO DAILY Prescribed by: SHERRI PUENTES on 08/31/19 110 Tramadol HCl (Tramadol HCl) 50 Mg Tablet, 50 MG PO Q6H PRN for PAIN Prescribed by: VIOLA GUNN on 08/12/15 1235 Tramadol HCl (Tramadol HCl) 50 Mg Tablet, 50 MG PO Q4H PRN for pain Prescribed by: RENETTA PRATHER on 07/12/16 2337 Valacyclovir HCl (Valacyclovir) 1,000 Mg Tablet, 1,000 MG PO TID Prescribed by: SHERRI PUENTES on 08/31/19 1102 Venlafaxine HCl (Venlafaxine HCl ER) 150 Mg Cap.er.24h, 1 CAP PO UD, (Reported) Entered as Reported by: ALIA SURESH on 06/19/162041 Review of Systems Review of Systems Constitutional: No chills, No diaphoresis, No dizziness, No fever, No malaise EENTM: No Blurred Vision, No Double Vision, No Eye Pain Respiratory: Denies Cough Cardiovascular: Chest Pain Gastrointestinal: Abdominal Pain; Denies Diarrhea; Nausea, Vomiting Genitourinary: Denies Burning, Denies Discharge, Denies Drainage, Denies [place] quency Musculoskeletal: No back pain, No joint pain Skin: No change in color, No change in hair/nails All Other Systems Reviewed Negative Unless Noted: Yes Past Webnsch-Radjwd-Hapfiv Hx Patient Social History Tobacco Use?: No Substance use?: No Alcohol Use?: No Pt feels they are or have been: No Immunizations Up To Date Tetanus Booster (TDap): More than 5yrs First/Initial COVID19 Vaccinat: RECEIVED, UNK WHEN Second COVID19 Vaccination Tim: RECEIVED, UNK WHEN Third COVID19 Vaccination Date: RECEIVED, UNK WHEN COVID19 Vaccine Policy Specialist: UNK Seasonal Allergies Seasonal Allergies: No Past Medical History Surgery/Hospitalization HX: CHRONIC BACK PAIN, DIABETIC, GALLBLADDER Surgeries: Yes (D&C, Right knee arthroscopy) Gallbladder, Orthopedic Respiratory: No Cardiac: Yes ("blockage in heart" 40-50%) Coronary Artery Disease, Congenital Heart Disease, High Cholesterol, Hypertension Neurological: No 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 Sexually Transmitted Disease: No HIV/AIDS: No Genitourinary: Yes Bladder Infection Gastrointestinal: Yes Gastroesophageal Reflux Musculoskeletal: Yes (Right knee arthritis) Arthritis, Chronic Back Pain Endocrine: Yes Diabetes, Non-Insulin dep HEENT: No Cancer: No Psychosocial: Yes Depression Integumentary: No Blood Disorders: No Adverse Reaction/Blood Tranf: No Family Medical History Hypertension 19 FATHER Not obtainable due to adoption G8 BROTHER (GOUT) No Pertinent Family Hx Physical Exam Vital Signs Vital Signs - First Documented 07/28/22 16:35 Temp 36.7 Pulse 103 Resp 18 B/P (MAP) 149/105 (120) Pulse Ox 94 O2 Delivery Room Air Capillary Refill : Height/Weight/BMI Height: 5'3.00" Weight: 300lbs. 0.0oz. 136.178358bu; 46.00 BMI Method:Stated General Appearance: WD/WN, no apparent distress HEENT: PERRL/EOMI, normal ENT inspection, TMs normal, pharynx normal Neck: non-tender, full range of motion, supple Respiratory: chest non-tender, lungs clear, normal breath sounds, no respiratory distress, no accessory muscle use Cardiovascular: regular rate, rhythm, no edema, no gallop, no JVD Gastrointestinal: normal bowel sounds, soft, tenderness (Epigastric tenderness on palpation. 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, no motor/sensory deficits, alert, normal mood/affect, oriented x 3 Skin: normal color, warm/dry Progress/Results/Core Measures Results/Orders Lab Results Laboratory Tests Test 07/28/22 16:50 07/28/22 17:06 Range/Units White Blood Count 7.8 4.3-11.0 10^3/uL Red Blood Count 5.52 H 3.80-5.11 10^6/uL Hemoglobin 14.8 11.5-16.0 g/dL Hematocrit 44 35-52 % Mean Corpuscular Volume 80 80-99 fL Mean Corpuscular Hemoglobin 27 25-34 pg Mean Corpuscular Hemoglobin Concent 33 32-36 g/dL Red Cell Distribution Width 13.2 10.0-14.5 % Platelet Count 322 130-400 10^3/uL Mean Platelet Volume 9.2 9.0-12.2 fL Immature Granulocyte % (Auto) 0 % Neutrophils (%) (Auto) 66 42-75 % Lymphocytes (%) (Auto) 25 12-44 % Monocytes (%) (Auto) 9 0-12 % Eosinophils (%) (Auto) 0 0-10 % Basophils (%) (Auto) 0 0-10 % Neutrophils # (Auto) 5.2 1.8-7.8 10^3/uL Lymphocytes # (Auto) 1.9 1.0-4.0 10^3/uL Monocytes # (Auto) 0.7 0.0-1.0 10^3/uL Eosinophils # (Auto) 0.0 0.0-0.3 10^3/uL Basophils # (Auto) 0.0 0.0-0.1 10^3/uL Immature Granulocyte # (Auto) 0.0 0.0-0.1 10^3/uL Sodium Level 137 135-145 MMOL/L Potassium Level 3.7 3.6-5.0 MMOL/L Chloride Level 104 98-107 MMOL/L Carbon Dioxide Level 25 21-32 MMOL/L Anion Gap 8 5-14 MMOL/L Blood Urea Nitrogen 10 7-18 MG/DL Creatinine 0.79 0.60-1.30 MG/DL Estimat Glomerular Filtration Rate 89 BUN/Creatinine Ratio 13 Glucose Level 273 H 70-105 MG/DL Calcium Level 9.4 8.5-10.1 MG/DL Corrected Calcium 9.4 8.5-10.1 MG/DL Total Bilirubin 0.8 0.1-1.0 MG/DL Aspartate Amino Transf (AST/SGOT) 38 H 5-34 U/L Alanine Aminotransferase (ALT/SGPT) 46 0-55 U/L Alkaline Phosphatase 117 40-136 U/L Troponin I < 0.028 <0.028 NG/ML Total Protein 7.2 6.4-8.2 GM/DL Albumin 4.0 3.2-4.5 GM/DL Lipase 18 8-78 U/L Urine Color YELLOW Urine Clarity CLEAR Urine pH 5.5 5-9 Urine Specific [place] >=1.030 1.016-1.022 Urine Protein 2+ H NEGATIVE Urine Glucose (UA) 1+ H NEGATIVE Urine Ketones TRACE H NEGATIVE Urine Nitrite NEGATIVE NEGATIVE Urine Bilirubin 2+ H NEGATIVE Urine Urobilinogen 1.0 < = 1.0 MG/DL Urine Leukocyte Esterase NEGATIVE NEGATIVE Urine RBC (Auto) TRACE-I H NEGATIVE Urine RBC 0-2 /HPF Urine WBC 2-5 /HPF Urine Squamous Epithelial Cells 10-25 H /HPF Urine Crystals NONE /LPF Urine Bacteria MODERATE H /HPF Urine Casts PRESENT /LPF Urine Hyaline Casts 0-2 H /LPF Urine Mucus MODERATE H /LPF Urine Culture Indicated NO My Orders Orders - ROSS ROBLES Ekg Tracing (07/28/22 16:54) Troponin I Nadya (07/28/22 16:54) Cbc With Automated Diff (07/28/22 16:54) Comprehensive Metabolic Panel (07/28/22 16:54) Lipase (07/28/22 16:54) Lidocaine 2% Viscous 15 Ml (Xylocaine Vi (07/28/22 17:00) Antacid Suspension (Mylanta Suspension (07/28/22 17:00) Ondansetron Injection (Zofran Injectio (07/28/22 17:00) Ct Abdomen/Pelvis W (07/28/22 16:54) Ns Iv 1000 Ml (Sodium Chloride 0.9%) (07/28/22 16:58) Ua Culture If Indicated (07/28/22 17:05) Iohexol Injection (Omnipaque 350 Mg/Ml 1 (07/28/22 17:30) Ns (Ivpb) (Sodium Chloride 0.9% Ivpb Bag (07/28/22 17:30) Medications Given in ED Current Medications Medications Dose Ordered Sig/Sissy Route Start Time Stop Time Status Last Admin Dose Admin Al Hydrox/Mg Hydrox/Simethicone 30 ml ONCE ONCE PO 07/28/22 17:00 07/28/22 17:01 DC 07/28/22 17:06 30 ML Iohexol 100 ml ONCE ONCE IV 07/28/22 17:30 07/28/22 17:31 DC 07/28/22 17:32 100 ML Lidocaine HCl 15 ml ONCE ONCE PO 07/28/22 17:00 07/28/22 17:01 DC 07/28/22 17:06 15 ML Ondansetron HCl 4 mg ONCE ONCE IVP 07/28/22 17:00 07/28/22 17:01 DC 07/28/22 17:06 4 MG Sodium Chloride 100 ml ONCE ONCE IV 07/28/22 17:30 07/28/22 17:31 DC 07/28/22 17:32 80 ML Vital Signs/I&O 07/28/22 07/28/22 16:35 18:21 Temp 36.7 Pulse 103 85 Resp 18 B/P (MAP) 149/105 (120) 155/92 Pulse Ox 94 96 O2 Delivery Room Air Room Air Blood Pressure Mean: 120 Comment Sinus rhythm, 84 bpm, QRS duration 86 MS, QTc 436 MS Departure Communication (PCP) Previous ER visits, H&P, lab testing. Patient presents to ED with upper abdominal pain with burning in the chest with vomiting. Vomited several times today nonbilious without hematemesis. Epigastric tenderness. History of cholecystectomy. History of GERD currently on Protonix 40 mg. She is diabetic currently on metformin, Jardiance and Ozempic. General lab work, EKG location pain with troponin. Hematology unremarkable. Chemistry showed blood sugar 273. Normal troponin. CT abdomen pelvis due to location of pain was negative for acute abnormality. Received GI cocktail with resolution of pain. Urinalysis without strong evidence of infection. Patient states she is feeling much better after Zofran, liter fluid and GI cocktail. Concern for gastritis versus GERD versus peptic ulcer disease. Recommend continue with Protonix. Will discharge with Zofran. Recommend Tums, Mylanta for burning sensation. Avoid eating late at night. Elevate bed. Recommend clear liquid diet for the next 2 to 3 days and then increase to a bland diet. Recommend follow-up with GI for further evaluation if any worsening symptoms return back to ED. this does not appear cardiac in nature Impression Primary Impression: Abdominal pain Disposition: 01 HOME, SELF-CARE Condition: Stable Departure-Patient Inst. Decision time for Depature: 18:13 Referrals: [facility] (PCP/Family) Primary Care Physician JENARO NOEL DO Patient Instructions: Abdominal Pain, Adult ED Add. Discharge Instructions: Recommend clear liquid diet for the next 2 days. Zofran for nausea. Continue with your Protonix. Follow-up with your PCP in 2 to 3 days for reevaluation. If any worsening symptoms return back to ED All discharge instructions reviewed with patient and/or family. Voiced understanding. Scripts Ondansetron (Ondansetron Odt) 4 Mg Tab.rapdis 4 MG SL Q4H PRN for NAUSEA/VOMITING, #8 TAB Prov: ROSS ROBLES 07/28/22 ROSS ROBLES Jul 28, 2022 16:58
[2022-07-28] MEDS ORDERED: ANTACID SUSP 30 ML UDC (MYLANTA) PO ONE (17:00)
[2022-07-28] MEDS ORDERED: ONDANSETRON 4 MG/2 ML (SDV) Z0FRAN IVP ONE (17:00)
[2022-07-28] MEDS ORDERED: LIDOCAINE 2% VISCOUS 15 ML UDC PO ONE (17:00)
[2022-07-28 17:03] LABS: BASOPHILS % (AUTO) 0 % (0-10); EOSINOPHILS % (AUTO) 0 % (0-10); HEMATOCRIT 44 % (35-52); HEMOGLOBIN 14.8 g/dL (11.5-16.0); LYMPHOCYTES # (AUTO) 1.9 10^3/uL (1.0-4.0); LYMPHOCYTES % (AUTO) 25 % (12-44); MEAN CORPUSCULAR HEMOGLOBIN 27 pg (25-34); MEAN CORPUSCULAR HGB CONC 33 g/dL (32-36); MEAN CORPUSCULAR VOLUME 80 fL (80-99); MEAN PLATELET VOLUME 9.2 fL (9.0-12.2); MONOCYTES # (AUTO) 0.7 10^3/uL (0.0-1.0); MONOCYTES % (AUTO) 9 % (0-12); NEUTROPHILS # (AUTO) 5.2 10^3/uL (1.8-7.8); NEUTROPHILS % (AUTO) 66 % (42-75); PLATELET COUNT 322 10^3/uL (130-400); WHITE BLOOD COUNT 7.8 10^3/uL (4.3-11.0)
[2022-07-28 17:14] LABS: CLARITY,URINE CLEAR; COLOR,URINE YELLOW; GLUCOSE, URINE (UA) 1+ (NEGATIVE); KETONES,URINE TRACE (NEGATIVE); LEUKOCYTE ESTERASE ,URINE NEGATIVE (NEGATIVE); NITRITE,URINE NEGATIVE (NEGATIVE); PH,URINE 5.5 (5-9); PROTEIN,URINE 2+ (NEGATIVE)
[2022-07-28 17:15] LABS: CHLORIDE 104 MMOL/L (98-107); POTASSIUM 3.7 MMOL/L (3.6-5.0); SODIUM 137 MMOL/L (135-145)
[2022-07-28 17:16] LABS: CALCIUM 9.4 MG/DL (8.5-10.1)
[2022-07-28 17:17] LABS: GLUCOSE 273 MG/DL (70-105); TOTAL PROTEIN 7.2 GM/DL (6.4-8.2)
[2022-07-28 17:18] LABS: CARBON DIOXIDE 25 MMOL/L (21-32)
[2022-07-28 17:19] LABS: BILIRUBIN,TOTAL 0.8 MG/DL (0.1-1.0)
[2022-07-28 17:21] LABS: ALKALINE PHOSPHATASE 117 U/L (40-136); CREATININE SERUM 0.79 MG/DL (0.60-1.30); GFR ESTIMATED 89
[2022-07-28 17:22] LABS: BUN/CREATININE RATIO 13
[2022-07-28 17:24] LABS: ALANINE AMINOTRANSFERASE 46 U/L (0-55); LIPASE 18 U/L (8-78)
[2022-07-28 17:27] LABS: BACTERIA,URINE MODERATE /HPF; BILIRUBIN,URINE 2+ (NEGATIVE); HYALINE CASTS, URINE 0-2 /LPF; RBC,URINE 0-2 /HPF
[2022-07-28] MEDS ORDERED: IOHEXOL 350 MG/ML 100 ML (OMNIPAQUE 350) VIAL IV ONE (17:30)
[2022-07-28] MEDS ORDERED: NS 100 ML (IVPB) BAG IV ONE (17:30)
--- NOTE | 2022-07-28 17:50 | Diagnostic Imaging Report ---
EXAMINATION: CT abdomen and pelvis with intravenous contrast. TECHNIQUE: Multiple contiguous axial images were obtained through the abdomen and pelvis after the uneventful administration of intravenous contrast. All CT scans use one or more of the following dose optimizing techniques: automated exposure control, MA and/or KvP adjustment based on patient size and exam type or iterative reconstruction. HISTORY: Abdominal pain. Vomiting. COMPARISON: 09/13/2013. FINDINGS: The heart is unremarkable. The included lung bases are clear. There is hepatic steatosis. No focal hepatic lesions. The gallbladder is surgically absent. The portal vein is patent. Benign cyst is seen in the mid right kidney. No solid renal mass. No hydronephrosis. The urinary bladder is nondistended. The spleen, pancreas, and adrenal glands have a normal appearance. There is no pathologically enlarged mesenteric or retroperitoneal adenopathy. The bowel loops are nondilated. The appendix is visualized in the right lower quadrant and has a normal appearance. There is no free fluid or free air. Small fat-containing periumbilical hernia is seen. No acute osseous abnormalities. Ureters and bladder are grossly normal. There is no free air, loculated collection, or adenopathy in the pelvis. IMPRESSION: 1. No bowel obstruction. No free fluid or free air. 2. Hepatic steatosis. No focal hepatic lesions. Dictated by: Dictated on workstation # [id number]
[2022-07-28] MEDS ORDERED: ONDA4TAB11 SL (18:14)
[2022-07-28 18:21] VITALS: BP 155/92
== END 2022-07-28 18:21 | disposition home or self-care (01) ==
LOC: EDUNIT# 16:30 → ER 16:32
DX: R10.13 Epigastric pain (principal); R11.2 Nausea with vomiting, unspecified; E11.9 Type 2 diabetes mellitus without complications; Z79.84 Long term (current) use of oral hypoglycemic drugs; Z79.899 Other long term (current) drug therapy; Z87.19 Personal history of other diseases of the digestive system
CPT/HCPCS: 36415; 74177; 80053; 81000; 83690; 84484; 85025